=== PATIENT | male | born 1940 | race Caucasian/White ===

== ENCOUNTER 2019-04-25 11:00 | Emergency (ER) | payer OTHER | END 2019-04-25 13:40 | disposition home or self-care (01) | LOC: JER 11:00 ==

== ENCOUNTER 2019-12-18 12:31 | Inpatient (IN) | payer OTHER ==
--- NOTE | 2019-12-18 12:41 | PDOC ---
History of Present Illness - General Chief Complaint: Edema Stated Complaint: EDEMA Time Seen by Provider: 12/18/19 12:41 History Source: Patient Exam Limitations: Language Barrier (barbadian) - History of Present Illness Initial Comments: 12/18/19 12:42 79yM w PMHx HTN, CHF, BPH, venous stasis, DM, diabetic neuropathy presenting w progressive worsening SOB and BLE swelling/pain. Was discharged from [facility] 16d ago for brain bleed, has not been taking any medication. SOB relieved sitting up. Denies fever, cough, chest pain, ABD pain, nausea/vomiting , urinary/bowel mvmt changes. 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 Past History - Past Medical History Allergies/Adverse Reactions: Allergies Allergy/AdvReac Type Severity Reaction Status Date / Time No Known Allergies Allergy Verified 12/18/19 12:43 Home Medications: Ambulatory Orders Aspirin [ASA -] 81 mg PO DAILY 04/25/19 Atenolol [Tenormin -] 50 mg PO DAILY 04/25/19 Atorvastatin Ca [Lipitor] 20 mg PO HS 04/25/19 Clonidine HCl 0.1 mg PO DAILY 04/25/19 Empagliflozin [Jardiance] 10 mg PO DAILY 04/25/19 Furosemide [Lasix] 40 mg PO DAILY 04/25/19 Lisinopril [Prinivil] 20 mg PO DAILY 04/25/19 Metformin HCl [Glucophage] 500 mg PO DAILY 04/25/19 Mirabegron [Myrbetriq] 25 mg PO DAILY 04/25/19 Nifedipine ER [Procardia Xl -] 60 mg PO DAILY 04/25/19 Omeprazole Magnesium [Prilosec Otc] 20 mg PO DAILY 04/25/19 Sitagliptin Phosphate [Januvia] 100 mg PO DAILY 04/25/19 Tamsulosin HCl [Flomax] 0.4 mg PO DAILY 04/25/19 CVA: No COPD: No CHF: Yes Dementia: No Diabetes: Yes GI Disorders: No Disorders: No HTN: Yes Hypercholesterolemia: Yes Liver Disease: No Seizures: No Thyroid Disease: No - Surgical History Abdominal Surgery: No Appendectomy: No Cardiac Surgery: No Cholecystectomy: No Lung Surgery: No Neurologic Surgery: No Orthopedic Surgery: No - Psycho Social/Smoking Cessation Hx Smoking History: Never smoked Have you smoked in the past 12 months: No Hx Alcohol Use: No Drug/Substance Use Hx: No Review of Systems - Review of Systems Constitutional: No: Chills, Fever HEENTM: No: Eye Pain, Nose Pain, Nose Congestion, Throat Pain Respiratory: Yes: Shortness of Breath. No: Cough Cardiac (ROS): No: Chest Pain, Palpitations ABD/GI: No: Abdominal Distended, Constipated, Diarrhea, Nausea, Vomiting : No: Burning, Dysuria Musculoskeletal: No: Back Pain, Joint Pain Integumentary: No: Bruising, Flushing Neurological: No: Headache, Seizure Psychiatric: No: Anxiety, Depression Endocrine: No: Excessive Sweating, Intolerance to Cold, Intolerance to Heat Hematologic/Lymphatic: No: Anemia, Blood Clots *Physical Exam - Physical Exam General Appearance: Yes: Nourished, Appropriately Dressed, Mild Distress HEENT: positive: EOMI, SANDRO, Normal Voice. negative: Scleral Icterus (R), Scleral Icterus (L) Respiratory/Chest: positive: Crackles (lionel). negative: Chest Tender, Rhonchi, Stridor, Wheezing Cardiovascular: positive: Regular Rhythm, Regular Rate, S1, S2. negative: Murmur Gastrointestinal/Abdominal: positive: Normal Bowel Sounds, Soft, Distended. negative: Tender, Organomegaly Extremity: positive: Normal Capillary Refill, Other (BLE 3+ pitting edema w erythema, warmth up to knees, no open ulcers) Integumentary: positive: Normal Color Neurologic: positive: account development representative II-XII NML intact, Fully Oriented, Alert, Normal Response, Motor Strength 5/5, Responsive. negative: Sensory Deficit, Confused, Disoriented ED Treatment Course - LABORATORY CBC & Chemistry Diagram: 12/18/19 14:00 12/18/19 13:30 Medical Decision Making - Medical Decision Making 12/18/19 13:35 CXR cardiomegaly, small R pleural effusion, lionel pulmonary congestion EKG NSR, HR 90, QTc 437, TWI V6 Duplex US 2 legs Hgb 10.9 (baseline) --- 79yM w PMHx HTN, CHF, BPH, venous stasis, DM, diabetic neuropathy presenting w progressive worsening SOB and BLE swelling CHF exacerbation and cellulitis. Low concern for ACS vs PNA Given vanc, tylenol, 40 lasix, 1 inch nitro paste for repeat BP 180/100. Carr placed for accurate I/O. Placed on BiPap 14/, 40% for hypoxia. Admit tele for CHF exacerbation, cellulitis, HTN, acute respiratory failure requiring supplemental O2 Discharge - Discharge Information Problems reviewed: Yes Clinical Impression/Diagnosis: Hypertensive emergency CHF exacerbation Qualifiers: Heart failure type: unspecified Qualified Code(s): I50.9 - Heart failure, unspecified Acute respiratory failure Qualifiers: Respiratory failure complication: unspecified whether with hypoxia or hypercapnia Qualified Code(s): J96.00 - Acute respiratory failure, unspecified whether with hypoxia or hypercapnia Cellulitis Qualifiers: Site of cellulitis: extremity Site of cellulitis of extremity: lower extremity Laterality: right Qualified Code(s): L03.115 - Cellulitis of right lower limb Condition: Improved - Follow up/Referral Referrals: ON STAFF,NOT [Primary Care Provider] - - Patient Discharge Instructions - Post Discharge Activity
[2019-12-18] MEDS ORDERED: ACETAMINOPHEN 1000 MG/100 ML VIAL (NON FORMULARY) IVPB ONE (13:41)
[2019-12-18] MEDS ORDERED: VANCOMYCIN 1 GM in D5W (PRE-DOCKED) 1,000 MG/250 ML IVPB ONE (13:42)
[2019-12-18] MEDS ORDERED: FUROSEMIDE 40 MG/4 ML INJECTABLE VIAL ONE (14:10)
[2019-12-18] MEDS ORDERED: NITROGLYCERIN 2% OINTMENT - 1GM PACKET TD ONE ×2 (14:10→14:27)
[2019-12-18] MEDS ORDERED: VANCOMYCIN 1 GRAM (PRE-DOCKED) 1,000 MG/250 ML BAG IVPB ONE (14:23)
[2019-12-18] MEDS ORDERED: ACETAMINOPHEN INJECTION 100 ML IVPB ONE (14:23)
[2019-12-18] MEDS ORDERED: FUROSEMIDE 40 MG/4 ML INJECTABLE VIAL IVPUSH ONE (14:27)
--- NOTE | 2019-12-18 14:52 | PDOC ---
Documentation entered by Amanda Garica SCRIBE, acting as scribe for Diane Ulloa DO. Diane Ulloa DO: This documentation has been prepared by the Radha arredondo Nirvannie, SCRIBE, under my direction and personally reviewed by me in its entirety. I confirm that the documentation accurately reflects all work, treatment, procedures, and medical decision making performed by me. Attending Attestation - Resident Resident Name: Willie,Lake - ED Attending Attestation I have performed the following: I have examined & evaluated the patient, The case was reviewed & discussed with the resident, I agree w/resident's findings & plan, Exceptions are as noted - HPI HPI: 12/18/19 15:08 The patient is a 79 year old male, with a significant past medical history of HTN, CHF, BPH, DM, venous stasis, and diabetic neuropathy , who presents to the emergency department with progressively worsening shortness of breath (better sitting up) and bilateral lower extremity edema. As per patient, he was recently discharged from [facility] 16 days ago for an intracranial bleed and since then he has not been taking his medications. He denies any recent chest pain. He denies any recent fevers, chills, headache or dizziness. He denies any recent nausea, vomiting, diarrhea or constipation. He denies any recent dysuria, frequency, urgency or hematuria. Allergies: NKDA Primary Care Physician: Dr. Angel Duenas - Physicial Exam PE: 12/18/19 15:08 Constitutional: Awake, alert, oriented. No acute distress. Head: Normocephalic. Atraumatic Eyes: PERRL. EOMI. Conjunctivae are not pale. ENT: Mucous membranes are moist and intact. Posterior pharynx without exudates or erythema. Uvula midline. Neck: Supple. Full ROM. No lymphadenopathy. Cardiovascular: Regular rate. Regular rhythm. S1, S2 regular. Distal pulses are 2+ and symmetric. Pulmonary/Chest: +Bilateral rales. No evidence of respiratory distress. Clear to auscultation bilaterally No wheezing or rhonchi. Abdominal: Soft and non-distended. There is no tenderness. No rebound, guarding or rigidity. No organomegaly. No palpable masses. Good bowel sounds. Back: No CVA tenderness. Musculoskeletal: +Bilateral 3 + pitting edema radiating up to the knees with erythema, increased warmth, and pustules consistent with cellulitis. No cyanosis. No clubbing. Full range of motion in all extremities. No calf tenderness. Radial/pedal pulses are intact and 2+ bilaterally Skin: Skin is warm and dry. No petechiae. No purpura. Neurological: Alert and oriented to person, place, and time. Cranial nerves II -XII are grossly intact. Normal speech. Strength is grossly symmetric. No sensory deficits. Psychiatric: Good eye contact. Normal interaction, affect and behavior. - Medical Decision Making 12/18/19 14:37 79yo male with sob, LE swelling -pt with cellulitis to b/l LE with pustules -red and warm to touch -pt also with rales and tachypnea -concern for chf and le cellulitis -will send labs, ekg, cxr, vanco, cultures, bipap -pt will need admission 12/18/19 14:51 iv lasix, nitropast ordered pt placed on bipap 14/6 pt much more comfortable labs pending 12/18/19 15:21 no elevated wbc pt now resting comfortably 12/18/19 15:26 elevated bnp acute pulmonary edema pleural effusion on xray better on bipap 12/18/19 16:44 resident discussed the case with the admitting team who accepts the patient to service Heart Score/ECG Review - ECG Intrepretation Comment:: 12/18/19 14:51 sinus at 90, 1st degree av block, nl axis, q waves anteroseptally, t wave inversions lateral leads, abnl ekg
[2019-12-18 15:01] LABS: BASO % 0.5 % (0-2.0); EOS % 3.8 % (0-4.5); HEMATOCRIT 35.1 % (35.4-49); HEMOGLOBIN 10.9 GM/dL (11.7-16.9); LYMPH % 27.8 % (8-40); MCH 25.8 pg (25.7-33.7); MCHC 30.9 g/dl (32.0-35.9); MEAN CELL VOLUME 83.4 fl (80-96); MEAN PLT VOLUME 8.5 fl (7.5-11.1); MONO % 10.7 % (3.8-10.2); NEUT % 57.2 % (42.8-82.8); PLATELET COUNT 278 K/MM3 (134-434); RBC 4.21 M/mm3 (4.00-5.60); RDW 19.5 % (11.9-15.9); WHITE BLOOD COUNT 4.8 K/mm3 (4.0-10.0)
[2019-12-18 15:17] LABS: INR 1.25 (0.83-1.09); PROTHROMBIN TIME (PATIENT) 14.8 SEC (9.7-13.0)
[2019-12-18 15:20] LABS: ACTIVATED PTT 30.2 SECONDS (25.2-36.5)
[2019-12-18 15:23] LABS: ALBUMIN 3.1 g/dl (3.4-5.0); BILIRUBIN,TOTAL 0.3 mg/dL (0.2-1); BLOOD UREA NITROGEN 11.1 mg/dL (7-18); CALCIUM 8.5 mg/dL (8.5-10.1); CREATININE 0.8 mg/dL (0.55-1.3); POTASSIUM 4.1 mmol/L (3.5-5.1); TOT PROT 7.3 g/dl (6.4-8.2)
[2019-12-18] MEDS ORDERED: ASPIRIN 81 MG CHEWABLE TABLETS PO ONE (15:26)
[2019-12-18] MEDS ORDERED: ASPIRIN 325 MG ENTERIC COATED TABLET (FP) ONE (16:07)
--- NOTE | 2019-12-18 17:25 | HP ---
CHIEF COMPLAINT: Shortness of breath and leg swelling PCP: retirement DR Frank HISTORY OF PRESENT ILLNESS:The patient is a 79 year old male, with a significant past medical history of HTN, CHF, BPH, DM, venous stasis, and diabetic neuropathy , who presents to the emergency department with progressively worsening shortness of breath (better sitting up) and bilateral lower extremity edema and redness which is worsening for last few days. according to ER he was recently discharged from [facility] 16 days ago for an intracranial bleed and since then he has not been taking his medications but I spoke with the patient and the family did does not remember any visit to [facility] for any reason he just live in a intermediate. He denies any recent chest pain. He denies any recent fevers, chills, headache or dizziness. He denies any recent nausea, vomiting, diarrhea or constipation. He denies any recent dysuria, frequency, urgency or hematuria. ER course was notable for: (1) history of heart failure (2) diabetes (3) leg cellulitis Recent Travel: None PAST MEDICAL HISTORY: Hypertension, CHF, BPH, DM, venous stasis ulcers, diabetic neuropathy, coronary artery disease, BPH PAST SURGICAL HISTORY: He does not remember Social History: No alcohol drug and smoking at this time Smoking: Alcohol: Drugs: Allergies No Known Allergies Allergy (Verified 12/18/19 12:43) HOME MEDICATIONS: Home Medications Medication Instructions Recorded Atorvastatin Ca [Lipitor] 20 mg PO HS 04/25/19 Furosemide [Lasix] 40 mg PO DAILY 04/25/19 Metformin HCl [Glucophage] 500 mg PO BID 04/25/19 Omeprazole Magnesium [Prilosec Otc] 40 mg PO DAILY 04/25/19 Ammonium Lactate [Skin Treatment] 1 applic TL BID 12/18/19 Ascorbic Acid/Ascorbate Sodium 500 mg PO HS 12/18/19 [Vitamin C 500 mg Wafer] Aspirin [Aspirin EC] 81 mg PO DAILY 12/18/19 Cholecalciferol (Vitamin D3) 1,000 unit PO DAILY 12/18/19 [Vitamin D3 -] Docusate Sodium [Colace] 100 mg PO DAILY 12/18/19 Enoxaparin [Lovenox -] 40 mg SQ DAILY 12/18/19 Ferrous Sulfate [Feosol] 300 mg GT HS 12/18/19 Insulin Glargine,Hum.rec.anlog 8 units SQ HS 12/18/19 [Basaglar Kwikpen U-100] Insulin Lispro [Humalog Kwikpen 1 unit SQ AC 12/18/19 U-100] Metoprolol Tartrate 25 mg PO QID 12/18/19 Terazosin HCl [Hytrin] 1 mg PO HS 12/18/19 Physical examination Constitutional: Awake, alert, oriented. No acute distress. Head: Normocephalic. Atraumatic Eyes: PERRL. EOMI. Conjunctivae are not pale. ENT: Mucous membranes are moist and intact. Posterior pharynx without exudates or erythema. Uvula midline. Neck: Supple. Full ROM. No lymphadenopathy. Cardiovascular: Regular rate. Regular rhythm. S1, S2 regular. Distal pulses are 2+ and symmetric. Pulmonary/Chest: +Bilateral rales. No evidence of respiratory distress. Clear to auscultation bilaterally No wheezing or rhonchi. Abdominal: Soft and non-distended. There is no tenderness. No rebound, guarding or rigidity. No organomegaly. No palpable masses. Good bowel sounds. Back: No CVA tenderness. Musculoskeletal: +Bilateral 3 + pitting edema radiating up to the knees with erythema, increased warmth, and pustules consistent with cellulitis. No cyanosis. No clubbing. Full range of motion in all extremities. No calf tenderness. Radial/pedal pulses are intact and 2+ bilaterally Skin: Skin is warm and dry. No petechiae. No purpura. Neurological: Alert and oriented to person, place, and time. Cranial nerves II -XII are grossly intact. Normal speech. Strength is grossly symmetric. No sensory deficits. Psychiatric: Good eye contact. Normal interaction, affect and behavior. Vital Signs - 24 hr 12/18/19 12/18/19 12/18/19 12:35 13:25 13:40 Temperature 97.7 F Pulse Rate 84 Pulse Rate [ Apical] Respiratory 16 Rate Blood Pressure 155/90 Blood Pressure [Right Arm] O2 Sat by Pulse 92 L 91 L 95 Oximetry (%) 12/18/19 12/18/19 12/18/19 13:57 14:15 15:50 Temperature 98.2 F Pulse Rate Pulse Rate [ 32 L Apical] Respiratory Rate Blood Pressure Blood Pressure 205/122 H [Right Arm] O2 Sat by Pulse 99 Oximetry (%) 12/18/19 16:13 Temperature Pulse Rate Pulse Rate [ 88 Apical] Respiratory 22 H Rate Blood Pressure Blood Pressure 155/95 [Right Arm] O2 Sat by Pulse 100 Oximetry (%) Review of system done H EENT no dizziness GI no nausea vomiting history of BPH locomotor complaint leg swelling cardiac complain of shortness of breath negative chest pain respiratory complains of shortness of breath Neuro no history of stroke Endo history of diabetes Locomotor history of arthritis. Laboratory Results - last 24 hr 12/18/19 12/18/19 12/18/19 13:30 14:00 14:00 WBC 4.8 RBC 4.21 Hgb 10.9 L Hct 35.1 L MCV 83.4 MCH 25.8 MCHC 30.9 L RDW 19.5 H Plt Count 278 D MPV 8.5 Absolute Neuts (auto) 2.8 Neutrophils % 57.2 Lymphocytes % 27.8 Monocytes % 10.7 H Eosinophils % 3.8 Basophils % 0.5 Nucleated RBC % 0 PT with INR INR PTT (Actin FS) Sodium 143 Potassium 4.1 Chloride 108 H Carbon Dioxide 29 Anion Gap 6 L BUN 11.1 Creatinine 0.8 Est GFR (CKD-EPI)AfAm 98.47 Est GFR (CKD-EPI)NonAf 84.96 Random Glucose 178 H Lactic Acid Calcium 8.5 Total Bilirubin 0.3 AST 18 ALT 20 Alkaline Phosphatase 81 Creatine Kinase 80 Troponin I 0.07 H B-Natriuretic Peptide 1255.4 H Total Protein 7.3 Albumin 3.1 L 12/18/19 12/18/19 14:00 14:00 WBC RBC Hgb Hct MCV MCH MCHC RDW Plt Count MPV Absolute Neuts (auto) Neutrophils % Lymphocytes % Monocytes % Eosinophils % Basophils % Nucleated RBC % PT with INR 14.80 H INR 1.25 H PTT (Actin FS) 30.2 Sodium Potassium Chloride Carbon Dioxide Anion Gap BUN Creatinine Est GFR (CKD-EPI)AfAm Est GFR (CKD-EPI)NonAf Random Glucose Lactic Acid 2.1 H Calcium Total Bilirubin AST ALT Alkaline Phosphatase Creatine Kinase Troponin I B-Natriuretic Peptide Total Protein Albumin ASSESSMENT/PLAN: 79-year-old male with the acute shortness of breath and also both leg swelling and cellulitis admitted to the hospital for acute worsening of shortness of breath and CHF and cellulitis and positive troponin. Start him on bedrest with DVT prophylaxis BiPAP machine with automatic setting IV diuretic Lasix 40 mg twice a day Unasyn 1.5 g every 6 hourly for cellulitis Aspirin and metoprolol for coronary artery disease For positive troponin will do serial troponin levels. This is probably is a demand ischemia Diabetes will start him on metformin and insulin coverage Prostate enlargement will continue Ramirez and Hyperlipidemia continue atorvastatin For constipation continue docusate. Visit type - Emergency Visit Emergency Visit: Yes ED Registration Date: 12/18/19 Care time: The patient presented to the Emergency Department on the above date and was hospitalized for further evaluation of their emergent condition. - New Patient This patient is new to me today: No - Critical Care Critical Care patient: No
[2019-12-18] MEDS: metFORMIN HCL 500 MG TABLET (FP) PO SCH (18:44)
[2019-12-18] MEDS: AMPICILLIN NA/SULBACTAM NA 1.5 GM in SODIUM CHLORIDE 100 ML IVPB SCH (22:45)
[2019-12-19] MEDS: TERAZOSIN HCL 1 MG CAPSULE PO SCH ×2 (05:29→23:18)
[2019-12-19] MEDS: ATORVASTATIN CA 20 MG TABLET (FP) PO SCH ×2 (05:29→23:19)
[2019-12-19] MEDS: METOPROLOL TARTRATE 50 MG TABLET (FP) PO SCH ×3 (05:30→23:19)
[2019-12-19] MEDS: INSULIN SLIDING SCALE (NOVOLOG) 1 VIAL SQ SCH ×5 (06:11→23:19)
[2019-12-19 06:41] LABS: CALCIUM 8.6 mg/dL (8.5-10.1); CREATININE 0.8 mg/dL (0.55-1.3); POTASSIUM 3.7 mmol/L (3.5-5.1)
[2019-12-19] MEDS: AMPICILLIN NA/SULBACTAM NA 1.5 GM in SODIUM CHLORIDE 100 ML IVPB SCH ×5 (07:26→23:27)
[2019-12-19] MEDS: FUROSEMIDE 40 MG/4 ML INJECTABLE VIAL IVPUSH SCH ×2 (07:26→17:07)
[2019-12-19] MEDS ORDERED: FUROSEMIDE 40 MG/4 ML INJECTABLE VIAL ONE (07:27)
[2019-12-19] MEDS: metFORMIN HCL 500 MG TABLET (FP) PO SCH ×2 (08:00→17:06)
--- NOTE | 2019-12-19 09:21 | EKG ---
Test Reason : Blood Pressure : / mmHG Vent. Rate : 090 BPM Atrial Rate : 090 BPM P-R Int : 202 ms QRS Dur : 088 ms QT Int : 358 ms P-R-T Axes : 041 082 050 degrees QTc Int : 437 ms POOR DATA QUALITY, INTERPRETATION MAY BE ADVERSELY AFFECTED NORMAL SINUS RHYTHM ANTEROSEPTAL INFARCT , AGE UNDETERMINED T WAVE ABNORMALITY, CONSIDER INFERIOR ISCHEMIA ABNORMAL ECG WHEN COMPARED WITH ECG OF 09-OCT-2007 12:30, ANTEROSEPTAL INFARCT IS NOW PRESENT NON-SPECIFIC CHANGE IN ST SEGMENT IN LATERAL LEADS Confirmed by Stefanie Gan ([id number]) on 12/19/2019 9:21:13 AM Referred By: Confirmed By:Stefanie Gan
--- NOTE | 2019-12-19 09:24 | CON.CARD ---
Consult Consult Specialty:: CV - History of Present Illness Chief Complaint: sob History of Present Illness: 79 M here with sob. reports progressively worsening shortness of breath and orthopnea (better sitting up). also with bilateral lower extremity edema and redness provides history of recently discharge from [facility] (16 days ago) for an intracranial bleed and since then he has not been taking his medications although the admitting team d/w'd patient and the family who could not corroborate this history. [facility] resident pt chloé historian. 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 denies feeling sob prior to presentation. currently denies sob, cp, palp. leg swelling persists hosp course: BP to 200/120-->140s/90s trop 0.07-0.08 BNP 1200 PMH: HTN, CHF, BPH, DM, venous stasis, and diabetic neuropathy - Alcohol/Substance Use Hx Alcohol Use: No - Smoking History Smoking history: Never smoked Have you smoked in the past 12 months: No Home Medications - Allergies Allergies/Adverse Reactions: Allergies Allergy/AdvReac Type Severity Reaction Status Date / Time No Known Allergies Allergy Verified 12/18/19 12:43 - Home Medications Home Medications: Ambulatory Orders Atorvastatin Ca [Lipitor] 20 mg PO HS 04/25/19 Furosemide [Lasix] 40 mg PO DAILY 04/25/19 Metformin HCl [Glucophage] 500 mg PO BID 04/25/19 Omeprazole Magnesium [Prilosec Otc] 40 mg PO DAILY 04/25/19 Ammonium Lactate [Skin Treatment] 1 applic TL BID 12/18/19 Ascorbic Acid/Ascorbate Sodium [Vitamin C 500 mg Wafer] 500 mg PO HS 12/18/19 Aspirin [Aspirin EC] 81 mg PO DAILY 12/18/19 Cholecalciferol (Vitamin D3) [Vitamin D3 -] 1,000 unit PO DAILY 12/18/19 Docusate Sodium [Colace] 100 mg PO DAILY 12/18/19 Enoxaparin [Lovenox -] 40 mg SQ DAILY 12/18/19 Ferrous Sulfate [Feosol] 300 mg GT HS 12/18/19 Insulin Glargine,Hum.rec.anlog [Basaglar Kwikpen U-100] 8 units SQ HS 12/18/19 Insulin Lispro [Humalog Kwikpen U-100] 1 unit SQ AC 12/18/19 Metoprolol Tartrate 25 mg PO QID 12/18/19 Terazosin HCl [Hytrin] 1 mg PO HS 12/18/19 Family Medical History Family History: Denies (denies known CMP) Review of Systems - Review of Systems Constitutional: denies: Chills, Fever Eyes: denies: Eye Pain HENT: denies: Nasal Congestion Neck: denies: Stiffness Cardiovascular: denies: Palpitations Respiratory: denies: Orthopnea, PND Gastrointestinal: denies: Diarrhea, Rectal Bleeding Genitourinary: denies: Burning, Hematuria Musculoskeletal: denies: Muscle Pain Integumentary: denies: Rash Neurological: denies: Numbness, Seizure, Syncope Endocrine: denies: Excessive Sweating Hematology/Lymphatic: denies: Excessive Bleeding Vital Signs: Vital Signs Temperature 98.2 F 12/18/19 23:09 Pulse Rate 106 H 12/19/19 06:17 Respiratory Rate 18 12/19/19 06:17 Blood Pressure 145/96 12/19/19 06:17 O2 Sat by Pulse Oximetry (%) 97 12/19/19 06:17 Constitutional: Yes: Well Nourished, No Distress Eyes: No: Sclera Icterus HENT: No: Nasal Congestion Neck: No: Decreased ROM Respiratory: Yes: Rales (bases). No: Accessory Muscle Use, Wheezes Gastrointestinal: Yes: Normal Bowel Sounds. No: Distention, Hepatomegaly, Palpable Mass, Tenderness Cardiovascular: Yes: Regular Rate and Rhythm JVD: Yes Carotid Bruit: No PMI: Non-Displaced Heart Sounds: Yes: S1, S2. No: Gallop Murmur: No: Systolic Murmur, Diastolic Murmur Musculoskeletal: Yes: Other (No kyphosis) Extremities: No: Cool, Cyanosis Edema: Yes (trace pretib, mild eryth) Peripheral Pulses: 2+ Left Carotid, 2+ Right Carotid, 2+ Left Doralis Pedis, 2+ Right Dorsalis Pedis Integumentary: No: Jaundice Neurological: Yes: Alert. No: Seizure Psychiatric: No: Agitated - Other Data Labs, Other Data: CBC, BMP 12/18/19 14:00 12/19/19 05:48 INR, PTT INR 1.25 (0.83-1.09) H 12/18/19 14:00 Troponin, BNP 12/18/19 12/18/19 12/18/19 13:30 14:00 16:50 Troponin I 0.07 H 0.08 H B-Natriuretic Peptide 1255.4 H Troponin, BNP 12/18/19 12/18/19 12/18/19 13:30 14:00 16:50 Troponin I 0.07 H 0.08 H B-Natriuretic Peptide 1255.4 H Assessment/Plan CXR: cardiomegaly, prominent hilar markings, minimal congestive changes, R effusion. + loop recorder implant seen ECG: NSR, ? old AWMI, NSST-Ts (nonspecifically changed vs 2006) acute on chronic CHF, ? type, h/o venous ins'y: -congestion on cxr (though notably effusion is unilateral--? chronic/loculated) -BNP 1200, no priors available. CXR with fluid. ? JVD (not convincing) -cardiomegaly, no details of prior echo -check echo (not on HFrEF meds per home list) -lasix 40 po qd at home--agree with 40 IV bid for now but suspect may not need this much -bp mgmt -local mgmt of LEs per hospitalist -has loop recorder implant, ? arrhythmia history--rec obtaining supplemental info from orin or other outpt treating telescope operator to clarify HTN: -initially severely elevated, much improved this AM -cont current meds for now, observe trend DM: -per hospitalist
[2019-12-19] MEDS: DOCUSATE SODIUM 100 MG CAPSULE (FP) PO SCH (11:30)
[2019-12-19] MEDS: ENOXAPARIN NA (PORCINE) 40 MG/0.4 ML DISP.SYRIN SQ SCH (11:47)
[2019-12-19] MEDS: ASPIRIN COATED 81 MG TABLET.EC PO SCH (11:47)
[2019-12-19] MEDS: PANTOPRAZOLE 40 MG TABLET PO SCH (11:48)
[2019-12-19] MEDS: CHOLECALCIFEROL (VIT D3) 1,000 UNIT (25 MCG) TABLET PO SCH (11:48)
--- NOTE | 2019-12-19 12:54 | PN ---
Progress Note, Physician Chief Complaint: SOB resolving with BiPap and lasix. LE remain tender with edema - Current Medication List Current Medications: Active Medications Aspirin (Ecotrin -) 81 mg PO DAILY [facility] Last Admin: 12/19/19 11:47 Dose: 81 mg Atorvastatin Calcium (Lipitor -) 20 mg PO HS [facility] Last Admin: 12/19/19 05:29 Dose: Not Given Cholecalciferol (Vitamin D3 -) 1,000 unit PO DAILY [facility] Last Admin: 12/19/19 11:48 Dose: 1,000 unit Docusate Sodium (Colace -) 100 mg PO DAILY [facility] Last Admin: 12/19/19 11:30 Dose: 100 mg Enoxaparin Sodium (Lovenox -) 40 mg SQ DAILY [facility] Last Admin: 12/19/19 11:47 Dose: 40 mg Furosemide (Lasix Injection -) 40 mg IVPUSH BID@0600,1400 [facility] Last Admin: 12/19/19 07:26 Dose: 40 mg Ampicillin Sodium/Sulbactam (Sodium 1.5 gm/ Sodium Chloride) 100 mls @ 200 mls/ hr IVPB Q6H-IV [facility] Last Admin: 12/19/19 11:32 Dose: Not Given Insulin Aspart (Novolog Vial Sliding Scale -) 1 vial SQ ACHS [facility]; Protocol Last Admin: 12/19/19 11:49 Dose: 6 units Metformin HCl (Glucophage -) 500 mg PO BIDAC [facility] Last Admin: 12/19/19 08:00 Dose: 500 mg Metoprolol Tartrate (Lopressor -) 50 mg PO BID [facility] Last Admin: 12/19/19 11:47 Dose: 50 mg Pantoprazole Sodium (Protonix -) 40 mg PO DAILY [facility] Last Admin: 12/19/19 11:48 Dose: 40 mg Terazosin HCl (Hytrin -) 1 mg PO HS [facility] Last Admin: 12/19/19 05:29 Dose: Not Given - Objective Vital Signs: Vital Signs Temperature 98.2 F 12/18/19 23:09 Pulse Rate 105 H 12/19/19 11:49 Respiratory Rate 18 12/19/19 11:49 Blood Pressure 169/77 12/19/19 11:49 O2 Sat by Pulse Oximetry (%) 98 12/19/19 11:49 Constitutional: Yes: Well Nourished, No Distress, Calm Eyes: Yes: WNL, Conjunctiva Clear HENT: Yes: WNL Neck: Yes: WNL, Supple, Trachea Midline Cardiovascular: Yes: WNL, Regular Rate and Rhythm Respiratory: Yes: Diminished, On BiPap (at night), On Nasal O2 (2L), Rales ( scattered) Gastrointestinal: Yes: WNL, Normal Bowel Sounds ...Rectal Exam: Yes: Deferred Genitourinary: Yes: WNL Breast(s): Yes: WNL Musculoskeletal: Yes: WNL Extremities: Yes: Erythema Edema: Yes Edema: LLE: 2+, RLE: 2+ Integumentary: Yes: Erythema, Other (erythema to LE) Neurological: Yes: WNL, Alert, Oriented ...Motor Strength: WNL Psychiatric: Yes: WNL Labs: CBC, BMP 12/18/19 14:00 12/19/19 05:48 INR, PTT INR 1.25 (0.83-1.09) H 12/18/19 14:00 - ....Imaging Chest X-ray: Image Reviewed (Increased pulmnary markings, right pleural effusion ) Problem List - Problems (1) HTN (hypertension) Assessment/Plan: normotensive c/w hyrtin Code(s): I10 - ESSENTIAL (PRIMARY) HYPERTENSION (2) Venous stasis Code(s): I87.8 - OTHER SPECIFIED DISORDERS OF VEINS (3) Diabetic neuropathy Code(s): E11.40 - TYPE 2 DIABETES MELLITUS WITH DIABETIC NEUROPATHY, UNSP (4) Prophylactic measure Assessment/Plan: FEN Fluids: no additional IVF, on diuretics Electrolytes: replete as indicated Nutrition: diabletic diet DVT prophylaxis: lovenox, oob, ambulation Dispo: continues to require inpatient care. Full code discharge planning Code(s): Z29.9 - ENCOUNTER FOR PROPHYLACTIC MEASURES, UNSPECIFIED (5) CHF exacerbation Assessment/Plan: c/w lasix 40mg BID clinically improved daily weights TTE ordered and pending cardiology following Code(s): I50.9 - HEART FAILURE, UNSPECIFIED Qualifiers: Heart failure type: unspecified Qualified Code(s): I50.9 - Heart failure, unspecified (6) Cellulitis Assessment/Plan: cellulitis to LE unasyn started, improving Code(s): L03.90 - CELLULITIS, UNSPECIFIED Qualifiers: Site of cellulitis: extremity Site of cellulitis of extremity: lower extremity Laterality: right Qualified Code(s): L03.115 - Cellulitis of right lower limb Visit type - Emergency Visit Emergency Visit: Yes ED Registration Date: 12/18/19 Care time: The patient presented to the Emergency Department on the above date and was hospitalized for further evaluation of their emergent condition. - New Patient This patient is new to me today: Yes Date on this admission: 12/19/19 - Critical Care Critical Care patient: No - Discharge Referral Referred to [facility] Med P.C.: No
[2019-12-19] MEDS ORDERED: PT OWN MED DRAWER 7, Y5N ONE (22:25)
[2019-12-19] MEDS ORDERED: AMPICILLIN NA/SULBACTAM NA 1.5 GM VIAL ONE (22:33)
[2019-12-19] MEDS ORDERED: SODIUM CHLORIDE 100 ML IVPB ONE (22:33)
[2019-12-20] MEDS ORDERED: SODIUM CHLORIDE 100 ML IVPB ONE ×4 (06:40→23:02)
[2019-12-20] MEDS ORDERED: AMPICILLIN NA/SULBACTAM NA 1.5 GM VIAL ONE ×4 (06:40→23:02)
[2019-12-20 06:43] LABS: BASO % 0.3 % (0-2.0); EOS % 3.1 % (0-4.5); HEMATOCRIT 31.9 % (35.4-49); HEMOGLOBIN 10.1 GM/dL (11.7-16.9); LYMPH % 19.1 % (8-40); MCHC 31.8 g/dl (32.0-35.9); MEAN CELL VOLUME 81.7 fl (80-96); MEAN PLT VOLUME 8.4 fl (7.5-11.1); MONO % 9.7 % (3.8-10.2); NEUT % 67.8 % (42.8-82.8); PLATELET COUNT 273 K/MM3 (134-434); WHITE BLOOD COUNT 6.9 K/mm3 (4.0-10.0)
[2019-12-20 07:11] LABS: ALBUMIN 2.7 g/dl (3.4-5.0); BILIRUBIN,TOTAL 0.7 mg/dL (0.2-1); BLOOD UREA NITROGEN 14.7 mg/dL (7-18); CALCIUM 8.3 mg/dL (8.5-10.1); CREATININE 0.8 mg/dL (0.55-1.3); POTASSIUM 3.4 mmol/L (3.5-5.1); TOT PROT 6.5 g/dl (6.4-8.2)
[2019-12-20] MEDS: AMPICILLIN NA/SULBACTAM NA 1.5 GM in SODIUM CHLORIDE 100 ML IVPB SCH ×4 (07:17→23:45)
[2019-12-20] MEDS: FUROSEMIDE 40 MG/4 ML INJECTABLE VIAL IVPUSH SCH ×2 (07:18→15:37)
[2019-12-20] MEDS: INSULIN SLIDING SCALE (NOVOLOG) 1 VIAL SQ SCH ×4 (07:19→23:49)
--- NOTE | 2019-12-20 10:51 | ECHO ---
Name: MERLE KHAN Exam:Adult Echocardiogram Study Date: 12/20/2019 09:43 AM Age: 79 yrs Reason For Study: CHF Height: 71 in Weight: 201 lb BSA: 2.1 m2 MMode/2D Measurements & Calculations IVSd: 1.6 cm Ao root diam: 3.2 cm LVIDd: 4.0 cm LA dimension: 3.3 cm LVIDs: 2.9 cm LVPWd: 1.7 cm LVPWs: 1.9 cm EDV(Teich): 69.7 ml ESV(Teich): 32.8 ml LVOT diam: 1.8 cm TAPSE: 1.5 cm RV S Renny: 7.3 cm/sec Doppler Measurements & Calculations MV E max renny: 76.0 cm/sec Ao V2 max: 120.3 cm/sec MV A max renny: 52.3 cm/sec Ao max P.8 mmHg MV E/A: 1.5 MV dec time: 0.14 sec GRICELDA(V,D): 2.0 cm2 LV V1 max P.4 mmHg TR max renny: 215.8 cm/sec LV V1 max: 91.8 cm/sec TR max P.6 mmHg PA V2 max: 92.3 cm/sec Med Peak E' Renny: 3.6 cm/sec PA max P.4 mmHg Med E/e': 21.0 Lat Peak E' Renny: 4.3 cm/sec Lat E/e': 17.8 Procedure A complete two-dimensional transthoracic echocardiogram was performed (2D, M-mode, Doppler and color flow Doppler). Left Ventricle The left ventricle is normal in size. There is severe concentric left ventricular hypertrophy. The le ft ventricular ejection fraction is normal. Ejection Fraction = 60%. E/A reversal consistent with but no t diagnostic of poor LV compliance. The left ventricular wall motion is normal. Right Ventricle The right ventricle is normal in size and function. Atria Normal left and right atrial size and function. Mitral Valve There is mild mitral annular calcification. There is trace mitral regurgitation. Tricuspid Valve The tricuspid valve is normal in structure and function. There is mild tricuspid regurgitation. Right ventricular systolic pressure is 29 mmhg. Assuming the RA pressure is 10 mmHg. Aortic Valve There is trivial aortic valve thickening. Trace aortic regurgitation. Pulmonic Valve The pulmonic valve is normal in structure and function. Great Vessels The aortic root is normal size. Pericardium/Pleura Moderate pericardial effusion (1-2 cm). There are no echocardiographic indications of cardiac tampona de. There is no pleural effusion. Interpretation Summary There is severe concentric left ventricular hypertrophy. The left ventricular ejection fraction is normal. Ejection Fraction = 60%. There is mild mitral annular calcification. There is trace mitral regurgitation. There is mild tricuspid regurgitation. Right ventricular systolic pressure is 29 mmhg. Assuming the RA pressure is 10 mmHg There is trivial aortic valve thickening. Trace aortic regurgitation. Moderate pericardial effusion (1-2 cm) There are no echocardiographic indications of cardiac tamponade. MD Jb Mina 12/20/2019 10:51 AM
[2019-12-20] MEDS: ENOXAPARIN NA (PORCINE) 40 MG/0.4 ML DISP.SYRIN SQ SCH (11:12)
[2019-12-20] MEDS: ASPIRIN COATED 81 MG TABLET.EC PO SCH (11:13)
[2019-12-20] MEDS: METOPROLOL TARTRATE 50 MG TABLET (FP) PO SCH ×2 (11:13→23:45)
[2019-12-20] MEDS: PANTOPRAZOLE 40 MG TABLET PO SCH (11:13)
[2019-12-20] MEDS: DOCUSATE SODIUM 100 MG CAPSULE (FP) PO SCH (11:13)
[2019-12-20] MEDS: CHOLECALCIFEROL (VIT D3) 1,000 UNIT (25 MCG) TABLET PO SCH (11:13)
--- NOTE | 2019-12-20 12:11 | PN ---
Progress Note (short form) - Note Progress Note: s: dyspnea a little better, stable edema. no chest pain, palps, dizziness no cigs Current Medications Aspirin (Ecotrin -) 81 mg PO DAILY [facility] Last Admin: 12/20/19 11:13 Dose: 81 mg Atorvastatin Calcium (Lipitor -) 20 mg PO [facility] Last Admin: 12/19/19 23:19 Dose: 20 mg Cholecalciferol (Vitamin D3 -) 1,000 unit PO DAILY [facility] Last Admin: 12/20/19 11:13 Dose: 1,000 unit Docusate Sodium (Colace -) 100 mg PO DAILY [facility] Last Admin: 12/20/19 11:13 Dose: 100 mg Enoxaparin Sodium (Lovenox -) 40 mg SQ DAILY [facility] Last Admin: 12/20/19 11:12 Dose: 40 mg Furosemide (Lasix Injection -) 40 mg IVPUSH BID@0600,1400 [facility] Last Admin: 12/20/19 07:18 Dose: 40 mg Ampicillin Sodium/Sulbactam (Sodium 1.5 gm/ Sodium Chloride) 100 mls @ 200 mls/ hr IVPB Q6H-IV [facility] Last Admin: 12/20/19 08:26 Dose: 200 mls/hr Insulin Aspart (Novolog Vial Sliding Scale -) 1 vial SQ ACHS [facility]; Protocol Last Admin: 12/20/19 11:19 Dose: 4 units Metoprolol Tartrate (Lopressor -) 50 mg PO BID [facility] Last Admin: 12/20/19 11:13 Dose: 50 mg Pantoprazole Sodium (Protonix -) 40 mg PO DAILY [facility] Last Admin: 12/20/19 11:13 Dose: 40 mg Terazosin HCl (Hytrin -) 1 mg PO [facility] Last Admin: 12/19/19 23:18 Dose: 1 mg Vital Signs Period Temp Pulse Resp BP Sys/Flores Pulse Ox Last 24 Hr 98 F-99.6 F 83-122 18-23 100-135/56-82 93-96 Constitutional: Yes: Well Nourished, No Distress Eyes: No: Sclera Icterus HENT: No: Nasal Congestion Neck: No: Decreased ROM Respiratory: Yes: Rales (bases). No: Accessory Muscle Use, Wheezes Gastrointestinal: Yes: Normal Bowel Sounds. No: Distention, Hepatomegaly, Palpable Mass, Tenderness Cardiovascular: Yes: Regular Rate and Rhythm JVD: Yes Carotid Bruit: No PMI: Non-Displaced Heart Sounds: Yes: S1, S2. No: Gallop Murmur: No: Systolic Murmur, Diastolic Murmur Musculoskeletal: Yes: Other (No kyphosis) Extremities: No: Cool, Cyanosis Edema: Yes (trace pretib, mild eryth) Peripheral Pulses: 2+ Left Carotid, 2+ Right Carotid, 2+ Left Doralis Pedis, 2+ Right Dorsalis Pedis Integumentary: No: Jaundice Neurological: Yes: Alert. No: Seizure Psychiatric: No: Agitated Assessment/Plan CXR: cardiomegaly, prominent hilar markings, minimal congestive changes, R effusion. + loop recorder implant seen ECG: NSR, ? old AWMI, NSST-Ts (nonspecifically changed vs 2006) echo 12/2019 severe conc LVH, nl LV function, mild MAC, tr MR, mild TR, RVSP 29 mmHg, tr AR, mod pericardial effusion, no tamponade tele: sinus tach acute on chronic CHF, ? type, h/o venous ins'y: -congestion on cxr (though notably effusion is unilateral--? chronic/loculated) -BNP 1200, no priors available. CXR with fluid. -cardiomegaly, no details of prior echo - nl LV function on echo here -lasix 40 po qd at home - cont lasix 40 mg IV BID - Cr stable, wt down, dyspnea improving -bp mgmt -local mgmt of LEs per hospitalist -has loop recorder implant, ? 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
[2019-12-20] MEDS ORDERED: POTASSIUM CHLORIDE TABS 20 MEQ TABLET.ER (FP) PO ONE (13:54)
--- NOTE | 2019-12-20 17:07 | PN ---
Physical Exam: SUBJECTIVE: Patient seen and examined at the bedside. denies any discomfort. OBJECTIVE: The patient is a 79 year old male, with a significant past medical history of HTN, CHF, BPH, DM, venous stasis, and diabetic neuropathy , who presents to the emergency department with progressively worsening shortness of breath and bilateral lower extremity edema and redness which is worsening for last few days. Vital Signs Period Temp Pulse Resp BP Sys/Flores Pulse Ox Last 24 Hr 98 F-99.6 F 83-122 18-22 100-135/56-82 93-95 GENERAL: The patient is awake, alert, and fully oriented, in no acute distress. forgetful HEAD: Normal with no signs of trauma. EYES: PERRL, extraocular movements intact, sclera anicteric, conjunctiva clear. No ptosis. ENT: Ears normal, nares patent, oropharynx clear without exudates NECK: Trachea midline, full range of motion, supple. LUNGS: Breath sounds equal, clear to auscultation bilaterally HEART: Regular rate and rhythm ABDOMEN: Soft, nontender, nondistended, normoactive bowel sounds EXTREMITIES: 2+ lower ext edema NEUROLOGICAL: Normal speech, gait not observed. PSYCH: Normal mood, normal affect. SKIN: Warm, dry, normal turgor, no rashes or lesions noted Laboratory Results - last 24 hr 12/19/19 12/20/19 12/20/19 22:42 06:00 06:00 WBC 6.9 RBC 3.90 L Hgb 10.1 L Hct 31.9 L MCV 81.7 MCH 26.0 MCHC 31.8 L RDW 19.0 H Plt Count 273 MPV 8.4 Absolute Neuts (auto) 4.7 Neutrophils % 67.8 Lymphocytes % 19.1 D Monocytes % 9.7 Eosinophils % 3.1 Basophils % 0.3 Nucleated RBC % 0 Sodium 140 Potassium 3.4 L Chloride 103 Carbon Dioxide 31 Anion Gap 5 L BUN 14.7 Creatinine 0.8 Est GFR (CKD-EPI)AfAm 98.47 Est GFR (CKD-EPI)NonAf 84.96 POC Glucometer 176 Random Glucose 187 H Calcium 8.3 L Magnesium 2.0 Total Bilirubin 0.7 AST 16 ALT 15 Alkaline Phosphatase 70 Total Protein 6.5 Albumin 2.7 L 12/20/19 12/20/19 07:19 11:16 WBC RBC Hgb Hct MCV MCH MCHC RDW Plt Count MPV Absolute Neuts (auto) Neutrophils % Lymphocytes % Monocytes % Eosinophils % Basophils % Nucleated RBC % Sodium Potassium Chloride Carbon Dioxide Anion Gap BUN Creatinine Est GFR (CKD-EPI)AfAm Est GFR (CKD-EPI)NonAf POC Glucometer 186 235 Random Glucose Calcium Magnesium Total Bilirubin AST ALT Alkaline Phosphatase Total Protein Albumin Active Medications Generic Name Dose Route Start Last Admin Trade Name Freq PRN Reason Stop Dose Admin Aspirin 81 mg 12/19/19 10:00 12/20/19 11:13 Ecotrin - PO 81 mg DAILY [facility] Administration Atorvastatin Calcium 20 mg 12/18/19 22:00 12/19/19 23:19 Lipitor - PO 20 mg HS [facility] Administration Cholecalciferol 1,000 unit 12/19/19 10:00 12/20/19 11:13 Vitamin D3 - PO 1,000 unit DAILY [facility] Administration Docusate Sodium 100 mg 12/19/19 10:00 12/20/19 11:13 Colace - PO 100 mg DAILY [facility] Administration Enoxaparin Sodium 40 mg 12/19/19 10:00 12/20/19 11:12 Lovenox - SQ 40 mg DAILY [facility] Administration Furosemide 40 mg 12/19/19 06:00 12/20/19 15:37 Lasix Injection - IVPUSH 40 mg BID@0600,1400 [facility] Administration Ampicillin Sodium/Sulbactam 100 mls @ 200 mls/hr 12/19/19 22:30 12/20/19 15: 28 Sodium 1.5 gm/ Sodium Chloride IVPB 200 mls/hr Q6H-IV [facility] Administration Insulin Aspart 1 vial 12/18/19 22:00 12/20/19 11:19 Novolog Vial Sliding Scale - SQ 4 units ACHS [facility] Administration Protocol Metoprolol Tartrate 50 mg 12/18/19 22:00 12/20/19 11:13 Lopressor - PO 50 mg BID [facility] Administration Pantoprazole Sodium 40 mg 12/19/19 10:00 12/20/19 11:13 Protonix - PO 40 mg DAILY [facility] Administration Terazosin HCl 1 mg 12/18/19 22:00 12/19/19 23:18 Hytrin - PO 1 mg HS [facility] Administration ASSESSMENT/PLAN: Problem List - Problems (1) CHF exacerbation Assessment/Plan: c/w lasix 40mg BID clinically improved daily weights TTE ordered and pending cardiology following Code(s): I50.9 - HEART FAILURE, UNSPECIFIED Qualifiers: Heart failure type: unspecified Qualified Code(s): I50.9 - Heart failure, unspecified (2) Diabetes Assessment/Plan: bgms slightly elevated will add levemir Code(s): E11.9 - TYPE 2 DIABETES MELLITUS WITHOUT COMPLICATIONS (3) Cellulitis Assessment/Plan: on unasyn Code(s): L03.90 - CELLULITIS, UNSPECIFIED Qualifiers: Site of cellulitis: extremity Site of cellulitis of extremity: lower extremity Laterality: right Qualified Code(s): L03.115 - Cellulitis of right lower limb (4) Diabetic neuropathy Code(s): E11.40 - TYPE 2 DIABETES MELLITUS WITH DIABETIC NEUROPATHY, UNSP (5) HTN (hypertension) Assessment/Plan: controlled Code(s): I10 - ESSENTIAL (PRIMARY) HYPERTENSION (6) Venous stasis Code(s): I87.8 - OTHER SPECIFIED DISORDERS OF VEINS (7) Prophylactic measure Code(s): Z29.9 - ENCOUNTER FOR PROPHYLACTIC MEASURES, UNSPECIFIED Visit type - Emergency Visit Emergency Visit: Yes ED Registration Date: 12/18/19 Care time: The patient presented to the Emergency Department on the above date and was hospitalized for further evaluation of their emergent condition. - New Patient This patient is new to me today: Yes Date on this admission: 12/20/19 - Critical Care Critical Care patient: No - Discharge Referral Referred to [facility] Med P.C.: No
[2019-12-20] MEDS ORDERED: PT OWN MED DRAWER 7, Y5N ONE (23:02)
[2019-12-20] MEDS: ATORVASTATIN CA 20 MG TABLET (FP) PO SCH (23:45)
[2019-12-20] MEDS: TERAZOSIN HCL 1 MG CAPSULE PO SCH (23:46)
[2019-12-20] MEDS: INSULIN (LEVEMIR) 100 UNITS/ML UNITS SQ SCH (23:49)
[2019-12-21] MEDS: AMPICILLIN NA/SULBACTAM NA 1.5 GM in SODIUM CHLORIDE 100 ML IVPB SCH ×4 (04:00→21:29)
[2019-12-21] MEDS ORDERED: SODIUM CHLORIDE 100 ML IVPB ONE ×4 (05:54→20:46)
[2019-12-21] MEDS ORDERED: AMPICILLIN NA/SULBACTAM NA 1.5 GM VIAL ONE ×4 (05:54→20:46)
[2019-12-21] MEDS: FUROSEMIDE 40 MG/4 ML INJECTABLE VIAL IVPUSH SCH ×2 (06:40→13:14)
[2019-12-21] MEDS: INSULIN SLIDING SCALE (NOVOLOG) 1 VIAL SQ SCH ×4 (06:49→21:38)
[2019-12-21 08:10] LABS: BASO % 0.4 % (0-2.0); EOS % 8.3 % (0-4.5); HEMATOCRIT 33.1 % (35.4-49); HEMOGLOBIN 10.4 GM/dL (11.7-16.9); LYMPH % 32.5 % (8-40); MCH 25.8 pg (25.7-33.7); MCHC 31.6 g/dl (32.0-35.9); MEAN CELL VOLUME 81.6 fl (80-96); MEAN PLT VOLUME 8.5 fl (7.5-11.1); MONO % 11.3 % (3.8-10.2); NEUT % 47.5 % (42.8-82.8); PLATELET COUNT 304 K/MM3 (134-434); RBC 4.05 M/mm3 (4.00-5.60); RDW 19.1 % (11.9-15.9); WHITE BLOOD COUNT 4.5 K/mm3 (4.0-10.0)
[2019-12-21 08:26] LABS: BILIRUBIN,TOTAL 0.5 mg/dL (0.2-1); BLOOD UREA NITROGEN 16.7 mg/dL (7-18); CALCIUM 8.6 mg/dL (8.5-10.1); CREATININE 0.8 mg/dL (0.55-1.3); MAGNESIUM 2.1 mg/dL (1.8-2.4); POTASSIUM 3.7 mmol/L (3.5-5.1); TOT PROT 7.2 g/dl (6.4-8.2)
[2019-12-21] MEDS: ASPIRIN COATED 81 MG TABLET.EC PO SCH (09:50)
[2019-12-21] MEDS: CHOLECALCIFEROL (VIT D3) 1,000 UNIT (25 MCG) TABLET PO SCH (09:50)
[2019-12-21] MEDS: DOCUSATE SODIUM 100 MG CAPSULE (FP) PO SCH (09:50)
[2019-12-21] MEDS: ENOXAPARIN NA (PORCINE) 40 MG/0.4 ML DISP.SYRIN SQ SCH (09:50)
[2019-12-21] MEDS: METOPROLOL TARTRATE 50 MG TABLET (FP) PO SCH ×2 (09:50→21:38)
[2019-12-21] MEDS: PANTOPRAZOLE 40 MG TABLET PO SCH (09:50)
--- NOTE | 2019-12-21 12:33 | PN ---
Progress Note (short form) - Note Progress Note: s: dyspnea improving, stable edema. no chest pain, palps, dizziness Current Medications Aspirin (Ecotrin -) 81 mg PO DAILY [facility] Last Admin: 12/21/19 09:50 Dose: 81 mg Atorvastatin Calcium (Lipitor -) 20 mg PO HS [facility] Last Admin: 12/20/19 23:45 Dose: 20 mg Cholecalciferol (Vitamin D3 -) 1,000 unit PO DAILY [facility] Last Admin: 12/21/19 09:50 Dose: 1,000 unit Docusate Sodium (Colace -) 100 mg PO DAILY [facility] Last Admin: 12/21/19 09:50 Dose: 100 mg Enoxaparin Sodium (Lovenox -) 40 mg SQ DAILY [facility] Last Admin: 12/21/19 09:50 Dose: 40 mg Furosemide (Lasix Injection -) 40 mg IVPUSH BID@0600,1400 [facility] Last Admin: 12/21/19 06:40 Dose: 40 mg Ampicillin Sodium/Sulbactam (Sodium 1.5 gm/ Sodium Chloride) 100 mls @ 200 mls/ hr IVPB Q6H-IV [facility] Last Admin: 12/21/19 09:49 Dose: 200 mls/hr Insulin Aspart (Novolog Vial Sliding Scale -) 1 vial SQ [facility]; Protocol Last Admin: 12/21/19 06:49 Dose: Not Given Insulin Detemir (Levemir Vial) 5 units SQ [facility] Last Admin: 12/20/19 23:49 Dose: 5 units Metoprolol Tartrate (Lopressor -) 50 mg PO BID [facility] Last Admin: 12/21/19 09:50 Dose: 50 mg Pantoprazole Sodium (Protonix -) 40 mg PO DAILY [facility] Last Admin: 12/21/19 09:50 Dose: 40 mg Terazosin HCl (Hytrin -) 1 mg PO [facility] Last Admin: 12/20/19 23:46 Dose: 1 mg Vital Signs Period Temp Pulse Resp BP Sys/Flores Pulse Ox Last 24 Hr 98 F-98.8 F 81-98 18-22 118-156/69-79 95 Constitutional: Yes: Well Nourished, No Distress Eyes: No: Sclera Icterus HENT: No: Nasal Congestion Neck: No: Decreased ROM Respiratory: Yes: Rales (bases). No: Accessory Muscle Use, Wheezes Gastrointestinal: Yes: Normal Bowel Sounds. No: Distention, Hepatomegaly, Palpable Mass, Tenderness Cardiovascular: Yes: Regular Rate and Rhythm JVD: Yes Carotid Bruit: No PMI: Non-Displaced Heart Sounds: Yes: S1, S2. No: Gallop Murmur: No: Systolic Murmur, Diastolic Murmur Musculoskeletal: Yes: Other (No kyphosis) Extremities: No: Cool, Cyanosis Edema: Yes (trace pretib, mild eryth) Integumentary: No: Jaundice Neurological: Yes: Alert. No: Seizure Psychiatric: No: Agitated Assessment/Plan CXR: cardiomegaly, prominent hilar markings, minimal congestive changes, R effusion. + loop recorder implant seen ECG: NSR, ? old AWMI, NSST-Ts (nonspecifically changed vs 2006) echo 12/2019 severe conc LVH, nl LV function, mild MAC, tr MR, mild TR, RVSP 29 mmHg, tr AR, mod pericardial effusion, no tamponade tele: sinus tach acute on chronic diastolic CHF h/o venous ins'y: -congestion on cxr (though notably effusion is unilateral--? chronic/loculated) -BNP 1200, no priors available. CXR with fluid. -cardiomegaly, no details of prior echo - nl LV function on echo here -lasix 40 po qd at home - cont lasix 40 mg IV BID - Cr stable, dyspnea and edema improving -bp mgmt -local mgmt of LEs per hospitalist -has loop recorder implant, ? 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
--- NOTE | 2019-12-21 16:22 | CONSULT ---
- Consultation REQUESTING PROVIDER: CONSULT REQUEST: We have been asked to surgically evaluate this patient for LE cellulitis and chronic wounds PCP:Janet Norton NP HISTORY OF PRESENT ILLNESS: - History of Present Illness Initial Comments: 12/18/19 12:42 79yM w PMHx HTN, CHF, BPH, venous stasis, DM, diabetic neuropathy presenting w progressive worsening SOB and BLE swelling/pain. Was discharged from [facility] 16d ago for brain bleed s/p fall, but has not been taking any medication. SOB relieved sitting up. Denies fever, cough, chest pain, ABD pain, nausea/vomiting, urinary/bowel mvmt changes. Does not have cloth bale header Past History - Past Medical History Allergies/Adverse Reactions: Allergies Allergy/AdvReac Type Severity Reaction Status Date / Time No Known Allergies Allergy Verified 12/18/19 12:43 Home Medications: Ambulatory Orders Aspirin [ASA -] 81 mg PO DAILY 04/25/19 Atenolol [Tenormin -] 50 mg PO DAILY 04/25/19 Atorvastatin Ca [Lipitor] 20 mg PO HS 04/25/19 Clonidine HCl 0.1 mg PO DAILY 04/25/19 Empagliflozin [Jardiance] 10 mg PO DAILY 04/25/19 Furosemide [Lasix] 40 mg PO DAILY 04/25/19 Lisinopril [Prinivil] 20 mg PO DAILY 04/25/19 Metformin HCl [Glucophage] 500 mg PO DAILY 04/25/19 Mirabegron [Myrbetriq] 25 mg PO DAILY 04/25/19 Nifedipine ER [Procardia Xl -] 60 mg PO DAILY 04/25/19 Omeprazole Magnesium [Prilosec Otc] 20 mg PO DAILY 04/25/19 Sitagliptin Phosphate [Januvia] 100 mg PO DAILY 04/25/19 Tamsulosin HCl [Flomax] 0.4 mg PO DAILY 04/25/19 CVA: No COPD: No CHF: Yes Dementia: No Diabetes: Yes GI Disorders: No Disorders: No HTN: Yes Hypercholesterolemia: Yes Liver Disease: No Seizures: No Thyroid Disease: No - Surgical History Abdominal Surgery: No Appendectomy: No Cardiac Surgery: No Cholecystectomy: No Lung Surgery: No Neurologic Surgery: No Orthopedic Surgery: No - Psycho Social/Smoking Cessation Hx Smoking History: Never smoked Have you smoked in the past 12 months: No Hx Alcohol Use: No Drug/Substance Use Hx: No Review of Systems Constitutional: No: Chills, Fever HEENTM: No: Eye Pain, Nose Pain, Throat Pain Respiratory: Yes: Shortness of Breath. No: Cough Cardiac (ROS): No: Chest Pain, Palpitations ABD/GI: No: Abdominal Distended, Constipated, Diarrhea, Nausea, Vomiting : No: Burning, Dysuria Musculoskeletal: No: Back Pain, Joint Pain Integumentary: No: Bruising, Flushing Neurological: No: Headache, Seizure Psychiatric: No: Anxiety, Depression Endocrine: No: Excessive Sweating, Intolerance to Cold, Intolerance to Heat Hematologic/Lymphatic: No: Anemia, Blood Clots *Physical Exam Vital Signs Temp 98.8 F 12/21/19 10:00 Pulse 88 12/21/19 10:00 Resp 22 H 12/21/19 10:00 BP 124/70 12/21/19 10:00 Pulse Ox 95 12/21/19 09:00 Intake & Output 12/20/19 12/21/19 12/21/19 23:59 11:59 23:59 Intake Total 450 200 Output Total 400 Balance 50 200 Weight 189 lb Intake: IVPB 200 100 Oral 250 100 Output: Urine 400 Carr 400 Other: Voiding Method Urinal Urinal General Appearance: Nourished, Appropriately Dressed, HEENT: positive: Normal Voice. negative: Scleral Icterus (R), Scleral Icterus ( L) Respiratory/Chest: Unlabored resp on RA, no accessory muscle use Extremity: BLE 2+ pitting edema w erythema and tenderness, extending from mid calf to ankles with warmth up to knees, chronic skin changes seen throughout, several well healed scabs. Right LE posterior and distal 1/3 with small superficial open blister @2x1cm, clean base with no evidence of infection, collection, active d/c or tracking erythema. no other open wounds seen on b/l LE , B/L +DP and PT signal on bedside doppler. 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 -Continue antibiotics per ID/medical team -Elevate the lower extremity above the level of the heart at all times while at rest -Bilateral compression with becca wraps once cellulitis has receded (wrap from metacarpal heads to below knee) -bacitracin ointment to right calf wound- cover with clean dry dressing. -Apply Lac hydrin daily (for dry scaly skin) -reconsult vascular surgery PRN Code(s): I87.8 - OTHER SPECIFIED DISORDERS OF VEINS (2) Diabetic ulcer of lower leg Code(s): E11.622 - TYPE 2 DIABETES MELLITUS WITH OTHER SKIN ULCER; L97.909 - NON -PRS CHRONIC ULC UNSP PRT OF UNSP LOW LEG W UNSP SEVERITY
[2019-12-21] MEDS: BACITRACIN 15 GM TUBE TOPICAL OINTMENT TP SCH (18:01)
--- NOTE | 2019-12-21 18:20 | PN ---
Physical Exam: SUBJECTIVE: Patient seen and examined at the bedside. feels well and ambulating with PT. OBJECTIVE: The patient is a 79 year old male, with a significant past medical history of HTN, CHF, BPH, DM, venous stasis, and diabetic neuropathy , who presents to the emergency department with progressively worsening shortness of breath and bilateral lower extremity edema and redness which is worsening for last few days. Vital Signs Period Temp Pulse Resp BP Sys/Flores Pulse Ox Last 24 Hr 98 F-98.8 F 88-93 18-22 124-156/70-79 95 GENERAL: The patient is awake, alert, and fully oriented, in no acute distress. forgetful HEAD: Normal with no signs of trauma. EYES: PERRL, extraocular movements intact, sclera anicteric, conjunctiva clear. No ptosis. ENT: Ears normal, nares patent, oropharynx clear without exudates NECK: Trachea midline, full range of motion, supple. LUNGS: Breath sounds equal, clear to auscultation bilaterally HEART: Regular rate and rhythm ABDOMEN: Soft, nontender, nondistended, normoactive bowel sounds EXTREMITIES: 2+ lower ext edema NEUROLOGICAL: Normal speech, gait not observed. PSYCH: Normal mood, normal affect. SKIN: Warm, dry, normal turgor, no rashes or lesions noted Laboratory Results - last 24 hr 12/20/19 12/21/19 12/21/19 23:35 06:34 07:20 WBC 4.5 RBC 4.05 Hgb 10.4 L Hct 33.1 L MCV 81.6 MCH 25.8 MCHC 31.6 L RDW 19.1 H Plt Count 304 MPV 8.5 Absolute Neuts (auto) 2.2 Neutrophils % 47.5 D Lymphocytes % 32.5 D Monocytes % 11.3 H Eosinophils % 8.3 H D Basophils % 0.4 Nucleated RBC % 0 Sodium Potassium Chloride Carbon Dioxide Anion Gap BUN Creatinine Est GFR (CKD-EPI)AfAm Est GFR (CKD-EPI)NonAf POC Glucometer 185 145 Random Glucose Calcium Magnesium Total Bilirubin AST ALT Alkaline Phosphatase Total Protein Albumin 12/21/19 12/21/19 12/21/19 07:20 11:36 16:51 WBC RBC Hgb Hct MCV MCH MCHC RDW Plt Count MPV Absolute Neuts (auto) Neutrophils % Lymphocytes % Monocytes % Eosinophils % Basophils % Nucleated RBC % Sodium 141 Potassium 3.7 Chloride 104 Carbon Dioxide 29 Anion Gap 8 BUN 16.7 Creatinine 0.8 Est GFR (CKD-EPI)AfAm 98.47 Est GFR (CKD-EPI)NonAf 84.96 POC Glucometer 233 197 Random Glucose 153 H Calcium 8.6 Magnesium 2.1 Total Bilirubin 0.5 AST 18 ALT 16 Alkaline Phosphatase 72 Total Protein 7.2 Albumin 3.0 L Active Medications Generic Name Dose Route Start Last Admin Trade Name Freq PRN Reason Stop Dose Admin Aspirin 81 mg 12/19/19 10:00 12/21/19 09:50 Ecotrin - PO 81 mg DAILY ZACH Administration Atorvastatin Calcium 20 mg 12/18/19 22:00 12/20/19 23:45 Lipitor - PO 20 mg HS ZACH Administration Bacitracin 1 applic 12/21/19 16:45 12/21/19 18:01 Bacitracin - TP 1 applic DAILY [facility]ACH Administration Cholecalciferol 1,000 unit 12/19/19 10:00 12/21/19 09:50 Vitamin D3 - PO 1,000 unit DAILY [facility] Administration Docusate Sodium 100 mg 12/19/19 10:00 12/21/19 09:50 Colace - PO 100 mg DAILY [facility]ACH Administration Enoxaparin Sodium 40 mg 12/19/19 10:00 12/21/19 09:50 Lovenox - SQ 40 mg DAILY [facility]ACH Administration Furosemide 40 mg 12/19/19 06:00 12/21/19 13:14 Lasix Injection - IVPUSH 40 mg BID@0600,1400 ZACH Administration Ampicillin Sodium/Sulbactam 100 mls @ 200 mls/hr 12/19/19 22:30 12/21/19 15: 59 Sodium 1.5 gm/ Sodium Chloride IVPB 200 mls/hr Q6H-IV ZACH Administration Insulin Aspart 1 vial 12/18/19 22:00 12/21/19 18:01 Novolog Vial Sliding Scale - SQ 2 units ACHS ZACH Administration Protocol Insulin Detemir 5 units 12/20/19 22:00 12/20/19 23:49 Levemir Vial SQ 5 units HS ZACH Administration Metoprolol Tartrate 50 mg 12/18/19 22:00 12/21/19 09:50 Lopressor - PO 50 mg BID ZACH Administration Pantoprazole Sodium 40 mg 12/19/19 10:00 12/21/19 09:50 Protonix - PO 40 mg DAILY ZACH Administration Terazosin HCl 1 mg 12/18/19 22:00 12/20/19 23:46 Hytrin - PO 1 mg HS ZACH Administration ASSESSMENT/PLAN: Problem List - Problems (1) CHF exacerbation Assessment/Plan: c/w lasix 40mg BID clinically improved daily weights TTE ordered and pending cardiology following Code(s): I50.9 - HEART FAILURE, UNSPECIFIED Qualifiers: Heart failure type: unspecified Qualified Code(s): I50.9 - Heart failure, unspecified (2) Diabetes Assessment/Plan: bgms slightly elevated will add levemir Code(s): E11.9 - TYPE 2 DIABETES MELLITUS WITHOUT COMPLICATIONS (3) Cellulitis Assessment/Plan: on unasyn Code(s): L03.90 - CELLULITIS, UNSPECIFIED Qualifiers: Site of cellulitis: extremity Site of cellulitis of extremity: lower extremity Laterality: right Qualified Code(s): L03.115 - Cellulitis of right lower limb (4) Diabetic neuropathy Code(s): E11.40 - TYPE 2 DIABETES MELLITUS WITH DIABETIC NEUROPATHY, UNSP (5) HTN (hypertension) Assessment/Plan: controlled Code(s): I10 - ESSENTIAL (PRIMARY) HYPERTENSION (6) Venous stasis Assessment/Plan: seen by vascular and notes appreciated per vascular recommendations: -Elevate the lower extremity above the level of the heart at all times while at rest -Bilateral compression with becca wraps once cellulitis has receded (wrap from metacarpal heads to below knee) -bacitracin ointment to right calf wound- cover with clean dry dressing. -Apply Lac hydrin daily (for dry scaly skin) Code(s): I87.8 - OTHER SPECIFIED DISORDERS OF VEINS (7) Prophylactic measure Assessment/Plan: lovenox Code(s): Z29.9 - ENCOUNTER FOR PROPHYLACTIC MEASURES, UNSPECIFIED Visit type - Emergency Visit Emergency Visit: Yes ED Registration Date: 12/18/19 Care time: The patient presented to the Emergency Department on the above date and was hospitalized for further evaluation of their emergent condition. - New Patient This patient is new to me today: No - Critical Care Critical Care patient: No - Discharge Referral Referred to [facility] Med P.C.: No
[2019-12-21] MEDS ORDERED: PT OWN MED DRAWER 7, Y5N ONE (20:46)
[2019-12-21] MEDS: INSULIN (LEVEMIR) 100 UNITS/ML UNITS SQ SCH (21:36)
[2019-12-21] MEDS: TERAZOSIN HCL 1 MG CAPSULE PO SCH (21:36)
[2019-12-21] MEDS: ATORVASTATIN CA 20 MG TABLET (FP) PO SCH (21:38)
[2019-12-22] MEDS ORDERED: SODIUM CHLORIDE 100 ML IVPB ONE ×4 (03:38→21:41)
[2019-12-22] MEDS ORDERED: AMPICILLIN NA/SULBACTAM NA 1.5 GM VIAL ONE ×4 (03:38→21:40)
[2019-12-22] MEDS: AMPICILLIN NA/SULBACTAM NA 1.5 GM in SODIUM CHLORIDE 100 ML IVPB SCH ×4 (03:41→21:46)
[2019-12-22] MEDS: INSULIN SLIDING SCALE (NOVOLOG) 1 VIAL SQ SCH ×4 (06:35→21:47)
[2019-12-22] MEDS: FUROSEMIDE 40 MG/4 ML INJECTABLE VIAL IVPUSH SCH ×2 (06:35→14:02)
[2019-12-22 07:35] LABS: BASO % 0.3 % (0-2.0); EOS % 12.4 % (0-4.5); HEMATOCRIT 30.4 % (35.4-49); HEMOGLOBIN 9.7 GM/dL (11.7-16.9); LYMPH % 34.9 % (8-40); MCH 25.8 pg (25.7-33.7); MCHC 31.9 g/dl (32.0-35.9); MEAN CELL VOLUME 80.9 fl (80-96); MEAN PLT VOLUME 8.3 fl (7.5-11.1); MONO % 12.8 % (3.8-10.2); NEUT % 39.6 % (42.8-82.8); PLATELET COUNT 287 K/MM3 (134-434); RBC 3.76 M/mm3 (4.00-5.60); RDW 18.9 % (11.9-15.9); WHITE BLOOD COUNT 4.4 K/mm3 (4.0-10.0)
[2019-12-22 08:18] LABS: ALBUMIN 2.8 g/dl (3.4-5.0); BILIRUBIN,TOTAL 0.6 mg/dL (0.2-1); BLOOD UREA NITROGEN 15.2 mg/dL (7-18); CALCIUM 8.5 mg/dL (8.5-10.1); CREATININE 0.7 mg/dL (0.55-1.3); POTASSIUM 3.6 mmol/L (3.5-5.1); TOT PROT 6.7 g/dl (6.4-8.2)
[2019-12-22] MEDS: ENOXAPARIN NA (PORCINE) 40 MG/0.4 ML DISP.SYRIN SQ SCH (09:31)
[2019-12-22] MEDS: CHOLECALCIFEROL (VIT D3) 1,000 UNIT (25 MCG) TABLET PO SCH (09:31)
[2019-12-22] MEDS: DOCUSATE SODIUM 100 MG CAPSULE (FP) PO SCH (09:31)
[2019-12-22] MEDS: METOPROLOL TARTRATE 50 MG TABLET (FP) PO SCH ×2 (09:31→21:47)
[2019-12-22] MEDS: PANTOPRAZOLE 40 MG TABLET PO SCH (09:31)
[2019-12-22] MEDS: ASPIRIN COATED 81 MG TABLET.EC PO SCH (09:32)
[2019-12-22] MEDS: BACITRACIN 15 GM TUBE TOPICAL OINTMENT TP SCH (09:35)
--- NOTE | 2019-12-22 11:12 | PN ---
Progress Note (short form) - Note Progress Note: s: dyspnea improving, edema better. no chest pain, palps, dizziness Current Medications Generic Name Dose Route Start Last Admin Trade Name Anay PRN Reason Stop Dose Admin Aspirin 81 mg 12/19/19 10:00 12/22/19 09:32 Ecotrin - PO 81 mg DAILY ZACH Administration Atorvastatin Calcium 20 mg 12/18/19 22:00 12/21/19 21:38 Lipitor - PO 20 mg HS ZACH Administration Bacitracin 1 applic 12/21/19 16:45 12/22/19 09:35 Bacitracin - TP 1 applic DAILY ZACH Administration Cholecalciferol 1,000 unit 12/19/19 10:00 12/22/19 09:31 Vitamin D3 - PO 1,000 unit DAILY ZACH Administration Docusate Sodium 100 mg 12/19/19 10:00 12/22/19 09:31 Colace - PO 100 mg DAILY ZACH Administration Enoxaparin Sodium 40 mg 12/19/19 10:00 12/22/19 09:31 Lovenox - SQ 40 mg DAILY ZACH Administration Furosemide 40 mg 12/19/19 06:00 12/22/19 06:35 Lasix Injection - IVPUSH 40 mg BID@0600,1400 ZACH Administration Ampicillin Sodium/Sulbactam 100 mls @ 200 mls/hr 12/19/19 22:30 12/22/19 08: 02 Sodium 1.5 gm/ Sodium Chloride IVPB 200 mls/hr Q6H-IV ZACH Administration Insulin Aspart 1 vial 12/18/19 22:00 12/22/19 06:35 Novolog Vial Sliding Scale - SQ 2 units ACHS ZACH Administration Protocol Insulin Detemir 5 units 12/20/19 22:00 12/21/19 21:36 Levemir Vial SQ 5 units HS ZACH Administration Metoprolol Tartrate 50 mg 12/18/19 22:00 12/22/19 09:31 Lopressor - PO 50 mg BID ZACH Administration Pantoprazole Sodium 40 mg 12/19/19 10:00 12/22/19 09:31 Protonix - PO 40 mg DAILY ZACH Administration Terazosin HCl 1 mg 12/18/19 22:00 12/21/19 21:36 Hytrin - PO 1 mg HS ZACH Administration Vital Signs Period Temp Pulse Resp BP Sys/Flores Pulse Ox Last 24 Hr 97.3 F-99.7 F 79-120 20-22 121-135/67-88 96 Constitutional: Yes: Well Nourished, No Distress Eyes: No: Sclera Icterus HENT: No: Nasal Congestion Neck: No: Decreased ROM Respiratory: Yes: Rales (bases). No: Accessory Muscle Use, Wheezes Gastrointestinal: Yes: Normal Bowel Sounds. No: Distention, Hepatomegaly, Palpable Mass, Tenderness Cardiovascular: Yes: Regular Rate and Rhythm JVD: Yes Carotid Bruit: No PMI: Non-Displaced Heart Sounds: Yes: S1, S2. No: Gallop Murmur: No: Systolic Murmur, Diastolic Murmur Musculoskeletal: Yes: Other (No kyphosis) Extremities: No: Cool, Cyanosis Edema: Yes (trace pretib, mild eryth) Integumentary: No: Jaundice Neurological: Yes: Alert. No: Seizure Psychiatric: No: Agitated CBC, BMP 12/22/19 05:45 12/22/19 05:45 Assessment/Plan CXR: cardiomegaly, prominent hilar markings, minimal congestive changes, R effusion. + loop recorder implant seen ECG: NSR, ? old AWMI, NSST-Ts (nonspecifically changed vs 2006) echo 12/2019 severe conc LVH, nl LV function, mild MAC, tr MR, mild TR, RVSP 29 mmHg, tr AR, mod pericardial effusion, no tamponade tele: sinus, 4 beats nsvt acute on chronic diastolic CHF h/o venous ins'y: -congestion on cxr (though notably effusion is unilateral--? chronic/loculated) -BNP 1200, no priors available. CXR with fluid. -cardiomegaly, no details of prior echo - nl LV function on echo here -lasix 40 po qd at home - cont lasix 40 mg IV BID - Cr stable, dyspnea and edema improving -bp mgmt -local mgmt of LEs per hospitalist -has loop recorder implant, ? 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
--- NOTE | 2019-12-22 16:31 | PN ---
Physical Exam: SUBJECTIVE: Patient seen and examined at the bedside. in no acute distress. sitting in chair. having some hand pain from arthritis. OBJECTIVE: The patient is a 79 year old male, with a significant past medical history of HTN, CHF, BPH, DM, venous stasis, and diabetic neuropathy , who presents to the emergency department with progressively worsening shortness of breath and bilateral lower extremity edema and redness which is worsening for last few days. Vital Signs Period Temp Pulse Resp BP Sys/Flores Pulse Ox Last 24 Hr 97.3 F-99.7 F 68-120 18-22 113-135/51-88 96-97 GENERAL: The patient is awake, alert, and fully oriented, in no acute distress. forgetful HEAD: Normal with no signs of trauma. EYES: PERRL, extraocular movements intact, sclera anicteric, conjunctiva clear. No ptosis. ENT: Ears normal, nares patent, oropharynx clear without exudates NECK: Trachea midline, full range of motion, supple. LUNGS: Breath sounds equal, clear to auscultation bilaterally HEART: Regular rate and rhythm ABDOMEN: Soft, nontender, nondistended, normoactive bowel sounds EXTREMITIES: 2+ lower ext edema NEUROLOGICAL: Normal speech, gait not observed. PSYCH: Normal mood, normal affect. SKIN: Warm, dry, normal turgor, no rashes or lesions noted Laboratory Results - last 24 hr 12/21/19 12/21/19 12/22/19 16:51 21:35 05:36 WBC RBC Hgb Hct MCV MCH MCHC RDW Plt Count MPV Absolute Neuts (auto) Neutrophils % Lymphocytes % Monocytes % Eosinophils % Basophils % Nucleated RBC % Sodium Potassium Chloride Carbon Dioxide Anion Gap BUN Creatinine Est GFR (CKD-EPI)AfAm Est GFR (CKD-EPI)NonAf POC Glucometer 197 206 152 Random Glucose Calcium Magnesium Total Bilirubin AST ALT Alkaline Phosphatase Total Protein Albumin 12/22/19 12/22/19 12/22/19 05:45 05:45 11:38 WBC 4.4 RBC 3.76 L Hgb 9.7 L Hct 30.4 L MCV 80.9 MCH 25.8 MCHC 31.9 L RDW 18.9 H Plt Count 287 MPV 8.3 Absolute Neuts (auto) 1.7 Neutrophils % 39.6 L Lymphocytes % 34.9 Monocytes % 12.8 H Eosinophils % 12.4 H Basophils % 0.3 Nucleated RBC % 0 Sodium 139 Potassium 3.6 Chloride 102 Carbon Dioxide 31 Anion Gap 6 L BUN 15.2 Creatinine 0.7 Est GFR (CKD-EPI)AfAm 104.03 Est GFR (CKD-EPI)NonAf 89.76 POC Glucometer 270 Random Glucose 155 H Calcium 8.5 Magnesium 2.0 Total Bilirubin 0.6 AST 24 ALT 22 Alkaline Phosphatase 67 Total Protein 6.7 Albumin 2.8 L Active Medications Generic Name Dose Route Start Last Admin Trade Name Anupamq PRN Reason Stop Dose Admin Aspirin 81 mg 12/19/19 10:00 12/22/19 09:32 Ecotrin - PO 81 mg DAILY ZACH Administration Atorvastatin Calcium 20 mg 12/18/19 22:00 12/21/19 21:38 Lipitor - PO 20 mg HS ZACH Administration Bacitracin 1 applic 12/21/19 16:45 12/22/19 09:35 Bacitracin - TP 1 applic DAILY ZACH Administration Cholecalciferol 1,000 unit 12/19/19 10:00 12/22/19 09:31 Vitamin D3 - PO 1,000 unit DAILY ZACH Administration Docusate Sodium 100 mg 12/19/19 10:00 12/22/19 09:31 Colace - PO 100 mg DAILY ZACH Administration Enoxaparin Sodium 40 mg 12/19/19 10:00 12/22/19 09:31 Lovenox - SQ 40 mg DAILY ZACH Administration Furosemide 40 mg 12/19/19 06:00 12/22/19 14:02 Lasix Injection - IVPUSH 40 mg BID@0600,1400 ZACH Administration Ampicillin Sodium/Sulbactam 100 mls @ 200 mls/hr 12/19/19 22:30 12/22/19 14: 25 Sodium 1.5 gm/ Sodium Chloride IVPB 200 mls/hr Q6H-IV ZACH Administration Insulin Aspart 1 vial 12/18/19 22:00 12/22/19 11:40 Novolog Vial Sliding Scale - SQ 6 units ACHS ZACH Administration Protocol Insulin Detemir 5 units 12/20/19 22:00 12/21/19 21:36 Levemir Vial SQ 5 units HS ZACH Administration Metoprolol Tartrate 50 mg 12/18/19 22:00 12/22/19 09:31 Lopressor - PO 50 mg BID ZACH Administration Pantoprazole Sodium 40 mg 12/19/19 10:00 12/22/19 09:31 Protonix - PO 40 mg DAILY ZACH Administration Terazosin HCl 1 mg 12/18/19 22:00 12/21/19 21:36 Hytrin - PO 1 mg HS ZACH Administration ASSESSMENT/PLAN: Problem List - Problems (1) CHF exacerbation Assessment/Plan: c/w lasix 40mg BID clinically improved daily weights echo: severe conc LVH, nl LV function, mod pericardial effusion, no tamponade cardiology following Code(s): I50.9 - HEART FAILURE, UNSPECIFIED Qualifiers: Heart failure type: unspecified Qualified Code(s): I50.9 - Heart failure, unspecified (2) Diabetes Assessment/Plan: levemir increased Code(s): E11.9 - TYPE 2 DIABETES MELLITUS WITHOUT COMPLICATIONS (3) Cellulitis Assessment/Plan: on unasyn Code(s): L03.90 - CELLULITIS, UNSPECIFIED Qualifiers: Site of cellulitis: extremity Site of cellulitis of extremity: lower extremity Laterality: right Qualified Code(s): L03.115 - Cellulitis of right lower limb (4) Diabetic neuropathy Code(s): E11.40 - TYPE 2 DIABETES MELLITUS WITH DIABETIC NEUROPATHY, UNSP (5) HTN (hypertension) Assessment/Plan: controlled Code(s): I10 - ESSENTIAL (PRIMARY) HYPERTENSION (6) Venous stasis Assessment/Plan: seen by vascular and notes appreciated per vascular recommendations: -Elevate the lower extremity above the level of the heart at all times while at rest -Bilateral compression with becca wraps once cellulitis has receded (wrap from metacarpal heads to below knee) -bacitracin ointment to right calf wound- cover with clean dry dressing. -Apply Lac hydrin daily (for dry scaly skin) Code(s): I87.8 - OTHER SPECIFIED DISORDERS OF VEINS (7) Prophylactic measure Assessment/Plan: lovenox Code(s): Z29.9 - ENCOUNTER FOR PROPHYLACTIC MEASURES, UNSPECIFIED Visit type - Emergency Visit Emergency Visit: Yes ED Registration Date: 12/18/19 Care time: The patient presented to the Emergency Department on the above date and was hospitalized for further evaluation of their emergent condition. - New Patient This patient is new to me today: No - Critical Care Critical Care patient: No - Discharge Referral Referred to [facility] Med P.C.: No
[2019-12-22] MEDS ORDERED: PT OWN MED DRAWER 7, Y5N ONE (21:40)
[2019-12-22] MEDS: ATORVASTATIN CA 20 MG TABLET (FP) PO SCH (21:47)
[2019-12-22] MEDS: TERAZOSIN HCL 1 MG CAPSULE PO SCH (21:47)
[2019-12-22] MEDS: INSULIN (LEVEMIR) 100 UNITS/ML UNITS SQ SCH (21:47)
[2019-12-23] MEDS ORDERED: AMPICILLIN NA/SULBACTAM NA 1.5 GM VIAL ONE ×4 (03:50→21:18)
[2019-12-23] MEDS ORDERED: SODIUM CHLORIDE 100 ML IVPB ONE ×4 (03:51→21:19)
[2019-12-23] MEDS: AMPICILLIN NA/SULBACTAM NA 1.5 GM in SODIUM CHLORIDE 100 ML IVPB SCH ×4 (03:59→22:09)
[2019-12-23] MEDS: FUROSEMIDE 40 MG/4 ML INJECTABLE VIAL IVPUSH SCH ×2 (06:16→14:15)
[2019-12-23] MEDS: INSULIN SLIDING SCALE (NOVOLOG) 1 VIAL SQ SCH ×4 (06:16→22:12)
[2019-12-23] MEDS: BACITRACIN 15 GM TUBE TOPICAL OINTMENT TP SCH (09:23)
[2019-12-23] MEDS: ENOXAPARIN NA (PORCINE) 40 MG/0.4 ML DISP.SYRIN SQ SCH (09:24)
[2019-12-23] MEDS: PANTOPRAZOLE 40 MG TABLET PO SCH (09:24)
[2019-12-23] MEDS: CHOLECALCIFEROL (VIT D3) 1,000 UNIT (25 MCG) TABLET PO SCH (09:24)
[2019-12-23] MEDS: ASPIRIN COATED 81 MG TABLET.EC PO SCH (09:24)
[2019-12-23] MEDS: DOCUSATE SODIUM 100 MG CAPSULE (FP) PO SCH (09:24)
[2019-12-23] MEDS: METOPROLOL TARTRATE 50 MG TABLET (FP) PO SCH ×2 (09:24→22:10)
--- NOTE | 2019-12-23 10:37 | PN ---
Progress Note, Physician Chief Complaint: 95% RA down one pound Feels better TELE: Sinus NO CP or SOB - Current Medication List Current Medications: Active Medications Aspirin (Ecotrin -) 81 mg PO DAILY [facility] Last Admin: 12/23/19 09:24 Dose: 81 mg Atorvastatin Calcium (Lipitor -) 20 mg PO HS [facility] Last Admin: 12/22/19 21:47 Dose: 20 mg Bacitracin (Bacitracin -) 1 applic TP DAILY [facility] Last Admin: 12/23/19 09:23 Dose: 1 applic Cholecalciferol (Vitamin D3 -) 1,000 unit PO DAILY [facility] Last Admin: 12/23/19 09:24 Dose: 1,000 unit Docusate Sodium (Colace -) 100 mg PO DAILY [facility] Last Admin: 12/23/19 09:24 Dose: 100 mg Enoxaparin Sodium (Lovenox -) 40 mg SQ DAILY [facility] Last Admin: 12/23/19 09:24 Dose: 40 mg Furosemide (Lasix Injection -) 40 mg IVPUSH BID@0600,1400 [facility] Last Admin: 12/23/19 06:16 Dose: 40 mg Ampicillin Sodium/Sulbactam (Sodium 1.5 gm/ Sodium Chloride) 100 mls @ 200 mls/ hr IVPB Q6H-IV [facility] Last Admin: 12/23/19 09:24 Dose: 200 mls/hr Insulin Aspart (Novolog Vial Sliding Scale -) 1 vial SQ [facility]; Protocol Last Admin: 12/23/19 06:16 Dose: 2 units Insulin Detemir (Levemir Vial) 8 units SQ HS [facility] Last Admin: 12/22/19 21:47 Dose: 8 units Metoprolol Tartrate (Lopressor -) 50 mg PO BID [facility] Last Admin: 12/23/19 09:24 Dose: 50 mg Pantoprazole Sodium (Protonix -) 40 mg PO DAILY [facility] Last Admin: 12/23/19 09:24 Dose: 40 mg Terazosin HCl (Hytrin -) 1 mg PO HS [facility] Last Admin: 12/22/19 21:47 Dose: 1 mg - Objective Vital Signs: Vital Signs Temperature 97.8 F 12/23/19 02:00 Pulse Rate 88 12/23/19 02:00 Respiratory Rate 18 12/23/19 02:00 Blood Pressure 144/83 12/23/19 02:00 O2 Sat by Pulse Oximetry (%) 95 12/22/19 21:00 Constitutional: Yes: No Distress Cardiovascular: Yes: Regular Rate and Rhythm Respiratory: Yes: Other (rales left base) Gastrointestinal: Yes: Soft Edema: Yes Edema: RUE: 2+, LLE: 2+ Neurological: Yes: Alert, Oriented Labs: CBC, BMP 12/22/19 05:45 12/22/19 05:45 INR, PTT INR 1.25 (0.83-1.09) H 12/18/19 14:00 - ....Imaging EKG: Image Reviewed Assessment/Plan Assessment/Plan CXR: cardiomegaly, prominent hilar markings, minimal congestive changes, R effusion. + loop recorder implant seen ECG: NSR, ? old AWMI, NSST-Ts (nonspecifically changed vs 2006) echo 12/2019 severe conc LVH, nl LV function, mild MAC, tr MR, mild TR, RVSP 29 mmHg, tr AR, mod pericardial effusion, no tamponade tele: sinus, 4 beats nsvt acute on chronic diastolic CHF h/o venous ins'y: -congestion on cxr (though notably effusion is unilateral--? chronic/loculated) -BNP 1200, no priors available. CXR with fluid. -cardiomegaly, no details of prior echo - nl LV function on echo here -lasix 40 po qd at home - cont lasix 40 mg IV BID - Cr stable, dyspnea and edema improving, check lytes daily -has loop recorder implant, ? arrhythmia history--rec obtaining supplemental info from [facility] or other outpt treating movie shot camera operator to clarify pericardial effusion, moderate: - unclear chronicity, no echocardiographic or clinical signs of tamponade - monitoring on tele - repeat echo prior to discharge HTN: -initially severely elevated, now improved -cont current meds for now, observe trend DM: -per hospitalist
[2019-12-23 13:40] LABS: BASO % 0.6 % (0-2.0); EOS % 6.2 % (0-4.5); HEMATOCRIT 32.6 % (35.4-49); HEMOGLOBIN 10.1 GM/dL (11.7-16.9); LYMPH % 29.3 % (8-40); MCH 25.5 pg (25.7-33.7); MEAN PLT VOLUME 8.8 fl (7.5-11.1); MONO % 10.8 % (3.8-10.2); NEUT % 53.1 % (42.8-82.8); PLATELET COUNT 304 K/MM3 (134-434); RBC 3.98 M/mm3 (4.00-5.60); RDW 19.1 % (11.9-15.9); WHITE BLOOD COUNT 4.5 K/mm3 (4.0-10.0)
[2019-12-23 14:06] LABS: BILIRUBIN,TOTAL 0.5 mg/dL (0.2-1); BLOOD UREA NITROGEN 13.7 mg/dL (7-18); CALCIUM 8.7 mg/dL (8.5-10.1); CREATININE 0.8 mg/dL (0.55-1.3); MAGNESIUM 2.1 mg/dL (1.8-2.4); POTASSIUM 3.6 mmol/L (3.5-5.1); TOT PROT 7.4 g/dl (6.4-8.2)
--- NOTE | 2019-12-23 17:06 | PN ---
Physical Exam: SUBJECTIVE: Patient seen and examined. denies discomfort. asking for a wheelchair for home use. OBJECTIVE: The patient is a 79 year old male, with a significant past medical history of HTN, CHF, BPH, DM, venous stasis, and diabetic neuropathy , who presents to the emergency department with progressively worsening shortness of breath and bilateral lower extremity edema and redness which is worsening for last few days. Vital Signs Period Temp Pulse Resp BP Sys/Flores Pulse Ox Last 24 Hr 97.8 F-98.3 F 83-95 18-20 129-146/73-89 95-95 GENERAL: The patient is awake, alert, and fully oriented, in no acute distress. forgetful HEAD: Normal with no signs of trauma. EYES: PERRL, extraocular movements intact, sclera anicteric, conjunctiva clear. No ptosis. ENT: Ears normal, nares patent, oropharynx clear without exudates NECK: Trachea midline, full range of motion, supple. LUNGS: Breath sounds equal, clear to auscultation bilaterally HEART: Regular rate and rhythm ABDOMEN: Soft, nontender, nondistended, normoactive bowel sounds EXTREMITIES: 2+ lower ext edema NEUROLOGICAL: Normal speech, gait not observed. PSYCH: Normal mood, normal affect. SKIN: Warm, dry, normal turgor, no rashes or lesions noted Laboratory Results - last 24 hr 12/22/19 12/22/19 12/23/19 17:03 21:15 05:59 WBC RBC Hgb Hct MCV MCH MCHC RDW Plt Count MPV Absolute Neuts (auto) Neutrophils % Lymphocytes % Monocytes % Eosinophils % Basophils % Nucleated RBC % Sodium Potassium Chloride Carbon Dioxide Anion Gap BUN Creatinine Est GFR (CKD-EPI)AfAm Est GFR (CKD-EPI)NonAf POC Glucometer 266 186 151 Random Glucose Calcium Magnesium Total Bilirubin AST ALT Alkaline Phosphatase Total Protein Albumin 12/23/19 12/23/19 12/23/19 11:42 12:30 12:30 WBC 4.5 RBC 3.98 L Hgb 10.1 L Hct 32.6 L MCV 82.0 MCH 25.5 L MCHC 31.0 L RDW 19.1 H Plt Count 304 MPV 8.8 Absolute Neuts (auto) 2.4 Neutrophils % 53.1 D Lymphocytes % 29.3 Monocytes % 10.8 H Eosinophils % 6.2 H Basophils % 0.6 Nucleated RBC % 0 Sodium 138 Potassium 3.6 Chloride 101 Carbon Dioxide 32 Anion Gap 5 L BUN 13.7 Creatinine 0.8 Est GFR (CKD-EPI)AfAm 98.47 Est GFR (CKD-EPI)NonAf 84.96 POC Glucometer 221 Random Glucose 205 H Calcium 8.7 Magnesium 2.1 Total Bilirubin 0.5 AST 19 ALT 22 Alkaline Phosphatase 75 Total Protein 7.4 Albumin 3.0 L Active Medications Generic Name Dose Route Start Last Admin Trade Name Anay PRN Reason Stop Dose Admin Aspirin 81 mg 12/19/19 10:00 12/23/19 09:24 Ecotrin - PO 81 mg DAILY [facility] Administration Atorvastatin Calcium 20 mg 12/18/19 22:00 12/22/19 21:47 Lipitor - PO 20 mg HS [facility] Administration Bacitracin 1 applic 12/21/19 16:45 12/23/19 09:23 Bacitracin - TP 1 applic DAILY [facility] Administration Cholecalciferol 1,000 unit 12/19/19 10:00 12/23/19 09:24 Vitamin D3 - PO 1,000 unit DAILY [facility] Administration Docusate Sodium 100 mg 12/19/19 10:00 12/23/19 09:24 Colace - PO 100 mg DAILY [facility] Administration Enoxaparin Sodium 40 mg 12/19/19 10:00 12/23/19 09:24 Lovenox - SQ 40 mg DAILY [facility] Administration Furosemide 40 mg 12/19/19 06:00 12/23/19 14:15 Lasix Injection - IVPUSH 40 mg BID@0600,1400 [facility] Administration Ampicillin Sodium/Sulbactam 100 mls @ 200 mls/hr 12/19/19 22:30 12/23/19 14: 15 Sodium 1.5 gm/ Sodium Chloride IVPB 200 mls/hr Q6H-IV [facility] Administration Insulin Aspart 1 vial 12/18/19 22:00 12/23/19 11:52 Novolog Vial Sliding Scale - SQ 4 units ACHS [facility] Administration Protocol Insulin Detemir 8 units 12/22/19 22:00 12/22/19 21:47 Levemir Vial SQ 8 units HS [facility] Administration Metoprolol Tartrate 50 mg 12/18/19 22:00 12/23/19 09:24 Lopressor - PO 50 mg BID [facility] Administration Pantoprazole Sodium 40 mg 12/19/19 10:00 12/23/19 09:24 Protonix - PO 40 mg DAILY [facility] Administration Terazosin HCl 1 mg 12/18/19 22:00 12/22/19 21:47 Hytrin - PO 1 mg HS [facility] Administration ASSESSMENT/PLAN: Problem List - Problems (1) CHF exacerbation Assessment/Plan: c/w lasix 40mg BID clinically improved daily weights echo: severe conc LVH, nl LV function, mod pericardial effusion, no tamponade cardiology following Code(s): I50.9 - HEART FAILURE, UNSPECIFIED Qualifiers: Heart failure type: unspecified Qualified Code(s): I50.9 - Heart failure, unspecified (2) Diabetes Assessment/Plan: levemir increased Code(s): E11.9 - TYPE 2 DIABETES MELLITUS WITHOUT COMPLICATIONS (3) Cellulitis Assessment/Plan: on unasyn Code(s): L03.90 - CELLULITIS, UNSPECIFIED Qualifiers: Site of cellulitis: extremity Site of cellulitis of extremity: lower extremity Laterality: right Qualified Code(s): L03.115 - Cellulitis of right lower limb (4) Diabetic neuropathy Code(s): E11.40 - TYPE 2 DIABETES MELLITUS WITH DIABETIC NEUROPATHY, UNSP (5) HTN (hypertension) Assessment/Plan: controlled Code(s): I10 - ESSENTIAL (PRIMARY) HYPERTENSION (6) Venous stasis Assessment/Plan: seen by vascular and notes appreciated per vascular recommendations: -Elevate the lower extremity above the level of the heart at all times while at rest -Bilateral compression with becca wraps once cellulitis has receded (wrap from metacarpal heads to below knee) -bacitracin ointment to right calf wound- cover with clean dry dressing. -Apply Lac hydrin daily (for dry scaly skin) Code(s): I87.8 - OTHER SPECIFIED DISORDERS OF VEINS (7) Prophylactic measure Assessment/Plan: lovenox Code(s): Z29.9 - ENCOUNTER FOR PROPHYLACTIC MEASURES, UNSPECIFIED Visit type - Emergency Visit Emergency Visit: Yes ED Registration Date: 12/18/19 Care time: The patient presented to the Emergency Department on the above date and was hospitalized for further evaluation of their emergent condition. - New Patient This patient is new to me today: No - Critical Care Critical Care patient: No - Discharge Referral Referred to [facility] Med P.C.: No
[2019-12-23] MEDS ORDERED: PT OWN MED DRAWER 7, Y5N ONE (21:18)
[2019-12-23] MEDS ORDERED: INSULIN (NOVOLOG) ASPART 100 UNITS/ML 10ML VIAL ONE (21:22)
[2019-12-23] MEDS: INSULIN (LEVEMIR) 100 UNITS/ML UNITS SQ SCH (22:10)
[2019-12-23] MEDS: ATORVASTATIN CA 20 MG TABLET (FP) PO SCH (22:10)
[2019-12-23] MEDS: TERAZOSIN HCL 1 MG CAPSULE PO SCH (22:12)
[2019-12-24] MEDS ORDERED: AMPICILLIN NA/SULBACTAM NA 1.5 GM VIAL ONE ×4 (02:37→21:21)
[2019-12-24] MEDS ORDERED: SODIUM CHLORIDE 100 ML IVPB ONE ×4 (02:37→21:21)
[2019-12-24] MEDS: AMPICILLIN NA/SULBACTAM NA 1.5 GM in SODIUM CHLORIDE 100 ML IVPB SCH ×4 (03:39→21:41)
[2019-12-24] MEDS: INSULIN SLIDING SCALE (NOVOLOG) 1 VIAL SQ SCH ×4 (06:03→21:42)
[2019-12-24] MEDS: FUROSEMIDE 40 MG/4 ML INJECTABLE VIAL IVPUSH SCH ×2 (06:36→14:58)
--- NOTE | 2019-12-24 08:39 | PN ---
Progress Note, Physician History of Present Illness: Feels improved this AM Breathing better Some LE pain tele: ST 100s - Current Medication List Current Medications: Active Medications Aspirin (Ecotrin -) 81 mg PO DAILY [facility] Last Admin: 12/23/19 09:24 Dose: 81 mg Atorvastatin Calcium (Lipitor -) 20 mg PO HS [facility] Last Admin: 12/23/19 22:10 Dose: 20 mg Bacitracin (Bacitracin -) 1 applic TP DAILY [facility] Last Admin: 12/23/19 09:23 Dose: 1 applic Cholecalciferol (Vitamin D3 -) 1,000 unit PO DAILY [facility] Last Admin: 12/23/19 09:24 Dose: 1,000 unit Docusate Sodium (Colace -) 100 mg PO DAILY [facility] Last Admin: 12/23/19 09:24 Dose: 100 mg Enoxaparin Sodium (Lovenox -) 40 mg SQ DAILY [facility] Last Admin: 12/23/19 09:24 Dose: 40 mg Furosemide (Lasix Injection -) 40 mg IVPUSH BID@0600,1400 [facility] Last Admin: 12/24/19 06:36 Dose: 40 mg Ampicillin Sodium/Sulbactam (Sodium 1.5 gm/ Sodium Chloride) 100 mls @ 200 mls/ hr IVPB Q6H-IV [facility] Last Admin: 12/24/19 03:39 Dose: 200 mls/hr Insulin Aspart (Novolog Vial Sliding Scale -) 1 vial SQ [facility]; Protocol Last Admin: 12/24/19 06:03 Dose: Not Given Insulin Detemir (Levemir Vial) 8 units SQ [facility] Last Admin: 12/23/19 22:10 Dose: 8 units Metoprolol Tartrate (Lopressor -) 50 mg PO BID [facility] Last Admin: 12/23/19 22:10 Dose: 50 mg Pantoprazole Sodium (Protonix -) 40 mg PO DAILY [facility] Last Admin: 12/23/19 09:24 Dose: 40 mg Terazosin HCl (Hytrin -) 1 mg PO [facility] Last Admin: 12/23/19 22:12 Dose: 1 mg - Objective Vital Signs: Vital Signs Temperature 98.1 F 12/24/19 06:00 Pulse Rate 86 12/24/19 06:00 Respiratory Rate 18 12/24/19 06:00 Blood Pressure 127/66 12/24/19 06:00 O2 Sat by Pulse Oximetry (%) 98 12/23/19 21:00 Constitutional: Yes: No Distress, Calm Cardiovascular: Yes: Regular Rate and Rhythm Respiratory: Yes: CTA Bilaterally Edema: LLE: 2+, RLE: 2+ Labs: CBC, BMP 12/23/19 12:30 12/23/19 12:30 INR, PTT INR 1.25 (0.83-1.09) H 12/18/19 14:00 Assessment/Plan acute on chronic diastolic CHF h/o venous ins'y: -congestion on cxr (though notably effusion is unilateral--? chronic/loculated) -BNP 1200, no priors available. CXR with fluid. -cardiomegaly, no details of prior echo - nl LV function on echo here - cont lasix 40 mg IV BID - Cr pending today, dyspnea and edema improving pericardial effusion, moderate - unclear chronicity, no echocardiographic or clinical signs of tamponade - monitoring on tele - repeat echo prior to discharge HTN: -initially severely elevated, now improved -cont current meds for now -BP stable DM: -per hospitalist
--- NOTE | 2019-12-24 09:26 | PN ---
Physical Exam: SUBJECTIVE: Patient seen and examined at the bedside. sitting in chair, in no acute distress. tolerating home oxygen. OBJECTIVE: The patient is a 79 year old male, with a significant past medical history of hypertension, CHF, BPH, diabetes mellitus, venous stasis, and diabetic neuropathy. Patient presents to the emergency department on 12/18/2019 with progressively worsening shortness of breath and bilateral lower extremity edema and redness on lower extremity. He is admitted for acute on chronic heart failure and lower ext cellulitis. Vital Signs Period Temp Pulse Resp BP Sys/Flores Pulse Ox Last 24 Hr 97.9 F-99.3 F 74-88 18-20 113-148/66-81 98 GENERAL: The patient is awake, alert, and fully oriented, in no acute distress. forgetful HEAD: Normal with no signs of trauma. EYES: PERRL, extraocular movements intact, sclera anicteric, conjunctiva clear. No ptosis. ENT: Ears normal, nares patent, oropharynx clear without exudates NECK: Trachea midline, full range of motion, supple. LUNGS: Breath sounds equal, clear to auscultation bilaterally HEART: Regular rate and rhythm ABDOMEN: Soft, nontender, nondistended, normoactive bowel sounds EXTREMITIES: 2+ lower ext edema NEUROLOGICAL: Normal speech, gait not observed. PSYCH: Normal mood, normal affect. SKIN: Warm, dry, normal turgor, no rashes or lesions noted Laboratory Results - last 24 hr 12/23/19 12/23/19 12/23/19 11:42 12:30 12:30 WBC 4.5 RBC 3.98 L Hgb 10.1 L Hct 32.6 L MCV 82.0 MCH 25.5 L MCHC 31.0 L RDW 19.1 H Plt Count 304 MPV 8.8 Absolute Neuts (auto) 2.4 Neutrophils % 53.1 D Lymphocytes % 29.3 Monocytes % 10.8 H Eosinophils % 6.2 H Basophils % 0.6 Nucleated RBC % 0 Sodium 138 Potassium 3.6 Chloride 101 Carbon Dioxide 32 Anion Gap 5 L BUN 13.7 Creatinine 0.8 Est GFR (CKD-EPI)AfAm 98.47 Est GFR (CKD-EPI)NonAf 84.96 POC Glucometer 221 Random Glucose 205 H Calcium 8.7 Magnesium 2.1 Total Bilirubin 0.5 AST 19 ALT 22 Alkaline Phosphatase 75 Total Protein 7.4 Albumin 3.0 L 12/23/19 12/23/19 12/24/19 17:34 22:07 05:35 WBC RBC Hgb Hct MCV MCH MCHC RDW Plt Count MPV Absolute Neuts (auto) Neutrophils % Lymphocytes % Monocytes % Eosinophils % Basophils % Nucleated RBC % Sodium Potassium Chloride Carbon Dioxide Anion Gap BUN Creatinine Est GFR (CKD-EPI)AfAm Est GFR (CKD-EPI)NonAf POC Glucometer 221 270 147 Random Glucose Calcium Magnesium Total Bilirubin AST ALT Alkaline Phosphatase Total Protein Albumin Active Medications Generic Name Dose Route Start Last Admin Trade Name Freq PRN Reason Stop Dose Admin Aspirin 81 mg 12/19/19 10:00 12/23/19 09:24 Ecotrin - PO 81 mg DAILY [facility] Administration Atorvastatin Calcium 20 mg 12/18/19 22:00 12/23/19 22:10 Lipitor - PO 20 mg HS [facility] Administration Bacitracin 1 applic 12/21/19 16:45 12/23/19 09:23 Bacitracin - TP 1 applic DAILY [facility] Administration Cholecalciferol 1,000 unit 12/19/19 10:00 12/23/19 09:24 Vitamin D3 - PO 1,000 unit DAILY [facility] Administration Docusate Sodium 100 mg 12/19/19 10:00 12/23/19 09:24 Colace - PO 100 mg DAILY [facility] Administration Enoxaparin Sodium 40 mg 12/19/19 10:00 12/23/19 09:24 Lovenox - SQ 40 mg DAILY [facility] Administration Furosemide 40 mg 12/19/19 06:00 12/24/19 06:36 Lasix Injection - IVPUSH 40 mg BID@0600,1400 [facility] Administration Ampicillin Sodium/Sulbactam 100 mls @ 200 mls/hr 12/19/19 22:30 12/24/19 03: 39 Sodium 1.5 gm/ Sodium Chloride IVPB 200 mls/hr Q6H-IV [facility] Administration Insulin Aspart 1 vial 12/18/19 22:00 12/24/19 06:03 Novolog Vial Sliding Scale - SQ Not Given ACHS [facility] Protocol Insulin Detemir 8 units 12/22/19 22:00 12/23/19 22:10 Levemir Vial SQ 8 units HS [facility] Administration Metoprolol Tartrate 50 mg 12/18/19 22:00 12/23/19 22:10 Lopressor - PO 50 mg BID [facility] Administration Pantoprazole Sodium 40 mg 12/19/19 10:00 12/23/19 09:24 Protonix - PO 40 mg DAILY [facility] Administration Terazosin HCl 1 mg 12/18/19 22:00 12/23/19 22:12 Hytrin - PO 1 mg HS [facility] Administration ASSESSMENT/PLAN: Problem List - Problems (1) Pericardial effusion Assessment/Plan: 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 BNP elevated with congestion on chest xray. currently lungs are clear to auscultation bilaterally On IV lasix bid, monitor kidney function tolerating room air. pre and post prior to discharge home Code(s): I50.33 - ACUTE ON CHRONIC DIASTOLIC (CONGESTIVE) HEART FAILURE (3) CHF exacerbation Assessment/Plan: c/w lasix 40mg BID clinically improved daily weights echo: severe conc LVH, nl LV function, mod pericardial effusion, no tamponade cardiology following Code(s): I50.9 - HEART FAILURE, UNSPECIFIED Qualifiers: Heart failure type: unspecified Qualified Code(s): I50.9 - Heart failure, unspecified (4) Diabetes Assessment/Plan: levemir increased Code(s): E11.9 - TYPE 2 DIABETES MELLITUS WITHOUT COMPLICATIONS (5) Cellulitis Assessment/Plan: on unasyn Code(s): L03.90 - CELLULITIS, UNSPECIFIED Qualifiers: Site of cellulitis: extremity Site of cellulitis of extremity: lower extremity Laterality: right Qualified Code(s): L03.115 - Cellulitis of right lower limb (6) Diabetic neuropathy Code(s): E11.40 - TYPE 2 DIABETES MELLITUS WITH DIABETIC NEUROPATHY, UNSP (7) HTN (hypertension) Assessment/Plan: controlled Code(s): I10 - ESSENTIAL (PRIMARY) HYPERTENSION (8) Venous stasis Assessment/Plan: seen by vascular and notes appreciated per vascular recommendations: -Elevate the lower extremity above the level of the heart at all times while at rest -Bilateral compression with becca wraps once cellulitis has receded (wrap from metacarpal heads to below knee) -bacitracin ointment to right calf wound- cover with clean dry dressing. -Apply Lac hydrin daily (for dry scaly skin) Code(s): I87.8 - OTHER SPECIFIED DISORDERS OF VEINS (9) Prophylactic measure Assessment/Plan: lovenox Code(s): Z29.9 - ENCOUNTER FOR PROPHYLACTIC MEASURES, UNSPECIFIED Visit type - Emergency Visit Emergency Visit: Yes ED Registration Date: 12/18/19 Care time: The patient presented to the Emergency Department on the above date and was hospitalized for further evaluation of their emergent condition. - New Patient This patient is new to me today: No - Critical Care Critical Care patient: No - Discharge Referral Referred to [facility] Med P.C.: No
[2019-12-24] MEDS: DOCUSATE SODIUM 100 MG CAPSULE (FP) PO SCH (10:56)
[2019-12-24] MEDS: CHOLECALCIFEROL (VIT D3) 1,000 UNIT (25 MCG) TABLET PO SCH (10:56)
[2019-12-24] MEDS: ASPIRIN COATED 81 MG TABLET.EC PO SCH (10:56)
[2019-12-24] MEDS: METOPROLOL TARTRATE 50 MG TABLET (FP) PO SCH ×2 (10:56→21:41)
[2019-12-24] MEDS: BACITRACIN 15 GM TUBE TOPICAL OINTMENT TP SCH (10:56)
[2019-12-24] MEDS: ENOXAPARIN NA (PORCINE) 40 MG/0.4 ML DISP.SYRIN SQ SCH (10:56)
[2019-12-24] MEDS: PANTOPRAZOLE 40 MG TABLET PO SCH (10:56)
[2019-12-24] MEDS: TERAZOSIN HCL 1 MG CAPSULE PO SCH (21:41)
[2019-12-24] MEDS: ATORVASTATIN CA 20 MG TABLET (FP) PO SCH (21:41)
[2019-12-24] MEDS: INSULIN (LEVEMIR) 100 UNITS/ML UNITS SQ SCH (21:48)
[2019-12-25] MEDS ORDERED: SODIUM CHLORIDE 100 ML IVPB ONE ×3 (01:35→15:22)
[2019-12-25] MEDS ORDERED: AMPICILLIN NA/SULBACTAM NA 1.5 GM VIAL ONE ×3 (01:35→15:22)
[2019-12-25] MEDS: AMPICILLIN NA/SULBACTAM NA 1.5 GM in SODIUM CHLORIDE 100 ML IVPB SCH ×3 (03:45→15:24)
[2019-12-25] MEDS: FUROSEMIDE 40 MG/4 ML INJECTABLE VIAL IVPUSH SCH ×2 (06:30→15:24)
[2019-12-25] MEDS: INSULIN SLIDING SCALE (NOVOLOG) 1 VIAL SQ SCH ×4 (06:32→21:46)
[2019-12-25] MEDS: CHOLECALCIFEROL (VIT D3) 1,000 UNIT (25 MCG) TABLET PO SCH (09:36)
[2019-12-25] MEDS: DOCUSATE SODIUM 100 MG CAPSULE (FP) PO SCH (09:36)
[2019-12-25] MEDS: METOPROLOL TARTRATE 50 MG TABLET (FP) PO SCH ×2 (09:36→21:37)
[2019-12-25] MEDS: PANTOPRAZOLE 40 MG TABLET PO SCH (09:36)
[2019-12-25] MEDS: ASPIRIN COATED 81 MG TABLET.EC PO SCH (09:38)
[2019-12-25] MEDS: ENOXAPARIN NA (PORCINE) 40 MG/0.4 ML DISP.SYRIN SQ SCH (09:38)
[2019-12-25] MEDS: BACITRACIN 15 GM TUBE TOPICAL OINTMENT TP SCH (09:38)
--- NOTE | 2019-12-25 09:50 | PN ---
Progress Note, Physician History of Present Illness: No complaints Breathing improving slowly - Current Medication List Current Medications: Active Medications Aspirin (Ecotrin -) 81 mg PO DAILY [facility] Last Admin: 12/25/19 09:38 Dose: 81 mg Atorvastatin Calcium (Lipitor -) 20 mg PO HS [facility] Last Admin: 12/24/19 21:41 Dose: 20 mg Bacitracin (Bacitracin -) 1 applic TP DAILY [facility] Last Admin: 12/25/19 09:38 Dose: 1 applic Cholecalciferol (Vitamin D3 -) 1,000 unit PO DAILY [facility] Last Admin: 12/25/19 09:36 Dose: 1,000 unit Docusate Sodium (Colace -) 100 mg PO DAILY [facility] Last Admin: 12/25/19 09:36 Dose: 100 mg Enoxaparin Sodium (Lovenox -) 40 mg SQ DAILY [facility] Last Admin: 12/25/19 09:38 Dose: 40 mg Furosemide (Lasix Injection -) 40 mg IVPUSH BID@0600,1400 [facility] Last Admin: 12/25/19 06:30 Dose: 40 mg Ampicillin Sodium/Sulbactam (Sodium 1.5 gm/ Sodium Chloride) 100 mls @ 200 mls/ hr IVPB Q6H-IV [facility] Last Admin: 12/25/19 09:38 Dose: 200 mls/hr Insulin Aspart (Novolog Vial Sliding Scale -) 1 vial SQ [facility]; Protocol Last Admin: 12/25/19 06:32 Dose: Not Given Insulin Detemir (Levemir Vial) 10 units SQ [facility] Last Admin: 12/24/19 21:48 Dose: 10 units Metoprolol Tartrate (Lopressor -) 50 mg PO BID [facility] Last Admin: 12/25/19 09:36 Dose: 50 mg Pantoprazole Sodium (Protonix -) 40 mg PO DAILY [facility] Last Admin: 12/25/19 09:36 Dose: 40 mg Terazosin HCl (Hytrin -) 1 mg PO HS [facility] Last Admin: 12/24/19 21:41 Dose: 1 mg - Objective Vital Signs: Vital Signs Temperature 97.8 F 12/25/19 06:00 Pulse Rate 82 12/25/19 06:00 Respiratory Rate 19 12/25/19 06:00 Blood Pressure 136/80 12/25/19 06:00 O2 Sat by Pulse Oximetry (%) 97 12/24/19 21:00 Constitutional: Yes: No Distress (Sitting upright in chair) Cardiovascular: Yes: Regular Rate and Rhythm Respiratory: Yes: CTA Bilaterally Edema: Yes Edema: LLE: 2+, RLE: 2+ Labs: CBC, BMP 12/23/19 12:30 12/23/19 12:30 INR, PTT INR 1.25 (0.83-1.09) H 12/18/19 14:00 Assessment/Plan acute on chronic diastolic CHF h/o venous ins'y: -congestion on cxr (though notably effusion is unilateral--? chronic/loculated) -BNP 1200, no priors available. CXR with fluid. -cardiomegaly, no details of prior echo - nl LV function on echo here - cont lasix 40 mg IV BID - -Need daily chemisty while recieving IV lasix. pericardial effusion, moderate - unclear chronicity, no echocardiographic or clinical signs of tamponade - monitoring on tele - repeat echo prior to discharge HTN: -initially severely elevated, now improved -cont current meds for now -BP stable DM: -per hospitalist
[2019-12-25 12:05] LABS: BLOOD UREA NITROGEN 18.6 mg/dL (7-18); CALCIUM 8.9 mg/dL (8.5-10.1); CREATININE 0.9 mg/dL (0.55-1.3); POTASSIUM 3.7 mmol/L (3.5-5.1)
[2019-12-25 15:47] LABS: BASO % 0.4 % (0-2.0); EOS % 4.4 % (0-4.5); HEMATOCRIT 36.1 % (35.4-49); HEMOGLOBIN 11.2 GM/dL (11.7-16.9); MCH 25.5 pg (25.7-33.7); MEAN CELL VOLUME 82.1 fl (80-96); MEAN PLT VOLUME 8.8 fl (7.5-11.1); MONO % 10.1 % (3.8-10.2); NEUT % 53.1 % (42.8-82.8); PLATELET COUNT 334 K/MM3 (134-434); RBC 4.39 M/mm3 (4.00-5.60); RDW 18.8 % (11.9-15.9); WHITE BLOOD COUNT 4.4 K/mm3 (4.0-10.0)
[2019-12-25 15:57] LABS: ALBUMIN 3.4 g/dl (3.4-5.0); BILIRUBIN,TOTAL 0.5 mg/dL (0.2-1); CREATININE 0.9 mg/dL (0.55-1.3); MAGNESIUM 2.2 mg/dL (1.8-2.4); POTASSIUM 3.7 mmol/L (3.5-5.1); TOT PROT 8.1 g/dl (6.4-8.2)
--- NOTE | 2019-12-25 17:18 | PN ---
Physical Exam: SUBJECTIVE: Patient seen and examined at the baseline. ambulating in room, denies dyspnea or pain. OBJECTIVE: The patient is a 79 year old male, with a significant past medical history of hypertension, CHF, BPH, diabetes mellitus, venous stasis, and diabetic neuropathy. Patient presents to the emergency department on 12/18/2019 with progressively worsening shortness of breath and bilateral lower extremity edema and redness on lower extremity. He is admitted for acute on chronic heart failure and lower ext cellulitis. He also is noted to have a moderate pericardial effusion on echo 12/20/2019. Vital Signs Period Temp Pulse Resp BP Sys/Flores Pulse Ox Last 24 Hr 97.4 F-98.6 F 74-84 18-20 118-136/70-81 97-97 GENERAL: The patient is awake, alert, and fully oriented, in no acute distress. forgetful HEAD: Normal with no signs of trauma. EYES: PERRL, extraocular movements intact, sclera anicteric, conjunctiva clear. No ptosis. ENT: Ears normal, nares patent, oropharynx clear without exudates NECK: Trachea midline, full range of motion, supple. LUNGS: Breath sounds equal, clear to auscultation bilaterally HEART: Regular rate and rhythm ABDOMEN: Soft, nontender, nondistended, normoactive bowel sounds EXTREMITIES: 2+ lower ext edema, negative for dvt, small ulceration, cirular, dime sized on right anterior leg. NEUROLOGICAL: Normal speech Laboratory Results - last 24 hr 12/24/19 12/24/19 12/25/19 17:52 21:38 06:28 WBC RBC Hgb Hct MCV MCH MCHC RDW Plt Count MPV Absolute Neuts (auto) Neutrophils % Lymphocytes % Monocytes % Eosinophils % Basophils % Nucleated RBC % Sodium Potassium Chloride Carbon Dioxide Anion Gap BUN Creatinine Est GFR (CKD-EPI)AfAm Est GFR (CKD-EPI)NonAf POC Glucometer 167 181 119 Random Glucose Calcium Magnesium Total Bilirubin AST ALT Alkaline Phosphatase Total Protein Albumin 12/25/19 12/25/19 12/25/19 10:49 10:55 11:10 WBC 4.4 RBC 4.39 Hgb 11.2 L Hct 36.1 MCV 82.1 MCH 25.5 L MCHC 31.0 L RDW 18.8 H Plt Count 334 MPV 8.8 Absolute Neuts (auto) 2.4 Neutrophils % 53.1 Lymphocytes % 32.0 Monocytes % 10.1 Eosinophils % 4.4 Basophils % 0.4 Nucleated RBC % 0 Sodium 139 Potassium 3.7 Chloride 100 Carbon Dioxide 32 Anion Gap 6 L BUN 18.6 H Creatinine 0.9 Est GFR (CKD-EPI)AfAm 93.82 Est GFR (CKD-EPI)NonAf 80.95 POC Glucometer 225 Random Glucose 233 H Calcium 8.9 Magnesium Total Bilirubin AST ALT Alkaline Phosphatase Total Protein Albumin 12/25/19 11:10 WBC RBC Hgb Hct MCV MCH MCHC RDW Plt Count MPV Absolute Neuts (auto) Neutrophils % Lymphocytes % Monocytes % Eosinophils % Basophils % Nucleated RBC % Sodium 140 Potassium 3.7 Chloride 100 Carbon Dioxide 32 Anion Gap 7 L BUN 17.0 Creatinine 0.9 Est GFR (CKD-EPI)AfAm 93.82 Est GFR (CKD-EPI)NonAf 80.95 POC Glucometer Random Glucose 235 H Calcium 9.0 Magnesium 2.2 Total Bilirubin 0.5 AST 28 ALT 31 Alkaline Phosphatase 84 Total Protein 8.1 Albumin 3.4 Active Medications Generic Name Dose Route Start Last Admin Trade Name Freq PRN Reason Stop Dose Admin Amoxicillin/Clavulanate Potassium 1 tab 12/26/19 08:00 Augmentin - 500mg Tablet PO BID@0800,1730 ZACH Aspirin 81 mg 12/19/19 10:00 12/25/19 09:38 Ecotrin - PO 81 mg DAILY ZACH Administration Atorvastatin Calcium 20 mg 12/18/19 22:00 12/24/19 21:41 Lipitor - PO 20 mg HS ZACH Administration Bacitracin 1 applic 12/21/19 16:45 12/25/19 09:38 Bacitracin - TP 1 applic DAILY ZACH Administration Cholecalciferol 1,000 unit 12/19/19 10:00 12/25/19 09:36 Vitamin D3 - PO 1,000 unit DAILY ZACH Administration Docusate Sodium 100 mg 12/19/19 10:00 12/25/19 09:36 Colace - PO 100 mg DAILY ZACH Administration Enoxaparin Sodium 40 mg 12/19/19 10:00 12/25/19 09:38 Lovenox - SQ 40 mg DAILY ZACH Administration Furosemide 40 mg 12/19/19 06:00 12/25/19 15:24 Lasix Injection - IVPUSH 40 mg BID@0600,1400 ZACH Administration Insulin Aspart 1 vial 12/24/19 14:30 12/25/19 11:00 Novolog Vial Sliding Scale - SQ 6 units ACHS ZACH Administration Protocol Insulin Detemir 10 units 12/24/19 14:29 12/24/19 21:48 Levemir Vial SQ 10 units HS ZACH Administration Metoprolol Tartrate 50 mg 12/18/19 22:00 12/25/19 09:36 Lopressor - PO 50 mg BID ZACH Administration Pantoprazole Sodium 40 mg 12/19/19 10:00 12/25/19 09:36 Protonix - PO 40 mg DAILY ZACH Administration Terazosin HCl 1 mg 12/18/19 22:00 12/24/19 21:41 Hytrin - PO 1 mg HS ZACH Administration ASSESSMENT/PLAN: Problem List - Problems (1) Pericardial effusion Assessment/Plan: per project systems engineer, no clinical signs of tamponade repeat echo on Thursday Monitor on tele Code(s): I31.3 - PERICARDIAL EFFUSION (NONINFLAMMATORY) (2) Diastolic dysfunction with acute on chronic heart failure Assessment/Plan: acute on chronic diastolic CHF with history of venous insufficiency. BNP elevated with congestion on chest xray. currently lungs are clear to auscultation bilaterally On IV lasix bid, monitor kidney function, electrolytes tolerating room air. pre and post prior to discharge home Code(s): I50.33 - ACUTE ON CHRONIC DIASTOLIC (CONGESTIVE) HEART FAILURE (3) CHF exacerbation Assessment/Plan: c/w lasix IV 40mg BID clinically improved daily weights echo: severe conc LVH, nl LV function, mod pericardial effusion, no tamponade cardiology following Code(s): I50.9 - HEART FAILURE, UNSPECIFIED Qualifiers: Heart failure type: unspecified Qualified Code(s): I50.9 - Heart failure, unspecified (4) Diabetes Assessment/Plan: levemir increased Code(s): E11.9 - TYPE 2 DIABETES MELLITUS WITHOUT COMPLICATIONS (5) Cellulitis Assessment/Plan: transitioned to oral Augmentin for 5 more days. Code(s): L03.90 - CELLULITIS, UNSPECIFIED Qualifiers: Site of cellulitis: extremity Site of cellulitis of extremity: lower extremity Laterality: right Qualified Code(s): L03.115 - Cellulitis of right lower limb (6) Diabetic neuropathy Code(s): E11.40 - TYPE 2 DIABETES MELLITUS WITH DIABETIC NEUROPATHY, UNSP (7) HTN (hypertension) Assessment/Plan: controlled Code(s): I10 - ESSENTIAL (PRIMARY) HYPERTENSION (8) Venous stasis Assessment/Plan: seen by vascular and notes appreciated per vascular recommendations: -Elevate the lower extremity above the level of the heart at all times while at rest -Bilateral compression with becca wraps once cellulitis has receded (wrap from metacarpal heads to below knee) -bacitracin ointment to right calf wound- cover with clean dry dressing. -Apply Lac hydrin daily (for dry scaly skin) Code(s): I87.8 - OTHER SPECIFIED DISORDERS OF VEINS (9) Prophylactic measure Assessment/Plan: lovenox Code(s): Z29.9 - ENCOUNTER FOR PROPHYLACTIC MEASURES, UNSPECIFIED Visit type - Emergency Visit Emergency Visit: Yes ED Registration Date: 12/18/19 Care time: The patient presented to the Emergency Department on the above date and was hospitalized for further evaluation of their emergent condition. - New Patient This patient is new to me today: No - Critical Care Critical Care patient: No - Discharge Referral Referred to [facility] Med P.C.: No
[2019-12-25] MEDS ORDERED: PT OWN MED DRAWER 7, Y5N ONE (21:15)
[2019-12-25] MEDS: ATORVASTATIN CA 20 MG TABLET (FP) PO SCH (21:37)
[2019-12-25] MEDS: TERAZOSIN HCL 1 MG CAPSULE PO SCH (21:38)
[2019-12-25] MEDS: INSULIN (LEVEMIR) 100 UNITS/ML UNITS SQ SCH (21:56)
[2019-12-26] MEDS: FUROSEMIDE 40 MG/4 ML INJECTABLE VIAL IVPUSH SCH ×2 (06:36→13:58)
[2019-12-26] MEDS: INSULIN SLIDING SCALE (NOVOLOG) 1 VIAL SQ SCH ×4 (06:39→22:51)
[2019-12-26] MEDS: AMOX TR/POT CLAV 500MG/125MG TABLETS (FP) PO SCH ×2 (09:13→17:19)
[2019-12-26] MEDS: PANTOPRAZOLE 40 MG TABLET PO SCH (09:14)
[2019-12-26] MEDS: METOPROLOL TARTRATE 50 MG TABLET (FP) PO SCH ×2 (09:14→21:38)
[2019-12-26] MEDS: CHOLECALCIFEROL (VIT D3) 1,000 UNIT (25 MCG) TABLET PO SCH (09:14)
[2019-12-26] MEDS: BACITRACIN 15 GM TUBE TOPICAL OINTMENT TP SCH (09:14)
[2019-12-26] MEDS: ASPIRIN COATED 81 MG TABLET.EC PO SCH (09:14)
[2019-12-26] MEDS: ENOXAPARIN NA (PORCINE) 40 MG/0.4 ML DISP.SYRIN SQ SCH (09:14)
[2019-12-26] MEDS: DOCUSATE SODIUM 100 MG CAPSULE (FP) PO SCH (09:14)
--- NOTE | 2019-12-26 09:58 | PN ---
Progress Note, Physician - Current Medication List Current Medications: Active Medications Amoxicillin/Clavulanate Potassium (Augmentin - 500mg Tablet) 1 tab PO BID@0800, 1730 [facility] Last Admin: 12/26/19 09:13 Dose: 1 tab Aspirin (Ecotrin -) 81 mg PO DAILY [facility] Last Admin: 12/26/19 09:14 Dose: 81 mg Atorvastatin Calcium (Lipitor -) 20 mg PO [facility] Last Admin: 12/25/19 21:37 Dose: 20 mg Bacitracin (Bacitracin -) 1 applic TP DAILY [facility] Last Admin: 12/26/19 09:14 Dose: 1 applic Cholecalciferol (Vitamin D3 -) 1,000 unit PO DAILY [facility] Last Admin: 12/26/19 09:14 Dose: 1,000 unit Docusate Sodium (Colace -) 100 mg PO DAILY [facility] Last Admin: 12/26/19 09:14 Dose: 100 mg Enoxaparin Sodium (Lovenox -) 40 mg SQ DAILY [facility] Last Admin: 12/26/19 09:14 Dose: 40 mg Furosemide (Lasix Injection -) 40 mg IVPUSH BID@0600,1400 [facility] Last Admin: 12/26/19 06:36 Dose: 40 mg Insulin Aspart (Novolog Vial Sliding Scale -) 1 vial SQ [facility]; Protocol Last Admin: 12/26/19 06:39 Dose: Not Given Insulin Detemir (Levemir Vial) 10 units SQ [facility] Last Admin: 12/25/19 21:56 Dose: 10 units Metoprolol Tartrate (Lopressor -) 50 mg PO BID [facility] Last Admin: 12/26/19 09:14 Dose: 50 mg Pantoprazole Sodium (Protonix -) 40 mg PO DAILY [facility] Last Admin: 12/26/19 09:14 Dose: 40 mg Terazosin HCl (Hytrin -) 1 mg PO [facility] Last Admin: 12/25/19 21:38 Dose: 1 mg - Objective Vital Signs: Vital Signs Temperature 98 F 12/26/19 09:00 Pulse Rate 90 12/26/19 09:00 Respiratory Rate 18 12/26/19 09:00 Blood Pressure 124/80 12/26/19 09:00 O2 Sat by Pulse Oximetry (%) 98 12/25/19 20:35 Labs: CBC, BMP 12/25/19 11:10 12/25/19 11:10 INR, PTT INR 1.25 (0.83-1.09) H 12/18/19 14:00 Assessment/Plan echo 12/2019 severe conc LVH, nl LV function, mild MAC, tr MR, mild TR, RVSP 29 mmHg, tr AR, mod pericardial effusion, no tamponade acute on chronic diastolic CHF h/o venous ins'y: -congestion on cxr (though notably effusion is unilateral--? chronic/loculated) -BNP 1200, no priors available. CXR with fluid. -cardiomegaly, no details of prior echo - nl LV function on echo here - wt decreasing here: 192-->183. cont lasix 40 mg IV BID - pericardial effusion, moderate - unclear chronicity, no echocardiographic or clinical signs of tamponade - monitoring on tele - repeat echo prior to discharge HTN: -initially severely elevated, now improved -cont current meds for now -BP stable DM: -per hospitalist
--- NOTE | 2019-12-26 11:57 | ECHO ---
[place] [address] [address] Name: MERLE KHAN Exam:Adult Echocardiogram Referring Physician: JONNY DIAZ : [id number] Performed By: Mini Beard Study Date: 12/26/2019 10:45 AM Patient Status: Inpatient Reason For Study: Pericardial Effusion Height: 71 in Weight: 189 lb BSA: 2.1 m2 MMode/2D Measurements & Calculations IVSd: 1.6 cm Ao root diam: 3.4 cm LVPWs: 1.8 cm EDV(Teich): 76.5 ml LVIDd: 4.2 cm LA dimension: 4.0 cm ESV(Teich): 40.9 ml LVIDs: 3.2 cm LVPWd: 1.7 cm LVOT diam: 1.8 cm LAV (MOD-bp): 79.7 ml TAPSE: 1.5 cm Doppler Measurements & Calculations MV E max renny: 106.0 cm/sec Ao V2 max: 123.3 cm/sec LV V1 max P.2 mmHg MR max renny: 363.5 cm/sec MV A max renny: 38.3 cm/sec Ao max P.1 mmHg LV V1 max: 74.7 cm/sec MR max P.3 m mHg MV E/A: 2.8 MV dec time: 0.19 sec GRICELDA(V,D): 1.5 cm2 TR max renny: 283.4 cm/sec PA V2 max: 80.4 cm/sec Med Peak E' Renny: 4.5 cm/sec RV S Renny: 10.9 cm /sec TR max P.1 mmHg PA max P.6 mmHg Med E/e': 23.8 Lat Peak E' Renny: 7.6 cm/sec Lat E/e': 13.9 Interpretation Summary Limited study for pericardial effusion: Compare to 12/20/2019 images: Previous large effusion has mildly improved anteriorly but remains moderate-large; Other findings same as previous study. Severe LV and RV hypertophia, normal EF decreased tissue doppler e', restrictive pattern on mitral in flow: consider amyloidosis. Reading Physician: Stefanie Gan 12/26/2019 11:57 AM
[2019-12-26 15:16] LABS: BASO % 0.4 % (0-2.0); EOS % 3.5 % (0-4.5); HEMOGLOBIN 10.5 GM/dL (11.7-16.9); LYMPH % 28.4 % (8-40); MCH 25.4 pg (25.7-33.7); MCHC 30.8 g/dl (32.0-35.9); MEAN CELL VOLUME 82.2 fl (80-96); MEAN PLT VOLUME 8.1 fl (7.5-11.1); MONO % 9.3 % (3.8-10.2); NEUT % 58.4 % (42.8-82.8); PLATELET COUNT 300 K/MM3 (134-434); RBC 4.14 M/mm3 (4.00-5.60); RDW 19.1 % (11.9-15.9); WHITE BLOOD COUNT 5.4 K/mm3 (4.0-10.0)
[2019-12-26 15:45] LABS: ALBUMIN 3.2 g/dl (3.4-5.0); BILIRUBIN,TOTAL 0.4 mg/dL (0.2-1); BLOOD UREA NITROGEN 20.2 mg/dL (7-18); CALCIUM 8.9 mg/dL (8.5-10.1); CREATININE 0.9 mg/dL (0.55-1.3); MAGNESIUM 2.2 mg/dL (1.8-2.4); POTASSIUM 3.4 mmol/L (3.5-5.1); TOT PROT 7.8 g/dl (6.4-8.2)
--- NOTE | 2019-12-26 15:54 | PN ---
Progress Note (short form) - Note Progress Note: s: no chest pain, palps, dizziness. sob improving Current Medications Amoxicillin/Clavulanate Potassium (Augmentin - 500mg Tablet) 1 tab PO BID@0800, 1730 [facility] Last Admin: 12/26/19 09:13 Dose: 1 tab Aspirin (Ecotrin -) 81 mg PO DAILY [facility] Last Admin: 12/26/19 09:14 Dose: 81 mg Atorvastatin Calcium (Lipitor -) 20 mg PO HS [facility] Last Admin: 12/25/19 21:37 Dose: 20 mg Bacitracin (Bacitracin -) 1 applic TP DAILY [facility] Last Admin: 12/26/19 09:14 Dose: 1 applic Cholecalciferol (Vitamin D3 -) 1,000 unit PO DAILY [facility] Last Admin: 12/26/19 09:14 Dose: 1,000 unit Docusate Sodium (Colace -) 100 mg PO DAILY [facility] Last Admin: 12/26/19 09:14 Dose: 100 mg Enoxaparin Sodium (Lovenox -) 40 mg SQ DAILY [facility] Last Admin: 12/26/19 09:14 Dose: 40 mg Furosemide (Lasix Injection -) 40 mg IVPUSH BID@0600,1400 [facility] Last Admin: 12/26/19 13:58 Dose: 40 mg Insulin Aspart (Novolog Vial Sliding Scale -) 1 vial SQ [facility]; Protocol Last Admin: 12/26/19 12:27 Dose: 6 units Insulin Detemir (Levemir Vial) 10 units SQ [facility] Last Admin: 12/25/19 21:56 Dose: 10 units Metoprolol Tartrate (Lopressor -) 50 mg PO BID [facility] Last Admin: 12/26/19 09:14 Dose: 50 mg Pantoprazole Sodium (Protonix -) 40 mg PO DAILY [facility] Last Admin: 12/26/19 09:14 Dose: 40 mg Terazosin HCl (Hytrin -) 1 mg PO [facility] Last Admin: 12/25/19 21:38 Dose: 1 mg Vital Signs Period Temp Pulse Resp BP Sys/Flores Pulse Ox Last 24 Hr 97.6 F-98.1 F 75-90 18-20 116-143/68-80 98-98 Constitutional: Yes: No Distress (Sitting upright in chair) Cardiovascular: Yes: Regular Rate and Rhythm Respiratory: Yes: CTA Bilaterally Edema: Yes Edema: LLE: 2+, RLE: 2+ aox3 no jaundice, diaphoresis not agitated tele: sinus, ST Assessment/Plan acute on chronic diastolic CHF h/o venous ins'y: -congestion on cxr (though notably effusion is unilateral--? chronic/loculated) -BNP 1200, no priors available. CXR with fluid. -cardiomegaly, no details of prior echo - nl LV function on echo here - wt down, Cr stable - cont lasix 40 mg IV BID - daily chemistry while on IV lasix pericardial effusion, moderate - unclear chronicity, no echocardiographic or clinical signs of tamponade - monitoring on tele - repeat echo prior to discharge HTN: -initially severely elevated, now improved -cont current meds for now -BP stable DM: -per hospitalist
[2019-12-26] MEDS ORDERED: POTASSIUM CHLORIDE TABS 20 MEQ TABLET.ER (FP) PO ONE (15:59)
--- NOTE | 2019-12-26 16:00 | PN ---
Physical Exam: SUBJECTIVE: Patient seen and examined at the bedside. ambulating in room, no dyspnea. OBJECTIVE: The patient is a 79 year old male, with a significant past medical history of hypertension, CHF, BPH, diabetes mellitus, venous stasis, and diabetic neuropathy. Patient presents to the emergency department on 12/18/2019 with progressively worsening shortness of breath and bilateral lower extremity edema and redness on lower extremity. He is admitted for acute on chronic heart failure and lower ext cellulitis. He also is noted to have a moderate pericardial effusion on echo 12/20/2019. echo repeated and pending. Vital Signs Period Temp Pulse Resp BP Sys/Flores Pulse Ox Last 24 Hr 97.6 F-98.1 F 75-90 18-20 116-143/68-80 98-98 GENERAL: The patient is awake, alert, and fully oriented, in no acute distress. forgetful HEAD: Normal with no signs of trauma. EYES: PERRL, extraocular movements intact, sclera anicteric, conjunctiva clear. No ptosis. ENT: Ears normal, nares patent, oropharynx clear without exudates NECK: Trachea midline, full range of motion, supple. LUNGS: Breath sounds equal, clear to auscultation bilaterally HEART: Regular rate and rhythm ABDOMEN: Soft, nontender, nondistended, normoactive bowel sounds EXTREMITIES: 2+ lower ext edema, negative for dvt, small ulceration, cirular, dime sized on right anterior leg. NEUROLOGICAL: Normal speech Laboratory Results - last 24 hr 12/25/19 12/25/19 12/26/19 17:58 21:37 05:58 WBC RBC Hgb Hct MCV MCH MCHC RDW Plt Count MPV Absolute Neuts (auto) Neutrophils % Lymphocytes % Monocytes % Eosinophils % Basophils % Nucleated RBC % Sodium Potassium Chloride Carbon Dioxide Anion Gap BUN Creatinine Est GFR (CKD-EPI)AfAm Est GFR (CKD-EPI)NonAf POC Glucometer 196 236 148 Random Glucose Calcium Magnesium Total Bilirubin AST ALT Alkaline Phosphatase Total Protein Albumin 12/26/19 12/26/19 12/26/19 12:24 14:50 14:50 WBC 5.4 RBC 4.14 Hgb 10.5 L Hct 34.0 L MCV 82.2 MCH 25.4 L MCHC 30.8 L RDW 19.1 H Plt Count 300 MPV 8.1 Absolute Neuts (auto) 3.2 Neutrophils % 58.4 Lymphocytes % 28.4 Monocytes % 9.3 Eosinophils % 3.5 Basophils % 0.4 Nucleated RBC % 0 Sodium 140 Potassium 3.4 L Chloride 102 Carbon Dioxide 35 H Anion Gap 4 L BUN 20.2 H Creatinine 0.9 Est GFR (CKD-EPI)AfAm 93.82 Est GFR (CKD-EPI)NonAf 80.95 POC Glucometer 229 Random Glucose 249 H Calcium 8.9 Magnesium 2.2 Total Bilirubin 0.4 AST 26 ALT 27 Alkaline Phosphatase 87 Total Protein 7.8 Albumin 3.2 L Active Medications Generic Name Dose Route Start Last Admin Trade Name Freq PRN Reason Stop Dose Admin Amoxicillin/Clavulanate Potassium 1 tab 12/26/19 08:00 12/26/19 09:13 Augmentin - 500mg Tablet PO 1 tab BID@0800,1730 ZACH Administration Aspirin 81 mg 12/19/19 10:00 12/26/19 09:14 Ecotrin - PO 81 mg DAILY ZACH Administration Atorvastatin Calcium 20 mg 12/18/19 22:00 12/25/19 21:37 Lipitor - PO 20 mg HS ZACH Administration Bacitracin 1 applic 12/21/19 16:45 12/26/19 09:14 Bacitracin - TP 1 applic DAILY ZACH Administration Cholecalciferol 1,000 unit 12/19/19 10:00 12/26/19 09:14 Vitamin D3 - PO 1,000 unit DAILY ZACH Administration Docusate Sodium 100 mg 12/19/19 10:00 12/26/19 09:14 Colace - PO 100 mg DAILY ZACH Administration Enoxaparin Sodium 40 mg 12/19/19 10:00 12/26/19 09:14 Lovenox - SQ 40 mg DAILY ZACH Administration Furosemide 40 mg 12/19/19 06:00 12/26/19 13:58 Lasix Injection - IVPUSH 40 mg BID@0600,1400 ZACH Administration Insulin Aspart 1 vial 12/24/19 14:30 12/26/19 12:27 Novolog Vial Sliding Scale - SQ 6 units ACHS ZACH Administration Protocol Insulin Detemir 10 units 12/24/19 14:29 12/25/19 21:56 Levemir Vial SQ 10 units HS ZACH Administration Metoprolol Tartrate 50 mg 12/18/19 22:00 12/26/19 09:14 Lopressor - PO 50 mg BID ZACH Administration Pantoprazole Sodium 40 mg 12/19/19 10:00 12/26/19 09:14 Protonix - PO 40 mg DAILY ZACH Administration Terazosin HCl 1 mg 12/18/19 22:00 12/25/19 21:38 Hytrin - PO 1 mg HS ZACH Administration ASSESSMENT/PLAN: Problem List - Problems (1) Pericardial effusion Assessment/Plan: per health care administrator, no clinical signs of tamponade echo repeated and pending Monitor on tele Code(s): I31.3 - PERICARDIAL EFFUSION (NONINFLAMMATORY) (2) Diastolic dysfunction with acute on chronic heart failure Assessment/Plan: acute on chronic diastolic CHF with history of venous insufficiency. BNP elevated with congestion on chest xray. currently lungs are clear to auscultation bilaterally On IV lasix bid, monitor kidney function, electrolytes tolerating room air. pre and post prior to discharge home Code(s): I50.33 - ACUTE ON CHRONIC DIASTOLIC (CONGESTIVE) HEART FAILURE (3) CHF exacerbation Assessment/Plan: c/w lasix IV 40mg BID clinically improved daily weights echo: severe conc LVH, nl LV function, mod pericardial effusion, no tamponade cardiology following Code(s): I50.9 - HEART FAILURE, UNSPECIFIED Qualifiers: Heart failure type: unspecified Qualified Code(s): I50.9 - Heart failure, unspecified (4) Diabetes Assessment/Plan: levemir increased again today Code(s): E11.9 - TYPE 2 DIABETES MELLITUS WITHOUT COMPLICATIONS (5) Cellulitis Assessment/Plan: transitioned to oral Augmentin for 5 more days. Code(s): L03.90 - CELLULITIS, UNSPECIFIED Qualifiers: Site of cellulitis: extremity Site of cellulitis of extremity: lower extremity Laterality: right Qualified Code(s): L03.115 - Cellulitis of right lower limb (6) Diabetic neuropathy Code(s): E11.40 - TYPE 2 DIABETES MELLITUS WITH DIABETIC NEUROPATHY, UNSP (7) HTN (hypertension) Assessment/Plan: controlled Code(s): I10 - ESSENTIAL (PRIMARY) HYPERTENSION (8) Venous stasis Assessment/Plan: seen by vascular and notes appreciated per vascular recommendations: -Elevate the lower extremity above the level of the heart at all times while at rest -Bilateral compression with becca wraps once cellulitis has receded (wrap from metacarpal heads to below knee) -bacitracin ointment to right calf wound- cover with clean dry dressing. -Apply Lac hydrin daily (for dry scaly skin) Code(s): I87.8 - OTHER SPECIFIED DISORDERS OF VEINS (9) Prophylactic measure Assessment/Plan: lovenox Code(s): Z29.9 - ENCOUNTER FOR PROPHYLACTIC MEASURES, UNSPECIFIED Visit type - Emergency Visit Emergency Visit: Yes ED Registration Date: 12/18/19 Care time: The patient presented to the Emergency Department on the above date and was hospitalized for further evaluation of their emergent condition. - New Patient This patient is new to me today: No - Critical Care Critical Care patient: No - Discharge Referral Referred to [facility] Med P.C.: No
[2019-12-26 19:35] VITALS: BMI 25.5
[2019-12-26] MEDS ORDERED: PT OWN MED DRAWER 7, Y5N ONE (21:34)
[2019-12-26] MEDS: ATORVASTATIN CA 20 MG TABLET (FP) PO SCH (21:38)
[2019-12-26] MEDS: TERAZOSIN HCL 1 MG CAPSULE PO SCH (21:38)
[2019-12-26] MEDS: INSULIN (LEVEMIR) 100 UNITS/ML UNITS SQ SCH (22:52)
[2019-12-27] MEDS: INSULIN SLIDING SCALE (NOVOLOG) 1 VIAL SQ SCH ×4 (06:20→22:49)
[2019-12-27] MEDS: FUROSEMIDE 40 MG/4 ML INJECTABLE VIAL IVPUSH SCH ×2 (06:21→14:34)
[2019-12-27] MEDS ORDERED: POTASSIUM CHLORIDE TABS 20 MEQ TABLET.ER (FP) PO ONE (08:22)
[2019-12-27 08:39] LABS: BASO % 0.7 % (0-2.0); EOS % 5.3 % (0-4.5); HEMATOCRIT 34.8 % (35.4-49); HEMOGLOBIN 10.8 GM/dL (11.7-16.9); LYMPH % 37.6 % (8-40); MCH 25.4 pg (25.7-33.7); MEAN CELL VOLUME 81.9 fl (80-96); MEAN PLT VOLUME 8.5 fl (7.5-11.1); MONO % 10.4 % (3.8-10.2); PLATELET COUNT 297 K/MM3 (134-434); RBC 4.25 M/mm3 (4.00-5.60); RDW 18.4 % (11.9-15.9); WHITE BLOOD COUNT 4.1 K/mm3 (4.0-10.0)
[2019-12-27] MEDS: AMOX TR/POT CLAV 500MG/125MG TABLETS (FP) PO SCH ×2 (08:41→17:34)
[2019-12-27 09:10] LABS: ALBUMIN 3.3 g/dl (3.4-5.0); BILIRUBIN,TOTAL 0.5 mg/dL (0.2-1); CALCIUM 9.2 mg/dL (8.5-10.1); CREATININE 0.8 mg/dL (0.55-1.3); MAGNESIUM 2.3 mg/dL (1.8-2.4); TOT PROT 7.8 g/dl (6.4-8.2)
[2019-12-27] MEDS: METOPROLOL TARTRATE 50 MG TABLET (FP) PO SCH ×2 (09:25→22:47)
[2019-12-27] MEDS: ASPIRIN COATED 81 MG TABLET.EC PO SCH (09:26)
[2019-12-27] MEDS: CHOLECALCIFEROL (VIT D3) 1,000 UNIT (25 MCG) TABLET PO SCH (09:26)
[2019-12-27] MEDS: PANTOPRAZOLE 40 MG TABLET PO SCH (09:27)
[2019-12-27] MEDS: ENOXAPARIN NA (PORCINE) 40 MG/0.4 ML DISP.SYRIN SQ SCH (09:27)
[2019-12-27] MEDS: DOCUSATE SODIUM 100 MG CAPSULE (FP) PO SCH (09:27)
[2019-12-27] MEDS: BACITRACIN 15 GM TUBE TOPICAL OINTMENT TP SCH (09:29)
--- NOTE | 2019-12-27 12:47 | PN ---
Progress Note (short form) - Note Progress Note: s: no chest pain, palps, dizziness. sob better Current Medications Amoxicillin/Clavulanate Potassium (Augmentin - 500mg Tablet) 1 tab PO BID@0800, 1730 [facility] Stop: 12/30/19 23:59 Last Admin: 12/27/19 08:41 Dose: 1 tab Aspirin (Ecotrin -) 81 mg PO DAILY [facility] Last Admin: 12/27/19 09:26 Dose: 81 mg Atorvastatin Calcium (Lipitor -) 20 mg PO [facility] Last Admin: 12/26/19 21:38 Dose: 20 mg Bacitracin (Bacitracin -) 1 applic TP DAILY [facility] Last Admin: 12/27/19 09:29 Dose: 1 applic Cholecalciferol (Vitamin D3 -) 1,000 unit PO DAILY [facility] Last Admin: 12/27/19 09:26 Dose: 1,000 unit Docusate Sodium (Colace -) 100 mg PO DAILY [facility] Last Admin: 12/27/19 09:27 Dose: 100 mg Enoxaparin Sodium (Lovenox -) 40 mg SQ DAILY [facility] Last Admin: 12/27/19 09:27 Dose: 40 mg Furosemide (Lasix Injection -) 40 mg IVPUSH BID@0600,1400 [facility] Last Admin: 12/27/19 06:21 Dose: 40 mg Insulin Aspart (Novolog Vial Sliding Scale -) 1 vial SQ [facility]; Protocol Last Admin: 12/27/19 11:23 Dose: 6 units Insulin Detemir (Levemir Vial) 10 units SQ [facility] Last Admin: 12/26/19 22:52 Dose: 10 units Metoprolol Tartrate (Lopressor -) 50 mg PO BID [facility] Last Admin: 12/27/19 09:25 Dose: 50 mg Pantoprazole Sodium (Protonix -) 40 mg PO DAILY [facility] Last Admin: 12/27/19 09:27 Dose: 40 mg Terazosin HCl (Hytrin -) 1 mg PO [facility] Last Admin: 12/26/19 21:38 Dose: 1 mg Vital Signs Period Temp Pulse Resp BP Sys/Flores Pulse Ox Last 24 Hr 97.9 F-98.7 F 76-85 18-18 103-146/59-79 98-100 Constitutional: Yes: No Distress (Sitting upright in chair) Cardiovascular: Yes: Regular Rate and Rhythm Respiratory: Yes: CTA Bilaterally Edema: Yes Edema: LLE: 2+, RLE: 2+ aox3 no jaundice, diaphoresis not agitated tele: sinus, ST Assessment/Plan acute on chronic diastolic CHF h/o venous ins'y: -congestion on cxr (though notably effusion is unilateral--? chronic/loculated) -BNP 1200, no priors available. CXR with fluid. -cardiomegaly, no details of prior echo - nl LV function on echo here - cont lasix 40 mg IV BID - daily chemistry while on IV lasix - repeat cxr ordred - echo shows LVH/RVH and restrictive physiology - would consider outpatient workup for amyloidosis pericardial effusion, moderate - unclear chronicity, no echocardiographic or clinical signs of tamponade - monitoring on tele - repeat echo shows similar effusion, no tamponade - outpatient follow up HTN: -initially severely elevated, now improved -cont current meds for now -BP stable DM: -per hospitalist
--- NOTE | 2019-12-27 15:27 | PN ---
Physical Exam: SUBJECTIVE: Patient seen and examined at the bedside. ambulating in room, feels well and denies shortness of breath. on discharge patient will be going to [facility]. OBJECTIVE: The patient is a 79 year old male, with a significant past medical history of hypertension, CHF, BPH, diabetes mellitus, venous stasis, and diabetic neuropathy. Patient presents to the emergency department on 12/18/2019 with progressively worsening shortness of breath and bilateral lower extremity edema and redness on lower extremity. He is admitted for acute on chronic heart failure and lower ext cellulitis. He also is noted to have a moderate pericardial effusion on echo 12/20/2019. Echo repeated on 12/26/2019 echo 12/26/19: previous large effusion has mildly improved anteriorly but remains moderate-large. sever lv and rv hypertrophia, normal ef decreased tissue pattern on mitral inflow: consider amyloidosis. Vital Signs Period Temp Pulse Resp BP Sys/Flores Pulse Ox Last 24 Hr 98 F-98.7 F 76-85 18-18 103-146/59-79 98-100 GENERAL: The patient is awake, alert, and fully oriented, in no acute distress. forgetful HEAD: Normal with no signs of trauma. EYES: PERRL, extraocular movements intact, sclera anicteric, conjunctiva clear. No ptosis. ENT: Ears normal, nares patent, oropharynx clear without exudates NECK: Trachea midline, full range of motion, supple. LUNGS: Breath sounds equal, clear to auscultation bilaterally HEART: Regular rate and rhythm ABDOMEN: Soft, nontender, nondistended, normoactive bowel sounds EXTREMITIES: 2+ lower ext edema, negative for dvt, small ulceration, circular, nicel sized on right anterior leg, no drainage NEUROLOGICAL: Normal speech Laboratory Results - last 24 hr 12/26/19 12/26/19 12/26/19 14:50 17:10 22:45 WBC RBC Hgb Hct MCV MCH MCHC RDW Plt Count MPV Absolute Neuts (auto) Neutrophils % Lymphocytes % Monocytes % Eosinophils % Basophils % Nucleated RBC % Sodium 140 Potassium 3.4 L Chloride 102 Carbon Dioxide 35 H Anion Gap 4 L BUN 20.2 H Creatinine 0.9 Est GFR (CKD-EPI)AfAm 93.82 Est GFR (CKD-EPI)NonAf 80.95 POC Glucometer 182 212 Random Glucose 249 H Calcium 8.9 Magnesium 2.2 Total Bilirubin 0.4 AST 26 ALT 27 Alkaline Phosphatase 87 Total Protein 7.8 Albumin 3.2 L 12/27/19 12/27/19 12/27/19 05:53 08:00 08:00 WBC 4.1 RBC 4.25 Hgb 10.8 L Hct 34.8 L MCV 81.9 MCH 25.4 L MCHC 31.0 L RDW 18.4 H Plt Count 297 MPV 8.5 Absolute Neuts (auto) 1.9 Neutrophils % 46.0 D Lymphocytes % 37.6 D Monocytes % 10.4 H Eosinophils % 5.3 H Basophils % 0.7 Nucleated RBC % 0 Sodium 141 Potassium 4.0 Chloride 105 Carbon Dioxide 30 Anion Gap 6 L BUN 20.0 H Creatinine 0.8 Est GFR (CKD-EPI)AfAm 98.47 Est GFR (CKD-EPI)NonAf 84.96 POC Glucometer 117 Random Glucose 142 H Calcium 9.2 Magnesium 2.3 Total Bilirubin 0.5 AST 28 ALT 31 Alkaline Phosphatase 77 Total Protein 7.8 Albumin 3.3 L 12/27/19 11:19 WBC RBC Hgb Hct MCV MCH MCHC RDW Plt Count MPV Absolute Neuts (auto) Neutrophils % Lymphocytes % Monocytes % Eosinophils % Basophils % Nucleated RBC % Sodium Potassium Chloride Carbon Dioxide Anion Gap BUN Creatinine Est GFR (CKD-EPI)AfAm Est GFR (CKD-EPI)NonAf POC Glucometer 235 Random Glucose Calcium Magnesium Total Bilirubin AST ALT Alkaline Phosphatase Total Protein Albumin Active Medications Generic Name Dose Route Start Last Admin Trade Name Freq PRN Reason Stop Dose Admin Amoxicillin/Clavulanate Potassium 1 tab 12/26/19 08:00 12/27/19 08:41 Augmentin - 500mg Tablet PO 12/30/19 23:59 1 tab BID@0800,1730 ZACH Administration Aspirin 81 mg 12/19/19 10:00 12/27/19 09:26 Ecotrin - PO 81 mg DAILY ZACH Administration Atorvastatin Calcium 20 mg 12/18/19 22:00 12/26/19 21:38 Lipitor - PO 20 mg HS ZACH Administration Bacitracin 1 applic 12/21/19 16:45 12/27/19 09:29 Bacitracin - TP 1 applic DAILY ZACH Administration Cholecalciferol 1,000 unit 12/19/19 10:00 12/27/19 09:26 Vitamin D3 - PO 1,000 unit DAILY ZACH Administration Docusate Sodium 100 mg 12/19/19 10:00 12/27/19 09:27 Colace - PO 100 mg DAILY ZACH Administration Enoxaparin Sodium 40 mg 12/19/19 10:00 12/27/19 09:27 Lovenox - SQ 40 mg DAILY ZACH Administration Furosemide 40 mg 12/19/19 06:00 12/27/19 14:34 Lasix Injection - IVPUSH 40 mg BID@0600,1400 ZACH Administration Insulin Aspart 1 vial 12/24/19 14:30 12/27/19 11:23 Novolog Vial Sliding Scale - SQ 6 units ACHS ZACH Administration Protocol Insulin Detemir 10 units 12/24/19 14:29 12/26/19 22:52 Levemir Vial SQ 10 units HS ZACH Administration Metoprolol Tartrate 50 mg 12/18/19 22:00 12/27/19 09:25 Lopressor - PO 50 mg BID ZACH Administration Pantoprazole Sodium 40 mg 12/19/19 10:00 12/27/19 09:27 Protonix - PO 40 mg DAILY ZACH Administration Terazosin HCl 1 mg 12/18/19 22:00 12/26/19 21:38 Hytrin - PO 1 mg HS ZACH Administration ASSESSMENT/PLAN: Problem List - Problems (1) Pericardial effusion Assessment/Plan: echo 12/26/19: previous large effusion has mildly improved anteriorly but remains moderate-large. severe lv and rv hypertrophia, normal ef decreased tissue pattern on mitral inflow: consider amyloidosis. tolerating room air, no chest pain or shortness of breath. patient is participating with PT and can ambulate with a RW, no dyspnea post ambulation. on lasix 40mg IV bid Code(s): I31.3 - PERICARDIAL EFFUSION (NONINFLAMMATORY) (2) Diastolic dysfunction with acute on chronic heart failure Assessment/Plan: acute on chronic diastolic CHF with history of venous insufficiency. BNP elevated with congestion on chest xray. currently lungs are clear to auscultation bilaterally On IV lasix bid, monitor kidney function, electrolytes tolerating room air. Code(s): I50.33 - ACUTE ON CHRONIC DIASTOLIC (CONGESTIVE) HEART FAILURE (3) CHF exacerbation Assessment/Plan: c/w lasix IV 40mg BID clinically improved weights decreased from 91.1 kg to 83.5kg Code(s): I50.9 - HEART FAILURE, UNSPECIFIED Qualifiers: Heart failure type: unspecified Qualified Code(s): I50.9 - Heart failure, unspecified (4) Diabetes Assessment/Plan: levemir increased goal is to achieve fasting < 180 pre meal Code(s): E11.9 - TYPE 2 DIABETES MELLITUS WITHOUT COMPLICATIONS (5) Cellulitis Assessment/Plan: transitioned to oral Augmentin for 5 more days. Code(s): L03.90 - CELLULITIS, UNSPECIFIED Qualifiers: Site of cellulitis: extremity Site of cellulitis of extremity: lower extremity Laterality: right Qualified Code(s): L03.115 - Cellulitis of right lower limb (6) Diabetic neuropathy Code(s): E11.40 - TYPE 2 DIABETES MELLITUS WITH DIABETIC NEUROPATHY, UNSP (7) HTN (hypertension) Assessment/Plan: controlled Code(s): I10 - ESSENTIAL (PRIMARY) HYPERTENSION (8) Venous stasis Assessment/Plan: seen by vascular and notes appreciated per vascular recommendations: -Elevate the lower extremity above the level of the heart at all times while at rest -Bilateral compression with becca wraps once cellulitis has receded (wrap from metacarpal heads to below knee) -bacitracin ointment to right calf wound- cover with clean dry dressing. -Apply Lac hydrin daily (for dry scaly skin) Code(s): I87.8 - OTHER SPECIFIED DISORDERS OF VEINS (9) Prophylactic measure Assessment/Plan: lovenox Code(s): Z29.9 - ENCOUNTER FOR PROPHYLACTIC MEASURES, UNSPECIFIED Visit type - Emergency Visit Emergency Visit: Yes ED Registration Date: 12/18/19 Care time: The patient presented to the Emergency Department on the above date and was hospitalized for further evaluation of their emergent condition. - New Patient This patient is new to me today: No - Critical Care Critical Care patient: No - Discharge Referral Referred to [facility] Med P.C.: No
[2019-12-27] MEDS ORDERED: INSULIN (LEVEMIR) 100 UNITS/ML UNITS SQ SCH (22:00)
[2019-12-27] MEDS ORDERED: INSULIN (NOVOLOG) ASPART 100 UNITS/ML 10ML VIAL ONE (22:13)
[2019-12-27] MEDS ORDERED: PT OWN MED DRAWER 7, Y5N ONE (22:13)
[2019-12-27] MEDS: ATORVASTATIN CA 20 MG TABLET (FP) PO SCH (22:47)
[2019-12-27] MEDS: TERAZOSIN HCL 1 MG CAPSULE PO SCH (22:48)
[2019-12-28] MEDS: INSULIN SLIDING SCALE (NOVOLOG) 1 VIAL SQ SCH ×3 (07:06→16:59)
[2019-12-28] MEDS: FUROSEMIDE 40 MG/4 ML INJECTABLE VIAL IVPUSH SCH (07:06)
[2019-12-28] MEDS ORDERED: PT OWN MED DRAWER 7, Y5N ONE (09:16)
[2019-12-28 09:24] LABS: BASO % 0.7 % (0-2.0); HEMATOCRIT 32.6 % (35.4-49); HEMOGLOBIN 10.3 GM/dL (11.7-16.9); LYMPH % 38.7 % (8-40); MCH 25.7 pg (25.7-33.7); MCHC 31.4 g/dl (32.0-35.9); MEAN CELL VOLUME 81.7 fl (80-96); MEAN PLT VOLUME 8.4 fl (7.5-11.1); MONO % 9.8 % (3.8-10.2); NEUT % 46.8 % (42.8-82.8); PLATELET COUNT 269 K/MM3 (134-434); RDW 18.6 % (11.9-15.9); WHITE BLOOD COUNT 3.2 K/mm3 (4.0-10.0)
[2019-12-28] MEDS: BACITRACIN 15 GM TUBE TOPICAL OINTMENT TP SCH (09:31)
[2019-12-28] MEDS: AMOX TR/POT CLAV 500MG/125MG TABLETS (FP) PO SCH ×2 (09:31→17:09)
[2019-12-28] MEDS: DOCUSATE SODIUM 100 MG CAPSULE (FP) PO SCH (09:31)
[2019-12-28] MEDS: ASPIRIN COATED 81 MG TABLET.EC PO SCH (09:31)
[2019-12-28] MEDS: CHOLECALCIFEROL (VIT D3) 1,000 UNIT (25 MCG) TABLET PO SCH (09:32)
[2019-12-28] MEDS: PANTOPRAZOLE 40 MG TABLET PO SCH (09:32)
[2019-12-28] MEDS: ENOXAPARIN NA (PORCINE) 40 MG/0.4 ML DISP.SYRIN SQ SCH (09:32)
[2019-12-28] MEDS: METOPROLOL TARTRATE 50 MG TABLET (FP) PO SCH (09:32)
[2019-12-28 10:06] LABS: ALBUMIN 3.1 g/dl (3.4-5.0); BILIRUBIN,TOTAL 0.5 mg/dL (0.2-1); CALCIUM 8.8 mg/dL (8.5-10.1); CREATININE 0.8 mg/dL (0.55-1.3); MAGNESIUM 2.1 mg/dL (1.8-2.4); POTASSIUM 3.9 mmol/L (3.5-5.1); TOT PROT 7.5 g/dl (6.4-8.2)
--- NOTE | 2019-12-28 10:39 | PN ---
Progress Note (short form) - Note Progress Note: s: no chest pain, palps, dizziness, dyspnea Current Medications Amoxicillin/Clavulanate Potassium (Augmentin - 500mg Tablet) 1 tab PO BID@0800, 1730 COUNTS INCLUDE 234 BEDS AT THE [facility] Stop: 12/30/19 23:59 Last Admin: 12/28/19 09:31 Dose: 1 tab Aspirin (Ecotrin -) 81 mg PO DAILY COUNTS INCLUDE 234 BEDS AT THE [facility] Last Admin: 12/28/19 09:31 Dose: 81 mg Atorvastatin Calcium (Lipitor -) 20 mg PO [facility] Last Admin: 12/27/19 22:47 Dose: 20 mg Bacitracin (Bacitracin -) 1 applic TP DAILY COUNTS INCLUDE 234 BEDS AT THE [facility] Last Admin: 12/28/19 09:31 Dose: 1 applic Cholecalciferol (Vitamin D3 -) 1,000 unit PO DAILY COUNTS INCLUDE 234 BEDS AT THE [facility] Last Admin: 12/28/19 09:32 Dose: 1,000 unit Docusate Sodium (Colace -) 100 mg PO DAILY COUNTS INCLUDE 234 BEDS AT THE [facility] Last Admin: 12/28/19 09:31 Dose: 100 mg Enoxaparin Sodium (Lovenox -) 40 mg SQ DAILY COUNTS INCLUDE 234 BEDS AT THE [facility] Last Admin: 12/28/19 09:32 Dose: 40 mg Furosemide (Lasix Injection -) 40 mg IVPUSH BID@0600,1400 COUNTS INCLUDE 234 BEDS AT THE [facility] Last Admin: 12/28/19 07:06 Dose: 40 mg Insulin Aspart (Novolog Vial Sliding Scale -) 1 vial SQ [facility]; Protocol Last Admin: 12/28/19 07:06 Dose: Not Given Insulin Detemir (Levemir Vial) 12 units SQ [facility] Last Admin: 12/27/19 22:48 Dose: 12 units Metoprolol Tartrate (Lopressor -) 50 mg PO BID COUNTS INCLUDE 234 BEDS AT THE [facility] Last Admin: 12/28/19 09:32 Dose: 50 mg Pantoprazole Sodium (Protonix -) 40 mg PO DAILY COUNTS INCLUDE 234 BEDS AT THE [facility] Last Admin: 12/28/19 09:32 Dose: 40 mg Terazosin HCl (Hytrin -) 1 mg PO [facility] Last Admin: 12/27/19 22:48 Dose: 1 mg Vital Signs Period Temp Pulse Resp BP Sys/Flores Pulse Ox Last 24 Hr 97.8 F-98.7 F 83-90 18-20 111-138/70-85 95 Constitutional: Yes: No Distress (Sitting upright in chair) Cardiovascular: Yes: Regular Rate and Rhythm Respiratory: Yes: CTA Bilaterally Edema: Yes Edema: LLE: 2+, RLE: 2+ aox3 no jaundice, diaphoresis not agitated tele: sinus, ST Assessment/Plan acute on chronic diastolic CHF h/o venous ins'y: -congestion on cxr (though notably effusion is unilateral--? chronic/loculated) -BNP 1200, no priors available. CXR with fluid. -cardiomegaly, no details of prior echo - nl LV function on echo here - CXR improving - change lasix to PO - echo shows LVH/RVH and restrictive physiology - would consider outpatient workup for amyloidosis pericardial effusion, moderate - unclear chronicity, no echocardiographic or clinical signs of tamponade - monitoring on tele - repeat echo shows similar effusion, no tamponade - outpatient follow up HTN: -initially severely elevated, now improved -cont current meds for now -BP stable DM: -per hospitalist
--- NOTE | 2019-12-28 14:17 | DS ---
Physical Exam: SUBJECTIVE: Patient seen and examined at the bedside. He agrees to go back to [facility] but eventually wants to go home. He denies any chest pain or shortness of breath. OBJECTIVE: The patient is a 79 year old male, with a significant past medical history of hypertension, CHF, BPH, diabetes mellitus, venous stasis, and diabetic neuropathy. Patient presents to the emergency department on 12/18/2019 with progressively worsening shortness of breath and bilateral lower extremity edema and redness on lower extremity. He is admitted for acute on chronic heart failure and lower ext cellulitis. He also is noted to have a moderate pericardial effusion on echo 12/20/2019. Echo repeated on 12/26/2019. echo 12/26/19: previous large effusion has mildly improved anteriorly but remains moderate-large. sever lv and rv hypertrophia, normal ef decreased tissue pattern on mitral inflow: consider amyloidosis. SEE problem list below. Vital Signs Period Temp Pulse Resp BP Sys/Flores Pulse Ox Last 24 Hr 97.8 F-98.7 F 84-90 18-20 124-138/70-85 95 PHYSICAL EXAM GENERAL: The patient is awake, alert, and fully oriented, in no acute distress. forgetful HEAD: Normal with no signs of trauma. EYES: PERRL, extraocular movements intact, sclera anicteric, conjunctiva clear. No ptosis. ENT: Ears normal, nares patent, oropharynx clear without exudates NECK: Trachea midline, full range of motion, supple. LUNGS: Breath sounds equal, clear to auscultation bilaterally HEART: Regular rate and rhythm ABDOMEN: Soft, nontender, nondistended, normoactive bowel sounds EXTREMITIES: 2+ lower ext edema, negative for dvt, small ulceration, circular, nicel sized on right anterior leg, no drainage NEUROLOGICAL: Normal speech LABS Laboratory Results - last 24 hr 12/27/19 12/27/19 12/28/19 17:32 21:55 07:05 WBC RBC Hgb Hct MCV MCH MCHC RDW Plt Count MPV Absolute Neuts (auto) Neutrophils % Lymphocytes % Monocytes % Eosinophils % Basophils % Nucleated RBC % Sodium Potassium Chloride Carbon Dioxide Anion Gap BUN Creatinine Est GFR (CKD-EPI)AfAm Est GFR (CKD-EPI)NonAf POC Glucometer 194 195 134 Random Glucose Calcium Magnesium Total Bilirubin AST ALT Alkaline Phosphatase Total Protein Albumin 12/28/19 12/28/19 12/28/19 09:03 09:03 11:35 WBC 3.2 L RBC 4.00 Hgb 10.3 L Hct 32.6 L MCV 81.7 MCH 25.7 MCHC 31.4 L RDW 18.6 H Plt Count 269 MPV 8.4 Absolute Neuts (auto) 1.5 Neutrophils % 46.8 Lymphocytes % 38.7 Monocytes % 9.8 Eosinophils % 4.0 Basophils % 0.7 Nucleated RBC % 0 Sodium 139 Potassium 3.9 Chloride 102 Carbon Dioxide 33 H Anion Gap 4 L BUN 19.0 H Creatinine 0.8 Est GFR (CKD-EPI)AfAm 98.47 Est GFR (CKD-EPI)NonAf 84.96 POC Glucometer 242 Random Glucose 271 H Calcium 8.8 Magnesium 2.1 Total Bilirubin 0.5 AST 30 ALT 30 Alkaline Phosphatase 76 Total Protein 7.5 Albumin 3.1 L HOSPITAL COURSE: Date of Admission:12/18/19 Date of Discharge: 12/28/19 Minutes to complete discharge: 45 Discharge Summary Problems reviewed: Yes Reason For Visit: ACUTE ON CHRONIC CONGESTIVE HEART FAILURE, CELLULI Current Active Problems Acute respiratory failure (Acute) CHF exacerbation (Acute) Cellulitis (Acute) Diabetes (Acute) Diabetic neuropathy (Acute) Diastolic dysfunction with acute on chronic heart failure (Acute) HTN (hypertension) (Acute) Hypertensive emergency (Acute) Pericardial effusion (Acute) Prophylactic measure (Acute) Venous stasis (Acute) Venous stasis (Acute) Condition: Improved - Instructions Diet, Activity, Other Instructions: Follow up with Dr Tomlinson [facility]. Wound care to lower extremities: per vascular recommendations: -Elevate the lower extremity above the level of the heart at all times while at rest -Bilateral compression with becca wraps once cellulitis has receded (wrap from metacarpal heads to below knee) -bacitracin ointment to right calf wound- cover with clean dry dressing. -Apply Lac hydrin daily (for dry scaly skin) once infection has subsided (once antibiotics are complete on December 30). Please continue all the medications as outlined in your discharge instructions. Follow ups: Please follow up with Dr. Lambert (pelt salter) within 1 week after discharge for post hospital follow up. It is important that you see her as you may need adjustment of your home medications. IMPORTANT You have lower ext redness/infection. We have treated you with Augmentin TWICE per day and this is to continue until December 30 2019. Take at 8am and 8pm. Continue taking the Lasix 40mg TWICE per day and have your blood work checked THREE times per week to check your potassium and magnesium levels and that your kidney function remains stable. Metoprolol 50mg TWICE per day at 8am and 8pm for blood pressure control. Thank you for allowing us to care for you Cassidy Zafar Villar NP [facility] [phone] Referrals: Laura Lambert MD [Staff Physician] - 1 Week ON STAFF,NOT [Primary Care Provider] - Disposition: CUSTODIAL FACILITY - Home Medications Comprehensive Discharge Medication List: Ambulatory Orders Atorvastatin Ca [Lipitor] 20 mg PO HS 04/25/19 Metformin HCl [Glucophage] 500 mg PO BID 04/25/19 Omeprazole Magnesium [Prilosec Otc] 40 mg PO DAILY 04/25/19 Ascorbic Acid/Ascorbate Sodium [Vitamin C 500 mg Wafer] 500 mg PO HS 12/18/19 Aspirin [Aspirin EC] 81 mg PO DAILY 12/18/19 Cholecalciferol (Vitamin D3) [Vitamin D3 -] 1,000 unit PO DAILY 12/18/19 Docusate Sodium [Colace] 100 mg PO DAILY 12/18/19 Enoxaparin [Lovenox -] 40 mg SQ DAILY 12/18/19 Ferrous Sulfate [Feosol] 300 mg GT HS 12/18/19 Insulin Glargine,Hum.rec.anlog [Basaglar Kwikpen U-100] 8 units SQ HS 12/18/19 Insulin Lispro [Humalog Kwikpen U-100] 1 unit SQ AC 12/18/19 Metoprolol Tartrate 25 mg PO QID 12/18/19 Terazosin HCl [Hytrin -] 1 mg PO HS 12/18/19 Amox-Tr/K Cl [Augmentin 500-125mg Tablet -] 1 tab PO BID@0800,1730 #0 tablet 11/04 Bacitracin - [Bacitracin Topical Ointment -] 1 applic TP DAILY #0 tube 12/28/19 Enoxaparin [Lovenox -] 40 mg SQ DAILY disp.syrin 12/28/19 Furosemide [Lasix -] 40 mg PO DAILY #0 tablet 12/28/19 Insulin Sliding Scale [Novolog Vial Sliding Scale -] 1 vial SQ ACHS units 12/28 Problem List - Problems (1) Pericardial effusion Assessment/Plan: echo 12/26/19: previous large effusion has mildly improved anteriorly but remains moderate-large. severe lv and rv hypertrophia, normal ef decreased tissue pattern on mitral inflow: consider amyloidosis. tolerating room air, no chest pain or shortness of breath. patient is participating with PT and can ambulate with a RW, no dyspnea post ambulation. on lasix 40mg IV bid to be converted to Lasix 40mg PO BID. per cardiology, further workup can be done as an outpatient. Code(s): I31.3 - PERICARDIAL EFFUSION (NONINFLAMMATORY) (2) Diastolic dysfunction with acute on chronic heart failure Assessment/Plan: acute on chronic diastolic CHF with history of venous insufficiency. BNP elevated with congestion on chest xray. currently lungs are clear to auscultation bilaterally On lasix bid Code(s): I50.33 - ACUTE ON CHRONIC DIASTOLIC (CONGESTIVE) HEART FAILURE (3) CHF exacerbation Assessment/Plan: clinically improved weights decreased from 91.1 kg to 83.5kg Code(s): I50.9 - HEART FAILURE, UNSPECIFIED Qualifiers: Heart failure type: unspecified Qualified Code(s): I50.9 - Heart failure, unspecified (4) Diabetes Assessment/Plan: on insulin goal is to achieve fasting < 180 pre meal Code(s): E11.9 - TYPE 2 DIABETES MELLITUS WITHOUT COMPLICATIONS (5) Cellulitis Assessment/Plan: transitioned to oral Augmentin for 5 more days. Code(s): L03.90 - CELLULITIS, UNSPECIFIED Qualifiers: Site of cellulitis: extremity Site of cellulitis of extremity: lower extremity Laterality: right Qualified Code(s): L03.115 - Cellulitis of right lower limb (6) Diabetic neuropathy Code(s): E11.40 - TYPE 2 DIABETES MELLITUS WITH DIABETIC NEUROPATHY, UNSP (7) HTN (hypertension) Assessment/Plan: controlled Code(s): I10 - ESSENTIAL (PRIMARY) HYPERTENSION (8) Venous stasis Assessment/Plan: seen by vascular and notes appreciated per vascular recommendations: -Elevate the lower extremity above the level of the heart at all times while at rest -Bilateral compression with becca wraps once cellulitis has receded (wrap from metacarpal heads to below knee) -bacitracin ointment to right calf wound- cover with clean dry dressing. -Apply Lac hydrin daily (for dry scaly skin) Code(s): I87.8 - OTHER SPECIFIED DISORDERS OF VEINS (9) Prophylactic measure Assessment/Plan: discharge to [facility] for rehab today Code(s): Z29.9 - ENCOUNTER FOR PROPHYLACTIC MEASURES, UNSPECIFIED This patient is new to me today: No Emergency Visit: Yes ED Registration Date: 12/18/19 Care time: The patient presented to the Emergency Department on the above date and was hospitalized for further evaluation of their emergent condition. Critical Care patient: No - Discharge Referral Referred to [facility] Med P.C.: No
[2019-12-28] MEDS ORDERED: FUROSEMIDE 40 MG TABLET (FP) PO SCH (15:30)
[2019-12-28 15:45] VITALS: BP 104/64; PULSE 71; TEMP 98.4
[2019-12-29] MEDS ORDERED: FUROSEMIDE 40 MG TABLET (FP) PO SCH (10:00)
== END 2019-12-28 18:25 | DRG 602 ==
LOC: JER 12:31 → JERBED 13:40 → J4W 12-19 18:02
PROVIDERS: ADMIT Internal Medicine; ATTEND Nurse Practitioner Family
DX: L03.115 Cellulitis of right lower limb (principal); E11.622 Type 2 diabetes mellitus with other skin ulcer; E11.40 Type 2 diabetes mellitus with diabetic neuropathy, unspecified; I50.33 Acute on chronic diastolic (congestive) heart failure; J96.00 Acute respiratory failure, unspecified whether with hypoxia or hypercapnia; J81.0 Acute pulmonary edema; I24.8 Other forms of acute ischemic heart disease; J90 Pleural effusion, not elsewhere classified; L97.909 Non-pressure chronic ulcer of unspecified part of unspecified lower leg with unspecified severity; L03.116 Cellulitis of left lower limb; I87.8 Other specified disorders of veins; Z29.9 Encounter for prophylactic measures, unspecified
CPT/HCPCS: 36415; 71045-TC-FY; 80048; 80053; 82550; 82962; 83605; 83735; 83880; 84484; 85025; 85610; 85730; 87040; 93005; 93010; 93306-TC; 93970-TC; 94660; 97116-GP; 97161-GP; 99285-25; J0131

== ENCOUNTER 2020-05-07 13:20 | Inpatient (IN) | payer OTHER ==
--- NOTE | 2020-05-07 14:11 | PDOC ---
History of Present Illness - General Chief Complaint: Wound Stated Complaint: LT LEG INJ Time Seen by Provider: 05/07/20 13:33 History Source: Patient Exam Limitations: No Limitations - History of Present Illness Initial Comments: 05/07/20 15:32 80 yo M with a hx of HTN, CHF, GERD, DM with insulin and metformin, and chronic leg swelling presents to the emergency department with left leg wound. Per the patient, he sustained the wound 5 days ago. Per the daughter, the patient was having his leg compression stockings replaced and, per the daughter, the stockings were ripped off, causing a tearing process on the left anterior reyez. The patient denies taking antibiotics since the event. Denies the following: fevers, chills, SOB, chest pain, nausea, vomiting, abdominal pain, and dysuria/urinary retention. Denies fall and head trauma. 05/07/20 15:42 Past History - Medical History Allergies/Adverse Reactions: Allergies Allergy/AdvReac Type Severity Reaction Status Date / Time No Known Allergies Allergy Verified 12/18/19 12:43 Home Medications: Ambulatory Orders Atorvastatin Ca [Lipitor] 20 mg PO HS 04/25/19 Omeprazole Magnesium [Prilosec Otc] 40 mg PO DAILY 04/25/19 Terazosin HCl [Hytrin -] 1 mg PO HS 12/18/19 Furosemide [Lasix] 40 mg PO DAILY 05/07/20 Metoprolol Tartrate 25 mg PO BID 05/07/20 Insulin Glargine,Hum.rec.anlog [Lantus Solostar] 8 unit SQ DAILY 05/08/20 Insulin Lispro [Humalog Kwikpen U-100] 1 unit SQ DAILY 05/08/20 Metformin HCl [Glucophage] 500 mg PO BID 05/08/20 Amox-Tr/K Cl [Augmentin 500-125mg Tablet -] 1 tab PO BID@0800,1730 #8 tablet 05/13/20 Aspirin [ASA -] 81 mg PO DAILY #30 tab.chew 05/13/20 Bacitracin - [Bacitracin Topical Ointment -] 1 applic TP DAILY #1 applic 05/13/20 Anemia: Yes (iron deficiency, ascorbic acid deficiency, hypmagnesemia, vit D deficienty.) Cardiac Disorders: Yes (PVD,) CVA: No COPD: No CHF: Yes Dementia: No Diabetes: Yes (neuropathy) GI Disorders: No Disorders: Yes (BPH) HTN: Yes Hypercholesterolemia: Yes Liver Disease: No Psychiatric Problems: Yes (major depressive disorder) Seizures: No Thyroid Disease: No - Surgical History Abdominal Surgery: No Appendectomy: No Cardiac Surgery: No Cholecystectomy: No Lung Surgery: No Neurologic Surgery: No Orthopedic Surgery: No - Immunization History Immunization Up to Date: Yes - Psycho-Social/Smoking History Smoking History: Never smoked Have you smoked in the past 12 months: No Information on smoking cessation initiated: No - Substance Abuse Hx (Audit-C & DAST Scrn) How often the patient has a drink containing alcohol: Never Score: In Men: 4 or > Positive; In Women: 3 or > Positive: 0 Screen Result (Pos requires Nsg. Audit-10AR): Negative In the last yr the pt used illegal drug/Rx for NonMed reason: No Score: Yes response is considered Positive: 0 Screen Result (Positive result requires Nsg. DAST-10): Negative Review of Systems - Review of Systems Able to Perform ROS?: Yes Is the patient limited Indian proficient: No Constitutional: No: Chills, Diaphoresis, Fever, Weakness HEENTM: No: Eye Pain, Ear Pain, Nose Pain, Throat Pain Respiratory: No: Cough, Shortness of Breath Cardiac (ROS): Yes: Edema (le). No: Chest Pain, Lightheadedness ABD/GI: No: Constipated, Diarrhea, Nausea, Rectal Bleeding, Vomiting, Tarry Stools : No: Dysuria, Hematuria Musculoskeletal: No: Back Pain, Joint Pain, Neck Pain Integumentary: No: Rash Neurological: No: Headache Endocrine: No: Unexplained Weight Loss Hematologic/Lymphatic: No: Anemia *Physical Exam - Vital Signs Last Vital Signs Temp Pulse Resp BP Pulse Ox 98.3 F 84 20 141/89 96 05/07/20 13:43 05/07/20 13:43 05/07/20 13:43 05/07/20 13:43 05/07/20 13:43 - Physical Exam General Appearance: Yes: Nourished, Appropriately Dressed. No: Apparent Distress, Intoxicated HEENT: positive: EOMI, SANDRO, Normal Voice, Symmetrical, Pharynx Normal, Hearing Grossly Normal. negative: Pale Conjunctivae, Scleral Icterus (R), Scleral Icterus (L), Muffled/Hoarse voice, Pharyngeal Erythema, Tonsillar Exudate, Tonsillar Erythema, Nasal Congestion, Rhinorrhea, Sinus Tenderness, Excessive drooling Neck: positive: Trachea midline, Supple. negative: Tender, Lymphadenopathy (R), Lymphadenopathy (L), Tender lateral, Tender midline Respiratory/Chest: positive: Lungs Clear, Normal Breath Sounds. negative: Chest Tender, Respiratory Distress, Accessory Muscle Use Cardiovascular: positive: Regular Rhythm, Regular Rate, S1, S2. negative: Syst olic Murmur Gastrointestinal/Abdominal: positive: Normal Bowel Sounds, Flat, Soft. negative: Tender, Distended, Guarding, Rebound Lymphatic: negative: Adenopathy Musculoskeletal: positive: Normal Inspection. negative: CVA Tenderness, Vertebral Tenderness Extremity: positive: Normal Capillary Refill, Other (intact dorsalis pedis and posterior tibalis pulses). negative: Normal Inspection (2+ pitting edema bilaterally with erythema noted to the LLE at mid anterior tib/fib with wounds consistent with tearing) Integumentary: positive: Normal Color, Dry, Warm Neurologic: positive: Alert, Normal Mood/Affect ED Treatment Course - LABORATORY CBC & Chemistry Diagram: 05/12/20 05:35 05/10/20 05:35 Medical Decision Making - Medical Decision Making 80 yo M with a hx of HTN, CHF, GERD, DM with insulin and metformin, and chronic leg swelling presents to the emergency department with left leg wound. Per the patient, he sustained the wound 5 days ago. initial vitals; Initial Vital Signs Temp Pulse Resp BP Pulse Ox 98.3 F 84 20 141/89 96 05/07/20 13:43 05/07/20 13:43 05/07/20 13:43 05/07/20 13:43 05/07/20 13:43 Work up: patient presents to the emergency department with left leg swelling and pain. ddx: cellulitis vs abscess vs DVT based on clinical exam findings and history, likely the patient is having cellulitis as no discrete fluctuate can be palpated. will order a duplex US of the leg to rule out DVT. Laboratory Tests 05/07/20 05/07/20 05/07/20 15:25 15:25 15:25 WBC 4.4 RBC 4.35 Hgb 12.4 Hct 39.1 D MCV 89.9 MCH 28.6 D MCHC 31.8 L RDW 16.4 H Plt Count 133 L D MPV 8.9 Absolute Neuts (auto) 2.4 Neutrophils % 54.3 Lymphocytes % 32.7 Monocytes % 9.5 Eosinophils % 3.2 Basophils % 0.3 Nucleated RBC % 0 ESR 17 PT with INR 14.30 H INR 1.21 H Sodium 141 Potassium 4.1 Chloride 106 Carbon Dioxide 27 Anion Gap 7 L BUN 15.2 Creatinine 0.8 Est GFR (CKD-EPI)AfAm 97.78 Est GFR (CKD-EPI)NonAf 84.37 Random Glucose 167 H Lactic Acid Calcium 8.5 Total Bilirubin 0.8 AST 43 H ALT 57 Alkaline Phosphatase 93 Creatine Kinase 95 Troponin I 0.07 H C-Reactive Protein < 0.3 B-Natriuretic Peptide 1084.2 H Total Protein 7.4 Albumin 3.8 05/07/20 15:25 WBC RBC Hgb Hct MCV MCH MCHC RDW Plt Count MPV Absolute Neuts (auto) Neutrophils % Lymphocytes % Monocytes % Eosinophils % Basophils % Nucleated RBC % ESR PT with INR INR Sodium Potassium Chloride Carbon Dioxide Anion Gap BUN Creatinine Est GFR (CKD-EPI)AfAm Est GFR (CKD-EPI)NonAf Random Glucose Lactic Acid 1.6 Calcium Total Bilirubin AST ALT Alkaline Phosphatase Creatine Kinase Troponin I C-Reactive Protein B-Natriuretic Peptide Total Protein Albumin lactic acid within normal limits no dvt found on examination unlikely to be compartment syndrome given the patient does not have active pain at rest and with ROM. troponin slightly elevated with BNP elevated. CXR shows mild congestion The patient is a diabetic with a wound that is not healing with surrounding cellulitis. Likely the patient will need vanco/zosyn antibiotics for broad s pectrum coverage to include pseudomonas. The patient EKG: shows NSR with arrythmia with 1st degree av block without ST elevations or depressions. Qtc is 464 ms. Patient to be admitted for IV antibiotics for cellulitis in a non healing wound with demand ischemia noted on labs. Discharge - Discharge Information Problems reviewed: Yes Clinical Impression/Diagnosis: Cellulitis Qualifiers: Site of cellulitis: extremity Site of cellulitis of extremity: lower extremity Laterality: left Qualified Code(s): L03.116 - Cellulitis of left lower limb Disposition: VNS/HOME HEALTH CARE - Follow up/Referral - Patient Discharge Instructions - Post Discharge Activity
[2020-05-07] MEDS ORDERED: PIPERACILLIN/TAZOB 3.375 GM 3.375 GM in DEXTROSE 5%-WATER - 50 ML IVPB ONE (15:03)
[2020-05-07] MEDS ORDERED: VANCOMYCIN 1,000 MG in DEXTROSE 5%-WATER - 250 ML IVPB ONE (15:03)
[2020-05-07] MEDS ORDERED: VANCOMYCIN 1 GRAM (PRE-DOCKED) 1,000 MG/250 ML BAG IVPB ONE (15:27)
[2020-05-07] MEDS ORDERED: PIPERACILLIN/TAZOB 3.375 GM 3.375 GM/50 ML BAG IVPB ONE (15:28)
--- NOTE | 2020-05-07 15:30 | EKG ---
Test Reason : Blood Pressure : / mmHG Vent. Rate : 081 BPM Atrial Rate : 081 BPM P-R Int : 240 ms QRS Dur : 092 ms QT Int : 400 ms P-R-T Axes : 063 044 132 degrees QTc Int : 464 ms SINUS RHYTHM WITH SINUS ARRHYTHMIA WITH 1ST DEGREE A-V BLOCK SEPTAL INFARCT (CITED ON OR BEFORE 18-DEC-2019) Nonspecific T changes ABNORMAL ECG WHEN COMPARED WITH ECG OF 18-DEC-2019 12:47, CT INTERVAL HAS INCREASED Confirmed by Stefanie Gan ([id number]) on 05/07/2020 3:30:22 PM Referred By: Confirmed By:Stefanie Gan
[2020-05-07 15:36] LABS: BASO % 0.3 % (0-2.0); EOS % 3.2 % (0-4.5); HEMATOCRIT 39.1 % (35.4-49); HEMOGLOBIN 12.4 GM/dL (11.7-16.9); LYMPH % 32.7 % (8-40); MCH 28.6 pg (25.7-33.7); MCHC 31.8 g/dl (32.0-35.9); MEAN CELL VOLUME 89.9 fl (80-96); MEAN PLT VOLUME 8.9 fl (7.5-11.1); MONO % 9.5 % (3.8-10.2); NEUT % 54.3 % (42.8-82.8); PLATELET COUNT 133 K/MM3 (134-434); RBC 4.35 M/mm3 (4.00-5.60); RDW 16.4 % (11.9-15.9); WHITE BLOOD COUNT 4.4 K/mm3 (4.0-10.0)
[2020-05-07 15:44] LABS: INR 1.21 (0.83-1.09); PROTHROMBIN TIME (PATIENT) 14.3 SEC (9.7-13.0)
--- NOTE | 2020-05-07 15:52 | PDOC ---
Documentation entered by Amanda Garcia SCRIBE, acting as scribe for Janet Cordero MD. Jaent Cordero MD: This documentation has been prepared by the Radha arredondo Nirvannie, SCRIBE, under my direction and personally reviewed by me in its entirety. I confirm that the documentation accurately reflects all work, treatment, procedures, and medical decision making performed by me. Attending Attestation - Resident Resident Name: Conrado Womack - ED Attending Attestation I have performed the following: I have examined & evaluated the patient, The case was reviewed & discussed with the resident, I agree w/resident's findings & plan, Exceptions are as noted - HPI HPI: 05/07/20 14:44 The patient is a 79 year old male, with a significant past medical history of HTN (not on ASA), CHF, BPH, IDDM, venous stasis, and diabetic neuropathy who presents to the ED with several days of a progressively worsening left lower extremity wound. As per patient, his wound began 10 days ago but, his daughter via telephone notes it initially onset 5 days ago after wearing compression stockings. Patient and daughter describe the wound as erythematous and edematous. - Physicial Exam PE: GENERAL: Awake, alert, and fully oriented, in no acute distress HEAD: No signs of trauma EYES: PERRLA, EOMI, sclera anicteric, conjunctiva clear ENT: Auricles normal inspection, hearing grossly normal, nares patent, oropharynx clear without exudates. Moist mucosa NECK: Normal ROM, supple, no lymphadenopathy, JVD, or masses LUNGS: Breath sounds equal, clear to auscultation bilaterally. No wheezes, and no crackles HEART: Regular rate and rhythm, normal S1 and S2, no murmurs, rubs or gallops ABDOMEN: Soft, nontender, normoactive bowel sounds. No guarding, no rebound. No masses EXTREMITIES: Normal range of motion, 3+ pitting edema to BLE, with erythema to the LLE. +Multiple wounds to the L reyez, partially healed (dry, no drainage). +Erythema to the lower 1/3 of the L lower leg, +warmth. No clubbing or cyanosis. NEUROLOGICAL: Cranial nerves II through XII grossly intact. Normal speech. Motor and sensation intact SKIN: Warm, dry, normal turgor, no rashes or lesions noted. - Medical Decision Making Pt with cellulitis to the L lower leg. Will treat with abx, admit based on the location and size of the cellulitis, as well as his comorbidities. Discharge - Discharge Information Problems reviewed: Yes Clinical Impression/Diagnosis: Cellulitis Qualifiers: Site of cellulitis: extremity Site of cellulitis of extremity: lower extremity Laterality: left Qualified Code(s): L03.116 - Cellulitis of left lower limb - Follow up/Referral - Patient Discharge Instructions - Post Discharge Activity
[2020-05-07 15:56] LABS: ALBUMIN 3.8 g/dl (3.4-5.0); ALK PHOS 93 U/L (45-117); ANION GAP 7 MMOL/L (8-16); BILIRUBIN,TOTAL 0.8 mg/dL (0.2-1); BLOOD UREA NITROGEN 15.2 mg/dL (7-18); CALCIUM 8.5 mg/dL (8.5-10.1); CHLORIDE 106 mmol/L (98-107); CO2 27 mmol/L (21-32); CREATININE 0.8 mg/dL (0.55-1.3); GLUCOSE,RANDOM 167 mg/dL (74-106); N-TERMINAL BNP 1084.2 pg/ml (5-450); POTASSIUM 4.1 mmol/L (3.5-5.1); SGOT/AST 43 U/L (15-37); SGPT/ALT 57 U/L (13-61); SODIUM 141 mmol/L (136-145); TOT PROT 7.4 g/dl (6.4-8.2)
[2020-05-07 16:16] LABS: ERYTHROCYTE SEDIMENTATION RATE 17 mm/hr (0-20)
--- NOTE | 2020-05-07 17:19 | HP ---
CHIEF COMPLAINT: PCP: Dr Duenas HISTORY OF PRESENT ILLNESS: 80 year old predominantly Maltese speaking, with known history of HTN, CHF, BPH, IDDM complicated by diabetic neuropathy, venous insufficiency who presents to the ED with left lower extremity wounds associated with pain and redness. Apparently per daughter, about 5 days ago patient's compression stocking were being pulled away when some of the skin tore. Recent Travel: none PAST MEDICAL HISTORY: as above PAST SURGICAL HISTORY: as above Social History: Smoking: denies Alcohol: denies Drugs: denies Allergies No Known Allergies Allergy (Verified 12/18/19 12:43) HOME MEDICATIONS: Home Medications Medication Instructions Recorded Atorvastatin Ca [Lipitor] 20 mg PO HS 04/25/19 Metformin HCl [Glucophage] 500 mg PO BID 04/25/19 Omeprazole Magnesium [Prilosec Otc] 40 mg PO DAILY 04/25/19 Ascorbic Acid/Ascorbate Sodium 500 mg PO HS 12/18/19 [Vitamin C 500 mg Wafer] Aspirin [Aspirin EC] 81 mg PO DAILY 12/18/19 Cholecalciferol (Vitamin D3) 1,000 unit PO DAILY 12/18/19 [Vitamin D3 -] Docusate Sodium [Colace] 100 mg PO DAILY 12/18/19 Enoxaparin [Lovenox -] 40 mg SQ DAILY 12/18/19 Ferrous Sulfate [Feosol] 300 mg GT HS 12/18/19 Insulin Glargine,Hum.rec.anlog 8 units SQ HS 12/18/19 [Basaglar Kwikpen U-100] Insulin Lispro [Humalog Kwikpen 1 unit SQ AC 12/18/19 U-100] Terazosin HCl [Hytrin -] 1 mg PO HS 12/18/19 Amox-Tr/K Cl [Augmentin 500-125mg 1 tab PO BID@0800,1730 #0 tablet 12/28/19 Tablet -] Bacitracin - [Bacitracin Topical 1 applic TP DAILY #0 tube 12/28/19 Ointment -] Enoxaparin [Lovenox -] 40 mg SQ DAILY disp.syrin 12/28/19 Furosemide [Lasix] 40 mg PO BID 30 Days #60 tablet 12/28/19 Insulin Sliding Scale [Novolog 1 vial SQ ACHS units 12/28/19 Vial Sliding Scale -] Metoprolol Tartrate 50 mg PO BID #90 tablet 12/28/19 REVIEW OF SYSTEMS CONSTITUTIONAL: Absent: fever, chills, diaphoresis, generalized weakness, malaise, loss of appetite, weight change HEENT: Absent: rhinorrhea, nasal congestion, throat pain, throat swelling, difficulty swallowing, mouth swelling, ear pain, eye pain, visual changes CARDIOVASCULAR: Absent: chest pain, syncope, palpitations, irregular heart rate, lightheadedness, peripheral edema RESPIRATORY: Absent: cough, shortness of breath, dyspnea with exertion, orthopnea, wheezing, stridor, hemoptysis GASTROINTESTINAL: Absent: abdominal pain, abdominal distension, nausea, vomiting, diarrhea, constipation, melena, hematochezia GENITOURINARY: Absent: dysuria, frequency, urgency, hesitancy, hematuria, flank pain, genital pain MUSCULOSKELETAL: Absent: myalgia, arthralgia, joint swelling, back pain, neck pain SKIN: Absent: rash, itching, pallor HEMATOLOGIC/IMMUNOLOGIC: Absent: easy bleeding, easy bruising, lymphadenopathy, frequent infections ENDOCRINE: Absent: unexplained weight gain, unexplained weight loss Neuro: Absent: headache, focal weakness or paresthesias, dizziness, unsteady gait, seizure, mental status changes, bladder or bowel incontinence PSYCHIATRIC: Absent: anxiety, depression, suicidal or homicidal ideation, hallucinations. PHYSICAL EXAMINATION Vital Signs - 24 hr 05/07/20 13:43 Temperature 98.3 F Pulse Rate 84 Respiratory 20 Rate Blood Pressure 141/89 O2 Sat by Pulse 96 Oximetry (%) GENERAL: Awake, alert, and fully oriented, in no acute distress. HEAD: Normal with no signs of trauma. EYES: Pupils equal, round and reactive to light, extraocular movements intact, sclera anicteric, conjunctiva clear. No lid lag. EARS, NOSE, THROAT: oropharynx clear without exudates. Moist mucous membranes. NECK: Normal range of motion, supple without lymphadenopathy, JVD, or masses. LUNGS: Breath sounds equal, clear to auscultation bilaterally. No wheezes, and no crackles. No accessory muscle use. HEART: Regular rate and rhythm, normal S1 and S2 without murmur, rub or gallop. ABDOMEN: Soft, nontender, not distended, normoactive bowel sounds, no guarding, no rebound, no masses. No hepatomegaly or splenomegaly. MUSCULOSKELETAL: Normal range of motion at all joints. No bony deformities or tenderness. No CVA tenderness. UPPER EXTREMITIES: 2+ pulses, warm, well-perfused. No cyanosis. No clubbing. No peripheral edema. LOWER EXTREMITIES: 2+ pulses, warm, well-perfused. No calf tenderness. Trace Lower extremity edema bilaterally. NEUROLOGICAL: Cranial nerves II-XII intact. Normal speech. Normal gait. PSYCHIATRIC: Cooperative. Good eye contact. Appropriate mood and affect. SKIN: There is increased erythema and tenderness of the left leg. There are two superficial wounds at the LLE. Warmth is increased on the LLE at the distal 2/3 of the LLE when compared to the RLE. Laboratory Results - last 24 hr 05/07/20 05/07/20 05/07/20 15:25 15:25 15:25 WBC 4.4 RBC 4.35 Hgb 12.4 Hct 39.1 D MCV 89.9 MCH 28.6 D MCHC 31.8 L RDW 16.4 H Plt Count 133 L D MPV 8.9 Absolute Neuts (auto) 2.4 Neutrophils % 54.3 Lymphocytes % 32.7 Monocytes % 9.5 Eosinophils % 3.2 Basophils % 0.3 Nucleated RBC % 0 ESR 17 PT with INR 14.30 H INR 1.21 H Sodium 141 Potassium 4.1 Chloride 106 Carbon Dioxide 27 Anion Gap 7 L BUN 15.2 Creatinine 0.8 Est GFR (CKD-EPI)AfAm 97.78 Est GFR (CKD-EPI)NonAf 84.37 Random Glucose 167 H Lactic Acid Calcium 8.5 Total Bilirubin 0.8 AST 43 H ALT 57 Alkaline Phosphatase 93 Creatine Kinase 95 Troponin I 0.07 H C-Reactive Protein < 0.3 B-Natriuretic Peptide 1084.2 H Total Protein 7.4 Albumin 3.8 05/07/20 15:25 WBC RBC Hgb Hct MCV MCH MCHC RDW Plt Count MPV Absolute Neuts (auto) Neutrophils % Lymphocytes % Monocytes % Eosinophils % Basophils % Nucleated RBC % ESR PT with INR INR Sodium Potassium Chloride Carbon Dioxide Anion Gap BUN Creatinine Est GFR (CKD-EPI)AfAm Est GFR (CKD-EPI)NonAf Random Glucose Lactic Acid 1.6 Calcium Total Bilirubin AST ALT Alkaline Phosphatase Creatine Kinase Troponin I C-Reactive Protein B-Natriuretic Peptide Total Protein Albumin ASSESSMENT/PLAN: 1. Cellulitis of the LLE - empiric antibiotics with Vanc and zosyn (ED) - empiric unasyn starting tonight - blood cultures - Dr Infante (ID) consulted for antibiotic recommendations - US of the LLE 2. SSI, accuchecks for DM 2 3. troponin elevation - serial troponins - has multiple risk factors - start aspirin - cont atorvastatin (home med) - check lipid profile 4. DM2 - SSI, accuchecks - Lantus 5 units SQ Qhs (lowered dose for now; reassess in am) 5. DVT prophylaxis - heparin SQ Visit type - Emergency Visit Emergency Visit: Yes ED Registration Date: 05/07/20 Care time: The patient presented to the Emergency Department on the above date and was hospitalized for further evaluation of their emergent condition. - New Patient This patient is new to me today: Yes Date on this admission: 05/22/20 - Critical Care Critical Care patient: No
[2020-05-07] MEDS ORDERED: ATORVASTATIN CA 20 MG TABLET (FP) PO ONE (17:43)
[2020-05-07] MEDS ORDERED: ATORVASTATIN CA 20 MG TABLET (FP) ONE (17:58)
[2020-05-07 18:45] VITALS: BMI 25.2
[2020-05-07] MEDS ORDERED: AMPICILLIN NA/SULBACTAM NA 1.5 GM VIAL ONE (20:39)
[2020-05-07] MEDS ORDERED: SODIUM CHLORIDE 100 ML IVPB ONE (20:40)
[2020-05-07] MEDS ORDERED: HALOPERIDOL LACTATE 5 MG/ML IM ONE (20:50)
[2020-05-07] MEDS ORDERED: PT OWN MED DRAWER 7, Y5N ONE (21:14)
[2020-05-07] MEDS: HEPARIN NA (PORCINE) 5,000 UNITS/ML 1ML VIAL SQ SCH (21:27)
[2020-05-07] MEDS: INSULIN SLIDING SCALE (NOVOLOG) 1 VIAL SQ SCH (21:28)
[2020-05-07] MEDS: INSULIN (LEVEMIR) 100 UNITS/ML UNITS SQ SCH (21:28)
[2020-05-07] MEDS: AMPICILLIN NA/SULBACTAM NA 1.5 GM in SODIUM CHLORIDE 100 ML IVPB SCH (21:29)
[2020-05-07] MEDS: METOPROLOL TARTRATE 25 MG TABLET (FP) PO SCH (21:29)
[2020-05-07] MEDS ORDERED: TERAZOSIN HCL 1 MG CAPSULE PO SCH (22:00)
[2020-05-07] MEDS ORDERED: MELATONIN 5 MG TABLETS PO ONE (23:23)
[2020-05-08] MEDS ORDERED: AMPICILLIN NA/SULBACTAM NA 1.5 GM VIAL ONE ×3 (02:16→14:35)
[2020-05-08] MEDS ORDERED: SODIUM CHLORIDE 100 ML IVPB ONE ×3 (02:17→14:35)
[2020-05-08] MEDS: AMPICILLIN NA/SULBACTAM NA 1.5 GM in SODIUM CHLORIDE 100 ML IVPB SCH ×2 (02:34→09:45)
[2020-05-08] MEDS: INSULIN SLIDING SCALE (NOVOLOG) 1 VIAL SQ SCH ×3 (06:14→17:08)
[2020-05-08] MEDS: HEPARIN NA (PORCINE) 5,000 UNITS/ML 1ML VIAL SQ SCH ×2 (09:44→21:04)
[2020-05-08] MEDS: ASPIRIN 81 MG CHEWABLE TABLETS PO SCH (09:45)
[2020-05-08] MEDS: METOPROLOL TARTRATE 25 MG TABLET (FP) PO SCH ×2 (09:45→21:03)
[2020-05-08] MEDS ORDERED: PANTOPRAZOLE 40 MG TABLET PO SCH (10:00)
--- NOTE | 2020-05-08 11:38 | EKG ---
Test Reason : Blood Pressure : / mmHG Vent. Rate : 094 BPM Atrial Rate : 094 BPM P-R Int : 218 ms QRS Dur : 100 ms QT Int : 370 ms P-R-T Axes : 071 026 153 degrees QTc Int : 462 ms SINUS RHYTHM WITH 1ST DEGREE A-V BLOCK LOW VOLTAGE QRS T WAVE ABNORMALITY, CONSIDER LATERAL ISCHEMIA PROLONGED QT ABNORMAL ECG WHEN COMPARED WITH ECG OF 07-MAY-2020 13:41, CRITERIA FOR SEPTAL INFARCT ARE NO LONGER PRESENT Confirmed by MD Charles, Norman ([id number]) on 05/08/2020 11:38:06 AM Referred By: Felix DURHAM Confirmed By:Norman Soto MD
--- NOTE | 2020-05-08 14:46 | CON.ID ---
Consult Consult Specialty:: infectious diseases Referred by:: Reason for Consultation:: left leg cellulitis - History of Present Illness Chief Complaint: left leg injury and celulitis History of Present Illness: patient is confused,awake and alert ,history obtained from the charts 80 year old predominantly Slovenian speaking, with known history of HTN, CHF, BPH, IDDM complicated by diabetic neuropathy, venous insufficiency who presents to the ED with left lower extremity wounds associated with pain and redness. Appare ntly per daughter, about 5 days ago patient's compression stocking were being pulled away when some of the skin tore. patient currently confused calm - History Source History Provided By: Medical Record Limitations to Obtaining History: Clinical Condition - Alcohol/Substance Use Hx Alcohol Use: No - Smoking History Smoking history: Never smoked Have you smoked in the past 12 months: No Home Medications - Allergies Allergies/Adverse Reactions: Allergies Allergy/AdvReac Type Severity Reaction Status Date / Time No Known Allergies Allergy Verified 12/18/19 12:43 - Home Medications Home Medications: Ambulatory Orders Atorvastatin Ca [Lipitor] 20 mg PO HS 04/25/19 Omeprazole Magnesium [Prilosec Otc] 40 mg PO DAILY 04/25/19 Ferrous Sulfate [Feosol] 325 mg GT HS 12/18/19 Insulin Glargine,Hum.rec.anlog [Basaglar Kwikpen U-100] 8 units SQ HS 12/18/19 Insulin Lispro [Humalog Kwikpen U-100] 1 unit SQ AC 12/18/19 Terazosin HCl [Hytrin -] 1 mg PO HS 12/18/19 Furosemide [Lasix] 40 mg PO DAILY 05/07/20 Insulin Sliding Scale [Novolog Vial Sliding Scale -] 1 vial SQ ACHS PRN 05/07/20 Metoprolol Tartrate 25 mg PO BID 05/07/20 Review of Systems Unable to obtain ROS, reason: unable to obtain Physical Exam Vital Signs: Vital Signs Temperature 98.3 F 05/08/20 10:00 Pulse Rate 97 H 05/08/20 10:00 Respiratory Rate 18 05/08/20 10:00 Blood Pressure 123/73 05/08/20 10:00 O2 Sat by Pulse Oximetry (%) 92 L 05/08/20 09:00 Constitutional: Yes: Well Nourished, Calm, Other (confused) HENT: Yes: Atraumatic Cardiovascular: Yes: Regular Rate and Rhythm Respiratory: Yes: Regular, CTA Bilaterally Gastrointestinal: Yes: Normal Bowel Sounds, Soft Musculoskeletal: Yes: WNL Extremities: Yes: Erythema (of the left ext), Other Wound/Incision: Yes: Dressing Dry and Intact Neurological: Yes: Alert, Confusion Psychiatric: Yes: Alert, Other Labs: CBC, BMP 05/07/20 15:25 05/07/20 15:25 Imaging - Results Chest X-ray: Report Reviewed, Image Reviewed Assessment/Plan this patient with multiple medical issues coming to the hospital with skin teat and cellulitis of the left leg has confusion we do not know the base line i am going to continue unasyn on the patient also await for his cx reports we should also get urine cx on him wound care rest as per the team also imaging of his head consider
--- NOTE | 2020-05-08 16:27 | PN ---
Physical Exam: SUBJECTIVE: Patient seen and examined. He has no complaints today. OBJECTIVE: Vital Signs Period Temp Pulse Resp BP Sys/Flores Pulse Ox Last 24 Hr 97.5 F-98.3 F 84-109 18-20 118-186/68-114 92-100 GENERAL: The patient is awake, alert, and fully oriented, in no acute distress. HEAD: Normal with no signs of trauma. EYES: PERRL, extraocular movements intact, conjunctiva clear. ENT: Ears normal, nares patent, moist mucous membranes. NECK: Trachea midline. LUNGS: Clear to auscultation bilaterally. HEART: Regular rate and rhythm, no murmur. ABDOMEN: Soft, nontender, nondistended, normoactive bowel sounds. EXTREMITIES: Warm, well-perfused, LLE erythema and warm to touch, 2 areas of skin opening with no drainage. NEUROLOGICAL: Cranial nerves II through XII grossly intact. Normal speech. PSYCH: Normal mood, normal affect. SKIN: Warm, dry, normal turgor. Laboratory Results - last 24 hr 05/07/20 05/08/20 05/08/20 21:22 05:27 05:35 POC Glucometer 190 161 Troponin I 0.25 H Triglycerides 58 Cholesterol 85 Total LDL Cholesterol 40 HDL Cholesterol 38 L 05/08/20 11:47 POC Glucometer 193 Troponin I Triglycerides Cholesterol Total LDL Cholesterol HDL Cholesterol Active Medications Generic Name Dose Route Start Last Admin Trade Name Anupamq PRN Reason Stop Dose Admin Aspirin 81 mg 05/08/20 10:00 05/08/20 09:45 Asa - PO 81 mg DAILY ZACH Administration Heparin Sodium (Porcine) 5,000 unit 05/07/20 22:00 05/08/20 09:44 Heparin - SQ 5,000 unit BID ZACH Administration Ampicillin Sodium/Sulbactam 100 mls @ 200 mls/hr 05/08/20 18:00 Sodium 3 gm/ Sodium Chloride IVPB Q8H-IV ZACH Insulin Aspart 1 vial 05/07/20 22:00 05/08/20 11:47 Novolog Vial Sliding Scale - SQ 2 units ACHS ZACH Administration Protocol Insulin Detemir 5 units 05/07/20 22:00 05/07/20 21:28 Levemir Vial SQ 5 units HS ZACH Administration Metoprolol Tartrate 25 mg 05/07/20 22:00 05/08/20 09:45 Lopressor - PO 25 mg BID ZACH Administration Pantoprazole Sodium 40 mg 05/08/20 10:00 05/08/20 09:45 Protonix - PO 40 mg DAILY ZACH Administration Terazosin HCl 1 mg 05/07/20 22:00 05/07/20 21:50 Hytrin - PO 1 mg HS ZACH Administration ASSESSMENT/PLAN: Pt is an 80y/o male with DM2 and HTN who presents with LLE cellulitis. #Cellulitis of the LLE - unasyn day 2 - blood cultures - Dr Infante (ID) consulted for antibiotic recommendations #DM2 - SSI - BGMs - levemir 5U #tropinemia, likely 2/2 demand with hypertension - serial troponins to plateau - serial EKG shows no significant changes - start aspirin - cont atorvastatin (home med) #HTN - metoprolol BID - lasix 40mg FEN PO fluids monitor labs sodium/diabetic diet DVT Ppx heparin BID dispo tele FULL CODE Visit type - Emergency Visit Emergency Visit: Yes ED Registration Date: 05/07/20 Care time: The patient presented to the Emergency Department on the above date and was hospitalized for further evaluation of their emergent condition. - New Patient This patient is new to me today: Yes Date on this admission: 05/08/20 - Critical Care Critical Care patient: No ATTENDING PHYSICIAN STATEMENT I saw and evaluated the patient. I reviewed the resident's note and discussed the case with the resident. I agree with the resident's findings and plan as documented. SUBJECTIVE: OBJECTIVE: ASSESSMENT AND PLAN:
[2020-05-08] MEDS ORDERED: INSULIN (NOVOLOG) ASPART 100 UNITS/ML 10ML VIAL ONE (17:00)
[2020-05-08] MEDS: AMPICILLIN NA/SULBACTAM NA 3 GM in SODIUM CHLORIDE 100 ML IVPB SCH (17:44)
--- NOTE | 2020-05-08 18:33 | PN ---
Teaching Attending Note Name of Resident: Heather Barber ATTENDING PHYSICIAN STATEMENT I saw and evaluated the patient. I reviewed the resident's note and discussed the case with the resident. I agree with the resident's findings and plan as documented. SUBJECTIVE: pain in LLE. no fever or chills .No events over night . deneis SOB or CP . OBJECTIVE: NAD awake, alert, R lower facial droop. Lungs : crackles at the bases Abd: soft, NT, Nd, nl BS Ext : LLE with erythema up to just below the knee. 2 areas of skin breakdown , with dry serosanguinous secretionsn and dry scab. size ranges form 1-2.5 cm . tenderness to palpation on legs . Neuro : R lower facial droop. tongue at mid line , EOMI. nl facial sensation . strength 5/5 shoulder flexion , biceps /triceps b.l. 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 muscle atrophy on both hands . R hip flexion 4/5 , L hip flexion 5/5 , not cooperative with distal strength exam. ASSESSMENT AND PLAN: 80 y/o man with h//o HTN, CHF, BPH, IDDM, diabetic neuropathy, venous insufficiency, and CVA who presented with LLE redness and was diagnosed with cellulitis 1- LLE cellulitis: NO DVT on US. cont unasyn . follow blood cx 2- Elevated trop : trended down. EKG with no cahnges compared to previous [facility] ap[facility] ( 2 EKGs this admissionand one in April were reviewed ) cont Asa, statin and BB . meds to be confirmed 3- h/o stroke: conmfrimed withhis daughter that he hada stroke and R lower facail droop is not new. has trouble following instructionand some R sided weakness cont asa , statin 4- h/o DM : cont levemir and SSI and dc HS coverage of SSI 5- H/o CHF: cont lasix 6- DVT PX : heparin sq hloc
[2020-05-08] MEDS: ATORVASTATIN CA 20 MG TABLET (FP) PO SCH (21:03)
[2020-05-08] MEDS: TERAZOSIN HCL 1 MG CAPSULE PO SCH (21:06)
[2020-05-08] MEDS ORDERED: PT OWN MED DRAWER 7, Y5N ONE (21:06)
[2020-05-08] MEDS: INSULIN (LEVEMIR) 100 UNITS/ML UNITS SQ SCH (21:08)
[2020-05-09] MEDS ORDERED: PT OWN MED DRAWER 7, Y5N ONE ×5 (00:43→20:58)
[2020-05-09] MEDS: AMPICILLIN NA/SULBACTAM NA 3 GM in SODIUM CHLORIDE 100 ML IVPB SCH ×3 (02:00→17:52)
[2020-05-09] MEDS: HEPARIN NA (PORCINE) 5,000 UNITS/ML 1ML VIAL SQ SCH ×3 (06:10→21:10)
[2020-05-09] MEDS: INSULIN SLIDING SCALE (NOVOLOG) 1 VIAL SQ SCH ×3 (06:19→17:52)
[2020-05-09 07:22] LABS: BASO % 0.4 % (0-2.0); EOS % 3.9 % (0-4.5); HEMATOCRIT 35.6 % (35.4-49); HEMOGLOBIN 11.6 GM/dL (11.7-16.9); LYMPH % 29.3 % (8-40); MCH 29.4 pg (25.7-33.7); MCHC 32.5 g/dl (32.0-35.9); MEAN CELL VOLUME 90.3 fl (80-96); MEAN PLT VOLUME 9.5 fl (7.5-11.1); MONO % 11.7 % (3.8-10.2); NEUT % 54.7 % (42.8-82.8); PLATELET COUNT 121 K/MM3 (134-434); RBC 3.94 M/mm3 (4.00-5.60); RDW 16.4 % (11.9-15.9); WHITE BLOOD COUNT 3.8 K/mm3 (4.0-10.0)
[2020-05-09 08:21] LABS: BLOOD UREA NITROGEN 13.9 mg/dL (7-18); CALCIUM 8.5 mg/dL (8.5-10.1); CREATININE 0.8 mg/dL (0.55-1.3); POTASSIUM 3.4 mmol/L (3.5-5.1)
[2020-05-09] MEDS: ASPIRIN 81 MG CHEWABLE TABLETS PO SCH (09:37)
[2020-05-09] MEDS: FUROSEMIDE 40 MG TABLET (FP) PO SCH (09:38)
[2020-05-09] MEDS: PANTOPRAZOLE 40 MG TABLET PO SCH (09:38)
[2020-05-09] MEDS: METOPROLOL TARTRATE 25 MG TABLET (FP) PO SCH ×2 (09:38→21:09)
[2020-05-09] MEDS ORDERED: OMEPRAZOLE MAGNESIUM 40 MG PO SCH (10:00)
--- NOTE | 2020-05-09 12:07 | PN ---
Progress Note, Physician History of Present Illness: patient looking much better more awake and alert dressing removed wound looked at c/o of pain in the rt leg - Current Medication List Current Medications: Active Medications Aspirin (Asa -) 81 mg PO DAILY [facility] Last Admin: 05/09/20 09:37 Dose: 81 mg Documented by: Atorvastatin Calcium (Lipitor -) 20 mg PO [facility] Last Admin: 05/08/20 21:03 Dose: 20 mg Documented by: Furosemide (Lasix -) 40 mg PO DAILY [facility] Last Admin: 05/09/20 09:38 Dose: 40 mg Documented by: Heparin Sodium (Porcine) (Heparin -) 5,000 unit SQ TID [facility] Last Admin: 05/09/20 06:10 Dose: 5,000 unit Documented by: Ampicillin Sodium/Sulbactam (Sodium 3 gm/ Sodium Chloride) 100 mls @ 200 mls/hr IVPB Q8H-IV [facility] Last Admin: 05/09/20 09:38 Dose: 200 mls/hr Documented by: Insulin Aspart (Novolog Vial Sliding Scale -) 1 vial SQ TIDAC [facility]; Protocol Last Admin: 05/09/20 11:18 Dose: 4 units Documented by: Insulin Detemir (Levemir Vial) 5 units SQ [facility] Last Admin: 05/08/20 21:08 Dose: 5 units Documented by: Metoprolol Tartrate (Lopressor -) 25 mg PO BID [facility] Last Admin: 05/09/20 09:38 Dose: 25 mg Documented by: Pantoprazole Sodium (Protonix -) 40 mg PO DAILY [facility] Last Admin: 05/09/20 09:38 Dose: 40 mg Documented by: Terazosin HCl (Hytrin -) 1 mg PO [facility] Last Admin: 05/08/20 21:06 Dose: 1 mg Documented by: - Objective Vital Signs: Vital Signs Temperature 98.3 F 05/09/20 09:00 Pulse Rate 93 H 05/09/20 09:00 Respiratory Rate 20 05/09/20 09:00 Blood Pressure 108/74 05/09/20 09:00 O2 Sat by Pulse Oximetry (%) 91 L 05/08/20 21:00 Constitutional: Yes: Calm, Mild Distress Cardiovascular: Yes: S1, S2 Respiratory: Yes: Regular, CTA Bilaterally Gastrointestinal: Yes: Normal Bowel Sounds, Soft Musculoskeletal: Yes: WNL Extremities: Yes: Erythema (of the left and wounds present), Other Neurological: Yes: Alert, Oriented Psychiatric: Yes: Alert, Oriented Labs: CBC, BMP 05/09/20 06:25 05/09/20 06:25 INR, PTT INR 1.21 (0.83-1.09) H 05/07/20 15:25 Assessment/Plan this patient with multiple medical issues coming to the hospital with skin teat and cellulitis of the left leg has confusion we do not know the base line i am going to continue unasyn on the patient also await for his cx reports we should also get urine cx on him wound care rest as per the team also imaging of his head consider
[2020-05-09] MEDS ORDERED: POTASSIUM CHLORIDE TABS 20 MEQ TABLET.ER (FP) PO ONE (14:00)
[2020-05-09 16:28] LABS: EPI CELLS 23 /uL (0-25.1); HYALINE CASTS 12 /uL (0-3.1); URINE APPEARANCE CLEAR; URINE BACTERIA 140 /uL (0-1359); URINE BILIRUBIN NEGATIVE (NEGATIVE); URINE COLOR YELLOW; URINE GLUCOSE (UA) NEGATIVE (NEGATIVE); URINE KETONE NEGATIVE (NEGATIVE); URINE LEUK ESTERASE NEGATIVE (NEGATIVE); URINE NITRITE NEGATIVE (NEGATIVE); URINE PROTEIN NEGATIVE (NEGATIVE); URINE RBC 5 /uL (0-23.9); URINE UROBILINOGEN 0.2 mg/dL (0.2-1.0); URINE WBC 3 /uL (0-25.8)
--- NOTE | 2020-05-09 17:45 | PN ---
Physical Exam: SUBJECTIVE: Patient seen and examined. He reports improved pain. OBJECTIVE: Vital Signs Period Temp Pulse Resp BP Sys/Flores Pulse Ox Last 24 Hr 97.4 F-98.3 F 82-107 16-22 108-152/74-102 91-96 GENERAL: The patient is awake, alert, and fully oriented, in no acute distress. HEAD: Normal with no signs of trauma. EYES: PERRL, extraocular movements intact, conjunctiva clear. ENT: Ears normal, nares patent, moist mucous membranes. NECK: Trachea midline. LUNGS: Clear to auscultation bilaterally. HEART: Regular rate and rhythm, no murmur. ABDOMEN: Soft, nontender, nondistended, normoactive bowel sounds. EXTREMITIES: Warm, well-perfused, LLE erythema and warm to touch, 2 areas of skin opening on reyez, minimal drainage, not purulent NEUROLOGICAL: Cranial nerves II through XII grossly intact. Normal speech. PSYCH: Normal mood, normal affect. SKIN: Warm, dry, normal turgor. Laboratory Results - last 24 hr 05/07/20 05/08/20 05/08/20 17:43 14:45 21:10 WBC RBC Hgb Hct MCV MCH MCHC RDW Plt Count MPV Absolute Neuts (auto) Neutrophils % Lymphocytes % Monocytes % Eosinophils % Basophils % Nucleated RBC % Sodium Potassium Chloride Carbon Dioxide Anion Gap BUN Creatinine Est GFR (CKD-EPI)AfAm Est GFR (CKD-EPI)NonAf POC Glucometer 214 Random Glucose Calcium Troponin I 0.18 H Urine Color Urine Appearance Urine pH Ur Specific [place] Urine Protein Urine Glucose (UA) Urine Ketones Urine Blood Urine Nitrite Urine Bilirubin Urine Urobilinogen Ur Leukocyte Esterase Urine WBC (Auto) Urine RBC (Auto) Urine Casts (Auto) U Epithel Cells (Auto) Urine Bacteria (Auto) COVID-19 ([place]) Not detected 05/09/20 05/09/20 05/09/20 01:45 06:14 06:25 WBC 3.8 L RBC 3.94 L Hgb 11.6 L Hct 35.6 MCV 90.3 MCH 29.4 MCHC 32.5 RDW 16.4 H Plt Count 121 L MPV 9.5 Absolute Neuts (auto) 2.1 Neutrophils % 54.7 Lymphocytes % 29.3 Monocytes % 11.7 H Eosinophils % 3.9 Basophils % 0.4 Nucleated RBC % 0 Sodium Potassium Chloride Carbon Dioxide Anion Gap BUN Creatinine Est GFR (CKD-EPI)AfAm Est GFR (CKD-EPI)NonAf POC Glucometer 181 Random Glucose Calcium Troponin I 0.19 H Urine Color Urine Appearance Urine pH Ur Specific [place] Urine Protein Urine Glucose (UA) Urine Ketones Urine Blood Urine Nitrite Urine Bilirubin Urine Urobilinogen Ur Leukocyte Esterase Urine WBC (Auto) Urine RBC (Auto) Urine Casts (Auto) U Epithel Cells (Auto) Urine Bacteria (Auto) COVID-19 ([place]) 05/09/20 05/09/20 05/09/20 06:25 11:17 13:00 WBC RBC Hgb Hct MCV MCH MCHC RDW Plt Count MPV Absolute Neuts (auto) Neutrophils % Lymphocytes % Monocytes % Eosinophils % Basophils % Nucleated RBC % Sodium 141 Potassium 3.4 L Chloride 107 Carbon Dioxide 28 Anion Gap 6 L BUN 13.9 Creatinine 0.8 Est GFR (CKD-EPI)AfAm 97.78 Est GFR (CKD-EPI)NonAf 84.37 POC Glucometer 208 Random Glucose 176 H Calcium 8.5 Troponin I 0.15 H Urine Color Yellow Urine Appearance Clear Urine pH 5.0 Ur Specific [place] 1.011 Urine Protein Negative Urine Glucose (UA) Negative Urine Ketones Negative Urine Blood Trace Urine Nitrite Negative Urine Bilirubin Negative Urine Urobilinogen 0.2 Ur Leukocyte Esterase Negative Urine WBC (Auto) 3 Urine RBC (Auto) 5 Urine Casts (Auto) 12 U Epithel Cells (Auto) 23 Urine Bacteria (Auto) 140 COVID-19 ([place]) Active Medications Generic Name Dose Route Start Last Admin Trade Name Freq PRN Reason Stop Dose Admin Aspirin 81 mg 05/08/20 10:00 05/09/20 09:37 Asa - PO 81 mg DAILY ZACH Administration Atorvastatin Calcium 20 mg 05/08/20 22:00 05/08/20 21:03 Lipitor - PO 20 mg HS ZACH Administration Furosemide 40 mg 05/09/20 10:00 05/09/20 09:38 Lasix - PO 40 mg DAILY ZACH Administration Heparin Sodium (Porcine) 5,000 unit 05/08/20 22:00 05/09/20 15:02 Heparin - SQ 5,000 unit TID ZACH Administration Ampicillin Sodium/Sulbactam 100 mls @ 200 mls/hr 05/08/20 18:00 05/09/20 09:38 Sodium 3 gm/ Sodium Chloride IVPB 200 mls/hr Q8H-IV ZACH Administration Insulin Aspart 1 vial 05/09/20 07:00 05/09/20 11:18 Novolog Vial Sliding Scale - SQ 4 units TIDAC ZACH Administration Protocol Insulin Detemir 5 units 05/07/20 22:00 05/08/20 21:08 Levemir Vial SQ 5 units HS ZACH Administration Metoprolol Tartrate 25 mg 05/08/20 22:00 05/09/20 09:38 Lopressor - PO 25 mg BID ZACH Administration Pantoprazole Sodium 40 mg 05/09/20 10:00 05/09/20 09:38 Protonix - PO 40 mg DAILY ZACH Administration Terazosin HCl 1 mg 05/08/20 22:00 05/08/20 21:06 Hytrin - PO 1 mg HS ZACH Administration ASSESSMENT/PLAN: Pt is an 80y/o male with DM2 and HTN who presents with LLE cellulitis. #Cellulitis of the LLE - unasyn day 3 - blood cultures- prelim negative - Dr Infante (ID) consulted for antibiotic recommendations - xeroform dressing with daily changes #DM2 - SSI - BGMs - levemir 5U #tropinemia, likely 2/2 demand with hypertension - troponins peaked - serial EKG shows no significant changes - start aspirin - cont atorvastatin (home med) #HTN - metoprolol BID - lasix 40mg FEN PO fluids monitor labs sodium/diabetic diet DVT Ppx heparin TID dispo tele FULL CODE Visit type - Emergency Visit Emergency Visit: Yes ED Registration Date: 05/07/20 Care time: The patient presented to the Emergency Department on the above date and was hospitalized for further evaluation of their emergent condition. - New Patient This patient is new to me today: No - Critical Care Critical Care patient: No ATTENDING PHYSICIAN STATEMENT I saw and evaluated the patient. I reviewed the resident's note and discussed the case with the resident. I agree with the resident's findings and plan as documented. SUBJECTIVE: OBJECTIVE: ASSESSMENT AND PLAN:
--- NOTE | 2020-05-09 19:20 | PN ---
Teaching Attending Note Name of Resident: Heather Barber ATTENDING PHYSICIAN STATEMENT I saw and evaluated the patient. I reviewed the resident's note and discussed the case with the resident. I agree with the resident's findings and plan as documented. SUBJECTIVE: pain in L leg . No events over night OBJECTIVE: NAD awake, alert, R lower facial droop. Lungs : fine crackles at bases , imprpoved formyesterday Abd: soft, NT, Nd, nl BS Ext : LLE with improved erythema up to just below the knee. 2 areas of skin breakdown , with dry serosanguinous secretionsn and dry scab. not changed form yesterday ASSESSMENT AND PLAN: 80 y/o man with h//o HTN, CHF, BPH, IDDM, diabetic neuropathy, venous insufficiency, and CVA who presented with LLE redness and was diagnosed with cellulitis 1- LLE cellulitis: . cont unasyn . follow blood cx 2- Elevated trop : trended down. cont Asa, statin and BB . 3- h/o stroke: cont asa, statin 4- h/o DM: cont levemir and SSI and dc HS coverage of SSI 5- H/o CHF: cont lasix 6- DVT PX : heparin sq UA with no pyuria. no need fr Urine cx HLOC
[2020-05-09] MEDS: TERAZOSIN HCL 1 MG CAPSULE PO SCH (21:09)
[2020-05-09] MEDS: ATORVASTATIN CA 20 MG TABLET (FP) PO SCH (21:10)
[2020-05-09] MEDS: INSULIN (LEVEMIR) 100 UNITS/ML UNITS SQ SCH (21:43)
[2020-05-10] MEDS ORDERED: PT OWN MED DRAWER 7, Y5N ONE ×4 (00:58→21:42)
[2020-05-10] MEDS: AMPICILLIN NA/SULBACTAM NA 3 GM in SODIUM CHLORIDE 100 ML IVPB SCH ×3 (01:00→17:38)
[2020-05-10] MEDS: HEPARIN NA (PORCINE) 5,000 UNITS/ML 1ML VIAL SQ SCH ×3 (05:55→21:32)
[2020-05-10] MEDS: INSULIN SLIDING SCALE (NOVOLOG) 1 VIAL SQ SCH ×3 (06:00→17:36)
[2020-05-10 06:53] LABS: BLOOD UREA NITROGEN 11.9 mg/dL (7-18); CALCIUM 8.7 mg/dL (8.5-10.1); CREATININE 0.7 mg/dL (0.55-1.3); POTASSIUM 3.6 mmol/L (3.5-5.1)
[2020-05-10 06:55] LABS: BASO % 0.2 % (0-2.0); EOS % 3.5 % (0-4.5); HEMATOCRIT 37.6 % (35.4-49); HEMOGLOBIN 12.2 GM/dL (11.7-16.9); LYMPH % 29.7 % (8-40); MCHC 32.4 g/dl (32.0-35.9); MEAN CELL VOLUME 89.5 fl (80-96); MEAN PLT VOLUME 9.5 fl (7.5-11.1); MONO % 9.6 % (3.8-10.2); PLATELET COUNT 129 K/MM3 (134-434); RDW 16.2 % (11.9-15.9)
[2020-05-10] MEDS: PANTOPRAZOLE 40 MG TABLET PO SCH (09:30)
[2020-05-10] MEDS: METOPROLOL TARTRATE 25 MG TABLET (FP) PO SCH ×2 (09:30→21:33)
[2020-05-10] MEDS: FUROSEMIDE 40 MG TABLET (FP) PO SCH (09:30)
[2020-05-10] MEDS: ASPIRIN 81 MG CHEWABLE TABLETS PO SCH (09:30)
--- NOTE | 2020-05-10 15:20 | PN ---
Physical Exam: SUBJECTIVE: Patient seen and examined. He reports pain is improved and is now 3/10. He also has some pain in right LE. He denies shortness of breath, chest pain, nausea, vomiting, or diarrhea. OBJECTIVE: Vital Signs Period Temp Pulse Resp BP Sys/Flores Pulse Ox Last 24 Hr 97.5 F-98.2 F 82-99 18-20 128-155/83-88 94-99 GENERAL: The patient is awake, alert, and fully oriented, in no acute distress. Sitting in chair. HEAD: Normal with no signs of trauma. EYES: PERRL, extraocular movements intact, conjunctiva clear. ENT: Ears normal, nares patent, moist mucous membranes. NECK: Trachea midline. LUNGS: Clear to auscultation bilaterally. HEART: Regular rate and rhythm, no murmur. ABDOMEN: Soft, nontender, nondistended, normoactive bowel sounds. EXTREMITIES: Warm, well-perfused, LLE decreased erythema and not warm to touch, 2 areas of skin opening on reyez, minimal drainage, not purulent. RLE red, dusky, chronic changes, but warm extremity and not tender to touch. NEUROLOGICAL: Cranial nerves II through XII grossly intact. Normal speech. PSYCH: Normal mood, normal affect. SKIN: Warm, dry, normal turgor. Laboratory Results - last 24 hr 05/09/20 05/09/20 05/09/20 13:00 17:50 21:07 WBC RBC Hgb Hct MCV MCH MCHC RDW Plt Count MPV Absolute Neuts (auto) Neutrophils % Lymphocytes % Monocytes % Eosinophils % Basophils % Nucleated RBC % Sodium Potassium Chloride Carbon Dioxide Anion Gap BUN Creatinine Est GFR (CKD-EPI)AfAm Est GFR (CKD-EPI)NonAf POC Glucometer 185 179 Random Glucose Calcium Urine Color Yellow Urine Appearance Clear Urine pH 5.0 Ur Specific [place] 1.011 Urine Protein Negative Urine Glucose (UA) Negative Urine Ketones Negative Urine Blood Trace Urine Nitrite Negative Urine Bilirubin Negative Urine Urobilinogen 0.2 Ur Leukocyte Esterase Negative Urine WBC (Auto) 3 Urine RBC (Auto) 5 Urine Casts (Auto) 12 U Epithel Cells (Auto) 23 Urine Bacteria (Auto) 140 05/10/20 05/10/20 05/10/20 05:35 05:35 05:58 WBC 5.0 RBC 4.20 Hgb 12.2 Hct 37.6 MCV 89.5 MCH 29.0 MCHC 32.4 RDW 16.2 H Plt Count 129 L MPV 9.5 Absolute Neuts (auto) 2.9 Neutrophils % 57.0 Lymphocytes % 29.7 Monocytes % 9.6 Eosinophils % 3.5 Basophils % 0.2 Nucleated RBC % 0 Sodium 141 Potassium 3.6 Chloride 106 Carbon Dioxide 28 Anion Gap 7 L BUN 11.9 Creatinine 0.7 Est GFR (CKD-EPI)AfAm 103.30 Est GFR (CKD-EPI)NonAf 89.13 POC Glucometer 176 Random Glucose 183 H Calcium 8.7 Urine Color Urine Appearance Urine pH Ur Specific [place] Urine Protein Urine Glucose (UA) Urine Ketones Urine Blood Urine Nitrite Urine Bilirubin Urine Urobilinogen Ur Leukocyte Esterase Urine WBC (Auto) Urine RBC (Auto) Urine Casts (Auto) U Epithel Cells (Auto) Urine Bacteria (Auto) 05/10/20 11:13 WBC RBC Hgb Hct MCV MCH MCHC RDW Plt Count MPV Absolute Neuts (auto) Neutrophils % Lymphocytes % Monocytes % Eosinophils % Basophils % Nucleated RBC % Sodium Potassium Chloride Carbon Dioxide Anion Gap BUN Creatinine Est GFR (CKD-EPI)AfAm Est GFR (CKD-EPI)NonAf POC Glucometer 213 Random Glucose Calcium Urine Color Urine Appearance Urine pH Ur Specific [place] Urine Protein Urine Glucose (UA) Urine Ketones Urine Blood Urine Nitrite Urine Bilirubin Urine Urobilinogen Ur Leukocyte Esterase Urine WBC (Auto) Urine RBC (Auto) Urine Casts (Auto) U Epithel Cells (Auto) Urine Bacteria (Auto) Active Medications Generic Name Dose Route Start Last Admin Trade Name Freq PRN Reason Stop Dose Admin Aspirin 81 mg 05/08/20 10:00 05/10/20 09:30 Asa - PO 81 mg DAILY ZACH Administration Atorvastatin Calcium 20 mg 05/08/20 22:00 05/09/20 21:10 Lipitor - PO 20 mg HS ZACH Administration Furosemide 40 mg 05/09/20 10:00 05/10/20 09:30 Lasix - PO 40 mg DAILY ZACH Administration Heparin Sodium (Porcine) 5,000 unit 05/08/20 22:00 05/10/20 14:32 Heparin - SQ 5,000 unit TID ZACH Administration Ampicillin Sodium/Sulbactam 100 mls @ 200 mls/hr 05/08/20 18:00 05/10/20 09:30 Sodium 3 gm/ Sodium Chloride IVPB 200 mls/hr Q8H-IV ZACH Administration Insulin Aspart 1 vial 05/09/20 07:00 05/10/20 11:32 Novolog Vial Sliding Scale - SQ 4 units TIDAC ZACH Administration Protocol Insulin Detemir 5 units 05/07/20 22:00 05/09/20 21:43 Levemir Vial SQ 5 units HS ZACH Administration Metoprolol Tartrate 25 mg 05/08/20 22:00 05/10/20 09:30 Lopressor - PO 25 mg BID ZACH Administration Pantoprazole Sodium 40 mg 05/09/20 10:00 05/10/20 09:30 Protonix - PO 40 mg DAILY ZACH Administration Terazosin HCl 1 mg 05/08/20 22:00 05/09/20 21:09 Hytrin - PO 1 mg HS ZACH Administration ASSESSMENT/PLAN: Pt is an 80y/o male with DM2 and HTN who presents with LLE cellulitis. #Cellulitis of the LLE - Unasyn day 4 - blood cultures- prelim negative - ID following - Versatel dressing with daily changes #IDDM2 - currently controlled with SSI and levemir - SSI - BGMs - levemir 5U #mild thrombocytopenia - Plt ~130 during this admission, in normal range in December at last admission - possibly from bacterial cellulitis - currently no signs of bleeding - continue to monitor #tropinemia, likely 2/2 demand with hypertension - troponins peaked - serial EKG shows no significant changes - start aspirin - cont atorvastatin (home med) #HTN - metoprolol BID - lasix 40mg FEN PO fluids monitor labs sodium/diabetic diet DVT Ppx heparin TID dispo tele FULL CODE Visit type - Emergency Visit Emergency Visit: Yes ED Registration Date: 05/07/20 Care time: The patient presented to the Emergency Department on the above date and was hospitalized for further evaluation of their emergent condition. - New Patient This patient is new to me today: No - Critical Care Critical Care patient: No ATTENDING PHYSICIAN STATEMENT I saw and evaluated the patient. I reviewed the resident's note and discussed the case with the resident. I agree with the resident's findings and plan as documented. SUBJECTIVE: OBJECTIVE: ASSESSMENT AND PLAN:
--- NOTE | 2020-05-10 17:49 | PN ---
Teaching Attending Note Name of Resident: Heather Barber ATTENDING PHYSICIAN STATEMENT I saw and evaluated the patient. I reviewed the resident's note and discussed the case with the resident. I agree with the resident's findings and plan as documented. SUBJECTIVE: seen at around 11 am No fever or chills. No GALAN , no pain. No SOB OBJECTIVE: NAD awake, alert, R lower facial droop. Ext : LLE with hyperpigmentation instead of erythema. still edematous especially ankle . 2 areas of skin breakdown ,moist surface , no discharge ASSESSMENT AND PLAN: 80 y/o man with h//o HTN, CHF, BPH, IDDM, diabetic neuropathy, venous insufficiency, and CVA who presented with LLE redness and was diagnosed with cellulitis 1- LLE cellulitis: Improved. cont unasyn. blodo cx neg x 72 hours 2- Elevated trop: trended down. cont Asa, statin and BB . 3- h/o stroke: cont asa, statin 4- h/o DM: cont levemir and SSI and dc HS coverage of SSI 5- H/o CHF: cont lasix 6- DVT PX: heparin sq HLOC
[2020-05-10] MEDS: INSULIN (LEVEMIR) 100 UNITS/ML UNITS SQ SCH (21:33)
[2020-05-10] MEDS: TERAZOSIN HCL 1 MG CAPSULE PO SCH (21:33)
[2020-05-10] MEDS: ATORVASTATIN CA 20 MG TABLET (FP) PO SCH (21:33)
[2020-05-11] MEDS ORDERED: PT OWN MED DRAWER 7, Y5N ONE ×3 (01:20→17:29)
[2020-05-11] MEDS: AMPICILLIN NA/SULBACTAM NA 3 GM in SODIUM CHLORIDE 100 ML IVPB SCH ×3 (01:43→17:24)
[2020-05-11] MEDS: INSULIN SLIDING SCALE (NOVOLOG) 1 VIAL SQ SCH ×3 (06:08→17:23)
[2020-05-11] MEDS: HEPARIN NA (PORCINE) 5,000 UNITS/ML 1ML VIAL SQ SCH ×3 (06:08→21:19)
[2020-05-11 07:06] LABS: BASO % 0.3 % (0-2.0); EOS % 4.5 % (0-4.5); HEMATOCRIT 35.8 % (35.4-49); HEMOGLOBIN 11.5 GM/dL (11.7-16.9); MCH 28.7 pg (25.7-33.7); MCHC 32.1 g/dl (32.0-35.9); MEAN CELL VOLUME 89.5 fl (80-96); MEAN PLT VOLUME 9.4 fl (7.5-11.1); MONO % 12.7 % (3.8-10.2); NEUT % 51.5 % (42.8-82.8); PLATELET COUNT 135 K/MM3 (134-434); RBC 4.01 M/mm3 (4.00-5.60)
[2020-05-11] MEDS: METOPROLOL TARTRATE 25 MG TABLET (FP) PO SCH ×2 (10:00→21:20)
[2020-05-11] MEDS: PANTOPRAZOLE 40 MG TABLET PO SCH (10:00)
[2020-05-11] MEDS: FUROSEMIDE 40 MG TABLET (FP) PO SCH (10:00)
[2020-05-11] MEDS: ASPIRIN 81 MG CHEWABLE TABLETS PO SCH (10:01)
--- NOTE | 2020-05-11 13:21 | PN ---
Progress Note, Physician History of Present Illness: stable no new issues - Current Medication List Current Medications: Active Medications Aspirin (Asa -) 81 mg PO DAILY COUNTS INCLUDE 234 BEDS AT THE [facility] Last Admin: 05/11/20 10:01 Dose: 81 mg Documented by: Atorvastatin Calcium (Lipitor -) 20 mg PO [facility] Last Admin: 05/10/20 21:33 Dose: 20 mg Documented by: Furosemide (Lasix -) 40 mg PO DAILY COUNTS INCLUDE 234 BEDS AT THE [facility] Last Admin: 05/11/20 10:00 Dose: 40 mg Documented by: Heparin Sodium (Porcine) (Heparin -) 5,000 unit SQ TID COUNTS INCLUDE 234 BEDS AT THE [facility] Last Admin: 05/11/20 06:08 Dose: 5,000 unit Documented by: Ampicillin Sodium/Sulbactam (Sodium 3 gm/ Sodium Chloride) 100 mls @ 200 mls/hr IVPB Q8H-IV COUNTS INCLUDE 234 BEDS AT THE [facility] Last Admin: 05/11/20 10:01 Dose: 200 mls/hr Documented by: Insulin Aspart (Novolog Vial Sliding Scale -) 1 vial SQ TIDAC COUNTS INCLUDE 234 BEDS AT THE [facility]; Protocol Last Admin: 05/11/20 12:11 Dose: 2 units Documented by: Insulin Detemir (Levemir Vial) 5 units SQ [facility] Last Admin: 05/10/20 21:33 Dose: 5 units Documented by: Metoprolol Tartrate (Lopressor -) 25 mg PO BID COUNTS INCLUDE 234 BEDS AT THE [facility] Last Admin: 05/11/20 10:00 Dose: 25 mg Documented by: Pantoprazole Sodium (Protonix -) 40 mg PO DAILY COUNTS INCLUDE 234 BEDS AT [facility] Last Admin: 05/11/20 10:00 Dose: 40 mg Documented by: Terazosin HCl (Hytrin -) 1 mg PO [facility] Last Admin: 05/10/20 21:33 Dose: 1 mg Documented by: - Objective Vital Signs: Vital Signs Temperature 98.2 F 05/11/20 09:00 Pulse Rate 92 H 05/11/20 09:00 Respiratory Rate 20 05/11/20 09:00 Blood Pressure 132/74 05/11/20 09:00 O2 Sat by Pulse Oximetry (%) 99 05/11/20 09:00 Constitutional: Yes: No Distress, Calm Cardiovascular: Yes: Regular Rate and Rhythm Respiratory: Yes: Regular, CTA Bilaterally Gastrointestinal: Yes: Normal Bowel Sounds, Soft Musculoskeletal: Yes: WNL Extremities: Yes: Other Integumentary: Yes: Erythema Wound/Incision: Yes: Dressing Dry and Intact Neurological: Yes: Alert, Oriented Labs: CBC, BMP 05/11/20 06:02 05/10/20 05:35 INR, PTT INR 1.21 (0.83-1.09) H 05/07/20 15:25 Assessment/Plan Pt is an 80y/o male with DM2 and HTN who presents with LLE cellulitis. cellulitis of lle dm htn fall plan continue abx wound care
--- NOTE | 2020-05-11 16:35 | PN ---
Teaching Attending Note Name of Resident: Heather Barber ATTENDING PHYSICIAN STATEMENT I saw and evaluated the patient. I reviewed the resident's note and discussed the case with the resident. I agree with the resident's findings and plan as documented. SUBJECTIVE: Patient has no complaints. OBJECTIVE: Vital Signs Period Temp Pulse Resp BP Sys/Flores Pulse Ox Last 24 Hr 97.9 F-98.3 F 65-109 20-20 132-158/74-107 99-99 HEART: S1S2, RRR LUNGS: Clear ABDOMEN: Soft, non-tender, non-distended, normal BS EXTREMITIES: Chronic changes with erythema LLE>RLE Laboratory Results - last 24 hr 05/10/20 05/10/20 05/11/20 17:01 20:48 05:23 WBC RBC Hgb Hct MCV MCH MCHC RDW Plt Count MPV Absolute Neuts (auto) Neutrophils % Lymphocytes % Monocytes % Eosinophils % Basophils % Nucleated RBC % POC Glucometer 154 184 175 05/11/20 05/11/20 06:02 11:46 WBC 4.0 RBC 4.01 Hgb 11.5 L Hct 35.8 MCV 89.5 MCH 28.7 MCHC 32.1 RDW 16.0 H Plt Count 135 MPV 9.4 Absolute Neuts (auto) 2.1 Neutrophils % 51.5 Lymphocytes % 31.0 Monocytes % 12.7 H Eosinophils % 4.5 Basophils % 0.3 Nucleated RBC % 0 POC Glucometer 169 Current Medications Generic Name Dose Route Start Last Admin Trade Name Freq PRN Reason Stop Dose Admin Aspirin 81 mg 05/08/20 10:05/11/20 10:01 Asa - PO 81 mg DAILY [facility]ACH Administration Atorvastatin Calcium 20 mg 05/08/20 22:00 05/10/20 21:33 Lipitor - PO 20 mg HS ZACH Administration Furosemide 40 mg 05/09/20 10:00 05/11/20 10:00 Lasix - PO 40 mg DAILY [facility] Administration Heparin Sodium (Porcine) 5,000 unit 05/08/20 22:00 05/11/20 14:34 Heparin - SQ 5,000 unit TID [facility]ACH Administration Ampicillin Sodium/Sulbactam 100 mls @ 200 mls/hr 05/08/20 18:00 05/11/20 10:01 Sodium 3 gm/ Sodium Chloride IVPB 200 mls/hr Q8H-IV [facility] Administration Insulin Aspart 1 vial 05/09/20 07:00 05/11/20 12:11 Novolog Vial Sliding Scale - SQ 2 units TIDAC [facility] Administration Protocol Insulin Detemir 5 units 05/07/20 22:00 05/10/20 21:33 Levemir Vial SQ 5 units HS [facility] Administration Metoprolol Tartrate 25 mg 05/08/20 22:00 05/11/20 10:00 Lopressor - PO 25 mg BID [facility]ACH Administration Pantoprazole Sodium 40 mg 05/09/20 10:00 05/11/20 10:00 Protonix - PO 40 mg DAILY [facility] Administration Terazosin HCl 1 mg 05/08/20 22:00 05/10/20 21:33 Hytrin - PO 1 mg HS ZACH Administration ASSESSMENT AND PLAN: This is an 80 year old man with a history of HTN, chronic diastolic heart failure, type 2 DM, diabetic peripheral neuropathy, chronic venous insufficiency, CVA, BPH who presented to the ED with left leg redness. 1. Chronic venous stasis of both legs with LLE cellulitis - Continue Unasyn (day 5) - Continue wound care 2. Probable demand ischemia - Continue aspirin, Lopressor, Lipitor 3. Thrombocytopenia, mild - Improved
--- NOTE | 2020-05-11 17:19 | PN ---
Physical Exam: SUBJECTIVE: Patient seen and examined. He denies any pain in his leg today. He denies chest pain, abdominal pain, nausea, vomiting, and diarrhea. OBJECTIVE: Vital Signs Period Temp Pulse Resp BP Sys/Flores Pulse Ox Last 24 Hr 98 F-98.3 F 65-109 20-20 132-158/74-107 99-99 GENERAL: The patient is awake, alert, and fully oriented, in no acute distress. Sitting in chair. HEAD: Normal with no signs of trauma. EYES: PERRL, extraocular movements intact, conjunctiva clear. ENT: Ears normal, nares patent, moist mucous membranes. NECK: Trachea midline. LUNGS: Clear to auscultation bilaterally. HEART: Regular rate and rhythm, no murmur. ABDOMEN: Soft, nontender, nondistended, normoactive bowel sounds. EXTREMITIES: Warm, well-perfused, LLE significantly decreased erythema and not warm to touch, 2 areas of skin opening on reyez, minimal drainage, not purulent. RLE red, dusky, chronic changes, but warm extremity and not tender to touch. NEUROLOGICAL: Cranial nerves II through XII grossly intact. Normal speech. PSYCH: Normal mood, normal affect. SKIN: Warm, dry, normal turgor. Laboratory Results - last 24 hr 05/10/20 05/11/20 05/11/20 20:48 05:23 06:02 WBC 4.0 RBC 4.01 Hgb 11.5 L Hct 35.8 MCV 89.5 MCH 28.7 MCHC 32.1 RDW 16.0 H Plt Count 135 MPV 9.4 Absolute Neuts (auto) 2.1 Neutrophils % 51.5 Lymphocytes % 31.0 Monocytes % 12.7 H Eosinophils % 4.5 Basophils % 0.3 Nucleated RBC % 0 POC Glucometer 184 175 05/11/20 05/11/20 11:46 17:04 WBC RBC Hgb Hct MCV MCH MCHC RDW Plt Count MPV Absolute Neuts (auto) Neutrophils % Lymphocytes % Monocytes % Eosinophils % Basophils % Nucleated RBC % POC Glucometer 169 168 Active Medications Generic Name Dose Route Start Last Admin Trade Name Freq PRN Reason Stop Dose Admin Aspirin 81 mg 05/08/20 10:00 05/11/20 10:01 Asa - PO 81 mg DAILY [facility] Administration Atorvastatin Calcium 20 mg 05/08/20 22:00 05/10/20 21:33 Lipitor - PO 20 mg HS [facility]ACH Administration Furosemide 40 mg 05/09/20 10:00 05/11/20 10:00 Lasix - PO 40 mg DAILY [facility] Administration Heparin Sodium (Porcine) 5,000 unit 05/08/20 22:00 05/11/20 14:34 Heparin - SQ 5,000 unit TID [facility] Administration Ampicillin Sodium/Sulbactam 100 mls @ 200 mls/hr 05/08/20 18:00 05/11/20 10:01 Sodium 3 gm/ Sodium Chloride IVPB 200 mls/hr Q8H-IV [facility] Administration Insulin Aspart 1 vial 05/09/20 07:00 05/11/20 12:11 Novolog Vial Sliding Scale - SQ 2 units TIDAC [facility] Administration Protocol Insulin Detemir 5 units 05/07/20 22:00 05/10/20 21:33 Levemir Vial SQ 5 units HS [facility] Administration Metoprolol Tartrate 25 mg 05/08/20 22:00 05/11/20 10:00 Lopressor - PO 25 mg BID ZACH Administration Pantoprazole Sodium 40 mg 05/09/20 10:00 05/11/20 10:00 Protonix - PO 40 mg DAILY [facility] Administration Terazosin HCl 1 mg 05/08/20 22:00 05/10/20 21:33 Hytrin - PO 1 mg HS ZACH Administration ASSESSMENT/PLAN: Pt is an 80y/o male with DM2 and HTN who presents with LLE cellulitis. #Cellulitis of the LLE - Unasyn day 5 - blood cultures- prelim negative - ID following - Versatel dressing with daily changes - consider PO abx tomorrow #IDDM2 - currently controlled with SSI and levemir - SSI - BGMs - levemir 5U #mild thrombocytopenia - Plt ~130 during this admission, in normal range in December at last admission - possibly from bacterial cellulitis - currently no signs of bleeding - continue to monitor #tropinemia, likely 2/2 demand with hypertension - troponins peaked - serial EKG shows no significant changes - start aspirin - cont atorvastatin (home med) #HTN - metoprolol BID - lasix 40mg FEN PO fluids monitor labs sodium/diabetic diet DVT Ppx heparin TID dispo med/surg FULL CODE Visit type - Emergency Visit Emergency Visit: Yes ED Registration Date: 05/07/20 Care time: The patient presented to the Emergency Department on the above date and was hospitalized for further evaluation of their emergent condition. - New Patient This patient is new to me today: No - Critical Care Critical Care patient: No ATTENDING PHYSICIAN STATEMENT I saw and evaluated the patient. I reviewed the resident's note and discussed the case with the resident. I agree with the resident's findings and plan as documented. SUBJECTIVE: OBJECTIVE: ASSESSMENT AND PLAN:
[2020-05-11] MEDS: TERAZOSIN HCL 1 MG CAPSULE PO SCH (21:20)
[2020-05-11] MEDS: INSULIN (LEVEMIR) 100 UNITS/ML UNITS SQ SCH (21:20)
[2020-05-11] MEDS: ATORVASTATIN CA 20 MG TABLET (FP) PO SCH (21:20)
[2020-05-12] MEDS ORDERED: PT OWN MED DRAWER 7, Y5N ONE ×2 (03:34→20:46)
[2020-05-12] MEDS: AMPICILLIN NA/SULBACTAM NA 3 GM in SODIUM CHLORIDE 100 ML IVPB SCH ×3 (03:44→18:10)
[2020-05-12] MEDS: HEPARIN NA (PORCINE) 5,000 UNITS/ML 1ML VIAL SQ SCH ×3 (05:56→21:16)
[2020-05-12] MEDS: INSULIN SLIDING SCALE (NOVOLOG) 1 VIAL SQ SCH ×3 (06:07→16:42)
[2020-05-12 08:41] LABS: BASO % 0.4 % (0-2.0); EOS % 4.4 % (0-4.5); HEMATOCRIT 38.4 % (35.4-49); HEMOGLOBIN 12.6 GM/dL (11.7-16.9); MCH 29.7 pg (25.7-33.7); MCHC 32.9 g/dl (32.0-35.9); MEAN CELL VOLUME 90.3 fl (80-96); MEAN PLT VOLUME 9.9 fl (7.5-11.1); MONO % 11.4 % (3.8-10.2); NEUT % 50.8 % (42.8-82.8); PLATELET COUNT 158 K/MM3 (134-434); RBC 4.25 M/mm3 (4.00-5.60)
[2020-05-12] MEDS: METOPROLOL TARTRATE 25 MG TABLET (FP) PO SCH ×2 (09:17→21:18)
[2020-05-12] MEDS: ASPIRIN 81 MG CHEWABLE TABLETS PO SCH (09:17)
[2020-05-12] MEDS: FUROSEMIDE 40 MG TABLET (FP) PO SCH (09:17)
[2020-05-12] MEDS: PANTOPRAZOLE 40 MG TABLET PO SCH (09:17)
--- NOTE | 2020-05-12 11:48 | PN ---
Progress Note, Physician History of Present Illness: stable leg looks good wound healing well - Current Medication List Current Medications: Active Medications Aspirin (Asa -) 81 mg PO DAILY [facility] Last Admin: 05/12/20 09:17 Dose: 81 mg Documented by: Atorvastatin Calcium (Lipitor -) 20 mg PO [facility] Last Admin: 05/11/20 21:20 Dose: 20 mg Documented by: Furosemide (Lasix -) 40 mg PO DAILY [facility] Last Admin: 05/12/20 09:17 Dose: 40 mg Documented by: Heparin Sodium (Porcine) (Heparin -) 5,000 unit SQ TID [facility] Last Admin: 05/12/20 05:56 Dose: Not Given Documented by: Ampicillin Sodium/Sulbactam (Sodium 3 gm/ Sodium Chloride) 100 mls @ 200 mls/hr IVPB Q8H-IV [facility] Last Admin: 05/12/20 09:17 Dose: 200 mls/hr Documented by: Insulin Aspart (Novolog Vial Sliding Scale -) 1 vial SQ TIDAC [facility]; Protocol Last Admin: 05/12/20 11:46 Dose: 4 units Documented by: Insulin Detemir (Levemir Vial) 5 units SQ [facility] Last Admin: 05/11/20 21:20 Dose: 5 units Documented by: Metoprolol Tartrate (Lopressor -) 25 mg PO BID [facility] Last Admin: 05/12/20 09:17 Dose: 25 mg Documented by: Pantoprazole Sodium (Protonix -) 40 mg PO DAILY [facility] Last Admin: 05/12/20 09:17 Dose: 40 mg Documented by: Terazosin HCl (Hytrin -) 1 mg PO [facility] Last Admin: 05/11/20 21:20 Dose: 1 mg Documented by: - Objective Vital Signs: Vital Signs Temperature 97.3 F L 05/12/20 09:00 Pulse Rate 84 05/12/20 09:00 Respiratory Rate 18 05/12/20 09:00 Blood Pressure 142/80 05/12/20 09:00 O2 Sat by Pulse Oximetry (%) 98 05/12/20 08:07 Constitutional: Yes: No Distress, Calm Cardiovascular: Yes: S1, S2 Respiratory: Yes: Regular, CTA Bilaterally Musculoskeletal: Yes: WNL Extremities: Yes: Erythema, Other Neurological: Yes: Alert, Oriented Psychiatric: Yes: Alert, Oriented Labs: CBC, BMP 05/12/20 05:35 05/10/20 05:35 INR, PTT INR 1.21 (0.83-1.09) H 05/07/20 15:25 Assessment/Plan Pt is an 80y/o male with DM2 and HTN who presents with LLE cellulitis. cellulitis of lle dm htn fall plan continue abx wound care can change to oral augmentin for 5 more daus rest as per the team
--- NOTE | 2020-05-12 14:36 | PN ---
<Brandon Hector - Last Filed: 05/12/20 15:20> Physical Exam: SUBJECTIVE: Patient seen and examined at bedside. Sitting in chair. No complaints. OBJECTIVE: Vital Signs Period Temp Pulse Resp BP Sys/Flores Pulse Ox Last 24 Hr 97.3 F-98.1 F 80-86 18-20 142-154/80-95 98-99 GENERAL: NAD HEAD: Normal with no signs of trauma. LUNGS: CTAB HEART: RRR ABDOMEN: Soft, nontender, nondistended EXTREMITIES: 1 + edema b/l. Stasis dermatitis. Open superficial wound dorsum left reyez, clean nonoozing no odor. Less warm to touch. Erythema residing PSYCH: Normal mood, normal affect. Laboratory Results - last 24 hr 05/11/20 05/11/20 05/12/20 17:04 21:17 05:23 WBC RBC Hgb Hct MCV MCH MCHC RDW Plt Count MPV Absolute Neuts (auto) Neutrophils % Lymphocytes % Monocytes % Eosinophils % Basophils % Nucleated RBC % POC Glucometer 168 237 157 05/12/20 05/12/20 05:35 11:28 WBC 4.0 RBC 4.25 Hgb 12.6 Hct 38.4 MCV 90.3 MCH 29.7 MCHC 32.9 RDW 16.0 H Plt Count 158 MPV 9.9 Absolute Neuts (auto) 2.0 Neutrophils % 50.8 Lymphocytes % 33.0 Monocytes % 11.4 H Eosinophils % 4.4 Basophils % 0.4 Nucleated RBC % 0 POC Glucometer 213 Active Medications Generic Name Dose Route Start Last Admin Trade Name Freq PRN Reason Stop Dose Admin Aspirin 81 mg 05/08/20 10:00 05/12/20 09:17 Asa - PO 81 mg DAILY [facility] Administration Atorvastatin Calcium 20 mg 05/08/20 22:00 05/11/20 21:20 Lipitor - PO 20 mg HS [facility] Administration Furosemide 40 mg 05/09/20 10:00 05/12/20 09:17 Lasix - PO 40 mg DAILY [facility] Administration Heparin Sodium (Porcine) 5,000 unit 05/08/20 22:00 05/12/20 14:08 Heparin - SQ Not Given TID ZACH Ampicillin Sodium/Sulbactam 100 mls @ 200 mls/hr 05/08/20 18:00 05/12/20 09:17 Sodium 3 gm/ Sodium Chloride IVPB 200 mls/hr Q8H-IV [facility] Administration Insulin Aspart 1 vial 05/09/20 07:00 05/12/20 11:46 Novolog Vial Sliding Scale - SQ 4 units TIDAC [facility] Administration Protocol Insulin Detemir 5 units 05/07/20 22:00 05/11/20 21:20 Levemir Vial SQ 5 units HS [facility]ACH Administration Metoprolol Tartrate 25 mg 05/08/20 22:00 05/12/20 09:17 Lopressor - PO 25 mg BID ZACH Administration Pantoprazole Sodium 40 mg 05/09/20 10:00 05/12/20 09:17 Protonix - PO 40 mg DAILY [facility] Administration Terazosin HCl 1 mg 05/08/20 22:00 05/11/20 21:20 Hytrin - PO 1 mg HS ZACH Administration ASSESSMENT/PLAN: Pt is an 80y/o male with DM2 and HTN who presents with LLE cellulitis. #Cellulitis of the LLE - Unasyn day 5. PER ID, can switch to PO Augmentin 500 BID for 5 more days. Pt requires PT, will keep on Unasyn and switch tomorrow. - blood cultures- prelim negative - ID following - Versatel dressing with daily changes - Can switch to PO ABx. #IDDM2 - currently controlled with SSI and levemir - SSI - BGMs - levemir 5U #tropinemia, likely 2/2 demand with hypertension - troponins peaked - serial EKG shows no significant changes - start aspirin - cont atorvastatin (home med) #HTN - metoprolol BID - lasix 40mg FEN PO fluids monitor labs sodium/diabetic diet DVT Ppx heparin TID dispo Probable DC tomorrow pending Physical Therapy. FULL CODE Visit type - Emergency Visit Emergency Visit: Yes ED Registration Date: 05/07/20 Care time: The patient presented to the Emergency Department on the above date and was hospitalized for further evaluation of their emergent condition. - New Patient This patient is new to me today: No - Critical Care Critical Care patient: No - Discharge Referral Referred to [facility] No ATTENDING PHYSICIAN STATEMENT I saw and evaluated the patient. I reviewed the resident's note and discussed the case with the resident. I agree with the resident's findings and plan as documented. SUBJECTIVE: OBJECTIVE: ASSESSMENT AND PLAN: <Efrain Aceves - Last Filed: 05/12/20 18:12> Physical Exam: SUBJECTIVE: Patient seen and examined OBJECTIVE: Vital Signs Period Temp Pulse Resp BP Sys/Flores Pulse Ox Last 24 Hr 97.3 F-98.1 F 77-86 18-20 105-154/59-95 98-99 GENERAL: The patient is awake, alert, and fully oriented, in no acute distress. HEAD: Normal with no signs of trauma. EYES: PERRL, extraocular movements intact, sclera anicteric, conjunctiva clear. No ptosis. ENT: Ears normal, nares patent, oropharynx clear without exudates, moist mucous membranes. NECK: Trachea midline, full range of motion, supple. LUNGS: Breath sounds equal, clear to auscultation bilaterally, no wheezes, no crackles, no accessory muscle use. HEART: Regular rate and rhythm, S1, S2 without murmur, rub or gallop. ABDOMEN: Soft, nontender, nondistended, normoactive bowel sounds, no guarding, no rebound, no hepatosplenomegaly, no masses. EXTREMITIES: 2+ pulses, warm, well-perfused, no edema. NEUROLOGICAL: Cranial nerves II through XII grossly intact. Normal speech, gait not observed. PSYCH: Normal mood, normal affect. SKIN: Warm, dry, normal turgor, no rashes or lesions noted Laboratory Results - last 24 hr 05/11/20 05/12/20 05/12/20 21:17 05:23 05:35 WBC 4.0 RBC 4.25 Hgb 12.6 Hct 38.4 MCV 90.3 MCH 29.7 MCHC 32.9 RDW 16.0 H Plt Count 158 MPV 9.9 Absolute Neuts (auto) 2.0 Neutrophils % 50.8 Lymphocytes % 33.0 Monocytes % 11.4 H Eosinophils % 4.4 Basophils % 0.4 Nucleated RBC % 0 POC Glucometer 237 157 05/12/20 05/12/20 11:28 16:22 WBC RBC Hgb Hct MCV MCH MCHC RDW Plt Count MPV Absolute Neuts (auto) Neutrophils % Lymphocytes % Monocytes % Eosinophils % Basophils % Nucleated RBC % POC Glucometer 213 171 Active Medications Generic Name Dose Route Start Last Admin Trade Name Freq PRN Reason Stop Dose Admin Amoxicillin/Clavulanate Potassium 1 tab 05/12/20 22:00 Augmentin - 500mg Tablet PO BID@0800,1730 [facility] Aspirin 81 mg 05/08/20 10:00 05/12/20 09:17 Asa - PO 81 mg DAILY [facility] Administration Atorvastatin Calcium 20 mg 05/08/20 22:00 05/11/20 21:20 Lipitor - PO 20 mg HS [facility] Administration Furosemide 40 mg 05/09/20 10:00 05/12/20 09:17 Lasix - PO 40 mg DAILY [facility] Administration Heparin Sodium (Porcine) 5,000 unit 05/08/20 22:00 05/12/20 14:08 Heparin - SQ Not Given TID [facility] Insulin Aspart 1 vial 05/09/20 07:00 05/12/20 16:42 Novolog Vial Sliding Scale - SQ 2 units TIDAC [facility] Administration Protocol Insulin Detemir 5 units 05/07/20 22:00 05/11/20 21:20 Levemir Vial SQ 5 units HS [facility] Administration Metoprolol Tartrate 25 mg 05/08/20 22:00 05/12/20 09:17 Lopressor - PO 25 mg BID [facility] Administration Pantoprazole Sodium 40 mg 05/09/20 10:00 05/12/20 09:17 Protonix - PO 40 mg DAILY [facility] Administration Terazosin HCl 1 mg 05/08/20 22:00 05/11/20 21:20 Hytrin - PO 1 mg HS [facility] Administration ASSESSMENT/PLAN: ATTENDING PHYSICIAN STATEMENT I saw and evaluated the patient. I reviewed the resident's note and discussed the case with the resident. I agree with the resident's findings and plan as documented. Attending attestation: Patient seen and examined at bedside during my rounds. He endorses feeling well. He wants to go home. The patient remains on Unasyn for cellulitis of the left lower extremity. On exam he is alert and awake. He has a regular rate and rhythm on cardiac exam. Lungs are clear to auscultation bilaterally. Abdomen is soft nontender nondistended. On exam of the bilateral lower extremities he h as 1+ pitting edema of the bilateral lower extremities. There is evidence of stasis dermatitis. The left lower extremity reyez has a 2 cm x 2 cm area of where it seems like a blister has popped. It does not look infected. There is no purulent drainage. The area is clean. Patient will need to follow-up with wound care. Continue Unasyn while he is inpatient. He can be discharged on Augmentin for 5 more days after being evaluated by physical therapy. Continue daily dressing changes. Continue sliding scale insulin and long-acting Levemir. Rest as per resident note above.
[2020-05-12] MEDS: AMOX TR/POT CLAV 500MG/125MG TABLETS (FP) PO SCH (21:16)
[2020-05-12] MEDS: TERAZOSIN HCL 1 MG CAPSULE PO SCH (21:17)
[2020-05-12] MEDS: INSULIN (LEVEMIR) 100 UNITS/ML UNITS SQ SCH (21:17)
[2020-05-12] MEDS: ATORVASTATIN CA 20 MG TABLET (FP) PO SCH (21:18)
[2020-05-13] MEDS: HEPARIN NA (PORCINE) 5,000 UNITS/ML 1ML VIAL SQ SCH ×2 (06:42→14:28)
[2020-05-13] MEDS: INSULIN SLIDING SCALE (NOVOLOG) 1 VIAL SQ SCH ×2 (06:42→11:38)
[2020-05-13] MEDS: AMOX TR/POT CLAV 500MG/125MG TABLETS (FP) PO SCH (08:05)
[2020-05-13] MEDS: ASPIRIN 81 MG CHEWABLE TABLETS PO SCH (09:00)
[2020-05-13] MEDS: FUROSEMIDE 40 MG TABLET (FP) PO SCH (09:00)
[2020-05-13] MEDS: METOPROLOL TARTRATE 25 MG TABLET (FP) PO SCH (09:00)
[2020-05-13] MEDS: PANTOPRAZOLE 40 MG TABLET PO SCH (09:00)
[2020-05-13 11:35] VITALS: TEMP 97.7
--- NOTE | 2020-05-13 13:14 | DS ---
Physical Exam: SUBJECTIVE: Patient seen and examined at bedside. Sitting in chair. No acute events overnight. OBJECTIVE: Vital Signs Period Temp Pulse Resp BP Sys/Flores Pulse Ox Last 24 Hr 97.7 F-98.4 F 77-91 18-20 105-160/59-96 98-99 PHYSICAL EXAM GENERAL: No acute distress HEAD: Normal with no signs of trauma. LUNGS: CTAB HEART: RRR ABDOMEN: Soft, nontender, nondistended EXTREMITIES: 1 + edema b/l. Stasis dermatitis. Open superficial wound dorsum left reyez, clean nonoozing no odor. Erythema residing. Versatel dressing on wound. PSYCH: Normal mood, normal affect.noted. LABS Laboratory Results - last 24 hr 05/12/20 05/12/20 05/13/20 16:22 20:17 05:49 POC Glucometer 171 207 152 05/13/20 11:24 POC Glucometer 187 HOSPITAL COURSE: Date of Admission:05/07/20 Patient is an 80 year old M with a known history of HTN, CHF, BPH, and IDDM complicated by diabetic neuropathy and venous insufficiency who presented to [facility] with a left lower extremity wound associated with pain and redness. Patient was treated empirically with Vanc and zosyn (ED). ID was consulted and patient was switched to Unasyn. Blood cultures were negative. Venous duplex LLE was negative for DVT. Patient developed a tropenemia likely 2/2 demand ischemia. Versatel was applied to lower extremity wound. Patient was ultimately discharged on 5 days of Augmentin. Date of Discharge: 05/13/20 Minutes to complete discharge: 35 <Brandon Hector - Last Filed: 05/13/20 14:54> Physical Exam: SUBJECTIVE: Patient seen and examined OBJECTIVE: PHYSICAL EXAM GENERAL: The patient is awake, alert, and fully oriented, in no acute distress. HEAD: Normal with no signs of trauma. EYES: PERRL, extraocular movements intact, sclera anicteric, conjunctiva clear. ENT: Ears normal, nares patent, oropharynx clear without exudates, moist mucous membranes. NECK: Trachea midline, full range of motion, supple. LUNGS: Breath sounds equal, clear to auscultation bilaterally, no wheezes, no crackles, no accessory muscle use. HEART: Regular rate and rhythm, S1, S2 without murmur, rub or gallop. ABDOMEN: Soft, nontender, nondistended, normoactive bowel sounds, no guarding, no rebound, no hepatosplenomegaly, no masses. EXTREMITIES: 2+ pulses, warm, well-perfused, no edema. NEUROLOGICAL: Cranial nerves II through XII grossly intact. Normal speech, gait not observed. PSYCH: Normal mood, normal affect. SKIN: Warm, dry, normal turgor, no rashes or lesions noted. LABS HOSPITAL COURSE: Date of Admission:05/07/20 Date of Discharge: 05/14/20 <Efrain Aceves - Last Filed: 05/14/20 15:22> Discharge Summary Problems reviewed: Yes Current Active Problems Cellulitis (Acute) - Home Medications Comprehensive Discharge Medication List: Ambulatory Orders Atorvastatin Ca [Lipitor] 20 mg PO HS 04/25/19 Omeprazole Magnesium [Prilosec Otc] 40 mg PO DAILY 04/25/19 Terazosin HCl [Hytrin -] 1 mg PO HS 12/18/19 Furosemide [Lasix] 40 mg PO DAILY 05/07/20 Metoprolol Tartrate 25 mg PO BID 05/07/20 Insulin Glargine,Hum.rec.anlog [Lantus Solostar] 8 unit SQ DAILY 05/08/20 Insulin Lispro [Humalog Kwikpen U-100] 1 unit SQ DAILY 05/08/20 Metformin HCl [Glucophage] 500 mg PO BID 05/08/20 Amox-Tr/K Cl [Augmentin 500-125mg Tablet -] 1 tab PO BID@0800,1730 #8 tablet 05/13/20 Aspirin [ASA -] 81 mg PO DAILY #30 tab.chew 05/13/20 Bacitracin - [Bacitracin Topical Ointment -] 1 applic TP DAILY #1 applic 05/13/20 <Brandon Hector - Last Filed: 05/13/20 14:54> - Home Medications Comprehensive Discharge Medication List: Ambulatory Orders Atorvastatin Ca [Lipitor] 20 mg PO HS 04/25/19 Omeprazole Magnesium [Prilosec Otc] 40 mg PO DAILY 04/25/19 Terazosin HCl [Hytrin -] 1 mg PO HS 12/18/19 Furosemide [Lasix] 40 mg PO DAILY 05/07/20 Metoprolol Tartrate 25 mg PO BID 05/07/20 Insulin Glargine,Hum.rec.anlog [Lantus Solostar] 8 unit SQ DAILY 05/08/20 Insulin Lispro [Humalog Kwikpen U-100] 1 unit SQ DAILY 05/08/20 Metformin HCl [Glucophage] 500 mg PO BID 05/08/20 Amox-Tr/K Cl [Augmentin 500-125mg Tablet -] 1 tab PO BID@0800,1730 #8 tablet 05/13/20 Aspirin [ASA -] 81 mg PO DAILY #30 tab.chew 05/13/20 Bacitracin - [Bacitracin Topical Ointment -] 1 applic TP DAILY #1 applic 05/13/20 <Efrain Aceves - Last Filed: 05/14/20 15:22> Reason For Visit: CELLULITIS Condition: Improved - Instructions Diet, Activity, Other Instructions: You presented to the hospital due to a skin infection of your leg, You were treated with I.V antibiotics. You will be discharged home with oral antibiotics You were also found to have some damage to your heart likely as a result of your body's stress to the skin infection. Please follow up with your Ballroom Dance Instructor, Dr Lambert in 1 week. Please take the following medication TWICE per day: Augmentin 500 mg. Your next dose is scheduled for tonight. After tonight (05/13), please take for another 4 days. Please apply Bacitracin ointment to the wound daily. Do not use this ointment more than 7 days in a row. A prescription has been sent to your pharmacy-[facility]. Please apply Versatel dressing to the wound on your right lower leg. This dressing may be left in place for up to 3 days. You have been provided with this. Please follow up with Dr Tomlinson, Wound Care physician in 1 week for this wound. A referral has been provided for you. Please return to the emergency department immediately if you begin to experience fever, chills, shortness of breath, nausea/vomiting, chest pain, or any other abnormalities. Referrals: Jeff Srivastava MD [Staff Physician] - 1 Week Laura Lambert MD [Staff Physician] - 1 Week Marlon Tomlinson DO [Staff Physician] - 1 Week Disposition: VNS/HOME HEALTH CARE This patient is new to me today: No Emergency Visit: Yes ED Registration Date: 05/07/20 Care time: The patient presented to the Emergency Department on the above date and was hospitalized for further evaluation of their emergent condition. Critical Care patient: No - Discharge Referral Referred to [facility] Cuco Zendejas: No <TawnyBrandon - Last Filed: 05/13/20 14:54> ATTENDING PHYSICIAN STATEMENT I saw and evaluated the patient. I reviewed the resident's note and discussed the case with the resident. I agree with the resident's findings and plan as documented. SUBJECTIVE: OBJECTIVE: ASSESSMENT AND PLAN: <Brandon Hector - Last Filed: 05/13/20 14:54> ATTENDING PHYSICIAN STATEMENT I saw and evaluated the patient. I reviewed the resident's note and discussed the case with the resident. I agree with the resident's findings and plan as documented. Attending attestation: Patient seen and examined at bedside during my rounds on the day of his discharge. I have discussed the plan with the patient using a launching pad mechanic but the patient did not seem to understand the instructions which is likely due to his mild dementia. His daughter was called and instructions given to her. The patient will be on Augmentin as an outpatient to complete his course of antibiotics. His pharmacy is closed and will not open till tomorrow and he needs a dose of Augmentin for tonight so he was given 1 tablet by the hospital to take before bedtime. The patient was instructed to follow-up with wound care/vascular surgery at the wound care center at [facility]. On exam he is alert and awake. There is right-sided facial droopiness which is chronic from a prior stroke. He has a regular rate and rhythm on cardiac exam. Lungs are clear to auscultation bilaterally. Abdomen is soft nontender nondistended. Bilateral lower extremities have some edema with evidence of stasis dermatitis. Left lower extremity reyez has looks like a popped blister and there is clean granulation tissue underneath. No foul smell or purulent drainage. Versatile dressing has been placed with a gauze on top. He was also given 1 additional piece of versatile dressing which can be used up to 7 days. Hospital course and discharge summary as per the resident's note. I have spent 35 minutes in the management of this discharge. <Efrain Aceves - Last Filed: 05/14/20 15:22>
--- NOTE | 2020-05-13 13:55 | PN ---
Progress Note, Physician - Current Medication List Current Medications: Active Medications Amoxicillin/Clavulanate Potassium (Augmentin - 500mg Tablet) 1 tab PO BID@0800,1730 [facility] Last Admin: 05/13/20 08:05 Dose: 1 tab Documented by: Aspirin (Asa -) 81 mg PO DAILY [facility] Last Admin: 05/13/20 09:00 Dose: 81 mg Documented by: Atorvastatin Calcium (Lipitor -) 20 mg PO [facility] Last Admin: 05/12/20 21:18 Dose: 20 mg Documented by: Furosemide (Lasix -) 40 mg PO DAILY [facility] Last Admin: 05/13/20 09:00 Dose: 40 mg Documented by: Heparin Sodium (Porcine) (Heparin -) 5,000 unit SQ TID [facility] Last Admin: 05/13/20 06:42 Dose: 5,000 unit Documented by: Insulin Aspart (Novolog Vial Sliding Scale -) 1 vial SQ TIDAC [facility]; Protocol Last Admin: 05/13/20 11:38 Dose: 2 units Documented by: Insulin Detemir (Levemir Vial) 5 units SQ [facility] Last Admin: 05/12/20 21:17 Dose: 5 units Documented by: Metoprolol Tartrate (Lopressor -) 25 mg PO BID [facility] Last Admin: 05/13/20 09:00 Dose: 25 mg Documented by: Pantoprazole Sodium (Protonix -) 40 mg PO DAILY [facility] Last Admin: 05/13/20 09:00 Dose: 40 mg Documented by: Terazosin HCl (Hytrin -) 1 mg PO [facility] Last Admin: 05/12/20 21:17 Dose: 1 mg Documented by: - Objective Vital Signs: Vital Signs Temperature 97.7 F 05/13/20 10:00 Pulse Rate 83 05/13/20 10:00 Respiratory Rate 18 05/13/20 10:00 Blood Pressure 130/80 05/13/20 10:00 O2 Sat by Pulse Oximetry (%) 99 05/13/20 08:19 Labs: CBC, BMP 05/12/20 05:35 05/10/20 05:35 INR, PTT INR 1.21 (0.83-1.09) H 05/07/20 15:25
[2020-05-13 14:29] VITALS: BP 148/74; PULSE 89
== END 2020-05-13 15:30 | disposition home health service (06) | DRG 300 ==
LOC: JER 13:20 → JERBED 16:50 → J4W 18:26
PROVIDERS: ADMIT Internal Medicine; ATTEND Internal Medicine
DX: I87.2 Venous insufficiency (chronic) (peripheral) (principal); L03.116 Cellulitis of left lower limb; I24.8 Other forms of acute ischemic heart disease; G81.91 Hemiplegia, unspecified affecting right dominant side; L97.929 Non-pressure chronic ulcer of unspecified part of left lower leg with unspecified severity; I10 Essential (primary) hypertension; I50.9 Heart failure, unspecified; K21.9 Gastro-esophageal reflux disease without esophagitis; E11.40 Type 2 diabetes mellitus with diabetic neuropathy, unspecified; N40.0 Benign prostatic hyperplasia without lower urinary tract symptoms; D69.6 Thrombocytopenia, unspecified
CPT/HCPCS: 36415; 71045-TC-FY; 80048; 80053; 80061; 81003; 82550; 82962; 83605; 83721; 83880; 84484; 85025; 85610; 85651; 86140; 87040; 93005; 93010; 93971-TC; 97161-GP; 99285-25; J1644; U0003

== ENCOUNTER 2020-08-24 22:37 | Inpatient (IN) | payer OTHER ==
--- OUTSIDE RECORDS SUMMARY | 2020-08-24 22:52 | XMS ---
:1940 Author Organization [facility] Care Team Providers Name Role Phone Dino Barnes MD Unavailable Unavailable Atif, Jeff Unavailable Atif, Jeff Unavailable Atif, Jeff Unavailable Atif, Jeff Unavailable Atif, Jeff Unavailable Efraín Reich Unavailable Unavailable MD James Unavailable Unavailable MD Gary Unavailable Unavailable SHAGGY Hua Unavailable Unavailable Re-disclosure Warning The records that you are about to access may contain information from federally- assisted alcohol or drug abuse programs. If such information is present, then the following federally mandated warning applies: This information has been disclosed to you from records protected by federal confidentiality rules (42 CFR part 2). The federal rules prohibit you from making any further disclosure of this information unless further disclosure is expressly permitted by the written consent of the person to whom it pertains or as otherwise permitted by 42 CFR part 2. A general authorization for the release of medical or other information is NOT sufficient for this purpose. The Federal rules restrict any use of the information to criminally investigate or prosecute any alcohol or drug abuse patient.The records that you are about to access may contain highly sensitive health information, the redisclosure of which is protected by Article 27-F of the [facility] Public Health law. If you continue you may haveaccess to information: Regarding HIV / AIDS; Provided by facilities licensed or operated by the [facility] Office of Mental Health; or Provided by the [facility] Office for People With Developmental Disabilities. If such information is present, then the following [facility] mandated warning applies: This information has been disclosed to you from confidential records which are protected by state law. State law prohibits you from making any further disclosure of this information without the specific written consent of the person to whom it pertains, or as otherwise permitted by law. Any unauthorized further disclosure in violation of state law may result in a fine or senior living sentence or both. A general authorization for the release of medical or other information is NOT sufficient authorization for further disclosure. Allergies and Adverse Reactions Type Description Substance Reaction Status Data Source(s ) Drug allergy No Known Allergies No Known Allergies UNKNOWN [facility] Encounters Encounter Providers Location Date Indications Data Source(s ) Attender: Jeff 06/08/2020 [facility] ( [facility] 12:00:00 AM EDT Medical, ) Office Attender: Jeff Srivastava 06/08/2020 12:00:00 AM E DT [facility] ([facility], ) Office Attender: Jeff Srivastava 06/08/2020 12:00:00 AM E DT [facility] ([facility], ) Office Attender: Jeff Srivastava 06/08/2020 12:00:00 AM E DT [facility] ([facility], ) Office Inpatient Attender: Gisella Ramirez 09/21/2019 01:39:00 PM U TI [place] MDAttender: Amanda Vega EST - 09/26/2019 Hospital MDAttender: Magali 04:40:00 PM EST ChenAdmitter: Amanda Vega MDConsultant: Dino Barnes MD UTI Patient discharged. Outpatient Attender: Efraín Reich 5T-POD CL 08/18/2019 04:57:18 PM [facility] Hospital Admission cancelled. Disregard status an d admitted date. Outpatient Attender: Efraín Reich 5T-POD CL 07/14/2019 06:12:19 PM [facility] EDT - 07/15/2019 Hospital 11:59:00 PM EDT Patient discharged. Functional Status Medications Medication Brand Start Product Dose Route Administrative Pharmacy St atus Indications Reaction Description Data Name Date Form Instructions Instructions Source(s) Terazosin 1 TERAZO 06/08/ CAPSULE 30 complet TER AZOSIN [facility] (St MG Oral SIN:31 2019 ed [facility] Capsule 3215 12:00: Medical, TERAZOSIN:3 00 AM PC) 00266 EDT 3 ML LANTUS 06/08/ SOLUTION 30 complet LANTUS ME DGEN (St Insulin SOLOST 2019 ed SOLOSTAR PEN [facility] [place] 12:00: Medical, 100 UNT/ML PEN:84 00 AM PC) Pen 7232 EDT Injector [Lantus] LANTUS SOLOSTAR PEN:134008 atorvastati LIPITO 06/08/ TABLET 30 complet LIPI TOR [facility] (St n 10 MG R:6173 2019 ed [facility] Oral Tablet 14 12:00: Medica l, [Lipitor] 00 AM PC) LIPITOR:617 EDT 314 3 ML HUMALO 06/08/ SOLUTION 1 complet HUMALOG M EDGEN (St Insulin G 2019 ed KWIKPEN [facility] Lispro 100 KWIKPE 12:00: Medic al, UNT/ML Pen N:1652 00 AM PC) Injector 640 EDT [Humalog] HUMALOG KWIKPEN:165 2640 Furosemide FUROSE 06/08/ TABLET 30 complet FUROS EMIDE [facility] (St 40 MG Oral MIDE:3 2019 ed [facility] Tablet 13655 12:00: Medical, FUROSEMIDE: 00 AM PC) 497348 EDT ferrous FERROU 06/08/ TABLET 30 complet FERROUS [facility] (St sulfate 325 S 2019 ed SULFATE [facility] MG Oral SULFAT 12:00: Medical, Tablet E:3103 00 AM PC) FERROUS 25 EDT SULFATE:310 325 Cholecalcif VITAMI 06/08/ CAPSULE 30 complet VIT NATH D3 [facility] (St prince 5000 N 2019 ed [facility] UNT Oral D3:240 12:00: Medical , Capsule 029 00 AM PC) VITAMIN EDT D3:625402 Metformin METFOR 06/08/ TABLET 30 complet METFOR MIN [facility] (St hydrochlori MIN:86 2019 ed [facility] de 500 MG 1007 12:00: Medical, Oral Tablet 00 AM PC) METFORMIN:8 EDT 51156 Lisinopril LISINO 06/08/ TABLET 30 complet LISIN OPRIL [facility] (St 5 MG Oral PRIL:3 2019 ed [facility] Tablet 33485 12:00: Medical, LISINOPRIL: 00 AM PC) 291036 EDT Brimonidine COMBIG 06/08/ SOLUTION 1 complet CO MBIGAN [facility] (St tartrate 2 AN:861 2019 ed [facility] MG/ML / 637 12:00: Medical, Timolol 5 00 AM PC) MG/ML EDT Ophthalmic Solution [Combigan] COMBIGAN:86 1637 Neomycin 40 NEOMYC 06/08/ SOLUTION 30 complet NE OMYCIN [facility] (St MG/ML / IN 2019 ed SULFATE-POLY [facility] Polymyxin B SULFAT 12:00: MYXIN B M dilciaical, 552250 E-POLY 00 AM SULFATE PC) UNT/ML MYXIN EDT Irrigation B Solution SULFAT NEOMYCIN E:3141 SULFATE-EMIR 24 YMYXIN B SULFATE:314 124 Aspirin 81 ASPIRI 06/08/ DELAYED 30 complet ASPI RIN [facility] (St MG Delayed N:3084 2019 RELEASE ed [facility] Release 16 12:00: TABLET Medical, Oral Tablet 00 AM PC) ASPIRIN:308 EDT 416 Metoprolol METOPR 06/08/ TABLET 30 complet METOP ROLOL [facility] (St Tartrate 25 OLOL 2019 ed TARTRATE [facility] MG Oral TARTRA 12:00: Medical, Tablet TE:866 00 AM PC) METOPROLOL 924 EDT TARTRATE:86 6924 Ascorbic VITAMI 06/08/ TABLET 30 complet VITAMIN C [facility] (St Acid 500 MG N 2019 ed [facility] Oral Tablet C:2824 12:00: Medi maninder, VITAMIN 02 00 AM PC) C:045064 EDT Docusate Docusa 09/26/ LIQUID 100 ENTERA complet [facility] Sodium 10 te 2019 mg L ed [place] MG/ML Oral Sodium 08:28: Hospi estrada Suspension 00 AM EST ammonium ammoni 05/20/ LOTION 1 TOPICA complet [place] lactate 120 um 2019 {favio} L ed Health MG/ML lactat 12:19: System Topical e 12% 19 PM Lotion topica EDT ammonium l lactate 12% lotion topical lotion For external use only. NITROFURANTOIN, Nitrofurantoin CAPSULE 50 mg ORAL completed [facility] MACROCRYSTALS 50 Macrocrystals [place] MG Oral Capsule Hosp ital Nitrofurantoin Macrocrystals Insurance Providers Payer name Policy type / Policy ID Covered Covered republican's Policy Plan Coverage type republican ID relationship to Bhatt Information bhatt MEDICAID [id number] SP [id number] MEDICARE [id number] SP [id number] 3 73 MEDICAID OF NEW [id number] 130E [place] [id number] PART B 73 [place] MED[place] [id number] SP [id number] MEDICAID [id number] PT [id number] MEDICARE [id number] PT [id number] 3 73 SELF PAY PT INSURANCE MEDICAID HMO [id number] PT [id number] E Medicare Part B Medicare [id number] 1 [id number] Outpatient A Medicaid Medicaid [id number] Medicaid Medicaid [id number] Application Pending Medicare Part A Medicare [id number] 1 [id number] A MEDICAID [id number] SP [id number] M [id number] 01 [id number] A Medicaid of [facility] Individual 0 Self 0 [place] Policy Medicare Part A Individual 0 Self 0 of [facility] Medicaid of [facility] Individual 0 Self 0 [place] Policy Medicare Part A Individual 0 Self 0 of [place] Policy Medicare-Blue [id number] S [id number] Cross/Blue A Shield Medicaid [id number] Regular Clinic Visit Medicare United [id number] S [id number] Government A Services Medicaid E Medicaid [id number] 1 [phone] Problems, Conditions, and Diagnoses Code Display Name Description Problem Type Effective Data Dates Source(s) J90 Pleural effusion, PLEURAL EFFUSION, Problem 06/08/2020 [facility] ([address] not elsewhere NOT ELSEWHERE 12:00:00 AM [facility] classified CLASSIFIED EDT Medical, ) I50.32 Chronic diastolic CHRONIC DIASTOLIC Problem 06/08/2020 [facility] (St (congestive) heart (CONGESTIVE) HEART 12:00:00 AM [facility] failure FAILURE EDT Medical, ) I50.30 Unspecified UNSPECIFIED Problem 06/08/2020 [facility] (St diastolic DIASTOLIC 12:00:00 AM [facility] (congestive) heart (CONGESTIVE) HEART EDT Medical, PC) failure FAILURE I10 Essential (primary) ESSENTIAL (PRIMARY) Problem 020 [facility] (St hypertension HYPERTENSION 12:00:00 AM [facility], ) E11.9 Type 2 diabetes TYPE 2 DIABETES Problem 06/08/2020 MEDG EN (St mellitus without MELLITUS WITHOUT 12:00:00 AM J [facility] complications COMPLICATIONS EDT Medical, PC) E10.8 Type 1 diabetes TYPE 1 DIABETES Problem 06/08/2020 MED[facility] EN (St mellitus with MELLITUS WITH 12:00:00 AM [facility] unspecified UNSPECIFIED EDT Medical, ) complications COMPLICATIONS 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 Diagnosis 09/21/2019 [place] ins (current) drug 05:11:00 PM Hospital therapy EST Z79.84 long-term (current) Z79.84 Diagnosis 09/21/2019 [place] use of oral 05:11:00 PM Hospital hypoglycemic drugs EST I87.2 Venous I87.2 Diagnosis 09/21/2019 [place] insufficiency 05:11:00 PM Hospital (chronic) EST (peripheral) E78.5 Hyperlipidemia, E78.5 Diagnosis 09/21/2019 [place] ins unspecified 05:11:00 PM Hospital EST 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:11:00 PM Hospital (ESBL) resistance EST N39.0 Urinary tract N39.0 Diagnosis 09/21/2019 [place] infection, site not 05:11:00 PM Hosp ital specified EST I69.351 Hemiplegia and 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 [place] 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:11:00 PM 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 I63.9 Cerebral I63.9 Diagnosis 09/21/2019 [place] infarction, 05:11:00 PM Hospital unspecified EST I26.99 Other pulmonary I26.99 Diagnosis 09/21/2019 [place] ins embolism without 05:11:00 PM Hospita l acute cor pulmonale EST I82.4Z2 Acute embolism and I82.4Z2 Diagnosis 09/21/2019 [place] thrombosis of 05:11:00 PM Hospital unspecified deep EST veins of left distal lower extremity I87.2 Venous Venous stasis Diagnosis 07/15/2019 [facility] insufficiency dermatitis of left 10:35:00 AM Ve rnon (chronic) lower extremity [facility] (peripheral) 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, 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:35:00 AM [place] 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[facility] polyneuropathy B35.3 Tinea pedis Tinea pedis Diagnosis 07/15/2019 [facility] 10:35:00 AM [facility] L60.3 Nail dystrophy Dystrophic nail Diagnosis 07/15/2019 [facility] 10:35:00 AM [facility] L84 Corns and Callus of foot [facility] Surgeries/Procedures Procedure Description Date Indications Data Source(s) Documentation of current 06/08/2020 [facility] ([facility] (procedure) 12:00:00 AM [facility], ) EDT Documentation of current 06/08/2020 [facility] ([facility] medications (procedure) 12:00:00 AM [facility] ) EDT Documentation of current 06/08/2020 [facility] ([facility] medications (procedure) 12:00:00 AM [facility], ) EDT Documentation of current 06/08/2020 [facility] ([facility] medications (procedure) 12:00:00 AM [facility] ) EDT Documentation of current 06/08/2020 [facility] ([facility] medications (procedure) 12:00:00 AM [facility], ) EDT Documentation of current 06/08/2020 [facility] ([facility] medications (procedure) 12:00:00 AM [facility] ) EDT Documentation of current 06/08/2020 [facility] ([facility] medications (procedure) 12:00:00 AM [facility], ) EDT Documentation of current 06/08/2020 [facility] ([facility] medications (procedure) 12:00:00 AM [facility] ) EDT Documentation of current 06/08/2020 [facility] ([facility] medications (procedure) 12:00:00 AM [facility] ) EDT Documentation of current 06/08/2020 [facility] ([facility] medications (procedure) 12:00:00 AM [facility] ) EDT Insertion of inferior vena 09/23/2019 [place] caval filter (procedure) 12:00:00 AM Hos pital EST Computed tomography of head 09/22/2019 [place] without contrast 12:00:00 AM Hospital EST Electrocardiographic procedure 09/22/2019 [place] (procedure) 12:00:00 AM Hospital EST Swallow/Oralfunct Conslt 09/21/2019 [facility] [place] 12:00:00 AM Hospital EST Computed tomography 09/21/[address] [place] angiography of thorax 12:00:00 AM Hospit al (procedure) EST Incentive spirometry 09/21/2019 [place] (regime/therapy) 12:00:00 AM Hospital EST Physical therapy procedure 09/21/2019 [place] (regime/therapy) 12:00:00 AM Hospital EST Plain chest X-ray (procedure) 09/21/2019 [place] 12:00:00 AM Hospital EST Electrocardiographic procedure 09/21/2019 [place] (procedure) 12:00:00 AM Hospital EST Results ID Date Data Source [id number] 05/07/2020 05:43:00 PM EDT [facility] Name Value Range Interpretation Description Data Sup porting Code Source(s) Document(s ) SARS [facility] CORONAVIRUS 2 RNA This lab was ordered by [facility] and reported by [facility]. ID Date Data Source [id number] 09/26/2019 05:03:[address] [facility] Name Value Range Interpretation Description Data Sup porting Code Source(s) Document(s ) Nitrite NEGATIVE [facility] [Presence] Hospital in Urine by Test strip ID Date Data Source [id number] 09/26/2019 03:36:[address] 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 Name Value Range Interpretation Description Data Sup porting Code Source(s) Document(s ) Calcium 7.7 mg/dL [place] [Mass/volume Hospital ] in Serum or Plasma ID Date Data Source [id number] 09/24/2019 07:02:[address] [facility] Name Value Range Interpretation Code Description Data Laurie rce(s) Supporting Document(s ) Urea 16.7 [place] nitrogen/Cre Hospital atinine [Mass Ratio] in Serum or Plasma ID Date Data Source [id number] 09/24/2019 07:02:[address] [facility] Name Value Range Interpretation Description Data Sup porting Code Source(s) Document(s ) Creatinine 0.6 mg/dL [facility] [Mass/volume] Hospital in Serum or Plasma ID Date Data Source [id number] 09/24/2019 07:02:[address] [facility] Name Value Range Interpretation Description Data Sup porting Code Source(s) Document(s ) Urea 10 mg/dL [facility] nitrogen Hospital [Mass/volume ] in Serum or Plasma ID Date Data Source [id number] 09/24/2019 07:02:[address] [facility] Name Value Range Interpretation Code Description Data Laurie rce(s) Supporting Document(s ) Anion gap in 9 [facility] Serum or [facility] Plasma ID Date Data Source [id number] 09/24/2019 07:02:[address] [facility] Name Value Range Interpretation Description Data Sup porting Code Source(s) Document(s ) Carbon 28 mmol/L [place] dioxide, Hospital total [Moles/volu me] in Serum or Plasma ID Date Data Source [id number] 09/24/2019 07:02:00 AM [facility] Name Value Range Interpretation Description Data Sup porting Code Source(s) Document(s ) Chloride 107 [place] [Moles/volum mmol/L Hospital e] in Serum or Plasma ID Date Data Source [id number] 09/24/2019 07:02:00 AM [facility] Name Value Range Interpretation Description Data Sup porting Code Source(s) Document(s ) Potassium 4.0 [place] [Moles/volume mmol/L Hospital ] in Serum or Plasma ID Date Data Source [id number] 09/24/2019 07:02:[address] [facility] Name Value Range Interpretation Description Data Sup porting Code Source(s) Document(s ) Sodium 140 mmol/L [facility] [Moles/volu Hospital me] in Serum or Plasma ID Date Data Source [id number] 09/24/2019 07:02:00 AM [facility] Value Range Interpretation Description Data Sup porting Code Source(s) Document(s ) Glucose 135 mg/dL [place] [Mass/volume Hospital ] in Serum or Plasma ID Date Data Source [id number] 09/24/2019 07:02:00 AM [facility] Value Range Interpretation Description Data Sup porting Code Source(s) Document(s ) Platelet mean 10.6 fL [facility] volume Hospital [Entitic volume] in Blood by Automated count ID Date Data Source [id number] 09/24/2019 07:02:00 AM [facility] Value Range Interpretation Description Data Sup porting Code Source(s) Document(s ) Platelets 268 [place] [#/volume] in 10*3/uL Hospital Blood by Automated count ID Date Data Source [id number] 09/24/2019 07:02:00 AM [facility] Value Range Interpretation Description Data Sup porting Code Source(s) Document(s ) Erythrocyte 17.5 % [facility] distribution Hospital width [Ratio] by Automated count ID Date Data Source [id number] 09/24/2019 07:02:00 AM [facility] Value Range Interpretation Description Data Sup porting Code Source(s) Document(s ) Erythrocyte mean 29.8 [facility] corpuscular g/dL Hospital hemoglobin concentration [Mass/volume] by Automated count ID Date Data Source [id number] 09/24/2019 07:02:00 AM [facility] Value Range Interpretation Description Data Sup porting Code Source(s) Document(s ) Erythrocyte 25.4 pg [facility] mean Hospital corpuscular hemoglobin [Entitic mass] by Automated count ID Date Data Source [id number] 09/24/2019 07:02:00 AM [facility] Hospital Name Value Range Interpretation Description Data Sup porting Code Source(s) Document(s ) Erythrocyte 85.1 fL [facility] mean Hospital corpuscular volume [Entitic volume] by Automated count ID Date Data Source [id number] 09/24/2019 07:02:[address] [facility] Name Value Range Interpretation Description Data Sup porting Code Source(s) Document(s ) Hematocrit 27.5 % [facility] [Volume Hospital Fraction] of Blood by Automated count ID Date Data Source [id number] 09/24/2019 07:02:00 AM [facility] Value Range Interpretation Description Data Sup porting Code Source(s) Document(s ) Hemoglobin 8.2 g/dL [facility] [Mass/volume] Hospital in Blood ID Date Data Source [id number] 09/24/2019 07:02:00 AM [facility] Value Range Interpretation Description Data Sup porting Code Source(s) Document(s ) Erythrocytes 3.23 [facility] [#/volume] in 10*6/uL Hospital Blood by Automated count ID Date Data Source [id number] 09/24/2019 07:02:00 AM [facility] Value Range Interpretation Description Data Sup porting Code Source(s) Document(s ) Leukocytes 4.9 [facility] [#/volume] in 10*3/uL Hospital Blood by Automated count ID Date Data Source [id number] 09/22/2019 08:46:[address] [facility] Name Value Range Interpretation Description Data Sup porting Code Source(s) Document(s ) Magnesium 2.0 mg/dL [place] [Mass/volume] Hospital in Serum or Plasma ID Date Data Source [id number] 09/22/2019 08:46:[address] [facility] UNITS ARE IN ml/min/1.73m2.IF PATIENT IS -GUAMANIAN, MULTIPLY REPORTED RESULT BY 1.21. Name Value Range Interpretation Description Data Sup porting Code Source(s) Document(s ) Glomerular > 60 [facility] filtration mL/min Hospital rate/1.73 sq M.predicted [Volume Rate/Area] in Serum or Plasma by Creatinine-bas ed formula (MDRD) ID Date Data Source [id number] 09/22/2019 08:46:[address] [facility] Name Value Range Interpretation Code Description Data Supporting Source(s) Document(s ) NUCLEATED RBCS 0.0 % [facility] (AUTO Hospital DIFF%)DIS ID Date Data Source [id number] 09/22/2019 08:46:00 AM [facility] Value Range Interpretation Description Data Sup porting Code Source(s) Document(s ) Differential AUTOMATED [facility] cell count [facility] method - Blood ID Date Data Source [id number] 09/22/2019 08:46:[address] [facility] Name Value Range Interpretation Description Data Sup porting Code Source(s) Document(s ) Immature 0.03 [facility] granulocytes 10*3/uL Hospital [#/volume] in Blood by Automated count ID Date Data Source [id number] 09/22/2019 08:46:[address] [facility] Name Value Range Interpretation Description Data Sup porting Code Source(s) Document(s ) Basophils 0.02 [place] [#/volume] in 10*3/uL Hospital Blood by Automated count ID Date Data Source [id number] 09/22/2019 08:46:[address] [facility] Name Value Range Interpretation Description Data Sup porting Code Source(s) Document(s ) Eosinophils 0.18 [place] [#/volume] in 10*3/uL Hospital Blood by Automated count ID Date Data Source [id number] 09/22/2019 08:46:00 AM EST [facility] Name Value Range Interpretation Description Data Sup porting Code Source(s) Document(s ) Monocytes 0.58 [place] [#/volume] in 10*3/uL Hospital Blood by Automated count ID Date Data Source [id number] 09/22/2019 08:46:[address] [facility] Value Range Interpretation Description Data Sup porting Code Source(s) Document(s ) Lymphocytes 1.15 [place] [#/volume] in 10*3/uL Hospital Blood by Automated count ID Date Data Source [id number] 09/22/2019 08:46:[address] [facility] Value Range Interpretation Description Data Sup porting Code Source(s) Document(s ) Neutrophils 3.73 [place] [#/volume] in 10*3/uL [facility] Blood by Automated count ID Date Data Source [id number] 09/22/2019 08:46:00 AM [facility] Value Range Interpretation Description Data Sup porting Code Source(s) Document(s ) Nucleated 0.0 % [facility] erythrocytes/10 Hospital 0 leukocytes [Ratio] in Blood by Automated count ID Date Data Source [id number] 09/22/2019 08:46:00 AM [facility] Value Range Interpretation Description Data Sup porting Code Source(s) Document(s ) Immature 0.5 % [facility] granulocytes/10 Hospital 0 leukocytes in Blood by Automated count ID Date Data Source [id number] 09/22/2019 08:46:00 AM [facility] Value Range Interpretation Description Data Sup porting Code Source(s) Document(s ) Basophils/100 0.4 % [facility] leukocytes in Hospital Blood by Automated count ID Date Data Source [id number] 09/22/2019 08:46:[address] [facility] Name Value Range Interpretation Description Data Sup porting Code Source(s) Document(s ) Eosinophils/100 3.2 % [facility] leukocytes in Hospital Blood by Automated count ID Date Data Source [id number] 09/22/2019 08:46:[address] [facility] Name Value Range Interpretation Description Data Sup porting Code Source(s) Document(s ) Monocytes/100 10.2 % [facility] leukocytes in Hospital Blood by Automated count ID Date Data Source [id number] 09/22/2019 08:46:[address] [facility] Name Value Range Interpretation Description Data Sup porting Code Source(s) Document(s ) Lymphocytes/10 20.2 % [facility] 0 leukocytes Hospital in Blood by Automated count ID Date Data Source [id number] 09/22/2019 08:46:[address] [facility] Name Value Range Interpretation Description Data Sup porting Code Source(s) Document(s ) Neutrophils/10 65.5 % [facility] 0 leukocytes Hospital in Blood by Automated count ID Date Data Source [id number] 09/21/2019 06:14:00 PM [facility] Value Range Interpretation Description Data Sup porting Code Source(s) Document(s ) Lactate 1.4 [facility] [Moles/volum mmol/L Hospital e] in Serum or Plasma ID Date Data Source [id number] 09/21/2019 06:14:[address] [facility] A VALUE LESS THAN 500 NG/ML FEU IN PATIE NTS UNDER AGE 50, WHEN COMBINED WITH A CLINICAL ASSESSMENT OF LOW PRETEST PROBA BILITY, HAS BEEN SHOWN TO HAVE A HIGH NEGATIVE PREDICTIVE VALUE FOR DVT OR PE. USING AGE-ADJUSTED THRESHOLDS (AGE X 10) IN PATIENTS OLDER THAN 50 YEARS IS RECOMMEN DED FOR DETERMINING WHETHER IMAGING IS WARRANTED.D-DIMER IS NOT A SPECIFIC KIRAN ER FOR DVT OR PE AND CAN BE ELEVATED IN THE ELDERLY WELL IN THE FOLLOWING COND ITIONS: , CANCER, INFECTION, DIC, TRAUMA AND INFLAMMATION. Name Value Range Interpretation Description Data Sup porting Code Source(s) Document(s ) Fibrin 32123 [facility] D-dimer FEU ng/mL Hospital [Mass/volume ] in Platelet poor plasma ID Date Data Source [id number] 09/21/2019 04:31:[address] [facility] Name Value Range Interpretation Description Data Sup porting Code Source(s) Document(s ) Bacteria ESCHERICHIA [facility] identified in [facility] (ES[facility]) [place] Urine by Hospital Culture ID Date Data Source [id number] 09/21/2019 04:31:[address] [facility] Name Value Range Interpretation Description Data Sup porting Code Source(s) Document(s ) Leukocyte PRESENT [facility] clumps Hospital [#/area] in Urine sediment by Microscopy high power field ID Date Data Source [id number] 09/21/2019 04:31:[address] [facility] Name Value Range Interpretation Description Data Sup porting Code Source(s) Document(s ) Epithelial OCCASIONAL [facility] cells.[facility] s [#/area] in Urine sediment by Microscopy high power field ID Date Data Source [id number] 09/21/2019 04:31:[address] [facility] Name Value Range Interpretation Description Data Sup porting Code Source(s) Document(s ) Bacteria 2+ [facility] [#/area] in Hospital Urine sediment by Microscopy high power field ID Date Data Source [id number] 09/21/2019 04:31:[address] [facility] Name Value Range Interpretation Description Data Sup porting Code Source(s) Document(s ) Erythrocytes 10-20 [facility] [#/area] in /[HPF] Hospital Urine sediment by Microscopy high power field ID Date Data Source [id number] 09/21/2019 04:31:00 PM EST [facility] Name Value Range Interpretation Description Data Sup porting Code Source(s) Document(s ) Leukocytes >100 [facility] [#/area] in /[HPF] Hospital Urine sediment by Microscopy high power field ID Date Data Source [id number] 09/21/2019 04:31:00 PM EST [facility] Name Value Range Interpretation Code Description Data Supporting Source(s) Document(s ) Leukocyte 3+ [facility] esterase Hospital [Presence] in Urine by Test strip ID Date Data Source [id number] 09/21/2019 04:31:[address] [facility] Name Value Range Interpretation Description Data Sup porting Code Source(s) Document(s ) URINE NEGATIVE [facility] NITRITES Hospital ID Date Data Source [id number] 09/21/2019 04:31:00 PM EST [facility] Name Value Range Interpretation Description Data Sup porting Code Source(s) Document(s ) Erythrocytes 1+ [facility] [#/volume] in Hospital Urine by Test strip ID Date Data Source [id number] 09/21/2019 04:31:[address] [facility] Name Value Range Interpretation Code Description Data Laurie rce(s) Supporting Document(s ) Bilirubin. NEGATIVE [facility] total Hospital [Presence] in Urine by Test strip ID Date Data Source [id number] 09/21/2019 04:31:00 PM EST [facility] Name Value Range Interpretation Description Data Sup porting Code Source(s) Document(s ) Urobilinogen 1.0 [facility] [Units/volume] mg/dL Hospital in Urine by Test strip ID Date Data Source [id number] 09/21/2019 04:31:00 PM EST [facility] Name Value Range Interpretation Description Data Sup porting Code Source(s) Document(s ) Ketones NEGATIVE [facility] [Mass/volume Hospital ] in Urine by Test strip ID Date Data Source [id number] 09/21/2019 04:31:00 PM EST [facility] Name Value Range Interpretation Code Description Data Laurie rce(s) Supporting Document(s ) Glucose TRACE [facility] [Mass/volume Hospital ] in Urine by Test strip ID Date Data Source [id number] 09/21/2019 04:31:00 PM EST [facility] Name Value Range Interpretation Code Description Data Laurie rce(s) Supporting Document(s ) Protein 2+ [facility] [Presence] Hospital in Urine by Test strip ID Date Data Source [id number] 09/21/2019 04:31:00 PM EST [facility] Name Value Range Interpretation Code Description Data Laurie rce(s) Supporting Document(s ) pH of Urine 8.0 [facility] by Test Hospital strip ID Date Data Source [id number] 09/21/2019 04:31:00 PM EST [facility] Name Value Range Interpretation Code Description Data Supporting Source(s) Document(s ) Specific 1.016 [facility] gravity of Hospital Urine by Test strip ID Date Data Source [id number] 09/21/2019 04:31:00 PM EST [facility] Name Value Range Interpretation Description Data Sup porting Code Source(s) Document(s ) Clarity in Urine CLOUDY [facility] by Refractometry Hospital automated ID Date Data Source [id number] 09/21/2019 04:31:00 PM EST [facility] Name Value Range Interpretation Code Description Data Laurie rce(s) Supporting Document(s ) Color of YELLOW [facility] Urine Hospital ID Date Data Source [id number] 09/21/2019 03:40:00 PM EST [facility] Name Value Range Interpretation Code Description Data Supporting Source(s) Document(s ) METHEMOGLOBIN 0.6 % [facility] ID Date Data Source [id number] 09/21/2019 03:40:00 PM EST [facility] Name Value Range Interpretation Description Data Sup porting Code Source(s) Document(s ) CARBOXYHEMOGLOBIN 0.6 % [facility] ID Date Data Source [id number] 09/21/2019 03:40:00 PM EST [facility] Name Value Range Interpretation Code Description Data Laurie rce(s) Supporting Document(s ) ABG TEMP 98.6 [facility] ID Date Data Source [id number] 09/21/2019 03:40:[address] [facility] Value Range Interpretation Code Description Data Laurie rce(s) Supporting Document(s ) FIO2 21 % [facility] ID Date Data Source [id number] 09/21/2019 03:40:00 PM [facility] Value Range Interpretation Code Description Data Laurie rce(s) Supporting Document(s ) ABG BE 3.0 mmol/L [facility] ID Date Data Source [id number] 09/21/2019 03:40:00 PM EST [facility] Name Value Range Interpretation Code Description Data Laurie rce(s) Supporting Document(s ) ABG O2SAT 92 % [facility] ID Date Data Source [id number] 09/21/2019 03:40:00 PM [facility] Value Range Interpretation Code Description Data Laurie rce(s) Supporting Document(s ) ABG HCO3 27 mmol/L [facility] ID Date Data Source [id number] 09/21/2019 03:40:00 PM EST [facility] Name Value Range Interpretation Code Description Data Laurie rce(s) Supporting Document(s ) ABG PO2 68 mm[Hg] [facility] ID Date Data Source [id number] 09/21/2019 03:40:00 PM EST [facility] Name Value Range Interpretation Code Description Data Laurie rce(s) Supporting Document(s ) ABG PCO2 38 mm[Hg] [facility] ID Date Data Source [id number] 09/21/2019 03:40:[address] [facility] Value Range Interpretation Code Description Data Laurie rce(s) Supporting Document(s ) ABG PH 7.47 [facility] ID Date Data Source [id number] 09/21/2019 03:40:[address] [facility] Value Range Interpretation Code Description Data Laurie rce(s) Supporting Document(s ) ABG MODE Room Air [facility] ID Date Data Source [id number] 09/21/2019 03:40:[address] [facility] Value Range Interpretation Code Description Data Supporting Source(s) Document(s ) ABG SITE Right [facility] ID Date Data Source [id number] 09/21/2019 03:40:[address] [facility] Value Range Interpretation Code Description Data Supporting Source(s) Document(s ) ABG SOURCE ARTERIAL [facility] ID Date Data Source [id number] 09/21/2019 03:40:[address] [facility] Value Range Interpretation Code Description Data Laurie rce(s) Supporting Document(s ) MU TEST POSITIVE [facility] ID Date Data Source [id number] 09/21/2019 02:50:00 PM EST [facility] Name Value Range Interpretation Description Data Sup porting Code Source(s) Document(s ) Bacteria No growth [facility] identified in [facility] Blood by Culture ID Date Data Source [id number] 09/21/2019 02:50:[address] [facility] Name Value Range Interpretation Description Data Sup porting Code Source(s) Document(s ) Thyrotropin 2.145 [facility] [Units/volume] u[IU]/mL Hospital in Serum or Plasma by Detection limit <= 0.005 mIU/L ID Date Data Source [id number] 09/21/2019 02:50:[address] [facility] LOW MALE AND AVERAGE FEMALE CORONARY HEA RT DISEASE RISK. Name Value Range Interpretation Description Data Sup porting Code Source(s) Document(s ) Cholesterol 3.0 [facility] .total/Chol {ratio} Hospital esterol in HDL [Mass Ratio] in Serum or Plasma ID Date Data Source [id number] 09/21/2019 02:50:[address] [facility] Name Value Range Interpretation Description Data Sup porting Code Source(s) Document(s ) Cholesterol in 18 mg/dL [facility] VLDL Hospital [Mass/volume] in Serum or Plasma by calculation ID Date Data Source [id number] 09/21/2019 02:50:[address] [facility] Name Value Range Interpretation Description Data Sup porting Code Source(s) Document(s ) Cholesterol in 47 mg/dL [facility] LDL Hospital [Mass/volume] in Serum or Plasma by Direct assay ID Date Data Source [id number] 09/21/2019 02:50:[address] [facility] Name Value Range Interpretation Description Data Sup porting Code Source(s) Document(s ) Cholesterol in 26 mg/dL [facility] HDL Hospital [Mass/volume] in Serum or Plasma ID Date Data Source [id number] 09/21/2019 02:50:[address] [facility] Name Value Range Interpretation Description Data Sup porting Code Source(s) Document(s ) Triglyceride 91 mg/dL [facility] [Mass/volume] in Hospital Serum or Plasma ID Date Data Source [id number] 09/21/2019 02:50:[address] [facility] Name Value Range Interpretation Description Data Sup porting Code Source(s) Document(s ) Cholesterol 79 mg/dL [facility] [Mass/volume] Hospital in Serum or Plasma ID Date Data Source [id number] 09/21/2019 02:50:[address] [facility] ADA RECOMMENDATIONS: NON-DIABETES: 4.0-6.0% CONTROLLED DIABETES: 6.0-8.0% UNCONTROLLED DIABETE S: UP TO 20%RECOMMENDED ADA RESULT FOR THERAPY: HEMOGLOBIN A1C RESULT LESS ELIZA N 7%.NOTE: METHOD CHANGE EFFECTIVE 06/15/15. Name Value Range Interpretation Description Data Sup porting Code Source(s) Document(s ) Hemoglobin 7.5 % [facility] A1c/Hemoglobin. Hospital total in Blood ID Date Data Source [id number] 09/21/2019 02:50:[address] [facility] TEST PERFORMED BY [employer] UL[employer] SENSITIVE [facility] CHEMILUMINESCENCE METHOD. Name Value Range Interpretation Description Data Sup porting Code Source(s) Document(s ) Troponin 0.14 [facility] I.cardiac ng/mL Hospital [Mass/volume ] in Serum or Plasma ID Date Data Source [id number] 09/21/2019 02:50:[address] [facility] Name Value Range Interpretation Description Data Sup porting Code Source(s) Document(s ) Procalcitonin 0.4 [facility] [Mass/volume] in ng/mL Hospital Serum or Plasma ID Date Data Source [id number] 09/21/2019 02:50:[address] [facility] Name Value Range Interpretation Description Data Sup porting Code Source(s) Document(s ) Aspartate 23 U/L [facility] aminotransferase [place] [Enzymatic Hospital activity/volume] in Serum or Plasma ID Date Data Source [id number] 09/21/2019 02:50:[address] [facility] Name Value Range Interpretation Description Data Sup porting Code Source(s) Document(s ) Alanine 20 U/L [facility] aminotransferase [place] [Enzymatic Hospital activity/volume] in Serum or Plasma ID Date Data Source [id number] 09/21/2019 02:50:00 PM [facility] Name Value Range Interpretation Description Data Sup porting Code Source(s) Document(s ) Alkaline 81 U/L [facility] phosphatase Hospital [Enzymatic activity/volume ] in Serum or Plasma ID Date Data Source [id number] 09/21/2019 02:50:[address] [facility] Name Value Range Interpretation Description Data Sup porting Code Source(s) Document(s ) Bilirubin.t 0.3 mg/dL [facility] [Mass/volum e] in Serum or Plasma ID Date Data Source [id number] 09/21/2019 02:50:[address] [facility] Name Value Range Interpretation Code Description Data Laurie rce(s) Supporting Document(s ) Albumin/Glob 1.3 [facility] ulin [Mass Hospital Ratio] in Serum or Plasma ID Date Data Source [id number] 09/21/2019 02:50:[address] [facility] Name Value Range Interpretation Description Data Sup porting Code Source(s) Document(s ) Albumin 3.3 g/dL [facility] [Mass/volume Hospital ] in Serum or Plasma ID Date Data Source [id number] 09/21/2019 02:50:[address] [facility] Name Value Range Interpretation Description Data Sup porting Code Source(s) Document(s ) Protein 5.9 g/dL [facility] [Mass/volume Hospital ] in Serum or Plasma ID Date Data Source [id number] 09/21/2019 02:50:[address] [facility] THERAPEUTIC RANGES:UNFRACTIONATED HEPARI N THERAPY: 60-90 SECONDSARGATROBAN THERAPY: 49-99 SECONDS Name Value Range Interpretation Description Data Sup porting Code Source(s) Document(s ) aPTT in 29.0 s [facility] Platelet poor [facility] plasma by Coagulation assay ID Date Data Source [id number] 09/21/2019 02:50:[address] [facility] THERAPEUTIC RANGE FOR STANDARD ORALANTIC OAGULANT THERAPY: 2.0-3.0THERAPEUTIC RANGE FOR HIGH DOSE ORALANTICOAGULANT THERAPY (MECHANICAL HEARTVALVE REPLACEMENT): 2.5-3.5 Name Value Range Interpretation Description Data Sup porting Code Source(s) Document(s ) INR in Platelet 1.1 [facility] poor plasma by Hospital Coagulation assay ID Date Data Source [id number] 09/21/2019 02:50:[address] [facility] Name Value Range Interpretation Description Data Sup porting Code Source(s) Document(s ) PT panel - 12.5 s [facility] Platelet poor [facility] plasma by Coagulation assay ID Date Data Source [id number] 09/21/2019 02:40:[address] [facility] Name Value Range Interpretation Description Data Sup porting Code Source(s) Document(s ) Natriuretic 149.8 [facility] peptide B pg/mL Hospital [Mass/volume] in Serum or Plasma ID Date Data Source [id number] 09/10/2019 05:17:00 AM EDT [facility] Name Value Range Interpretation Description Data Sup porting Code Source(s) Document(s ) Phosphate 2.7 mg/dL [facility] [Mass/volume] Hospital in Serum or Plasma ID Date Data Source [id number] 09/10/2019 05:17:00 AM EDT [facility] Name Value Range Interpretation Description Data Sup porting Code Source(s) Document(s ) Lactate 228 U/L [facility] [Enzymatic activity/volume] in Serum or Plasma Procedure Social History Code Duration Value Status Description Data Source(s ) Smoking 06/08/2020 No alcohol No completed No alcohol No drugs ME DGEN ([facility] 12:00:00 AM EDT drugs no no smoking [facility]) smoking Smoking 06/08/2020 Unknown if ever completed Unknown if ever MEDG EN ([facility] 12:00:00 AM EDT smoked smoked [facility]) Smoking 09/22/2019 Never smoked completed Never smoked [facility] 05:[facility]:00 AM EST tobacco tobacco (finding) Ho spital (finding) Vital Signs ID Date Data Source UNK Name Value Range Interpretation Code Description Data Source(s) Heart rate 71 /min 71 /min MEDGEN ([facility]) Inhaled oxygen 100 % 100 % MED[facility] ([facility]) Body mass index 28.6 kg/m2 28.6 kg/m2 MEDGEN (S t (BMI) [Ratio] [facility]) Diastolic blood 80 mm[Hg] 80 mm[Hg] MEDGEN (S t pressure [facility]) Systolic blood 159 mm[Hg] 159 mm[Hg] [facility] ([facility] Body weight 205 lb 205 lb MEDGEN ([facility]) Body height 71 in 71 in [facility] ([facility]) Diastolic blood 63 mm[Hg] 63 mm[Hg] [facility] Systolic blood 105 mm[Hg] 105 mm[Hg] [facility] Respiratory rate 20 /min 20 /min [facility] Heart rate 92 /min 92 /min [facility] Body temperature 36.25[address] [facility] Body temperature 98.0 [degF] 98.0 [degF] [facility] Body mass index 25.0 kg/m2 25.0 kg/m2 [facility] (BMI) [Ratio] Hospital Body weight 180.38 180.38 [lb_av] [facility] [lb_av] Hospital Patient Treatment Plan of Care Planned Activity Planned Date Details Description Data Source (s) ammonium lactate 120 05/20/2019 12:19:19 [facility] MG/ML Topical Lotion EDT System
[2020-08-24 22:58] VITALS: BMI 25.0
--- NOTE | 2020-08-24 23:11 | PDOC ---
Attending Attestation - Resident Resident Name: Willian Lizarraga - ED Attending Attestation I have performed the following: I have examined & evaluated the patient, The case was reviewed & discussed with the resident, I agree w/resident's findings & plan - HPI HPI: 08/24/20 23:34 80 yo M with a hx of HTN, CHF, GERD, DM with insulin and metformin, and chronic leg swelling presents to the emergency department with - Physicial Exam PE: 08/24/20 23:34 Agree with resident exam 08/25/20 02:40 Pt has bilateral skin changes of the lower legs due to edematous legs. Pitting edema of the legs up to the thighs. pt has no abdominal pain on exam no rebound no guarding - Medical Decision Making 08/24/20 23:34 Pt will have all labs and CT abd/pelvis 08/25/20 00:10 Pt will have bilateral sonos of his lower extremities; he has swollen legs feet to thighs. 08/25/20 02:10 Patient Name: MERLE KHAN THIS IS A PRELIMINARY REPORT DATE OF SERVICE: 2020-08-25 00:50:54 IMAGES: 38 EXAM: DUPLEX VASCULAR US-2 LEGS HISTORY: 80-year-old male assessed for a deep vein thrombus COMPARISON: None. FINDINGS: Left and right common femoral vein and proximal greater saphenous vein profunda femoral vein and femoral vein and popliteal vein posterior tibial vein have normal compressibility, color flow and normal spectral Doppler waveforms. IMPRESSION: No evidence of a left or right lower extremity deep pain thrombus 08/25/20 02:38 Pt will be admitted to telemetry Discharge - Discharge Information Problems reviewed: Yes Clinical Impression/Diagnosis: CHF exacerbation Condition: Stable - Follow up/Referral - Patient Discharge Instructions - Post Discharge Activity
--- NOTE | 2020-08-25 00:09 | PDOC ---
History of Present Illness - General Chief Complaint: Pain, Acute Stated Complaint: ABDOMINAL PAIN/DIZZINESS Time Seen by Provider: 08/24/20 23:02 - History of Present Illness Initial Comments: 08/24/20 23:53 HPI: 80 y/o M with hx of HTN, CHF, BPH, IDDM c/b peripheral neuropathy and venous insufficiency, CVA BIBEMS from home with generalized feeling of being unwell. Patient isnt able to provide much info but repeats he feels unwell and has abd/foot pain without additional details. Collateral provided by family over phone. 3hrs prior to arrival, patient was found watching TV on the cough and was complaining of LH and appeared to have increased WOB. He was coughing clear sputum. He also complained of abd pain and per family hasnt had a BM in 2-3days, which is abnormal for him. No emesis reported. PMHx: as noted above ROS: as noted SHx: Denies tobacco use; no alcohol use; no rec drugs Allergies: NKDA ROS: GENERAL/CONSTITUTIONAL: No fever or chills. No weakness. HEAD, EYES, EARS, NOSE AND THROAT: No change in vision. No ear pain or discharge. No sore throat. CARDIOVASCULAR: No chest pain or shortness of breath RESPIRATORY: No cough, wheezing, or hemoptysis. GASTROINTESTINAL: No nausea, vomiting, diarrhea or constipation. GENITOURINARY: No dysuria, frequency, or change in urination. MUSCULOSKELETAL: +foot pain SKIN: No rash NEUROLOGIC: No headache, vertigo, loss of consciousness, or change in strength/sensation. ENDOCRINE: No increased thirst. No abnormal weight change HEMATOLOGIC/LYMPHATIC: No anemia, easy bleeding, or history of blood clots. ALLERGIC/IMMUNOLOGIC: No hives or skin allergy. PE: GENERAL: Awake, alert, and fully oriented, no acute distress HEAD: No signs of trauma, normocephalic, atraumatic EYES: EOMI, sclera anicteric, conjunctiva clear ENT: Auricles normal inspection, hearing grossly normal, nares patent, oropharynx clear without exudates. Moist mucosa NECK: Normal ROM, no lymphadenopathy LUNGS: No increased work of breathing, symmetrical chest rise, bibasilar rales HEART: Regular rate, regular rhythm, normal S1 and S2, no murmur, peripheral pulses 2+ and equal bilaterally. 2+ BL LE pitting edema ABDOMEN: Soft, nondistended, BL lower abd ttp. No guarding, no rebound. No masses. No CVAT MUSCULOSKELETAL: FROM NEUROLOGICAL: Cranial nerves II through XII grossly intact. Normal speech, stable gait, no focal sensorimotor deficits SKIN: Warm, Dry, normal turgor, no rashes or lesions noted Past History - Medical History Allergies/Adverse Reactions: Allergies Allergy/AdvReac Type Severity Reaction Status Date / Time No Known Allergies Allergy Verified 08/24/20 22:58 Home Medications: Ambulatory Orders Atorvastatin Ca [Lipitor] 20 mg PO HS 04/25/19 Omeprazole Magnesium [Prilosec Otc] 40 mg PO DAILY 04/25/19 Terazosin HCl [Hytrin -] 1 mg PO HS 12/18/19 Furosemide [Lasix] 40 mg PO DAILY 05/07/20 Metoprolol Tartrate 25 mg PO BID 05/07/20 Insulin Glargine,Hum.rec.anlog [Lantus Solostar] 8 unit SQ DAILY 05/08/20 Insulin Lispro [Humalog Kwikpen U-100] 1 unit SQ DAILY 05/08/20 Metformin HCl [Glucophage] 500 mg PO BID 05/08/20 Amox-Tr/K Cl [Augmentin 500-125mg Tablet -] 1 tab PO BID@0800,1730 #8 tablet 05/13/20 Aspirin [ASA -] 81 mg PO DAILY #30 tab.chew 05/13/20 Bacitracin - [Bacitracin Topical Ointment -] 1 applic TP DAILY #1 applic 05/13/20 Anemia: Yes (iron deficiency, ascorbic acid deficiency, hypmagnesemia, vit D deficienty.) Cardiac Disorders: Yes (PVD,) CVA: Yes (right sided weakness) COPD: No CHF: Yes Dementia: No Diabetes: Yes (neuropathy) GI Disorders: No Disorders: Yes (BPH) HTN: Yes Hypercholesterolemia: Yes Liver Disease: No Psychiatric Problems: Yes (major depressive disorder) Seizures: No Thyroid Disease: No Other medical history: ambulates with assistance only - Surgical History Abdominal Surgery: No Appendectomy: No Cardiac Surgery: No Cholecystectomy: No Lung Surgery: No Neurologic Surgery: No Orthopedic Surgery: No - Immunization History Immunization Up to Date: Yes - Psycho-Social/Smoking History Smoking History: Never smoked Have you smoked in the past 12 months: No *Physical Exam - Vital Signs Last Vital Signs Temp Pulse Resp BP Pulse Ox 98.8 F 71 18 147/85 98 08/24/20 22:56 08/24/20 22:56 08/24/20 22:56 08/24/20 22:56 08/24/20 22:56 ED Treatment Course - LABORATORY CBC & Chemistry Diagram: 08/24/20 23:48 08/24/20 23:48 - RADIOLOGY Radiology Studies Ordered: Category Date Time Status ABDOMEN & PELVIS CT WITH CONTR [CT] Stat CT Scan 08/24/20 23:22 Ordered CXRPORT [CHEST X-RAY PORTABLE*] [RAD] Stat Radiology 08/24/20 23:17 Ordered Medical Decision Making - Medical Decision Making 08/25/20 00:15 80 y/o M with hx of HTN, CHF, BPH, IDDM c/b peripheral neuropathy and venous insufficiency, CVA BIBEMS from home with generalized feeling of being unwell. Per family also reporting abd pain, constipation, and increased WOB with clear sputum. VSS, AF. PE with BL lower abd ttp. 2+ BL LE pitting edema bibasilar rales. DDx includes chf, dvt, sbo, acs -cbc, cmp, coags, mg, phos, lipase, card prof, ekg, cxr, bnp -ct abd/pel -tylenol 08/25/20 01:32 eleavted bnp and trop however comparable to previous levels ekg unchanged from previous cxr with blunted left costovertebral angle and increased vascular markings 08/25/20 02:[address]; explained risks and benefits and patient still refusing will admit for chf exac Discharge - Discharge Information Problems reviewed: Yes Clinical Impression/Diagnosis: CHF exacerbation Condition: Stable - Admission Yes - Follow up/Referral - Patient Discharge Instructions - Post Discharge Activity
[2020-08-25 00:20] LABS: RDW 15.3 % (11.9-15.9)
[2020-08-25] MEDS ORDERED: ACETAMINOPHEN 500 MG TABLET (FP) PO ONE (00:30)
[2020-08-25 00:32] LABS: INR 1.04 (0.83-1.09); PROTHROMBIN TIME (PATIENT) 12.3 SEC (9.7-13.0)
[2020-08-25 00:33] LABS: BASO % 0.3 % (0-2.0); EOS % 1.7 % (0-4.5); HEMATOCRIT 37.4 % (35.4-49); HEMOGLOBIN 12.6 GM/dL (11.7-16.9); LYMPH % 15.4 % (8-40); MCHC 33.6 g/dl (32.0-35.9); MEAN CELL VOLUME 92.2 fl (80-96); MEAN PLT VOLUME 9.3 fl (7.5-11.1); MONO % 4.7 % (3.8-10.2); NEUT % 77.9 % (42.8-82.8); PLATELET COUNT 151 K/MM3 (134-434); RBC 4.05 M/mm3 (4.00-5.60); WHITE BLOOD COUNT 5.4 K/mm3 (4.0-10.0)
[2020-08-25 00:35] LABS: ACTIVATED PTT 25.5 SECONDS (25.2-36.5)
[2020-08-25 00:43] LABS: ALBUMIN 3.5 g/dl (3.4-5.0); BILIRUBIN,TOTAL 0.4 mg/dL (0.2-1); MAGNESIUM 2.3 mg/dL (1.8-2.4); N-TERMINAL BNP 1339.7 pg/ml (5-450); PHOSPHOROUS 3.2 mg/dL (2.5-4.9); POTASSIUM 4.9 mmol/L (3.5-5.1); TOT PROT 6.9 g/dl (6.4-8.2)
[2020-08-25] MEDS ORDERED: ACETAMINOPHEN 325 MG TABLET (FP) ONE (00:57)
[2020-08-25 02:02] LABS: URINE APPEARANCE CLEAR; URINE BILIRUBIN NEGATIVE (NEGATIVE); URINE COLOR YELLOW; URINE GLUCOSE (UA) NEGATIVE (NEGATIVE); URINE KETONE NEGATIVE (NEGATIVE); URINE LEUK ESTERASE NEGATIVE (NEGATIVE); URINE NITRITE NEGATIVE (NEGATIVE); URINE PROTEIN TRACE (NEGATIVE); URINE UROBILINOGEN 0.2 mg/dL (0.2-1.0)
[2020-08-25] MEDS ORDERED: FUROSEMIDE 40 MG/4 ML INJECTABLE VIAL IVPUSH ONE (03:13)
--- NOTE | 2020-08-25 03:14 | PN ---
Teaching Attending Note Name of Resident: Manuelito Bang ATTENDING PHYSICIAN STATEMENT I saw and evaluated the patient. I reviewed the resident's note and discussed the case with the resident. I agree with the resident's findings and plan as documented. SUBJECTIVE: Patient is an 80 year old man with a PMH of HTN, HFpEF, BPH, Insulin-treated DM, Peripheral neuropathy, Venous insufficiency and CVA brought by EMS to the ER with complaints of generalized feeling of being unwell. Patient isn't able to provide details but repeats he feels unwell and has abdomen/foot pain without additional details. Collateral provided by family over phone about 3 hours prior to arrival, patient was found watching TV on the couch and was complaining of l ightheadedness and appeared to have SOB. He was coughing with clear sputum. He also complained of abdominal pain and per family has not had a bowel movement in 2-3 days, which is abnormal for him. Patient denies chest pain, headache, palpitations, fever, chills, nausea, vomiting, diarrhea, dysuria, frequency, urgency, melena, hematochezia or hematuria. Denies alcohol, tobacco or illicit drug use. No sick contacts or recent travels. Family history is unremarkable. OBJECTIVE: Alert Vital Signs Period Temp Pulse Resp BP Sys/Flores Pulse Ox Last 24 Hr 98.8 F 71 18 147/85 98 HEENT: No Jaundice, eye redness or discharge, PERRLA, EOMI. Normocephalic, atraumatic. External ears are normal and hearing is grossly intact. No nasal discharge. Neck: Supple, nontender. No palpable adenopathy or thyromegaly. No JVD Chest: Good effort. Clear to auscultation and percussion. Heart: Regular. No S3, rub or murmur Abdomen: Not distended, soft, nontender and no HSM. No rebound or guarding. Normal bowel sounds. Ext: Peripheral pulses intact. Leg edema. Skin: Warm and dry. No petechiae, rash or ecchymosis. Neuro: Alert. Oriented x3. CN 2-12 grossly intact. Sensation grossly intact in all four extremities and DTR are symmetric. Psych: Appropriate mood and affect. Good insight. Home Medications Medication Instructions Recorded Atorvastatin Ca [Lipitor] 20 mg PO HS 04/25/19 Omeprazole Magnesium [Prilosec Otc] 40 mg PO DAILY 04/25/19 Terazosin HCl [Hytrin -] 1 mg PO HS 12/18/19 Furosemide [Lasix] 40 mg PO DAILY 05/07/20 Metoprolol Tartrate 25 mg PO BID 05/07/20 Insulin Glargine,Hum.rec.anlog 8 unit SQ DAILY 05/08/20 [Lantus Solostar] Insulin Lispro [Humalog Kwikpen 1 unit SQ DAILY 05/08/20 U-100] Metformin HCl [Glucophage] 500 mg PO BID 05/08/20 Amox-Tr/K Cl [Augmentin 500-125mg 1 tab PO BID@0800,1730 #8 tablet 05/13/20 Tablet -] Aspirin [ASA -] 81 mg PO DAILY #30 tab.chew 05/13/20 Bacitracin - [Bacitracin Topical 1 applic TP DAILY #1 applic 05/13/20 Ointment -] Abnormal Lab Results 08/24/20 23:48 Anion Gap 3 L BUN 25.0 H Random Glucose 170 H Troponin I 0.12 H B-Natriuretic Peptide 1339.7 H Current Medications Generic Name Dose Route Start Last Admin Trade Name Freq PRN Reason Stop Dose Admin Polyethylene Glycol 17 gm 08/25/20 10:00 Miralax (For Daily Use) - PO DAILY ZACH ASSESSMENT AND PLAN: 1. CHF exacerbation - No obvious precipitating factor. CXR shows cardiomegaly with increased interstitial markings and blunted left costophrenic angle. ECHO from 12/20/2019 showed LVEF of 60%. Patient refused a CT scan of abdomen/pelvis to evaluate abdominal pain. Will try to convince him to get a sonogram of the abdomen since he does not want a CT scan. Vascular study of legs didnot show any DVT. ER staff prescribed Tylenol and IV Lasix for the patient. EKG shows NSR at 78/minute and QTc 465 with T wave inversion in inferolateral leads. Not significantly changed compared to prior EKG. Initial troponin is 0.12 - may signal demand ischemia, but will rule out ACS. Will admit to telemetry, trend troponin, repeat EKG, treat with IV Lasix, get ECHO, restrict dietary salt intake, monitor renal function, monitor and replete electrolytes, get daily weight and consult Cardiology. Treat with Miralax 17 gm po bid. Will continue comprehensive care for all of patients comorbid conditions. 2. DM For now, we will hold the home diabetes drugs and implement sliding scale insulin regimen. Provide comprehensive diabetes care with patient teaching and counseling about the importance of adherence to prescribed diabetes regimen, euglycemia, eye care and foot care. 3. Hypertension Will restart suitable outpatient antihypertensive drugs when clinically appropriate. Subsequently, will revise regimen to ensure [id number] excellent BP control. Patient counseled on the injurious effects of uncontrolled hypertension. Nonpharmacologic measures to control hypertension like weight loss, salt restriction and exercise stressed. Importance of adherence to treatment regimen and attainment of normotension emphasized. 4. DVT prophylaxis - Lovenox 40 mg SQ q 24 hours. 5. Advance directives - Full code
[2020-08-25] MEDS ORDERED: FUROSEMIDE 40 MG/4 ML INJECTABLE VIAL ONE (03:34)
--- OUTSIDE RECORDS SUMMARY | 2020-08-25 04:18 | XMS ---
:1940 Author Organization [facility] Care Team Providers Name Role Phone Dino [...] is protected by Article 27-F of the [facility] Public Health law. If you continue you may haveaccess to information: Regarding HIV / AIDS; Provided by facilities licensed or operated by the [facility] Office of Mental Health; or Provided by the [facility] Office for People With Developmental Disabilities. If such information is present, then the following [facility] mandated warning applies: This information has [...] law may result in a fine or alf sentence or both. A general authorization for the release of medical or other information is NOT sufficient authorization for further disclosure. Allergies and Adverse Reactions Type Description Substance Reaction Status Data Source(s ) Drug allergy No Known Allergies No Known Allergies UNKNOWN [facility] Encounters Encounter Providers Location Date Indications Data Source(s ) Attender: Jeff 06/08/2020 [facility] ( [facility] 12:00:00 AM EDT Medical, ) Office Attender: Jeff Srivastava 06/08/2020 12:00:00 AM E DT [facility] ([facility], ) Office Attender: Jeff Srivastava 06/08/2020 12:00:00 AM E DT [facility] ([facility], ) Office Attender: Jeff Srivastava 06/08/2020 12:00:00 AM E DT [facility] ([facility], ) Office Inpatient Attender: Gisella Ramirez 09/21/2019 01:39:00 PM U TI [place] MDAttender: Amanda Vega EST - 09/26/2019 Hospital MDAttender: Magali 04:40:00 PM EST ChenAdmitter: Amanda Vega MDConsultant: Dino Barnes MD UTI Patient discharged. Outpatient Attender: Efraín Reich 5T-POD CL 08/18/2019 04:57:18 PM [facility] Hospital Admission cancelled. Disregard status an d admitted date. Outpatient Attender: Efraín Reich 5T-POD CL 07/14/2019 06:12:19 PM [facility] EDT - 07/15/2019 Hospital 11:59:00 PM EDT Patient discharged. Functional Status Medications Medication Brand Start Product Dose Route Administrative Pharmacy St atus Indications Reaction Description Data Name Date Form Instructions Instructions Source(s) Terazosin 1 TERAZO 06/08/ CAPSULE [address] AZOSIN [facility] (St MG Oral SIN:31 2019 ed [facility] Capsule 3215 12:00: Medical, TERAZOSIN:3 00 AM PC) 46833 EDT 3 ML LANTUS 06/08/ SOLUTION 30 complet LANTUS ME DGEN (St Insulin SOLOST 2019 ed SOLOSTAR PEN [facility] [place] 12:00: Medical, 100 UNT/ML PEN:84 00 AM PC) Pen 7232 EDT Injector [Lantus] LANTUS SOLOSTAR PEN:104863 atorvastati LIPITO 06/08/ TABLET 30 complet LIPI [...] MG Oral MIDE:3 2019 ed [facility] Tablet 92640 12:00: Medical, FUROSEMIDE: 00 AM PC) 027156 EDT ferrous FERROU 06/08/ TABLET 30 complet FERROUS MED[facility] (St sulfate 325 S 2019 ed SULFATE [facility] MG Oral SULFAT 12:00: Medical, Tablet E:3103 00 AM PC) FERROUS 25 EDT SULFATE:310 325 Cholecalcif VITAMI 06/08/ CAPSULE 30 complet VIT NATH D3 MED[facility] (St prince 5000 N 2019 ed [facility] UNT Oral D3:240 12:00: Medical , Capsule 029 00 AM PC) VITAMIN EDT D3:450677 Metformin METFOR 06/08/ TABLET 30 complet METFOR MIN [facility] (St hydrochlori MIN:86 2019 ed [facility] de 500 MG 1007 12:00: Medical, Oral Tablet 00 AM PC) METFORMIN:8 EDT 15805 Lisinopril LISINO 06/08/ TABLET 30 complet LISIN OPRIL [facility] (St 5 MG Oral PRIL:3 2019 ed [facility] Tablet 93150 12:00: Medical, LISINOPRIL: 00 AM PC) 170960 EDT Brimonidine COMBIG 06/08/ SOLUTION 1 complet CO MBIGAN [facility] (St tartrate 2 AN:861 2019 ed [facility] MG/ML / 637 12:00: Medical, Timolol 5 00 AM PC) MG/ML EDT Ophthalmic Solution [Combigan] COMBIGAN:86 1637 Neomycin 40 NEOMYC 06/08/ SOLUTION 30 complet NE OMYCIN [facility] (St MG/ML / IN 2019 ed SULFATE-POLY [facility] Polymyxin B SULFAT 12:00: MYXIN B M dilciaical, 276868 E-POLY 00 AM SULFATE PC) UNT/ML MYXIN [...] Medi maninder, VITAMIN 02 00 AM PC) C:636759 EDT Docusate Docusa 09/26/ LIQUID 100 ENTERA complet [facility] Sodium 10 te 2019 mg L ed [place] MG/ML Oral Sodium 08:28: Hospi estrada Suspension 00 AM EST ammonium ammoni 05/20/ LOTION 1 TOPICA complet [facility] lactate 120 um 2019 {favio} L ed Health MG/ML lactat 12:19: System Topical e 12% 19 PM Lotion topica EDT ammonium l lactate 12% lotion topical lotion For external use only. NITROFURANTOIN, Nitrofurantoin CAPSULE 50 mg ORAL completed [facility] MACROCRYSTALS 50 Macrocrystals [place] MG Oral Capsule Hosp ital Nitrofurantoin Macrocrystals Insurance Providers Payer name Policy type / Policy ID Covered Covered republican's Policy Plan Coverage type republican ID relationship to Bhatt Information bhatt MEDICAID [id number] SP [id number] MEDICARE [id number] SP [id number] 3 73 MEDICAID OF NEW [id number] 1 [id number] [place] [id number] PART B 73 [place] MEDICA[place] [id number] SP [id number] MEDICAID [id number] PT [id number] MEDICARE [id number] PT [id number] 3 73 SELF PAY PT INSURANCE MEDICAID HMO [id number] PT [id number] E Medicare Part B Medicare [id number] 1 [id number] Outpatient A Medicaid Medicaid [id number] Medicaid Medicaid [id number] Application Pending Medicare Part A Medicare [id number] 1 [id number] MEDICAID [id number] SP [id number] 01 [id number] M [id number] 01 [id number] Medicaid of [facility] Individual 0 Self 0 [place] Policy Medicare Part A Individual 0 Self 0 of [place] Medicaid of [facility] Individual 0 Self 0 [place] Policy Medicare Part A Individual 0 Self 0 of [place] Policy Medicare-Blue [id number] S [id number] Cross/Blue A Shield Medicaid [id number] S [id number] Regular Clinic Visit Medicare United [id number] S [id number] Government A Services Medicaid E Medicaid [id number] [...] 020 MEDGEN (St hypertension HYPERTENSION 12:00:00 AM [facility], ) E11.9 Type 2 diabetes TYPE 2 DIABETES Problem 06/08/2020 MEDG EN (St mellitus without MELLITUS WITHOUT 12:00:00 AM [facility] complications COMPLICATIONS EDT Medical, PC) E10.8 Type 1 diabetes TYPE 1 DIABETES Problem 06/08/2020 MEDG EN (St mellitus with MELLITUS WITH 12:00:00 AM [facility] unspecified UNSPECIFIED EDT Medical, ) complications COMPLICATIONS Z79.899 Other usp Z79.899 Diagnosis 09/21/2019 [place] [facility] (current) drug 05:11:00 PM Hospital therapy EST Z79.84 skilled nursing (current) Z79.84 Diagnosis 09/21/2019 [place] use of oral 05:11:00 PM Hospital hypoglycemic drugs EST I87.2 Venous I87.2 Diagnosis 09/21/2019 [place] insufficiency 05:11:00 PM Hospital (chronic) EST (peripheral) E78.5 Hyperlipidemia, E78.5 Diagnosis 09/21/2019 [place] [facility] unspecified 05:11:00 PM Hospital EST 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/21/2019 [place] infarction, 05:11:00 PM Hospital unspecified EST I26.99 Other pulmonary I26.99 Diagnosis 09/21/2019 [place] [facility] embolism without 05:11:00 PM Hospita l acute cor pulmonale EST I82.4Z2 Acute embolism and I82.4Z2 Diagnosis 09/21/2019 [place] thrombosis of 05:11:00 PM Hospital unspecified deep EST veins of left distal lower extremity I87.2 Venous Venous stasis Diagnosis 07/15/2019 [facility] insufficiency dermatitis of left 10:35:00 AM Ve rnon (chronic) lower extremity [facility] (peripheral) 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, 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:00 AM [place] diabetic [facility] polyneuropathy B35.3 Tinea pedis Tinea pedis Diagnosis 07/15/2019 [facility] 10:35:00 AM [facility] L60.3 Nail dystrophy Dystrophic nail Diagnosis 07/15/2019 [facility] 10:35:00 AM [facility] L84 Corns and Callus of foot [facility] Surgeries/Procedures Procedure Description Date Indications Data Source(s) Documentation of current 06/08/2020 [facility] ([facility] (procedure) 12:00:00 AM [facility], ) EDT Documentation of current 06/08/2020 [facility] ([facility] medications (procedure) 12:00:00 AM [facility] ) EDT Documentation of current 06/08/2020 [facility] ([facility] (procedure) 12:00:00 AM [facility], ) EDT Documentation of current 06/08/2020 [facility] ([facility] (procedure) 12:00:00 AM [facility] ) EDT Documentation of current 06/08/2020 [facility] ([facility] (procedure) 12:00:00 AM [facility], ) EDT Documentation of current 06/08/2020 [facility] ([facility] (procedure) 12:00:00 AM [facility] ) EDT Documentation of current 06/08/2020 [facility] ([facility] (procedure) 12:00:00 AM [facility], ) EDT Documentation of current 06/08/2020 [facility] ([facility] (procedure) 12:00:00 AM [facility] ) EDT Documentation of current 06/08/2020 [facility] ([facility] (procedure) 12:00:00 AM [facility] ) EDT Documentation of current 06/08/2020 [facility] ([facility] medications (procedure) 12:00:00 AM [facility] ) EDT Insertion of inferior vena 09/23/2019 [place] caval filter (procedure) 12:00:00 AM Hos pital EST Computed tomography of head 09/22/2019 [place] without contrast 12:00:00 AM Hospital EST Electrocardiographic procedure 09/22/2019 [place] (procedure) 12:00:00 AM Hospital EST Swallow/Oralfunct Conslt 09/21/2019 [facility] [place] 12:00:00 AM Hospital EST Computed tomography 09/21/[address] [place] angiography of thorax 12:00:00 AM Hospit al (procedure) EST Incentive spirometry 09/21/2019 [place] (regime/therapy) 12:00:00 AM Hospital EST Physical therapy procedure 09/21/2019 [place] (regime/therapy) 12:00:00 AM Hospital EST Plain chest X-ray (procedure) 09/21/2019 [place] 12:00:00 AM Hospital EST Electrocardiographic procedure 09/21/2019 [place] (procedure) 12:00:00 AM Hospital EST Results ID Date Data Source [id number] 05/07/2020 05:43:00 PM EDT [facility] Name Value Range Interpretation Description Data Sup porting Code Source(s) Document(s ) SARS [facility] CORONAVIRUS 2 RNA This lab was ordered by [facility] and reported by [facility]. ID Date Data Source [id number] 09/26/2019 05:03:[address] [facility] Name Value Range Interpretation Description Data Sup porting Code Source(s) Document(s ) Nitrite NEGATIVE [place] [Presence] [facility] in Urine by Test strip ID Date Data Source [id number] 09/26/2019 03:36:[address] [facility] Housemaid:JOHNATHAN BAIG Name Value Range Interpretation Description Data Sup porting Code Source(s) Document(s ) Glucose 207 mg/dL [place] [Mass/volume] Hospital in Capillary blood by Glucometer ID Date Data Source [id number] 09/24/2019 07:02:[address] [facility] Name Value Range Interpretation Description Data Sup porting Code Source(s) Document(s ) Calcium 7.7 mg/dL [place] [Mass/volume Hospital ] in Serum or Plasma ID Date Data Source [id number] 09/24/2019 07:02:[address] [facility] Name Value Range Interpretation Code Description Data Laurie rce(s) Supporting Document(s ) Urea 16.7 [place] nitrogen/Cre Hospital atinine [Mass Ratio] in Serum or Plasma ID Date Data Source [id number] 09/24/2019 07:02:[address] [facility] Name Value Range Interpretation Description Data Sup porting Code Source(s) Document(s ) Creatinine 0.6 mg/dL [place] [Mass/volume] Hospital in Serum or Plasma ID Date Data Source [id number] 09/24/2019 07:02:[address] [facility] Name Value Range Interpretation Description Data Sup porting Code Source(s) Document(s ) Urea 10 mg/dL [place] nitrogen Hospital [Mass/volume ] in Serum or Plasma ID Date Data Source [id number] 09/24/2019 07:02:[address] [facility] Name Value Range Interpretation Code Description Data Laurie rce(s) Supporting Document(s ) Anion gap in 9 [place] Serum or [facility] Plasma ID Date Data Source [id number] 09/24/2019 07:02:[address] [facility] Name Value Range Interpretation Description Data Sup porting Code Source(s) Document(s ) Carbon 28 mmol/L [place] dioxide, Hospital total [Moles/volu me] in Serum or Plasma ID Date Data Source [id number] 09/24/2019 07:02:00 AM [facility] Name Value Range Interpretation Description Data Sup porting Code Source(s) Document(s ) Chloride 107 [place] [Moles/volum mmol/L Hospital e] in Serum or Plasma ID Date Data Source [id number] 09/24/2019 07:02:00 AM [facility] Name Value Range Interpretation Description Data Sup porting Code Source(s) Document(s ) Potassium 4.0 [place] [Moles/volume mmol/L Hospital ] in Serum or Plasma ID Date Data Source [id number] 09/24/2019 07:02:[address] [facility] Name Value Range Interpretation Description Data Sup porting Code Source(s) Document(s ) Sodium 140 mmol/L [place] [Moles/volu Hospital me] in Serum or Plasma ID Date Data Source [id number] 09/24/2019 07:02:00 AM [facility] Value Range Interpretation Description Data Sup porting Code Source(s) Document(s ) Glucose 135 mg/dL [place] [Mass/volume Hospital ] in Serum or Plasma ID Date Data Source [id number] 09/24/2019 07:02:00 AM [facility] Value Range Interpretation Description Data Sup porting Code Source(s) Document(s ) Platelet mean 10.6 fL [place] volume Hospital [Entitic volume] in Blood by Automated count ID Date Data Source [id number] 09/24/2019 07:02:00 AM [facility] Value Range Interpretation Description Data Sup porting Code Source(s) Document(s ) Platelets 268 [place] [#/volume] in 10*3/uL Hospital Blood by Automated count ID Date Data Source [id number] 09/24/2019 07:02:00 AM [facility] Value Range Interpretation Description Data Sup porting Code Source(s) Document(s ) Erythrocyte 17.5 % [place] distribution Hospital width [Ratio] by Automated count ID Date Data Source [id number] 09/24/2019 07:02:00 AM [facility] Value Range Interpretation Description Data Sup porting Code Source(s) Document(s ) Erythrocyte mean 29.8 [place] corpuscular g/dL Hospital hemoglobin concentration [Mass/volume] by Automated count ID Date Data Source [id number] 09/24/2019 07:02:00 AM [facility] Value Range Interpretation Description Data Sup porting Code Source(s) Document(s ) Erythrocyte 25.4 pg [place] mean Hospital corpuscular hemoglobin [Entitic mass] by Automated count ID Date Data Source [id number] 09/24/2019 07:02:00 AM [facility] Name Value Range Interpretation Description Data Sup porting Code Source(s) Document(s ) Erythrocyte 85.1 fL [place] mean Hospital corpuscular volume [Entitic volume] by Automated count ID Date Data Source [id number] 09/24/2019 07:02:[address] [facility] Name Value Range Interpretation Description Data Sup porting Code Source(s) Document(s ) Hematocrit 27.5 % [place] [Volume Hospital Fraction] of Blood by Automated count ID Date Data Source [id number] 09/24/2019 07:02:00 AM [facility] Value Range Interpretation Description Data Sup porting Code Source(s) Document(s ) Hemoglobin 8.2 g/dL [place] [Mass/volume] Hospital in Blood ID Date Data Source [id number] 09/24/2019 07:02:00 AM [facility] Value Range Interpretation Description Data Sup porting Code Source(s) Document(s ) Erythrocytes 3.23 [place] [#/volume] in 10*6/uL Hospital Blood by Automated count ID Date Data Source [id number] 09/24/2019 07:02:00 AM [facility] Value Range Interpretation Description Data Sup porting Code Source(s) Document(s ) Leukocytes 4.9 [place] [#/volume] in 10*3/uL Hospital Blood by Automated count ID Date Data Source [id number] 09/22/2019 08:46:[address] [facility] Name Value Range Interpretation Description Data Sup porting Code Source(s) Document(s ) Magnesium 2.0 mg/dL [place] [Mass/volume] Hospital in Serum or Plasma ID Date Data Source [id number] 09/22/2019 08:46:[address] [facility] UNITS ARE IN ml/min/1.73m2.IF PATIENT IS -CHINESE, MULTIPLY REPORTED RESULT BY 1.21. Name Value Range Interpretation Description Data Sup porting Code Source(s) Document(s ) Glomerular > 60 [place] filtration mL/min Hospital rate/1.73 sq M.predicted [Volume Rate/Area] in Serum or Plasma by Creatinine-bas ed formula (MDRD) ID Date Data Source [id number] 09/22/2019 08:46:[address] [facility] Name Value Range Interpretation Code Description Data Supporting Source(s) Document(s ) NUCLEATED RBCS 0.0 % [place] (AUTO Hospital DIFF%)DIS ID Date Data Source [id number] 09/22/2019 08:46:00 AM [facility] Value Range Interpretation Description Data Sup porting Code Source(s) Document(s ) Differential AUTOMATED [place] cell count [facility] method - Blood ID Date Data Source [id number] 09/22/2019 08:46:[address] [facility] Name Value Range Interpretation Description Data Sup porting Code Source(s) Document(s ) Immature 0.03 [place] granulocytes 10*3/uL Hospital [#/volume] in Blood by Automated count ID Date Data Source [id number] 09/22/2019 08:46:[address] [facility] Name Value Range Interpretation Description Data Sup porting Code Source(s) Document(s ) Basophils 0.02 [place] [#/volume] in 10*3/uL Hospital Blood by Automated count ID Date Data Source [id number] 09/22/2019 08:46:[address] [facility] Name Value Range Interpretation Description Data Sup porting Code Source(s) Document(s ) Eosinophils 0.18 [place] [#/volume] in 10*3/uL Hospital Blood by Automated count ID Date Data Source [id number] 09/22/2019 08:46:00 AM EST [facility] Name Value Range Interpretation Description Data Sup porting Code Source(s) Document(s ) Monocytes 0.58 [place] [#/volume] in 10*3/uL Hospital Blood by Automated count ID Date Data Source [id number] 09/22/2019 08:46:00 AM EST [facility] Value Range Interpretation Description Data Sup porting Code Source(s) Document(s ) Lymphocytes 1.15 [place] [#/volume] in 10*3/uL Hospital Blood by Automated count ID Date Data Source [id number] 09/22/2019 08:46:00 AM EST [facility] Value Range Interpretation Description Data Sup porting Code Source(s) Document(s ) Neutrophils 3.73 [place] [#/volume] in 10*3/uL [facility] Blood by Automated count ID Date Data Source [id number] 09/22/2019 08:46:00 AM [facility] Value Range Interpretation Description Data Sup porting Code Source(s) Document(s ) Nucleated 0.0 % [place] erythrocytes/10 Hospital 0 leukocytes [Ratio] in Blood by Automated count ID Date Data Source [id number] 09/22/2019 08:46:00 AM [facility] Value Range Interpretation Description Data Sup porting Code Source(s) Document(s ) Immature 0.5 % [place] granulocytes/10 Hospital 0 leukocytes in Blood by Automated count ID Date Data Source [id number] 09/22/2019 08:46:00 AM [facility] Value Range Interpretation Description Data Sup porting Code Source(s) Document(s ) Basophils/100 0.4 % [place] leukocytes in Hospital Blood by Automated count ID Date Data Source [id number] 09/22/2019 08:46:[address] [facility] Name Value Range Interpretation Description Data Sup porting Code Source(s) Document(s ) Eosinophils/100 3.2 % [place] leukocytes in Hospital Blood by Automated count ID Date Data Source [id number] 09/22/2019 08:46:[address] [facility] Name Value Range Interpretation Description Data Sup porting Code Source(s) Document(s ) Monocytes/100 10.2 % [place] leukocytes in Hospital Blood by Automated count ID Date Data Source [id number] 09/22/2019 08:46:[address] [facility] Name Value Range Interpretation Description Data Sup porting Code Source(s) Document(s ) Lymphocytes/10 20.2 % [place] 0 leukocytes Hospital in Blood by Automated count ID Date Data Source [id number] 09/22/2019 08:46:[address] [facility] Name Value Range Interpretation Description Data Sup porting Code Source(s) Document(s ) Neutrophils/10 65.5 % [place] 0 leukocytes Hospital in Blood by Automated count ID Date Data Source [id number] 09/21/2019 06:14:00 PM [facility] Value Range Interpretation Description Data Sup porting Code Source(s) Document(s ) Lactate 1.4 [place] [Moles/volum mmol/L Hospital e] in Serum or Plasma ID Date Data Source [id number] 09/21/2019 06:14:[address] [facility] A VALUE LESS THAN 500 NG/ML FEU [...] Sup porting Code Source(s) Document(s ) Fibrin 58750 [place] D-dimer FEU ng/mL Hospital [Mass/volume ] in Platelet poor plasma ID Date Data Source [id number] 09/21/2019 04:31:[address] [facility] Name Value Range Interpretation Description Data Sup porting Code Source(s) Document(s ) Bacteria ESCHERICHIA [facility] identified in [facility] ([facility]) [place] Urine by Hospital Culture ID Date Data Source [id number] 09/21/2019 04:31:[address] [facility] Name Value Range Interpretation Description Data Sup porting Code Source(s) Document(s ) Leukocyte PRESENT [place] clumps Hospital [#/area] in Urine sediment by Microscopy high power field ID Date Data Source [id number] 09/21/2019 04:31:[address] [facility] Name Value Range Interpretation Description Data Sup porting Code Source(s) Document(s ) Epithelial OCCASIONAL [place] cells.[facility] s [#/area] in Urine sediment by Microscopy high power field ID Date Data Source [id number] 09/21/2019 04:31:[address] [facility] Name Value Range Interpretation Description Data Sup porting Code Source(s) Document(s ) Bacteria 2+ [place] [#/area] in Hospital Urine sediment by Microscopy high power field ID Date Data Source [id number] 09/21/2019 04:31:[address] [facility] Name Value Range Interpretation Description Data Sup porting Code Source(s) Document(s ) Erythrocytes 10-20 [place] [#/area] in /[HPF] Hospital Urine sediment by Microscopy high power field ID Date Data Source [id number] 09/21/2019 04:31:00 PM EST [facility] [facility] Name Value Range Interpretation Description Data Sup porting Code Source(s) Document(s ) Leukocytes >100 [place] [#/area] in /[HPF] Hospital Urine sediment by Microscopy high power field ID Date Data Source [id number] 09/21/2019 04:31:00 PM EST [facility] Name Value Range Interpretation Code Description Data Supporting Source(s) Document(s ) Leukocyte 3+ [place] esterase Hospital [Presence] in Urine by Test strip ID Date Data Source [id number] 09/21/2019 04:31:[address] [facility] Name Value Range Interpretation Description Data Sup porting Code Source(s) Document(s ) URINE NEGATIVE [place] NITRITES Hospital ID Date Data Source [id number] 09/21/2019 04:31:00 PM EST [facility] Name Value Range Interpretation Description Data Sup porting Code Source(s) Document(s ) Erythrocytes 1+ [place] [#/volume] in Hospital Urine by Test strip ID Date Data Source [id number] 09/21/2019 04:31:[address] [facility] Name Value Range Interpretation Code Description Data Laurie rce(s) Supporting Document(s ) Bilirubin. NEGATIVE [place] total Hospital [Presence] in Urine by Test strip ID Date Data Source [id number] 09/21/2019 04:31:00 PM EST [facility] Name Value Range Interpretation Description Data Sup porting Code Source(s) Document(s ) Urobilinogen 1.0 [place] [Units/volume] mg/dL Hospital in Urine by Test strip ID Date Data Source [id number] 09/21/2019 04:31:00 PM EST [facility] Name Value Range Interpretation Description Data Sup porting Code Source(s) Document(s ) Ketones NEGATIVE [place] [Mass/volume Hospital ] in Urine by Test strip ID Date Data Source [id number] 09/21/2019 04:31:00 PM EST [place] [facility] Name Value Range Interpretation Code Description Data Laurie rce(s) Supporting Document(s ) Glucose TRACE [place] [Mass/volume Hospital ] in Urine by Test strip ID Date Data Source [id number] 09/21/2019 04:31:00 PM EST [place] [facility] Name Value Range Interpretation Code Description Data Laurie rce(s) Supporting Document(s ) Protein 2+ [place] [Presence] Hospital in Urine by Test strip ID Date Data Source [id number] 09/21/2019 04:31:00 PM EST [facility] Name Value Range Interpretation Code Description Data Laurie rce(s) Supporting Document(s ) pH of Urine 8.0 [place] by Test Hospital strip ID Date Data Source [id number] 09/21/2019 04:31:00 PM EST [facility] Name Value Range Interpretation Code Description Data Supporting Source(s) Document(s ) Specific 1.016 [place] gravity of Hospital Urine by Test strip ID Date Data Source [id number] 09/21/2019 04:31:00 PM EST [place] [facility] Name Value Range Interpretation Description Data Sup porting Code Source(s) Document(s ) Clarity in Urine CLOUDY [place] by Refractometry Hospital automated ID Date Data Source [id number] 09/21/2019 04:31:00 PM EST [place] [facility] Name Value Range Interpretation Code Description Data Laurie rce(s) Supporting Document(s ) Color of YELLOW [place] Urine Hospital ID Date Data Source [id number] 09/21/2019 03:40:00 PM EST [place] [facility] Name Value Range Interpretation Code Description Data Supporting Source(s) Document(s ) METHEMOGLOBIN 0.6 % [facility] ID Date Data Source [id number] 09/21/2019 03:40:00 PM EST [facility] Name Value Range Interpretation Description Data Sup porting Code Source(s) Document(s ) CARBOXYHEMOGLOBIN 0.6 % [facility] ID Date Data Source [id number] 09/21/2019 03:40:00 PM EST [facility] Name Value Range Interpretation Code Description Data Laurie rce(s) Supporting Document(s ) ABG TEMP 98.6 [facility] ID Date Data Source [id number] 09/21/2019 03:40:00 PM EST [facility] Value Range Interpretation Code Description Data Laurie rce(s) Supporting Document(s ) FIO2 21 % [facility] ID Date Data Source [id number] 09/21/2019 03:40:00 PM [facility] Value Range Interpretation Code Description Data Laurie rce(s) Supporting Document(s ) ABG BE 3.0 mmol/L [facility] ID Date Data Source [id number] 09/21/2019 03:40:00 PM EST [facility] Name Value Range Interpretation Code Description Data Laurie rce(s) Supporting Document(s ) ABG O2SAT 92 % [facility] ID Date Data Source [id number] 09/21/2019 03:40:00 PM [facility] Value Range Interpretation Code Description Data Laurie rce(s) Supporting Document(s ) ABG HCO3 27 mmol/L [facility] ID Date Data Source [id number] 09/21/2019 03:40:00 PM EST [place] [facility] Name Value Range Interpretation Code Description Data Laurie rce(s) Supporting Document(s ) ABG PO2 68 mm[Hg] [facility] ID Date Data Source [id number] 09/21/2019 03:40:00 PM EST [facility] Name Value Range Interpretation Code Description Data Laurie rce(s) Supporting Document(s ) ABG PCO2 38 mm[Hg] [facility] ID Date Data Source [id number] 09/21/2019 03:40:00 PM EST [facility] Value Range Interpretation Code Description Data Laurie rce(s) Supporting Document(s ) ABG PH 7.47 [facility] ID Date Data Source [id number] 09/21/2019 03:40:00 PM EST [facility] Value Range Interpretation Code Description Data Laurie rce(s) Supporting Document(s ) ABG MODE Room Air [facility] ID Date Data Source [id number] 09/21/2019 03:40:00 PM EST [facility] Value Range Interpretation Code Description Data Supporting Source(s) Document(s ) ABG SITE Right [facility] ID Date Data Source [id number] 09/21/2019 03:40:00 PM EST [facility] Value Range Interpretation Code Description Data Supporting Source(s) Document(s ) ABG SOURCE ARTERIAL [facility] ID Date Data Source [id number] 09/21/2019 03:40:00 PM EST [facility] Value Range Interpretation Code Description Data Laurie rce(s) Supporting Document(s ) MU TEST POSITIVE [facility] ID Date Data Source [id number] 09/21/2019 02:50:00 PM EST [facility] Name Value Range Interpretation Description Data Sup porting Code Source(s) Document(s ) Bacteria No growth [place] identified in [facility] Blood by Culture ID Date Data Source [id number] 09/21/2019 02:50:[address] [facility] Name Value Range Interpretation Description Data Sup porting Code Source(s) Document(s ) Thyrotropin 2.145 [place] [Units/volume] u[IU]/mL Hospital in Serum or Plasma by Detection limit <= 0.005 mIU/L ID Date Data Source [id number] 09/21/2019 02:50:[address] [facility] LOW MALE AND AVERAGE FEMALE CORONARY HEA RT DISEASE RISK. Name Value Range Interpretation Description Data Sup porting Code Source(s) Document(s ) Cholesterol 3.0 [place] .total/Chol {ratio} Hospital esterol in HDL [Mass Ratio] in Serum or Plasma ID Date Data Source [id number] 09/21/2019 02:50:[address] [facility] Name Value Range Interpretation Description Data Sup porting Code Source(s) Document(s ) Cholesterol in 18 mg/dL [place] VLDL Hospital [Mass/volume] in Serum or Plasma by calculation ID Date Data Source [id number] 09/21/2019 02:50:[address] [facility] Name Value Range Interpretation Description Data Sup porting Code Source(s) Document(s ) Cholesterol in 47 mg/dL [place] LDL Hospital [Mass/volume] in Serum or Plasma by Direct assay ID Date Data Source [id number] 09/21/2019 02:50:[address] [facility] Name Value Range Interpretation Description Data Sup porting Code Source(s) Document(s ) Cholesterol in 26 mg/dL [place] HDL Hospital [Mass/volume] in Serum or Plasma ID Date Data Source [id number] 09/21/2019 02:50:[address] [facility] Name Value Range Interpretation Description Data Sup porting Code Source(s) Document(s ) Triglyceride 91 mg/dL [place] [Mass/volume] in Hospital Serum or Plasma ID Date Data Source [id number] 09/21/2019 02:50:[address] [facility] Name Value Range Interpretation Description Data Sup porting Code Source(s) Document(s ) Cholesterol 79 mg/dL [place] [Mass/volume] Hospital in Serum or Plasma ID Date Data Source [id number] 09/21/2019 02:50:[address] [facility] ADA RECOMMENDATIONS: NON-DIABETES: 4.0-6.0% CONTROLLED DIABETES: 6.0-8.0% UNCONTROLLED DIABETE S: UP TO 20%RECOMMENDED ADA RESULT FOR THERAPY: HEMOGLOBIN A1C RESULT LESS ELIZA N 7%.NOTE: METHOD CHANGE EFFECTIVE 06/15/15. Name Value Range Interpretation Description Data Sup porting Code Source(s) Document(s ) Hemoglobin 7.5 % [place] A1c/Hemoglobin. Hospital total in Blood ID Date Data Source [id number] 09/21/2019 02:50:[address] [facility] TEST PERFORMED BY [facility] [facility]ENS[facility] CHEMILUMINESCENCE METHOD. Name Value Range Interpretation Description Data Sup porting Code Source(s) Document(s ) Troponin 0.14 [place] I.cardiac ng/mL Hospital [Mass/volume ] in Serum or Plasma ID Date Data Source [id number] 09/21/2019 02:50:[address] [facility] Name Value Range Interpretation Description Data Sup porting Code Source(s) Document(s ) Procalcitonin 0.4 [place] [Mass/volume] in ng/mL Hospital Serum or Plasma ID Date Data Source [id number] 09/21/2019 02:50:[address] [facility] Name Value Range Interpretation Description Data Sup porting Code Source(s) Document(s ) Aspartate 23 U/L [place] aminotransferase [place] [Enzymatic Hospital activity/volume] in Serum or Plasma ID Date Data Source [id number] 09/21/2019 02:50:[address] [facility] Name Value Range Interpretation Description Data Sup porting Code Source(s) Document(s ) Alanine 20 U/L [place] aminotransferase [place] [Enzymatic Hospital activity/volume] in Serum or Plasma ID Date Data Source [id number] 09/21/2019 02:50:00 PM [facility] Name Value Range Interpretation Description Data Sup porting Code Source(s) Document(s ) Alkaline 81 U/L [place] phosphatase Hospital [Enzymatic activity/volume ] in Serum or Plasma ID Date Data Source [id number] 09/21/2019 02:50:[address] [facility] Name Value Range Interpretation Description Data Sup porting Code Source(s) Document(s ) Bilirubin.t 0.3 mg/dL [facility] [Mass/volum e] in Serum or Plasma ID Date Data Source [id number] 09/21/2019 02:50:[address] [facility] Name Value Range Interpretation Code Description Data Laurie rce(s) Supporting Document(s ) Albumin/Glob 1.3 [place] ulin [Mass Hospital Ratio] in Serum or Plasma ID Date Data Source [id number] 09/21/2019 02:50:[address] [facility] Name Value Range Interpretation Description Data Sup porting Code Source(s) Document(s ) Albumin 3.3 g/dL [place] [Mass/volume Hospital ] in Serum or Plasma ID Date Data Source [id number] 09/21/2019 02:50:[address] [facility] Name Value Range Interpretation Description Data Sup porting Code Source(s) Document(s ) Protein 5.9 g/dL [place] [Mass/volume Hospital ] in Serum or Plasma ID Date Data Source [id number] 09/21/2019 02:50:[address] [facility] THERAPEUTIC RANGES:UNFRACTIONATED HEPARI N THERAPY: 60-90 SECONDSARGATROBAN THERAPY: 49-99 SECONDS Name Value Range Interpretation Description Data Sup porting Code Source(s) Document(s ) aPTT in 29.0 s [place] Platelet poor [facility] plasma by Coagulation assay ID Date Data Source [id number] 09/21/2019 02:50:[address] [facility] THERAPEUTIC RANGE FOR STANDARD ORALANTIC OAGULANT THERAPY: 2.0-3.0THERAPEUTIC RANGE FOR HIGH DOSE ORALANTICOAGULANT THERAPY (MECHANICAL HEARTVALVE REPLACEMENT): 2.5-3.5 Name Value Range Interpretation Description Data Sup porting Code Source(s) Document(s ) INR in Platelet 1.1 [place] poor plasma by Hospital Coagulation assay ID Date Data Source [id number] 09/21/2019 02:50:[address] [facility] Name Value Range Interpretation Description Data Sup porting Code Source(s) Document(s ) PT panel - 12.5 s [place] Platelet poor [facility] plasma by Coagulation assay ID Date Data Source [id number] 09/21/2019 02:40:[address] [facility] Name Value Range Interpretation Description Data Sup porting Code Source(s) Document(s ) Natriuretic 149.8 [place] peptide B pg/mL Hospital [Mass/volume] in Serum or Plasma ID Date Data Source [id number] 09/10/2019 05:17:00 AM EDT [facility] Name Value Range Interpretation Description Data Sup porting Code Source(s) Document(s ) Phosphate 2.7 mg/dL [place] [Mass/volume] Hospital in Serum or Plasma ID Date Data Source [id number] 09/10/2019 05:17:00 AM EDT [facility] Name Value Range Interpretation Description Data Sup porting Code Source(s) Document(s ) Lactate 228 U/L [facility] [Enzymatic activity/volume] in Serum or Plasma Procedure Social History Code Duration Value Status Description Data Source(s ) Smoking 06/08/2020 No alcohol No completed No alcohol No drugs ME DGEN ([facility] 12:00:00 AM EDT drugs no no smoking [facility]) smoking Smoking 06/08/2020 Unknown if ever completed Unknown if ever MEDG EN ([facility] 12:00:00 AM EDT smoked smoked [facility]) Smoking 09/22/2019 Never smoked completed Never smoked [facility] 05:00:00 AM EST tobacco tobacco (finding) Ho spital (finding) Vital Signs ID Date Data Source UNK Name Value Range Interpretation Code Description Data Source(s) Heart rate 71 /min 71 /min MEDGEN ([facility]) Inhaled oxygen 100 % 100 % MEDGEN ([facility]) Body mass index 28.6 kg/m2 28.6 kg/m2 MEDGEN (S t (BMI) [Ratio] [facility]) Diastolic blood 80 mm[Hg] 80 mm[Hg] MEDGEN (S t pressure [facility]) Systolic blood 159 mm[Hg] 159 mm[Hg] MEDGEN ([facility]) Body weight 205 lb 205 lb MEDGEN ([facility]) Body height 71 in 71 in [facility] ([facility]) Diastolic blood 63 mm[Hg] 63 mm[Hg] [facility] Systolic blood 105 mm[Hg] 105 mm[Hg] [facility] pressure [facility] Respiratory rate 20 /min 20 /min [facility] Heart rate 92 /min 92 /min [facility] Body temperature 36.18277 36.31904 [facility] Body temperature 98.0 [degF] 98.0 [degF] [facility] Body mass index 25.0 kg/m2 25.0 kg/m2 [facility] (BMI) [Ratio] Hospital Body weight 180.38 180.38 [lb_av] [place] [facility] [lb_av] [facility] Patient Treatment Plan of Care Planned Activity Planned Date Details Description Data Source (s) ammonium lactate 120 05/20/2019 12:19:19 [facility] MG/ML Topical Lotion EDT System
--- NOTE | 2020-08-25 06:22 | HP ---
CHIEF COMPLAINT: General Unwellness PCP: HISTORY OF PRESENT ILLNESS: 80 yo M w/ PMHx of HTN, HFpEF, BPH, Insulin-treated DM, Peripheral neuropathy, Venous insufficiency and CVA (~08/2019) BIBEMS w/ complaints of generalized feeling of being unwell. Ptn was unable to fully cooperate with the interview due to mental status however states that he feels unwell and has generalized pain. Additional history provided by ED via family over phone about 3 hours prior to arrival, patient was found watching TV on the couch and was complaining of lightheadedness and appeared to have SOB. He was coughing with clear sputum. He also complained of abdominal pain and per family has not had a bowel movement in 2-3 days, which is abnormal for him. ROS for ptn not obtainable due to inability to participate in exam. ER course was notable for: (1) NSR at 78/minute and QTc 465 with T wave inversion in inferolateral leads (2) Trops (0.12) (3) CXR: Cardiomegaly with increased interstitial markings and blunted left costophrenic angle, cardiac device in place Recent Travel: PAST MEDICAL HISTORY: As above PAST SURGICAL HISTORY: As above Social History: Smoking: Unknown Alcohol: Unknown Drugs: Unknown Allergies No Known Allergies Allergy (Verified 08/24/20 22:58) HOME MEDICATIONS: Home Medications Medication Instructions Recorded Atorvastatin Ca [Lipitor] 20 mg PO HS 04/25/19 Omeprazole Magnesium [Prilosec Otc] 40 mg PO DAILY 04/25/19 Terazosin HCl [Hytrin -] 1 mg PO HS 12/18/19 Furosemide [Lasix] 40 mg PO DAILY 05/07/20 Metoprolol Tartrate 25 mg PO BID 05/07/20 Insulin Glargine,Hum.rec.anlog 8 unit SQ DAILY 05/08/20 [Lantus Solostar] Insulin Lispro [Humalog Kwikpen 1 unit SQ DAILY 05/08/20 U-100] Metformin HCl [Glucophage] 500 mg PO BID 05/08/20 Amox-Tr/K Cl [Augmentin 500-125mg 1 tab PO BID@0800,1730 #8 tablet 05/13/20 Tablet -] Aspirin [ASA -] 81 mg PO DAILY #30 tab.chew 05/13/20 Bacitracin - [Bacitracin Topical 1 applic TP DAILY #1 applic 06/28/20 Ointment -] REVIEW OF SYSTEMS ROS Unable to be obtained 2/2 mental status and ability to participate in interview PHYSICAL EXAMINATION Vital Signs - 24 hr 08/24/20 08/25/20 08/25/20 22:56 05:25 06:08 Temperature 98.8 F Pulse Rate 71 Pulse Rate [ 68 Left Radial] Respiratory 18 18 Rate Blood Pressure 147/85 Blood Pressure 141/82 [Left Arm] O2 Sat by Pulse 98 100 98 Oximetry (%) GENERAL: Awake, alert, in no acute distress. HEAD: Normal with no signs of trauma. EYES: Pupils equal, round and reactive to light, conjunctiva clear. No lid lag. EARS, NOSE, THROAT: Ears normal, nares patent, oropharynx clear without exudates. Moist mucous membranes. NECK: Normal range of motion, supple without lymphadenopathy, JVD, or masses. LUNGS: Breath sounds equal, clear to auscultation bilaterally. No wheezes, and no crackles. No accessory muscle use. HEART: Regular rate and rhythm, normal S1 and S2 without murmur, rub or gallop. ABDOMEN: Soft, nontender, not distended, normoactive bowel sounds MUSCULOSKELETAL: Normal range of motion at all joints. No bony deformities or tenderness. No CVA tenderness. UPPER EXTREMITIES: 2+ pulses, warm, well-perfused. No cyanosis. No clubbing. No peripheral edema. LOWER EXTREMITIES: 2+ pulses, warm, well-perfused. No calf tenderness. 1+ pitting edema b/l NEUROLOGICAL: Normal speech. Normal gait. PSYCHIATRIC: Cooperative as capable. Good eye contact. Appropriate mood and af fect. SKIN: Warm, dry, no rashes or lesions noted, normal capillary refill. Laboratory Results - last 24 hr 08/24/20 08/24/20 08/24/20 23:48 23:48 23:48 WBC 5.4 RBC 4.05 Hgb 12.6 Hct 37.4 MCV 92.2 MCH 31.0 MCHC 33.6 RDW 15.3 Plt Count 151 MPV 9.3 Absolute Neuts (auto) 4.2 Neutrophils % 77.9 D Lymphocytes % 15.4 D Monocytes % 4.7 Eosinophils % 1.7 Basophils % 0.3 Nucleated RBC % 0 PT with INR 12.30 INR 1.04 PTT (Actin FS) 25.5 Sodium 142 Potassium 4.9 Chloride 107 Carbon Dioxide 32 Anion Gap 3 L BUN 25.0 H Creatinine 1.0 Est GFR (CKD-EPI)AfAm 82.02 Est GFR (CKD-EPI)NonAf 70.77 Random Glucose 170 H Lactic Acid Calcium 9.0 Phosphorus 3.2 Magnesium 2.3 Total Bilirubin 0.4 AST 32 ALT 53 Alkaline Phosphatase 85 Creatine Kinase 95 Troponin I 0.12 H B-Natriuretic Peptide 1339.7 H Total Protein 6.9 Albumin 3.5 Lipase 236 Urine Color Urine Appearance Urine pH Ur Specific [place] Urine Protein Urine Glucose (UA) Urine Ketones Urine Blood Urine Nitrite Urine Bilirubin Urine Urobilinogen Ur Leukocyte Esterase 08/24/20 08/25/20 23:55 01:30 WBC RBC Hgb Hct MCV MCH MCHC RDW Plt Count MPV Absolute Neuts (auto) Neutrophils % Lymphocytes % Monocytes % Eosinophils % Basophils % Nucleated RBC % PT with INR INR PTT (Actin FS) Sodium Potassium Chloride Carbon Dioxide Anion Gap BUN Creatinine Est GFR (CKD-EPI)AfAm Est GFR (CKD-EPI)NonAf Random Glucose Lactic Acid 1.7 Calcium Phosphorus Magnesium Total Bilirubin AST ALT Alkaline Phosphatase Creatine Kinase Troponin I B-Natriuretic Peptide Total Protein Albumin Lipase Urine Color Yellow Urine Appearance Clear Urine pH 7.0 D Ur Specific [place] 1.018 Urine Protein Trace Urine Glucose (UA) Negative Urine Ketones Negative Urine Blood Negative Urine Nitrite Negative Urine Bilirubin Negative Urine Urobilinogen 0.2 Ur Leukocyte Esterase Negative ASSESSMENT/PLAN: 80 yo M w/ PMHx of HTN, HFpEF, BPH, Insulin-treated DM, Peripheral neuropathy, Venous insufficiency and CVA (~08/2019) BIBEMS w/ complaints of generalized feeling of being unwell. Ptn was unable to fully cooperate with the interview due to mental status however states that he feels unwell and has generalized pain including mild chest pain. Additional history provided by ED via family over phone about 3 hours prior to arrival, patient was found watching TV on the couch and was complaining of lightheadedness and appeared to have SOB. He was coughing with clear sputum. He also complained of abdominal pain and per family has not had a bowel movement in 2-3 days CHF EXACERBATION -No known precipitating factor -CXR: Cardiomegaly with increased interstitial markings and blunted left costophrenic angle,, cardiac device in place -ECHO (12/20/2019): LVEF of 60% -LE Duplex: No evidence of DVT -CT scan refused, Abdominal Sonogram ordered TROPONEMIA LIKELY 2/2 DEMAND ISCHEMIA r/o ACS -Troponins 0.12, will trend to follow decrease -Likely 2/2 CHF exacerbation -Admit to tele DIABETES MELLITUS -ACHS -ISS HYPERTENSION -BP Elevated at ~140 systolic -Reconcile home meds -c/w Lasix 40mg IV daily VENOUS INSUFFICIENCY -1+ pitting edema b/l LE -c/w Lasix 40mg IV PPx: -DVT: Heparin FEN: -No standing fluids, avoid overload -CMP -Diabetic/Salt restricted diet DISPO: -Continue to monitor on telemetry floors Family Medical History Family History: As Documented Visit type - Medication Review Med list reviewed for High Risk Meds patients 65 and older: Yes - Emergency Visit Emergency Visit: Yes ED Registration Date: 08/25/20 Care time: The patient presented to the Emergency Department on the above date and was hospitalized for further evaluation of their emergent condition. - New Patient This patient is new to me today: Yes Date on this admission: 08/26/20 - Critical Care Critical Care patient: No ATTENDING PHYSICIAN STATEMENT I saw and evaluated the patient. I reviewed the resident's note and discussed the case with the resident. I agree with the resident's findings and plan as documented. SUBJECTIVE: OBJECTIVE: ASSESSMENT AND PLAN:
[2020-08-25] MEDS: INSULIN SLIDING SCALE (NOVOLOG) 1 VIAL SQ SCH ×4 (08:12→22:13)
[2020-08-25] MEDS ORDERED: ENOXAPARIN NA (PORCINE) 40 MG/0.4 ML DISP.SYRIN SQ ONE (09:39)
[2020-08-25] MEDS ORDERED: ASPIRIN 81 MG CHEWABLE TABLETS ONE (09:39)
[2020-08-25] MEDS ORDERED: METOPROLOL TARTRATE 25 MG TABLET (FP) ONE (09:39)
[2020-08-25] MEDS ORDERED: INSULIN (LEVEMIR) 100 UNITS/ML UNITS SQ ONE (09:43)
[2020-08-25] MEDS: ENOXAPARIN NA (PORCINE) 40 MG/0.4 ML DISP.SYRIN SQ SCH (09:49)
[2020-08-25] MEDS: INSULIN (LEVEMIR) 100 UNITS/ML UNITS SQ SCH (09:49)
[2020-08-25] MEDS: METOPROLOL TARTRATE 50 MG TABLET (FP) PO SCH ×2 (09:49→21:57)
[2020-08-25] MEDS: ASPIRIN 81 MG CHEWABLE TABLETS PO SCH (09:49)
[2020-08-25] MEDS ORDERED: POLYETHYLENE GLYCOL 3350 119 GM BTL PO SCH (10:00)
[2020-08-25 10:11] LABS: BASO % 0.5 % (0-2.0); EOS % 1.2 % (0-4.5); HEMATOCRIT 37.8 % (35.4-49); HEMOGLOBIN 12.5 GM/dL (11.7-16.9); LYMPH % 23.2 % (8-40); MCH 30.1 pg (25.7-33.7); MCHC 33.1 g/dl (32.0-35.9); MEAN CELL VOLUME 90.9 fl (80-96); MEAN PLT VOLUME 8.8 fl (7.5-11.1); MONO % 7.6 % (3.8-10.2); NEUT % 67.5 % (42.8-82.8); PLATELET COUNT 161 K/MM3 (134-434); RBC 4.16 M/mm3 (4.00-5.60); RDW 15.4 % (11.9-15.9); WHITE BLOOD COUNT 5.3 K/mm3 (4.0-10.0)
[2020-08-25 10:49] LABS: ALBUMIN 3.3 g/dl (3.4-5.0); BILIRUBIN,TOTAL 0.5 mg/dL (0.2-1); BLOOD UREA NITROGEN 22.5 mg/dL (7-18); CREATININE 0.9 mg/dL (0.55-1.3); MAGNESIUM 2.2 mg/dL (1.8-2.4); PHOSPHOROUS 3.2 mg/dL (2.5-4.9); POTASSIUM 3.9 mmol/L (3.5-5.1); TOT PROT 6.9 g/dl (6.4-8.2)
[2020-08-25] MEDS: POLYETHYLENE GLYCOL 3350 119 GM BTL PO SCH ×2 (11:05→22:01)
--- NOTE | 2020-08-25 13:18 | PN ---
Progress Note (short form) - Note Progress Note: cc: "feeling unwell" HPI: 80M HTN, HFpEF, BPH, DM, CVA p/w feeling unwell. 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 Prior to admission he was on the couch watching TV and complained of lightheadedness, dyspnea, was coughing with clear sputum production. Also had abd pain, has not had BM in 2-3 days. Currently he denies chest pain, palps, dizziness, dyspnea. says he feels ok. Received IV lasix in the ER. Sees me for cardio, recently [place] cardiac [place] and [place] [facility] [place]. PMH: HTN, CHF, BPH, DM, venous stasis, and diabetic neuropathy - Alcohol/Substance Use Hx Alcohol Use: No - Smoking History Smoking history: Never smoked Have you smoked in the past 12 months: No Home Medications Medication Instructions Recorded Atorvastatin Ca [Lipitor] 20 mg PO HS 04/25/19 Omeprazole Magnesium [Prilosec Otc] 40 mg PO DAILY 04/25/19 Terazosin HCl [Hytrin -] 1 mg PO HS 12/18/19 Furosemide [Lasix] 40 mg PO DAILY 05/07/20 Metoprolol Tartrate 25 mg PO BID 05/07/20 Insulin Glargine,Hum.rec.anlog 8 unit SQ DAILY 05/08/20 [Lantus Solostar] Insulin Lispro [Humalog Kwikpen 1 unit SQ DAILY 05/08/20 U-100] Metformin HCl [Glucophage] 500 mg PO BID 05/08/20 Aspirin [ASA -] 81 mg PO DAILY #30 tab.chew 05/13/20 Brimonidine Tartrate/Timolol 10 ml OP TID 08/25/20 [Combigan Eye Drops] Allergies Allergy/AdvReac Type Severity Reaction Status Date / Time No Known Allergies Allergy Verified 08/24/20 22:58 Family Medical History Family History: Denies (denies known CMP) Review of Systems - Review of Systems Constitutional: denies: Chills, Fever Eyes: denies: Eye Pain HENT: denies: Nasal Congestion Neck: denies: Stiffness Cardiovascular: denies: Palpitations Respiratory: denies: Orthopnea, PND Gastrointestinal: denies: Diarrhea, Rectal Bleeding Genitourinary: denies: Burning, Hematuria Musculoskeletal: denies: Muscle Pain Integumentary: denies: Rash Neurological: denies: Numbness, Seizure, Syncope Endocrine: denies: Excessive Sweating Hematology/Lymphatic: denies: Excessive Bleeding Vital Signs Period Temp Pulse Resp BP Sys/Flores Pulse Ox Last 24 Hr 98.0 F-98.8 F 68-83 15-20 140-147/82-85 98-100 Constitutional: Yes: Well Nourished, No Distress Eyes: No: Sclera Icterus HENT: No: Nasal Congestion Neck: No: Decreased ROM Respiratory: Yes: Rales (bases). No: Accessory Muscle Use, Wheezes Gastrointestinal: Yes: Normal Bowel Sounds. No: Distention, Hepatomegaly, Palpable Mass, Tenderness Cardiovascular: Yes: Regular Rate and Rhythm JVD: Yes Carotid Bruit: No PMI: Non-Displaced Heart Sounds: Yes: S1, S2. No: Gallop Murmur: No: Systolic Murmur, Diastolic Murmur Musculoskeletal: Yes: Other (No kyphosis) Extremities: No: Cool, Cyanosis Edema: Yes (trace pretib, mild eryth) Peripheral Pulses: 2+ Left Carotid, 2+ Right Carotid, 2+ Left Doralis Pedis, 2+ Right Dorsalis Pedis Integumentary: No: Jaundice Neurological: Yes: Alert. No: Seizure Psychiatric: No: Agitated Laboratory Last Values WBC 5.3 K/mm3 (4.0-10.0) 08/25/20 09:53 RBC 4.16 M/mm3 (4.00-5.60) 08/25/20 09:53 Hgb 12.5 GM/dL (11.7-16.9) 08/25/20 09:53 Hct 37.8 % (35.4-49) 08/25/20 09:53 MCV 90.9 fl (80-96) 08/25/20 09:53 MCH 30.1 pg (25.7-33.7) 08/25/20 09:53 MCHC 33.1 g/dl (32.0-35.9) 08/25/20 09:53 RDW 15.4 % (11.9-15.9) 08/25/20 09:53 Plt Count 161 K/MM3 (134-434) 08/25/20 09:53 MPV 8.8 fl (7.5-11.1) 08/25/20 09:53 Absolute Neuts (auto) 3.6 K/mm3 (1.5-8.0) 08/25/20 09:53 Neutrophils % 67.5 % (42.8-82.8) 08/25/20 09:53 Lymphocytes % 23.2 % (8-40) D 08/25/20 09:53 Monocytes % 7.6 % (3.8-10.2) 08/25/20 09:53 Eosinophils % 1.2 % (0-4.5) 08/25/20 09:53 Basophils % 0.5 % (0-2.0) 08/25/20 09:53 Nucleated RBC % 0 % (0-0) 08/25/20 09:53 PT with INR 12.30 SEC (9.7-13.0) 08/24/20 23:48 INR 1.04 (0.83-1.09) 08/24/20 23:48 PTT (Actin FS) 25.5 SECONDS (25.2-36.5) 08/24/20 23:48 Sodium 142 mmol/L (136-145) 08/25/20 09:53 Potassium 3.9 mmol/L (3.5-5.1) 08/25/20 09:53 Chloride 105 mmol/L (98-107) 08/25/20 09:53 Carbon Dioxide 31 mmol/L (21-32) 08/25/20 09:53 Anion Gap 6 MMOL/L (8-16) L 08/25/20 09:53 BUN 22.5 mg/dL (7-18) H 08/25/20 09:53 Creatinine 0.9 mg/dL (0.55-1.3) 08/25/20 09:53 Est GFR (CKD-EPI)AfAm 93.16 08/25/20 09:53 Est GFR (CKD-EPI)NonAf 80.38 08/25/20 09:53 POC Glucometer 204 UNITS (80-120) 08/25/20 11:30 Random Glucose 194 mg/dL (74-106) H 08/25/20 09:53 Hemoglobin A1c % 8.1 % (4.2-6.3) H 08/25/20 09:53 Lactic Acid 1.7 mmol/L (0.4-2.0) 08/24/20 23:55 Calcium 9.0 mg/dL (8.5-10.1) 08/25/20 09:53 Phosphorus 3.2 mg/dL (2.5-4.9) 08/25/20 09:53 Magnesium 2.2 mg/dL (1.8-2.4) 08/25/20 09:53 Total Bilirubin 0.5 mg/dL (0.2-1) 08/25/20 09:53 AST 28 U/L (15-37) 08/25/20 09:53 ALT 50 U/L (13-61) 08/25/20 09:53 Alkaline Phosphatase 79 U/L (45-117) 08/25/20 09:53 Creatine Kinase 95 U/L (26-308) 08/24/20 23:48 Troponin I 0.20 ng/ml (0.00-0.05) H 08/25/20 12:07 B-Natriuretic Peptide 1339.7 pg/ml (5-450) H 08/24/20 23:48 Total Protein 6.9 g/dl (6.4-8.2) 08/25/20 09:53 Albumin 3.3 g/dl (3.4-5.0) L 08/25/20 09:53 Lipase 236 U/L (73-393) 08/24/20 23:48 Urine Color Yellow 08/25/20 01:30 Urine Appearance Clear 08/25/20 01:30 Urine pH 7.0 (5.0-8.0) D 08/25/20 01:30 Ur Specific [place] 1.018 (1.010-1.035) 08/25/20 01:30 Urine Protein Trace (NEGATIVE) 08/25/20 01:30 Urine Glucose (UA) Negative (NEGATIVE) 08/25/20 01:30 Urine Ketones Negative (NEGATIVE) 08/25/20 01:30 Urine Blood Negative (NEGATIVE) 08/25/20 01:30 Urine Nitrite Negative (NEGATIVE) 08/25/20 01:30 Urine Bilirubin Negative (NEGATIVE) 08/25/20 01:30 Urine Urobilinogen 0.2 mg/dL (0.2-1.0) 10/10/20 01:30 Ur Leukocyte Esterase Negative (NEGATIVE) 08/25/20 01:30 echo 12/20/2019 severe conc LVH, nl LV funciton, mild MAC, tr MR, mild TR, RVSP 29 mmHg, tr AR, mod pericardial effusion repeat echo 12/26/2019 large effusion mildly improved anteriorly, remains mod to large. severe LV/RVH, nl EF, restrictive pattern on mitral inflow consider amyloidosis.eg Echo 06/2020 severe conc LVH, restrictive filling 1. There is severe concentric left ventricular hypertrophy. 2. Restrictive LV filling pattern. 3. Normal right ventricular cavity size and systolic function. 4. The global wall thickness of the right ventricle is moderately enlarged. 5. Left atrium is moderately dilated by volume. 6. The right atrium is mildly dilated. 7. Trace amount of aortic regurgitation. 8. Mild mitral regurgitation is present. 9. Mild tricuspid regurgitation present. Assessment/Plan CXR: +congestive changes, + loop recorder implant seen ECG: NSR, ? old AWMI, NSST-Ts stable compared to prior 80M HTN, HFpEF, BPH, DM, CVA p/w feeling unwell. acute on chronic diastolic HF - congestion on CXR, BNP elevated however similar to prior - symptoms improved with IV lasix, appears euvolemic now - resume PO lasix - had outpatient workup for amyloidosis planned - patient refused testing elevated trop - indeterminate range, flat trend - likely demand in setting of CHF exacerbation - EKG similar to prior, no ischemic changes, unlikely ACS abd pain - refused CT abdomen - workup per primary CVA - has loop monitor in place, outpatient monitoring HTN: -on metoprolol, lasix, stable DM: -per hospitalist pericardial effusion - stable, monitoring as outpatient HLD - cont statin
--- NOTE | 2020-08-25 13:18 | EKG ---
Test Reason : Blood Pressure : / mmHG Vent. Rate : 078 BPM Atrial Rate : 078 BPM P-R Int : 200 ms QRS Dur : 092 ms QT Int : 408 ms P-R-T Axes : 050 059 185 degrees QTc Int : 465 ms NORMAL SINUS RHYTHM ANTERIOR INFARCT , AGE UNDETERMINED T WAVE ABNORMALITY, CONSIDER INFEROLATERAL ISCHEMIA ABNORMAL ECG WHEN COMPARED WITH ECG OF 08-MAY-2020 10:24, NO SIGNIFICANT CHANGE WAS FOUND Confirmed by Laura Lambert ([id number]) on 08/25/2020 1:17:54 PM Referred By: Confirmed By:Laura Lambert
--- NOTE | 2020-08-25 13:18 | EKG ---
Test Reason : Blood Pressure : / mmHG Vent. Rate : 081 BPM Atrial Rate : 081 BPM P-R Int : 186 ms QRS Dur : 098 ms QT Int : 406 ms P-R-T Axes : 040 091 -01 degrees QTc Int : 471 ms SINUS RHYTHM WITH PREMATURE ATRIAL COMPLEXES RIGHTWARD AXIS T WAVE ABNORMALITY, CONSIDER INFEROLATERAL ISCHEMIA PROLONGED QT ABNORMAL ECG WHEN COMPARED WITH ECG OF 25-AUG-2020 00:17, PREMATURE ATRIAL COMPLEXES ARE NOW PRESENT Confirmed by Laura Lambert ([id number]) on 08/25/2020 1:18:07 PM Referred By: Confirmed By:Laura Lambert
[2020-08-25] MEDS ORDERED: LISINOPRIL 5 MG TABLET ONE (14:29)
[2020-08-25] MEDS: LISINOPRIL 10 MG TABLET PO SCH (14:37)
--- NOTE | 2020-08-25 16:39 | PN ---
Progress Note (short form) - Note Progress Note: S: Patient was slightly confused, however was pleasant, awake, and verbally appropriate. Patient is a poor historian and spoke to family regarding events around admission. Patient was lightheaded and dizzy upon initial presentation per family which is why they brought him into the hospital. Usually he is aware of his surroundings and may be slightly more oriented, however noted to have waxing and waning mentation around acute hospitalizations/events. Otherwise patient denies any complaints or symptoms at this time. Vital Signs Temperature 98.0 F 08/25/20 11:49 Pulse Rate 72 08/25/20 15:59 Respiratory Rate 17 08/25/20 15:59 Blood Pressure 130/79 08/25/20 15:59 O2 Sat by Pulse Oximetry (%) 98 08/25/20 15:59 PE: Gen: NAD, awake, alert, oriented about x2, however will reorient with minimal assistance HEENT: NC/AT, EOMI, MEGAN, MMM Neck: No JVD appreciated on exam LUNG: CTA without any wheezes or rales CARD: RRR no murmurs ABD: Soft, NT/ND, no hepatojugular reflux, on guarding EXT: no edema, strong pulses CBC, BMP 08/25/20 09:53 08/25/20 09:53 Hepatic Panel Total Bilirubin 0.5 mg/dL (0.2-1) 08/25/20 09:53 AST 28 U/L (15-37) 08/25/20 09:53 ALT 50 U/L (13-61) 08/25/20 09:53 Alkaline Phosphatase 79 U/L (45-117) 08/25/20 09:53 Albumin 3.3 g/dl (3.4-5.0) L 08/25/20 09:53 Active Medications Aspirin (Asa -) 81 mg PO DAILY [facility] Last Admin: 08/25/20 09:49 Dose: 81 mg Documented by: Atorvastatin Calcium (Lipitor -) 20 mg PO HS [facility] Enoxaparin Sodium (Lovenox -) 40 mg SQ DAILY [facility] Last Admin: 08/25/20 09:49 Dose: 40 mg Documented by: Furosemide (Lasix -) 40 mg PO DAILY [facility] Insulin Aspart (Novolog Vial Sliding Scale -) 1 vial SQ [facility]; Protocol Last Admin: 08/25/20 11:32 Dose: 4 unit Documented by: Insulin Detemir (Levemir Vial) 8 units SQ DAILY [facility] Last Admin: 08/25/20 09:49 Dose: 8 unit Documented by: Lisinopril (Prinivil) 10 mg PO DAILY [facility] Last Admin: 08/25/20 14:37 Dose: 10 mg Documented by: Metoprolol Tartrate (Lopressor -) 25 mg PO BID [facility] Last Admin: 08/25/20 09:49 Dose: 25 mg Documented by: Polyethylene Glycol (Miralax (For Daily Use) -) 17 gm PO BID [facility] Last Admin: 08/25/20 11:05 Dose: 17 gm Documented by: Terazosin HCl (Hytrin -) 1 mg PO [facility] Assessment and Plan: Acute on chronic diastolic heart failure Troponinemia likely demand History of cryoptogenic CVA Hyperglycemia History of HTN History of DM History of Pericardial Effusion --Patient received IV lasix and appears euvolemic with volume status --Discussed with cardiology and can transition to PO Lasix tomorrow per his home dose --Prior outpatient workup for suspicion of amyloid cardiomyopath begun, however patient refused further testing --Elevated troponin likely demand ischemia; will follow AM troponin --Will need to follow loop monitor in outpatien setting --Continue Lopressor and Lisinopril home doses --ASA 81 qdaily --Continue home medications --Pericardial effusion stable --Hyperglycemia noted; medications reconciled and can continue home dose levemir --BGM and ISS coverage during short stay Discussed with patient's family via telephone about how pt will likely be discharged tomorrow if continued upward trend. They are okay with this and will monitor his mental and volume status Rell Eldridge DO - IM
[2020-08-25] MEDS ORDERED: PT OWN MED DRAWER 7, Y5N ONE (20:49)
[2020-08-25] MEDS ORDERED: ATORVASTATIN CA 20 MG TABLET (FP) PO SCH (22:00)
[2020-08-25] MEDS ORDERED: TERAZOSIN HCL 1 MG CAPSULE PO SCH (22:00)
[2020-08-26] MEDS: INSULIN SLIDING SCALE (NOVOLOG) 1 VIAL SQ SCH ×2 (06:34→12:05)
[2020-08-26 07:22] LABS: BLOOD UREA NITROGEN 25.4 mg/dL (7-18); CALCIUM 8.8 mg/dL (8.5-10.1); POTASSIUM 3.8 mmol/L (3.5-5.1)
[2020-08-26] MEDS: LISINOPRIL 10 MG TABLET PO SCH (09:44)
[2020-08-26] MEDS: ASPIRIN 81 MG CHEWABLE TABLETS PO SCH (09:44)
[2020-08-26] MEDS: INSULIN (LEVEMIR) 100 UNITS/ML UNITS SQ SCH (09:44)
[2020-08-26] MEDS: ENOXAPARIN NA (PORCINE) 40 MG/0.4 ML DISP.SYRIN SQ SCH (09:44)
[2020-08-26] MEDS: METOPROLOL TARTRATE 50 MG TABLET (FP) PO SCH (09:44)
[2020-08-26] MEDS: POLYETHYLENE GLYCOL 3350 119 GM BTL PO SCH (09:45)
[2020-08-26] MEDS ORDERED: FUROSEMIDE 40 MG TABLET (FP) PO SCH (10:00)
[2020-08-26] MEDS ORDERED: FUROSEMIDE 40 MG/4 ML INJECTABLE VIAL IVPUSH SCH (10:00)
--- NOTE | 2020-08-26 12:26 | PN ---
Progress Note (short form) - Note Progress Note: cc: "feeling unwell" s: feels better, wants to go home. no chest pain, palps, dizziness, dyspnea Current Medications Generic Name Dose Route Start Last Admin Trade Name Anay PRN Reason Stop Dose Admin Aspirin 81 mg 08/25/20 10:00 08/26/20 09:44 Asa - PO 81 mg DAILY [facility] Administration Atorvastatin Calcium 20 mg 08/25/20 22:00 08/25/20 21:58 Lipitor - PO 20 mg HS [facility] Administration Enoxaparin Sodium 40 mg 08/25/20 10:00 08/26/20 09:44 Lovenox - SQ 40 mg DAILY [facility] Administration Furosemide 40 mg 08/26/20 10:00 08/26/20 09:44 Lasix - PO 40 mg DAILY [facility] Administration Influenza Virus Vaccine 60 mcg 08/26/20 10:00 Flulaval Quad [id number] Syr IM 08/26/20 10:01 .ONCE ONE Insulin Aspart 1 vial 08/25/20 07:00 08/26/20 12:05 Novolog Vial Sliding Scale - SQ 2 unit ACHS [facility] Administration Protocol Insulin Detemir 8 units 08/25/20 10:00 08/26/20 09:44 Levemir Vial SQ 8 unit DAILY [facility] Administration Lisinopril 10 mg 08/25/20 13:45 08/26/20 09:44 Prinivil PO 10 mg DAILY [facility] Administration Metoprolol Tartrate 25 mg 08/25/20 10:00 08/26/20 09:44 Lopressor - PO 25 mg BID [facility] Administration Polyethylene Glycol 17 gm 08/25/20 10:00 08/26/20 09:45 Miralax (For Daily Use) - PO Not Given BID [facility] Terazosin HCl 1 mg 08/25/20 22:00 08/25/20 21:54 Hytrin - PO 1 mg HS [facility] Administration Vital Signs Period Temp Pulse Resp BP Sys/Flores Pulse Ox Last 24 Hr 98.0 F-98.2 F 72-92 17-20 111-147/76-89 96-98 Constitutional: Yes: Well Nourished, No Distress Eyes: No: Sclera Icterus HENT: No: Nasal Congestion Neck: No: Decreased ROM Respiratory: Yes: no No: Accessory Muscle Use, Wheezes Gastrointestinal: Yes: Normal Bowel Sounds. No: Distention, Hepatomegaly, Palpable Mass, Tenderness Cardiovascular: Yes: Regular Rate and Rhythm JVD: Yes Carotid Bruit: No PMI: Non-Displaced Heart Sounds: Yes: S1, S2. No: Gallop Murmur: No: Systolic Murmur, Diastolic Murmur Musculoskeletal: Yes: Other (No kyphosis) Extremities: No: Cool, Cyanosis Edema: no Peripheral Pulses: 2+ Left Carotid, 2+ Right Carotid, 2+ Left Doralis Pedis, 2+ Right Dorsalis Pedis Integumentary: No: Jaundice Neurological: Yes: Alert. No: Seizure Psychiatric: No: Agitated Laboratory Last Values WBC 5.3 K/mm3 (4.0-10.0) 08/25/20 09:53 RBC 4.16 M/mm3 (4.00-5.60) 08/25/20 09:53 Hgb 12.5 GM/dL (11.7-16.9) 08/25/20 09:53 Hct 37.8 % (35.4-49) 08/25/20 09:53 MCV 90.9 fl (80-96) 08/25/20 09:53 MCH 30.1 pg (25.7-33.7) 08/25/20 09:53 MCHC 33.1 g/dl (32.0-35.9) 08/25/20 09:53 RDW 15.4 % (11.9-15.9) 08/25/20 09:53 Plt Count 161 K/MM3 (134-434) 08/25/20 09:53 MPV 8.8 fl (7.5-11.1) 08/25/20 09:53 Absolute Neuts (auto) 3.6 K/mm3 (1.5-8.0) 08/25/20 09:53 Neutrophils % 67.5 % (42.8-82.8) 08/25/20 09:53 Lymphocytes % 23.2 % (8-40) D 08/25/20 09:53 Monocytes % 7.6 % (3.8-10.2) 08/25/20 09:53 Eosinophils % 1.2 % (0-4.5) 08/25/20 09:53 Basophils % 0.5 % (0-2.0) 08/25/20 09:53 Nucleated RBC % 0 % (0-0) 08/25/20 09:53 PT with INR 12.30 SEC (9.7-13.0) 08/24/20 23:48 INR 1.04 (0.83-1.09) 08/24/20 23:48 PTT (Actin FS) 25.5 SECONDS (25.2-36.5) 08/24/20 23:48 Sodium 142 mmol/L (136-145) 08/26/20 06:35 Potassium 3.8 mmol/L (3.5-5.1) 08/26/20 06:35 Chloride 106 mmol/L (98-107) 08/26/20 06:35 Carbon Dioxide 30 mmol/L (21-32) 08/26/20 06:35 Anion Gap 5 MMOL/L (8-16) L 08/26/20 06:35 BUN 25.4 mg/dL (7-18) H 08/26/20 06:35 Creatinine 1.0 mg/dL (0.55-1.3) 08/26/20 06:35 Est GFR (CKD-EPI)AfAm 82.02 08/26/20 06:35 Est GFR (CKD-EPI)NonAf 70.77 08/26/20 06:35 POC Glucometer 193 UNITS (80-120) 08/26/20 12:04 Random Glucose 134 mg/dL (74-106) H 08/26/20 06:35 Hemoglobin A1c % 8.1 % (4.2-6.3) H 08/25/20 09:53 Lactic Acid 1.7 mmol/L (0.4-2.0) 08/24/20 23:55 Calcium 8.8 mg/dL (8.5-10.1) 08/26/20 06:35 Phosphorus 3.2 mg/dL (2.5-4.9) 08/25/20 09:53 Magnesium 2.2 mg/dL (1.8-2.4) 08/25/20 09:53 Total Bilirubin 0.5 mg/dL (0.2-1) 08/25/20 09:53 AST 28 U/L (15-37) 08/25/20 09:53 ALT 50 U/L (13-61) 08/25/20 09:53 Alkaline Phosphatase 79 U/L (45-117) 08/25/20 09:53 Creatine Kinase 95 U/L (26-308) 08/24/20 23:48 Troponin I 0.20 ng/ml (0.00-0.05) H 08/26/20 06:35 B-Natriuretic Peptide 1339.7 pg/ml (5-450) H 08/24/20 23:48 Total Protein 6.9 g/dl (6.4-8.2) 08/25/20 09:53 Albumin 3.3 g/dl (3.4-5.0) L 08/25/20 09:53 Lipase 236 U/L (73-393) 08/24/20 23:48 Urine Color Yellow 08/25/20 01:30 Urine Appearance Clear 08/25/20 01:30 Urine pH 7.0 (5.0-8.0) D 08/25/20 01:30 Ur Specific [place] 1.018 (1.010-1.035) 08/25/20 01:30 Urine Protein Trace (NEGATIVE) 08/25/20 01:30 Urine Glucose (UA) Negative (NEGATIVE) 08/25/20 01:30 Urine Ketones Negative (NEGATIVE) 08/25/20 01:30 Urine Blood Negative (NEGATIVE) 08/25/20 01:30 Urine Nitrite Negative (NEGATIVE) 08/25/20 01:30 Urine Bilirubin Negative (NEGATIVE) 08/25/20 01:30 Urine Urobilinogen 0.2 mg/dL (0.2-1.0) 08/25/20 01:30 Ur Leukocyte Esterase Negative (NEGATIVE) 08/25/20 01:30 echo 12/20/2019 severe conc LVH, nl LV funciton, mild MAC, tr MR, mild TR, RVSP 29 mmHg, tr AR, mod pericardial effusion repeat echo 12/26/2019 large effusion mildly improved anteriorly, remains mod to large. severe LV/RVH, nl EF, restrictive pattern on mitral inflow consider amyloidosis.eg Echo 06/2020 severe conc LVH, restrictive filling 1. There is severe concentric left ventricular hypertrophy. 2. Restrictive LV filling pattern. 3. Normal right ventricular cavity size and systolic function. 4. The global wall thickness of the right ventricle is moderately enlarged. 5. Left atrium is moderately dilated by volume. 6. The right atrium is mildly dilated. 7. Trace amount of aortic regurgitation. 8. Mild mitral regurgitation is present. 9. Mild tricuspid regurgitation present. Assessment/Plan CXR: +congestive changes, + loop recorder implant seen ECG: NSR, ? old AWMI, NSST-Ts stable compared to prior tele: sinus 80M HTN, HFpEF, BPH, DM, CVA p/w feeling unwell. acute on chronic diastolic HF - congestion on CXR, BNP elevated however similar to prior - symptoms improved with IV lasix, appears euvolemic now - cont PO lasix - had outpatient workup for amyloidosis planned - patient refused testing elevated trop - indeterminate range, flat trend - likely demand in setting of CHF exacerbation - EKG similar to prior, no ischemic changes, unlikely ACS abd pain - refused CT abdomen - workup per primary CVA - has loop monitor in place, outpatient monitoring HTN: -on metoprolol, lasix, stable DM: -per hospitalist pericardial effusion - stable, monitoring as outpatient HLD - cont statin
--- NOTE | 2020-08-26 15:01 | DS ---
Physical Exam: SUBJECTIVE: Feels better today. No complaints. Used RN for translation and answered any questions. Patient wishes to go home and is amenable for home physical therapy. OBJECTIVE: Vital Signs Period Temp Pulse Resp BP Sys/Flores Pulse Ox Last 24 Hr 98.0 F-98.2 F 72-92 17-20 111-147/76-89 96-98 PHYSICAL EXAM Gen: NAD, awake, alert, oriented about x2, however will reorient with minimal assistance HEENT: NC/AT, EOMI, MEGAN, MMM Neck: No JVD appreciated on exam LUNG: CTA without any wheezes or rales CARD: RRR no murmurs ABD: Soft, NT/ND, no hepatojugular reflux, on guarding EXT: no edema, strong pulses LABS Laboratory Results - last 24 hr 08/25/20 08/25/20 08/25/20 05:30 17:35 22:08 Sodium Potassium Chloride Carbon Dioxide Anion Gap BUN Creatinine Est GFR (CKD-EPI)AfAm Est GFR (CKD-EPI)NonAf POC Glucometer 149 174 Random Glucose Calcium Troponin I COVID-19 ([place]) Not detected 08/26/20 08/26/20 08/26/20 06:18 06:35 12:04 Sodium 142 Potassium 3.8 Chloride 106 Carbon Dioxide 30 Anion Gap 5 L BUN 25.4 H Creatinine 1.0 Est GFR (CKD-EPI)AfAm 82.02 Est GFR (CKD-EPI)NonAf 70.77 POC Glucometer 123 193 Random Glucose 134 H Calcium 8.8 Troponin I 0.20 H COVID-19 ([place]) HOSPITAL COURSE: Date of Admission:08/25/20 Date of Discharge: 08/26/20 Pt admitted on 08/25/20 due to some alteration in mentation and congestive failure signs. Patient admitted to telemetry and diuresed with Lasix 40mg IVP. His mentation improved to baseline without overt intervention and remained stable throughout. Patient was transitioned to oral diuretics and returned to this normal home medications. Patient is in stable condition, in euvolemic state, and eager to go home. Discussed the course with his family members and answered any questions. Patient will have home services including physical therapy. Minutes to complete discharge: 33 Discharge Summary Problems reviewed: Yes Reason For Visit: ACUTE ON CHRONIC CONGESTIVE HEART FAILURE Current Active Problems CHF exacerbation (Acute) Condition: Stable - Instructions Diet, Activity, Other Instructions: You were seen here because you were weak and slightly altered. You were given some lasix to get build up water out of your system and you are better now. We also found that you have a cyst in your kidney and will need to follow-up with Kelly Duenas about this. You will have a visiting nurse to come see how you are doing when you are home. MEDICATIONS: Please continue your home medications like you have been prior to this hospitalization FOLLOW-UP: Please follow-up with Dr. Duenas and Dr. Lambert within 1-2 weeks. Referrals: Laura Lambert MD [Staff Physician] - Angel Duenas MD [Non Staff, Medical] - Disposition: VNS/HOME HEALTH CARE - Home Medications Comprehensive Discharge Medication List: Ambulatory Orders Atorvastatin Ca [Lipitor] 20 mg PO HS 04/25/19 Omeprazole Magnesium [Prilosec Otc] 40 mg PO DAILY 04/25/19 Terazosin HCl [Hytrin -] 1 mg PO HS 12/18/19 Furosemide [Lasix] 40 mg PO DAILY 05/07/20 Metoprolol Tartrate 25 mg PO BID 05/07/20 Insulin Glargine,Hum.rec.anlog [Lantus Solostar] 8 unit SQ DAILY 05/08/20 Insulin Lispro [Humalog Kwikpen U-100] 1 unit SQ DAILY 05/08/20 Metformin HCl [Glucophage] 500 mg PO BID 05/08/20 Aspirin [ASA -] 81 mg PO DAILY #30 tab.chew 05/13/20 Brimonidine Tartrate/Timolol [Combigan 0.2%-0.5% Eye Drops] 10 ml OP TID 08/25/20 Lisinopril [Prinivil] 10 mg PO DAILY 08/25/20 This patient is new to me today: Yes Date on this admission: 08/25/20 Emergency Visit: Yes ED Registration Date: 08/25/20 Care time: The patient presented to the Emergency Department on the above date and was hospitalized for further evaluation of their emergent condition. Critical Care patient: No - Discharge Referral Referred to [facility] Med P.C.: No
[2020-08-26 15:07] VITALS: BP 110/70; PULSE 79; TEMP 97.8
[2020-08-26] MEDS ORDERED: FLU VACCINE (FLULAVAL) PF 60 MCG/0.5 ML SYRINGE 2020-2021 IM ONE (16:00)
== END 2020-08-26 16:34 | disposition home health service (06) | DRG 292 ==
LOC: JER 22:37 → JERBED 08-25 02:43 → J4W 08-25 16:16
PROVIDERS: ADMIT Internal Medicine; ATTEND Internal Medicine
DX: I11.0 Hypertensive heart disease with heart failure (principal); I24.8 Other forms of acute ischemic heart disease; I31.3 Pericardial effusion (noninflammatory); I50.33 Acute on chronic diastolic (congestive) heart failure; E11.42 Type 2 diabetes mellitus with diabetic polyneuropathy; N40.0 Benign prostatic hyperplasia without lower urinary tract symptoms; Z86.73 Personal history of transient ischemic attack (TIA), and cerebral infarction without residual deficits; Z79.4 Long term (current) use of insulin; F32.9 Major depressive disorder, single episode, unspecified; K21.9 Gastro-esophageal reflux disease without esophagitis; I87.2 Venous insufficiency (chronic) (peripheral); E11.65 Type 2 diabetes mellitus with hyperglycemia
CPT/HCPCS: 36415; 71045-TC-FY; 76700-TC; 80048; 80053; 81003; 82550; 82962; 83036; 83605; 83690; 83735; 83880; 84100; 84484; 85025; 85610; 85730; 93005; 93010; 93970-TC; 99285-25; C9803; U0003

== ENCOUNTER 2020-12-04 12:24 | Inpatient (IN) | payer OTHER ==
[2020-12-04] MEDS ORDERED: SODIUM CHLORIDE 1,000 ML IV SCH (13:30)
[2020-12-04] MEDS ORDERED: MECLIZINE HCL 25 MG TABLET (FP) PO ONE (13:32)
[2020-12-04] MEDS ORDERED: METOCLOPRAMIDE HCL INJECTION 10 MG/2 ML VIAL IVPUSH ONE (13:32)
[2020-12-04 13:39] VITALS: BMI 28.8
[2020-12-04] MEDS ORDERED: MECLIZINE HCL 25 MG TABLET (FP) ONE (13:48)
[2020-12-04] MEDS ORDERED: METOCLOPRAMIDE HCL INJECTION 10 MG/2 ML VIAL ONE (13:48)
[2020-12-04 13:55] LABS: BASO % 0.5 % (0-2.0); EOS % 2.5 % (0-4.5); HEMATOCRIT 37.7 % (35.4-49); HEMOGLOBIN 12.5 GM/dL (11.7-16.9); LYMPH % 23.4 % (8-40); MCH 31.4 pg (25.7-33.7); MCHC 33.2 g/dl (32.0-35.9); MEAN CELL VOLUME 94.6 fl (80-96); MEAN PLT VOLUME 8.8 fl (7.5-11.1); MONO % 7.9 % (3.8-10.2); NEUT % 65.7 % (42.8-82.8); PLATELET COUNT 191 K/MM3 (134-434); RBC 3.98 M/mm3 (4.00-5.60); RDW 15.7 % (11.9-15.9)
[2020-12-04 14:05] LABS: INR 1.22 (0.83-1.09); PROTHROMBIN TIME (PATIENT) 14.7 SEC (9.7-13.0)
[2020-12-04 14:07] LABS: ACTIVATED PTT 29.4 SECONDS (25.2-36.5)
[2020-12-04 14:24] LABS: POTASSIUM 3.9 mmol/L (3.5-5.1)
[2020-12-04 14:27] LABS: CALCIUM 8.9 mg/dL (8.5-10.1)
[2020-12-04 14:28] LABS: ALBUMIN 3.7 g/dl (3.4-5.0); BLOOD UREA NITROGEN 15.1 mg/dL (7-18); MAGNESIUM 2.1 mg/dL (1.8-2.4)
[2020-12-04 14:31] LABS: CREATININE 0.9 mg/dL (0.55-1.3)
[2020-12-04 14:32] LABS: BILIRUBIN,TOTAL 0.8 mg/dL (0.2-1); TOT PROT 7.2 g/dl (6.4-8.2)
[2020-12-04 14:33] LABS: N-TERMINAL BNP 1921.3 pg/ml (5-450)
[2020-12-04] MEDS ORDERED: ASPIRIN 81 MG CHEWABLE TABLETS PO ONE (15:00)
[2020-12-04] MEDS ORDERED: ASPIRIN 81 MG CHEWABLE TABLETS ONE (15:06)
[2020-12-04 16:00] LABS: URINE APPEARANCE CLEAR; URINE BILIRUBIN NEGATIVE (NEGATIVE); URINE COLOR YELLOW; URINE GLUCOSE (UA) NEGATIVE (NEGATIVE); URINE KETONE NEGATIVE (NEGATIVE); URINE LEUK ESTERASE NEGATIVE (NEGATIVE); URINE NITRITE NEGATIVE (NEGATIVE); URINE PROTEIN NEGATIVE (NEGATIVE)
[2020-12-04] MEDS ORDERED: ATORVASTATIN CA 20 MG TABLET (FP) PO ONE (16:53)
[2020-12-04] MEDS: INSULIN SLIDING SCALE (NOVOLOG) 1 VIAL SQ SCH ×2 (17:55→23:59)
[2020-12-04] MEDS ORDERED: ATORVASTATIN CA 20 MG TABLET (FP) ONE (17:59)
[2020-12-04] MEDS ORDERED: ATORVASTATIN CA 40 MG TABLET (FP) ONE (22:42)
[2020-12-04] MEDS ORDERED: HEPARIN NA (PORCINE) 5,000 UNITS/ML 1ML VIAL ONE (22:42)
[2020-12-04] MEDS: HEPARIN NA (PORCINE) 5,000 UNITS/ML 1ML VIAL SQ SCH (23:00)
[2020-12-04] MEDS: ATORVASTATIN CA 40 MG TABLET (FP) PO SCH (23:00)
[2020-12-05] MEDS: HEPARIN NA (PORCINE) 5,000 UNITS/ML 1ML VIAL SQ SCH ×3 (06:04→22:38)
[2020-12-05] MEDS: INSULIN SLIDING SCALE (NOVOLOG) 1 VIAL SQ SCH ×4 (06:04→22:38)
[2020-12-05 07:49] LABS: POTASSIUM 3.5 mmol/L (3.5-5.1)
[2020-12-05 07:59] LABS: ALBUMIN 3.5 g/dl (3.4-5.0); CALCIUM 9.1 mg/dL (8.5-10.1)
[2020-12-05 08:00] LABS: BILIRUBIN,TOTAL 1.1 mg/dL (0.2-1); TOT PROT 6.9 g/dl (6.4-8.2)
[2020-12-05 08:02] LABS: CREATININE 0.7 mg/dL (0.55-1.3); PHOSPHOROUS 3.3 mg/dL (2.5-4.9)
[2020-12-05] MEDS: PANTOPRAZOLE 40 MG TABLET PO SCH (09:13)
[2020-12-05] MEDS: ASPIRIN 81 MG CHEWABLE TABLETS PO SCH (09:14)
[2020-12-05] MEDS: BACITRACIN 15 GM TUBE TOPICAL OINTMENT TP SCH ×2 (14:03→22:38)
[2020-12-05] MEDS ORDERED: ATORVASTATIN CA 20 MG TABLET (FP) PO SCH (22:00)
[2020-12-05] MEDS ORDERED: METOPROLOL TARTRATE 5 MG/5 ML VIAL IVPUSH ONE (22:23)
[2020-12-05] MEDS: MELATONIN 1 MG TABLET PO SCH (22:38)
[2020-12-05] MEDS: ATORVASTATIN CA 40 MG TABLET (FP) PO SCH (22:38)
[2020-12-06] MEDS: HEPARIN NA (PORCINE) 5,000 UNITS/ML 1ML VIAL SQ SCH ×3 (06:14→21:45)
[2020-12-06] MEDS: INSULIN SLIDING SCALE (NOVOLOG) 1 VIAL SQ SCH ×4 (06:15→21:45)
[2020-12-06 08:23] LABS: POTASSIUM 3.6 mmol/L (3.5-5.1)
[2020-12-06 08:27] LABS: BASO % 0.3 % (0-2.0); EOS % 1.4 % (0-4.5); HEMATOCRIT 39.1 % (35.4-49); HEMOGLOBIN 12.9 GM/dL (11.7-16.9); MEAN CELL VOLUME 93.9 fl (80-96); MEAN PLT VOLUME 9.6 fl (7.5-11.1); MONO % 9.8 % (3.8-10.2); NEUT % 60.5 % (42.8-82.8); PLATELET COUNT 198 K/MM3 (134-434); RBC 4.16 M/mm3 (4.00-5.60); RDW 15.3 % (11.9-15.9); WHITE BLOOD COUNT 5.2 K/mm3 (4.0-10.0)
[2020-12-06 08:29] LABS: CALCIUM 8.9 mg/dL (8.5-10.1)
[2020-12-06 08:30] LABS: ALBUMIN 3.3 g/dl (3.4-5.0); BLOOD UREA NITROGEN 12.3 mg/dL (7-18); MAGNESIUM 2.1 mg/dL (1.8-2.4)
[2020-12-06 08:33] LABS: BILIRUBIN,TOTAL 1.4 mg/dL (0.2-1); CREATININE 0.7 mg/dL (0.55-1.3); TOT PROT 6.9 g/dl (6.4-8.2)
[2020-12-06] MEDS: BACITRACIN 15 GM TUBE TOPICAL OINTMENT TP SCH ×2 (09:59→22:45)
[2020-12-06] MEDS: ASPIRIN 81 MG CHEWABLE TABLETS PO SCH (09:59)
[2020-12-06] MEDS: FUROSEMIDE 40 MG TABLET (FP) PO SCH (09:59)
[2020-12-06] MEDS: PANTOPRAZOLE 40 MG TABLET PO SCH (09:59)
[2020-12-06] MEDS ORDERED: LORazepam 2 MG/ML SDV VIAL IVPUSH ONE (16:40)
[2020-12-06] MEDS: ATORVASTATIN CA 40 MG TABLET (FP) PO SCH (21:46)
[2020-12-06] MEDS: METOPROLOL TARTRATE 50 MG TABLET (FP) PO SCH (21:46)
[2020-12-06] MEDS: MELATONIN 1 MG TABLET PO SCH (21:46)
[2020-12-07] MEDS: HEPARIN NA (PORCINE) 5,000 UNITS/ML 1ML VIAL SQ SCH (06:41)
[2020-12-07] MEDS: INSULIN SLIDING SCALE (NOVOLOG) 1 VIAL SQ SCH ×3 (06:41→16:52)
[2020-12-07 07:51] LABS: BASO % 0.3 % (0-2.0); EOS % 1.4 % (0-4.5); HEMATOCRIT 38.7 % (35.4-49); HEMOGLOBIN 12.7 GM/dL (11.7-16.9); MCH 31.1 pg (25.7-33.7); MCHC 32.9 g/dl (32.0-35.9); MEAN CELL VOLUME 94.7 fl (80-96); MEAN PLT VOLUME 9.7 fl (7.5-11.1); MONO % 10.6 % (3.8-10.2); NEUT % 68.7 % (42.8-82.8); PLATELET COUNT 182 K/MM3 (134-434); RBC 4.09 M/mm3 (4.00-5.60); RDW 15.3 % (11.9-15.9); WHITE BLOOD COUNT 5.8 K/mm3 (4.0-10.0)
[2020-12-07 08:04] LABS: POTASSIUM 3.7 mmol/L (3.5-5.1)
[2020-12-07 08:14] LABS: CALCIUM 8.6 mg/dL (8.5-10.1)
[2020-12-07 08:15] LABS: ALBUMIN 3.2 g/dl (3.4-5.0); BLOOD UREA NITROGEN 16.2 mg/dL (7-18)
[2020-12-07 08:18] LABS: CREATININE 0.9 mg/dL (0.55-1.3)
[2020-12-07 08:19] LABS: BILIRUBIN,TOTAL 1.1 mg/dL (0.2-1); TOT PROT 6.6 g/dl (6.4-8.2)
[2020-12-07] MEDS: PANTOPRAZOLE 40 MG TABLET PO SCH (09:18)
[2020-12-07] MEDS: FUROSEMIDE 40 MG TABLET (FP) PO SCH (09:18)
[2020-12-07] MEDS: ASPIRIN 81 MG CHEWABLE TABLETS PO SCH (09:18)
[2020-12-07] MEDS: METOPROLOL TARTRATE 50 MG TABLET (FP) PO SCH (09:18)
[2020-12-07] MEDS: BACITRACIN 15 GM TUBE TOPICAL OINTMENT TP SCH (09:20)
[2020-12-07] MEDS ORDERED: LISINOPRIL 10 MG TABLET PO SCH (10:00)
[2020-12-07] MEDS ORDERED: APIXABAN 5 MG TABLET PO SCH (10:45)
[2020-12-07 17:34] VITALS: BP 139/94; PULSE 108; TEMP 98
== END 2020-12-07 18:51 | disposition home or self-care (01) | DRG 69 ==
LOC: JER 12:24 → JERBED 15:33 → J4S 23:32
PROVIDERS: ATTEND Nurse Practitioner Family
DX: G45.9 Transient cerebral ischemic attack, unspecified (principal); I50.33 Acute on chronic diastolic (congestive) heart failure; I69.351 Hemiplegia and hemiparesis following cerebral infarction affecting right dominant side; I31.3 Pericardial effusion (noninflammatory); I24.8 Other forms of acute ischemic heart disease; I48.92 Unspecified atrial flutter; R42 Dizziness and giddiness; I11.0 Hypertensive heart disease with heart failure; N40.0 Benign prostatic hyperplasia without lower urinary tract symptoms; E11.40 Type 2 diabetes mellitus with diabetic neuropathy, unspecified; G93.89 Other specified disorders of brain; F03.90 Unspecified dementia, unspecified severity, without behavioral disturbance, psychotic disturbance, mood disturbance, and anxiety; R55 Syncope and collapse
CPT/HCPCS: 36415; 70450-TC; 70551-TC; 71045-TC-FY; 72125-TC; 80053; 80061; 81003; 82550; 82962; 83036; 83721; 83735; 83880; 84100; 84484; 85025; 85610; 85730; 86850; 86900; 86901; 93005; 93010; 93306-TC; 93880-TC; 97116-GP; 97162-GP; 99285-25; C9803; J1644; U0003

== ENCOUNTER 2021-04-14 08:08 | Emergency (ER) | payer OTHER ==
[2021-04-14 09:04] VITALS: BP 162/92; PULSE 87; TEMP 97.8; BMI 28.8
[2021-04-14 09:21] LABS: BASO % 0.4 % (0-2.0); EOS % 2.8 % (0-4.5); HEMATOCRIT 36.3 % (35.4-49); HEMOGLOBIN 12.1 GM/dL (11.7-16.9); LYMPH % 21.4 % (8-40); MCH 30.4 pg (25.7-33.7); MCHC 33.4 g/dl (32.0-35.9); MEAN CELL VOLUME 91.1 fl (80-96); MEAN PLT VOLUME 9.3 fl (7.5-11.1); MONO % 8.1 % (3.8-10.2); NEUT % 67.3 % (42.8-82.8); PLATELET COUNT 148 K/MM3 (134-434); RBC 3.98 M/mm3 (4.00-5.60); RDW 14.6 % (11.9-15.9)
[2021-04-14 09:29] LABS: INR 1.45 (0.83-1.09); PROTHROMBIN TIME (PATIENT) 17.6 SEC (9.7-13.0)
[2021-04-14 09:31] LABS: ACTIVATED PTT 32.8 SECONDS (25.2-36.5)
[2021-04-14 09:46] LABS: ALBUMIN 3.5 g/dl (3.4-5.0); BLOOD UREA NITROGEN 16.6 mg/dL (7-18); CALCIUM 8.7 mg/dL (8.5-10.1)
[2021-04-14 09:50] LABS: CREATININE 0.8 mg/dL (0.55-1.3)
[2021-04-14 09:51] LABS: BILIRUBIN,TOTAL 1.1 mg/dL (0.2-1)
[2021-04-14] MEDS ORDERED: FUROSEMIDE 40 MG/4 ML INJECTABLE VIAL IVPUSH ONE (10:14)
== END 2021-04-14 14:54 | disposition home or self-care (01) ==
LOC: JER 08:08
DX: R04.0 Epistaxis (principal)
CPT/HCPCS: 36415; 71045-TC-FY; 80053; 83880; 84484; 85025; 85610; 85730; 93005; 93010; 99285-25; C9803; U0003; U0005

== ENCOUNTER 2021-07-15 13:36 | Inpatient (IN) | payer OTHER ==
[2021-07-15] MEDS ORDERED: VANCOMYCIN 1 GM in D5W (PRE-DOCKED) 1,000 MG/250 ML IVPB ONE (14:44)
[2021-07-15] MEDS ORDERED: PIPERACILLIN/TAZOB 4.5 GM 4.5 GM in DEXTROSE 5%-WATER 100 ML IVPB ONE (14:44)
[2021-07-15] MEDS ORDERED: PIPERACILLIN/TAZOB 4.5 GM 4.5 GM/100 ML BAG IVPB ONE (15:14)
[2021-07-15] MEDS ORDERED: VANCOMYCIN 1 GRAM (PRE-DOCKED) 1,000 MG/250 ML BAG IVPB ONE (15:15)
[2021-07-15 16:18] LABS: BASO % 0.2 % (0-2.0); EOS % 1.7 % (0-4.5); HEMOGLOBIN 12.3 GM/dL (11.7-16.9); LYMPH % 22.3 % (8-40); MCH 29.6 pg (25.7-33.7); MCHC 33.3 g/dl (32.0-35.9); MEAN CELL VOLUME 88.9 fl (80-96); MEAN PLT VOLUME 9.2 fl (7.5-11.1); MONO % 10.7 % (3.8-10.2); NEUT % 65.1 % (42.8-82.8); PLATELET COUNT 173 10^3/uL (134-434); RBC 4.16 M/mm3 (4.00-5.60); WHITE BLOOD COUNT 4.5 K/mm3 (4.0-10.0)
[2021-07-15 16:44] LABS: ALBUMIN 3.6 g/dl (3.4-5.0); CALCIUM 9.2 mg/dL (8.5-10.1)
[2021-07-15 16:45] LABS: BLOOD UREA NITROGEN 21.5 mg/dL (7-18)
[2021-07-15 16:48] LABS: CREATININE 1.1 mg/dL (0.55-1.3)
[2021-07-15 16:49] LABS: BILIRUBIN,TOTAL 0.9 mg/dL (0.2-1); TOT PROT 7.5 g/dl (6.4-8.2)
[2021-07-15 16:52] LABS: N-TERMINAL BNP 2143.1 pg/ml (5-450)
[2021-07-15] MEDS ORDERED: FUROSEMIDE 40 MG/4 ML INJECTABLE VIAL IVPUSH ONE ×2 (19:40→20:26)
[2021-07-15] MEDS ORDERED: ALBUTEROL SO4 2.5/IPRATROPIUM 0.5 INH SOL 3 ML VIAL.NEB. NEB PRN (19:40)
[2021-07-15] MEDS ORDERED: FUROSEMIDE 40 MG/4 ML INJECTABLE VIAL ONE (20:31)
[2021-07-15] MEDS ORDERED: CEFAZOLIN 1 GM/D5W 1 GM/50 ML BAG ONE (21:24)
[2021-07-15] MEDS: CEFAZOLIN 1 GM/D5W 1 GM/50 ML BAG IVPB SCH (21:25)
[2021-07-15] MEDS ORDERED: ATORVASTATIN CA 40 MG TABLET (FP) ONE (21:59)
[2021-07-15] MEDS ORDERED: METOPROLOL TARTRATE 50 MG TABLET (FP) ONE (21:59)
[2021-07-15] MEDS ORDERED: APIXABAN 5 MG TABLET ONE (21:59)
[2021-07-15] MEDS: APIXABAN 5 MG TABLET PO SCH (22:34)
[2021-07-15] MEDS: METOPROLOL TARTRATE 50 MG TABLET (FP) PO SCH (22:34)
[2021-07-15] MEDS: ATORVASTATIN CA 40 MG TABLET (FP) PO SCH (22:34)
[2021-07-15] MEDS: TERAZOSIN HCL 1 MG CAPSULE PO SCH (22:34)
[2021-07-15] MEDS: INSULIN SLIDING SCALE (NOVOLOG) 1 VIAL SQ SCH (22:34)
[2021-07-16 00:06] VITALS: BMI 29.3
[2021-07-16] MEDS: CEFAZOLIN 1 GM/D5W 1 GM/50 ML BAG IVPB SCH (02:00)
[2021-07-16] MEDS: INSULIN SLIDING SCALE (NOVOLOG) 1 VIAL SQ SCH ×4 (06:01→21:06)
[2021-07-16 08:37] LABS: HEMATOCRIT 37.2 % (35.4-49); HEMOGLOBIN 12.3 GM/dL (11.7-16.9); MCH 29.6 pg (25.7-33.7); MCHC 33.1 g/dl (32.0-35.9); MEAN CELL VOLUME 89.5 fl (80-96); MEAN PLT VOLUME 9.2 fl (7.5-11.1); PLATELET COUNT 188 10^3/uL (134-434); RBC 4.16 M/mm3 (4.00-5.60); RDW 14.8 % (11.9-15.9); WHITE BLOOD COUNT 4.3 K/mm3 (4.0-10.0)
[2021-07-16 09:09] LABS: CALCIUM 8.9 mg/dL (8.5-10.1)
[2021-07-16 09:10] LABS: ALBUMIN 3.5 g/dl (3.4-5.0); BLOOD UREA NITROGEN 27.2 mg/dL (7-18)
[2021-07-16 09:11] LABS: MAGNESIUM 1.9 mg/dL (1.8-2.4)
[2021-07-16 09:12] LABS: TOT PROT 7.3 g/dl (6.4-8.2)
[2021-07-16 09:13] LABS: CREATININE 1.5 mg/dL (0.55-1.3); PHOSPHOROUS 4.2 mg/dL (2.5-4.9)
[2021-07-16] MEDS ORDERED: PT OWN MED DRAWER 7, Y5N ONE (09:33)
[2021-07-16] MEDS ORDERED: CEFAZOLIN 1 GM in DEXTROSE 5%-WATER - 1 GM/50 ML IVPB IVPB SCH (09:37)
[2021-07-16] MEDS ORDERED: ceFAZolin SODIUM 1 GM VIAL ONE (09:40)
[2021-07-16] MEDS ORDERED: DEXTROSE 5%-WATER - 50 ML IVPB ONE ×3 (09:40→17:41)
[2021-07-16] MEDS ORDERED: ENOXAPARIN NA (PORCINE) 40 MG/0.4 ML DISP.SYRIN SQ SCH (10:00)
[2021-07-16] MEDS: APIXABAN 5 MG TABLET PO SCH ×2 (10:49→21:04)
[2021-07-16] MEDS: FUROSEMIDE 40 MG TABLET (FP) PO SCH (10:49)
[2021-07-16] MEDS: METOPROLOL TARTRATE 50 MG TABLET (FP) PO SCH ×2 (10:49→21:04)
[2021-07-16] MEDS: LISINOPRIL 10 MG TABLET PO SCH (10:50)
[2021-07-16] MEDS ORDERED: PIPERACILLIN/TAZOBACTAM 3.375 GM VIAL IVPB ONE ×2 (15:35→17:41)
[2021-07-16] MEDS: PIPERACILLIN/TAZOB 3.375 GM 3.375 GM in DEXTROSE 5%-WATER - 50 ML IVPB SCH ×2 (15:55→18:54)
[2021-07-16] MEDS: TERAZOSIN HCL 1 MG CAPSULE PO SCH (21:04)
[2021-07-16] MEDS: ATORVASTATIN CA 40 MG TABLET (FP) PO SCH (21:04)
[2021-07-17] MEDS ORDERED: PIPERACILLIN/TAZOBACTAM 3.375 GM VIAL IVPB ONE ×2 (01:03→10:43)
[2021-07-17] MEDS ORDERED: DEXTROSE 5%-WATER - 50 ML IVPB ONE ×2 (01:04→10:43)
[2021-07-17] MEDS: PIPERACILLIN/TAZOB 3.375 GM 3.375 GM in DEXTROSE 5%-WATER - 50 ML IVPB SCH ×2 (02:08→10:59)
[2021-07-17] MEDS: INSULIN SLIDING SCALE (NOVOLOG) 1 VIAL SQ SCH ×4 (06:14→21:40)
[2021-07-17 10:44] LABS: BASO % 0.5 % (0-2.0); EOS % 2.3 % (0-4.5); HEMATOCRIT 37.3 % (35.4-49); HEMOGLOBIN 12.4 GM/dL (11.7-16.9); LYMPH % 17.2 % (8-40); MCH 29.3 pg (25.7-33.7); MCHC 33.1 g/dl (32.0-35.9); MEAN CELL VOLUME 88.6 fl (80-96); MEAN PLT VOLUME 9.9 fl (7.5-11.1); MONO % 12.8 % (3.8-10.2); NEUT % 67.2 % (42.8-82.8); PLATELET COUNT 171 10^3/uL (134-434); RBC 4.21 M/mm3 (4.00-5.60); RDW 15.4 % (11.9-15.9); WHITE BLOOD COUNT 4.3 K/mm3 (4.0-10.0)
[2021-07-17] MEDS: METOPROLOL TARTRATE 50 MG TABLET (FP) PO SCH ×2 (10:59→21:30)
[2021-07-17] MEDS: FUROSEMIDE 40 MG TABLET (FP) PO SCH (10:59)
[2021-07-17] MEDS: LISINOPRIL 10 MG TABLET PO SCH (10:59)
[2021-07-17] MEDS: APIXABAN 5 MG TABLET PO SCH ×2 (10:59→21:28)
[2021-07-17 11:16] LABS: CALCIUM 8.8 mg/dL (8.5-10.1)
[2021-07-17 11:17] LABS: BLOOD UREA NITROGEN 32.4 mg/dL (7-18); MAGNESIUM 2.1 mg/dL (1.8-2.4)
[2021-07-17 11:20] LABS: CREATININE 1.4 mg/dL (0.55-1.3)
[2021-07-17 11:21] LABS: TOT PROT 7.2 g/dl (6.4-8.2)
[2021-07-17 11:23] LABS: ALBUMIN 3.4 g/dl (3.4-5.0)
[2021-07-17] MEDS ORDERED: POTASSIUM CHLORIDE TABS 20 MEQ TABLET.ER (FP) PO ONE (13:52)
[2021-07-17] MEDS ORDERED: SODIUM CHLORIDE 250 ML IV STA (17:30)
[2021-07-17] MEDS ORDERED: AMPICILLIN NA/SULBACTAM NA 3 GM VIAL ONE (17:37)
[2021-07-17] MEDS ORDERED: SODIUM CHLORIDE 100 ML IVPB ONE (17:38)
[2021-07-17] MEDS: AMPICILLIN NA/SULBACTAM NA 3 GM in SODIUM CHLORIDE 100 ML IVPB SCH (17:53)
[2021-07-17] MEDS: BACITRACIN 15 GM TUBE TOPICAL OINTMENT TP SCH (21:28)
[2021-07-17] MEDS: TERAZOSIN HCL 1 MG CAPSULE PO SCH (21:29)
[2021-07-17] MEDS: ATORVASTATIN CA 40 MG TABLET (FP) PO SCH (21:29)
[2021-07-18] MEDS ORDERED: AMPICILLIN NA/SULBACTAM NA 3 GM VIAL ONE ×3 (01:16→17:34)
[2021-07-18] MEDS ORDERED: SODIUM CHLORIDE 100 ML IVPB ONE ×3 (01:16→17:34)
[2021-07-18] MEDS: AMPICILLIN NA/SULBACTAM NA 3 GM in SODIUM CHLORIDE 100 ML IVPB SCH ×3 (01:58→17:55)
[2021-07-18] MEDS: INSULIN SLIDING SCALE (NOVOLOG) 1 VIAL SQ SCH ×5 (07:08→22:22)
[2021-07-18 09:12] LABS: BASO % 0.6 % (0-2.0); EOS % 2.8 % (0-4.5); HEMATOCRIT 36.7 % (35.4-49); HEMOGLOBIN 12.2 GM/dL (11.7-16.9); LYMPH % 22.7 % (8-40); MCH 29.8 pg (25.7-33.7); MCHC 33.2 g/dl (32.0-35.9); MEAN CELL VOLUME 89.6 fl (80-96); MEAN PLT VOLUME 9.7 fl (7.5-11.1); MONO % 10.6 % (3.8-10.2); NEUT % 63.3 % (42.8-82.8); PLATELET COUNT 176 10^3/uL (134-434); RBC 4.09 M/mm3 (4.00-5.60); WHITE BLOOD COUNT 3.8 K/mm3 (4.0-10.0)
[2021-07-18 09:35] LABS: CALCIUM 8.7 mg/dL (8.5-10.1)
[2021-07-18 09:37] LABS: BLOOD UREA NITROGEN 33.4 mg/dL (7-18)
[2021-07-18 09:38] LABS: CREATININE 1.2 mg/dL (0.55-1.3); MAGNESIUM 2.1 mg/dL (1.8-2.4)
[2021-07-18 09:40] LABS: BILIRUBIN,TOTAL 0.9 mg/dL (0.2-1); TOT PROT 6.7 g/dl (6.4-8.2)
[2021-07-18 09:52] LABS: ALBUMIN 3.2 g/dl (3.4-5.0)
[2021-07-18] MEDS: BACITRACIN 15 GM TUBE TOPICAL OINTMENT TP SCH ×2 (10:55→22:21)
[2021-07-18] MEDS: APIXABAN 5 MG TABLET PO SCH ×2 (10:56→22:21)
[2021-07-18] MEDS: FUROSEMIDE 40 MG TABLET (FP) PO SCH (12:01)
[2021-07-18] MEDS: LISINOPRIL 10 MG TABLET PO SCH (12:01)
[2021-07-18] MEDS: METOPROLOL TARTRATE 50 MG TABLET (FP) PO SCH ×2 (12:01→22:22)
[2021-07-18] MEDS ORDERED: FUROSEMIDE 20 MG TABLET (FP) PO ONE (13:00)
[2021-07-18] MEDS ORDERED: POTASSIUM CHLORIDE TABS 20 MEQ TABLET.ER (FP) PO ONE (20:45)
[2021-07-18] MEDS ORDERED: PT OWN MED DRAWER 7, Y5N ONE (21:04)
[2021-07-18] MEDS: TERAZOSIN HCL 1 MG CAPSULE PO SCH (22:21)
[2021-07-18] MEDS: ATORVASTATIN CA 40 MG TABLET (FP) PO SCH (22:22)
[2021-07-18] MEDS: INSULIN (LEVEMIR) 100 UNITS/ML UNITS SQ SCH (22:23)
[2021-07-19] MEDS ORDERED: SODIUM CHLORIDE 100 ML IVPB ONE ×3 (01:54→17:00)
[2021-07-19] MEDS ORDERED: AMPICILLIN NA/SULBACTAM NA 3 GM VIAL ONE ×3 (01:54→16:59)
[2021-07-19] MEDS: AMPICILLIN NA/SULBACTAM NA 3 GM in SODIUM CHLORIDE 100 ML IVPB SCH ×3 (02:02→17:41)
[2021-07-19] MEDS: INSULIN SLIDING SCALE (NOVOLOG) 1 VIAL SQ SCH ×4 (06:01→21:35)
[2021-07-19] MEDS: BACITRACIN 15 GM TUBE TOPICAL OINTMENT TP SCH ×2 (12:19→21:26)
[2021-07-19] MEDS: LISINOPRIL 10 MG TABLET PO SCH (12:19)
[2021-07-19] MEDS: METOPROLOL TARTRATE 50 MG TABLET (FP) PO SCH ×2 (12:19→21:37)
[2021-07-19] MEDS: APIXABAN 5 MG TABLET PO SCH ×2 (12:19→21:38)
[2021-07-19] MEDS: FUROSEMIDE 40 MG TABLET (FP) PO SCH (12:19)
[2021-07-19 13:11] LABS: BASO % 0.5 % (0-2.0); EOS % 3.3 % (0-4.5); HEMATOCRIT 36.5 % (35.4-49); HEMOGLOBIN 12.1 GM/dL (11.7-16.9); LYMPH % 28.2 % (8-40); MCH 29.4 pg (25.7-33.7); MCHC 33.1 g/dl (32.0-35.9); MEAN CELL VOLUME 88.8 fl (80-96); MEAN PLT VOLUME 8.8 fl (7.5-11.1); MONO % 13.4 % (3.8-10.2); NEUT % 54.6 % (42.8-82.8); PLATELET COUNT 152 10^3/uL (134-434); RBC 4.11 M/mm3 (4.00-5.60); RDW 14.9 % (11.9-15.9); WHITE BLOOD COUNT 4.1 K/mm3 (4.0-10.0)
[2021-07-19 13:38] LABS: ALBUMIN 3.2 g/dl (3.4-5.0); BLOOD UREA NITROGEN 27.2 mg/dL (7-18); MAGNESIUM 2.2 mg/dL (1.8-2.4)
[2021-07-19 13:42] LABS: CREATININE 0.9 mg/dL (0.55-1.3)
[2021-07-19 13:43] LABS: BILIRUBIN,TOTAL 0.8 mg/dL (0.2-1)
[2021-07-19] MEDS: INSULIN (LEVEMIR) 100 UNITS/ML UNITS SQ SCH (21:35)
[2021-07-19] MEDS: ATORVASTATIN CA 40 MG TABLET (FP) PO SCH (21:37)
[2021-07-19] MEDS: TERAZOSIN HCL 1 MG CAPSULE PO SCH (21:38)
[2021-07-20] MEDS: INSULIN SLIDING SCALE (NOVOLOG) 1 VIAL SQ SCH ×4 (06:04→21:16)
[2021-07-20 09:06] LABS: BASO % 0.5 % (0-2.0); HEMATOCRIT 36.2 % (35.4-49); HEMOGLOBIN 12.1 GM/dL (11.7-16.9); LYMPH % 30.8 % (8-40); MCH 29.9 pg (25.7-33.7); MCHC 33.5 g/dl (32.0-35.9); MEAN CELL VOLUME 89.2 fl (80-96); MEAN PLT VOLUME 9.3 fl (7.5-11.1); MONO % 11.5 % (3.8-10.2); NEUT % 53.2 % (42.8-82.8); PLATELET COUNT 170 10^3/uL (134-434); RBC 4.06 M/mm3 (4.00-5.60); RDW 14.8 % (11.9-15.9); WHITE BLOOD COUNT 3.6 K/mm3 (4.0-10.0)
[2021-07-20 09:26] LABS: BLOOD UREA NITROGEN 22.2 mg/dL (7-18)
[2021-07-20 09:29] LABS: ALBUMIN 3.2 g/dl (3.4-5.0); CALCIUM 8.8 mg/dL (8.5-10.1); MAGNESIUM 2.2 mg/dL (1.8-2.4)
[2021-07-20 09:34] LABS: BILIRUBIN,TOTAL 0.8 mg/dL (0.2-1); TOT PROT 7.1 g/dl (6.4-8.2)
[2021-07-20] MEDS: LISINOPRIL 10 MG TABLET PO SCH (10:26)
[2021-07-20] MEDS: APIXABAN 5 MG TABLET PO SCH ×2 (10:26→21:16)
[2021-07-20] MEDS: FUROSEMIDE 40 MG TABLET (FP) PO SCH (10:26)
[2021-07-20] MEDS: METOPROLOL TARTRATE 50 MG TABLET (FP) PO SCH ×2 (10:26→21:16)
[2021-07-20] MEDS: BACITRACIN 15 GM TUBE TOPICAL OINTMENT TP SCH ×2 (13:55→21:16)
[2021-07-20] MEDS: TERAZOSIN HCL 1 MG CAPSULE PO SCH (21:15)
[2021-07-20] MEDS: ATORVASTATIN CA 40 MG TABLET (FP) PO SCH (21:15)
[2021-07-20] MEDS: INSULIN (LEVEMIR) 100 UNITS/ML UNITS SQ SCH (21:16)
[2021-07-20] MEDS: AMOX TR/POT CLAV 875MG/125MG TABLETS (FP) PO SCH (22:17)
[2021-07-21] MEDS: INSULIN SLIDING SCALE (NOVOLOG) 1 VIAL SQ SCH ×4 (06:05→21:13)
[2021-07-21] MEDS: AMOX TR/POT CLAV 875MG/125MG TABLETS (FP) PO SCH ×2 (09:28→17:29)
[2021-07-21] MEDS: APIXABAN 5 MG TABLET PO SCH ×2 (09:28→21:11)
[2021-07-21] MEDS: LISINOPRIL 10 MG TABLET PO SCH (09:28)
[2021-07-21] MEDS: FUROSEMIDE 40 MG TABLET (FP) PO SCH (09:28)
[2021-07-21] MEDS: METOPROLOL TARTRATE 50 MG TABLET (FP) PO SCH ×2 (09:28→21:11)
[2021-07-21] MEDS: BACITRACIN 15 GM TUBE TOPICAL OINTMENT TP SCH ×2 (11:50→21:13)
[2021-07-21] MEDS: ATORVASTATIN CA 40 MG TABLET (FP) PO SCH (21:11)
[2021-07-21] MEDS: INSULIN (LEVEMIR) 100 UNITS/ML UNITS SQ SCH (21:12)
[2021-07-21] MEDS: TERAZOSIN HCL 1 MG CAPSULE PO SCH (21:12)
[2021-07-21 23:00] VITALS: BP 145/80; PULSE 80; TEMP 98.1
== END 2021-07-21 21:45 | disposition home or self-care (01) | DRG 603 ==
LOC: JER 13:36 → JERBED 19:13 → J5S 22:17
PROVIDERS: ADMIT Internal Medicine; ATTEND Nurse Practitioner Family
DX: L03.116 Cellulitis of left lower limb (principal); I69.351 Hemiplegia and hemiparesis following cerebral infarction affecting right dominant side; I50.32 Chronic diastolic (congestive) heart failure; I31.3 Pericardial effusion (noninflammatory); I48.92 Unspecified atrial flutter; N17.9 Acute kidney failure, unspecified; E11.40 Type 2 diabetes mellitus with diabetic neuropathy, unspecified; L03.115 Cellulitis of right lower limb; I48.0 Paroxysmal atrial fibrillation; Z79.01 Long term (current) use of anticoagulants; N40.0 Benign prostatic hyperplasia without lower urinary tract symptoms; I11.0 Hypertensive heart disease with heart failure; Z79.4 Long term (current) use of insulin; F32.9 Major depressive disorder, single episode, unspecified; D64.9 Anemia, unspecified; E11.51 Type 2 diabetes mellitus with diabetic peripheral angiopathy without gangrene; I44.0 Atrioventricular block, first degree
CPT/HCPCS: 36415; 71045-TC-FY; 80053; 82962; 83036; 83735; 83880; 84100; 84443; 85025; 85027; 86140; 87040; 87070; 87186; 87205; 93005; 93010; 93970-TC; 97116-GP; 97161-GP; 99285-25; C9803; U0003; U0005

== ENCOUNTER 2021-08-12 11:11 | Inpatient (IN) | payer OTHER ==
[2021-08-12] MEDS ORDERED: PIPERACILLIN/TAZOB 4.5 GM 4.5 GM in DEXTROSE 5%-WATER 100 ML IVPB ONE (11:44)
[2021-08-12] MEDS ORDERED: VANCOMYCIN 1 GM in D5W (PRE-DOCKED) 1,000 MG/250 ML IVPB ONE (11:44)
[2021-08-12] MEDS ORDERED: LACTATED RINGERS SOLUTION 1000 ML INFUS.BAG IV ONE ×2 (11:45→18:25)
[2021-08-12] MEDS ORDERED: ACETAMINOPHEN 1000 MG/100 ML VIAL (NON FORMULARY) IVPB ONE (11:45)
[2021-08-12 12:12] LABS: VENOUS BASE EXCESS -1.8 mmol/L (-2-2); VENOUS O2 SATURATION 40.2 % (70-80); VENOUS PCO2 38.3 mmHg (38-52); VENOUS PH 7.392 (7.310-7.410)
[2021-08-12] MEDS ORDERED: ACETAMINOPHEN INJECTION 100 ML IVPB ONE (12:15)
[2021-08-12] MEDS ORDERED: VANCOMYCIN 1 GRAM (PRE-DOCKED) 1,000 MG/250 ML BAG IVPB ONE (12:16)
[2021-08-12] MEDS ORDERED: PIPERACILLIN/TAZOB 4.5 GM 4.5 GM/100 ML BAG IVPB ONE ×2 (12:16→18:45)
[2021-08-12 12:20] LABS: BASO % 0.1 % (0-2.0); HEMOGLOBIN 12.6 GM/dL (11.7-16.9); LYMPH % 9.1 % (8-40); MCH 29.5 pg (25.7-33.7); MCHC 33.2 g/dl (32.0-35.9); MEAN CELL VOLUME 88.8 fl (80-96); MEAN PLT VOLUME 9.3 fl (7.5-11.1); MONO % 11.4 % (3.8-10.2); NEUT % 79.4 % (42.8-82.8); PLATELET COUNT 148 10^3/uL (134-434); RBC 4.28 M/mm3 (4.00-5.60); RDW 15.1 % (11.9-15.9); WHITE BLOOD COUNT 7.9 K/mm3 (4.0-10.0)
[2021-08-12 12:25] LABS: ACTIVATED PTT 30.5 SECONDS (25.2-36.5)
[2021-08-12 12:40] LABS: INR 2.4 (0.83-1.09); PROTHROMBIN TIME (PATIENT) 29.3 SEC (9.7-13.0)
[2021-08-12 12:48] LABS: CALCIUM 8.8 mg/dL (8.5-10.1)
[2021-08-12 12:49] LABS: ALBUMIN 3.4 g/dl (3.4-5.0); BLOOD UREA NITROGEN 17.1 mg/dL (7-18)
[2021-08-12 12:52] LABS: CREATININE 1.1 mg/dL (0.55-1.3)
[2021-08-12 12:53] LABS: BILIRUBIN,TOTAL 1.4 mg/dL (0.2-1); TOT PROT 7.8 g/dl (6.4-8.2)
[2021-08-12 13:08] LABS: LACTIC ACID 2.1 mmol/L (0.4-2.0)
[2021-08-12] MEDS: FUROSEMIDE 40 MG TABLET (FP) PO SCH (15:30)
[2021-08-12] MEDS ORDERED: FUROSEMIDE 40 MG TABLET (FP) ONE (15:32)
[2021-08-12 16:30] LABS: EPI CELLS 6 /uL (0-25.1); HYALINE CASTS 0 /uL (0-3.1); URINE APPEARANCE CLEAR; URINE BACTERIA 16 /uL (0-1359); URINE BILIRUBIN NEGATIVE (NEGATIVE); URINE COLOR YELLOW; URINE GLUCOSE (UA) NEGATIVE (NEGATIVE); URINE KETONE NEGATIVE (NEGATIVE); URINE LEUK ESTERASE NEGATIVE (NEGATIVE); URINE NITRITE NEGATIVE (NEGATIVE); URINE PROTEIN 2+ (NEGATIVE); URINE RBC 62 /uL (0-23.9); URINE WBC 6 /uL (0-25.8)
[2021-08-12 16:42] LABS: LACTIC ACID 3.1 mmol/L (0.4-2.0)
[2021-08-12] MEDS ORDERED: PIPERACILLIN/TAZOB 4.5 GM 4.5 GM in DEXTROSE 5%-WATER 100 ML IVPB SCH (18:00)
[2021-08-12] MEDS ORDERED: SODIUM CHLORIDE 1,000 ML IV SCH (18:30)
[2021-08-12] MEDS ORDERED: ASPIRIN 81 MG CHEWABLE TABLETS ONE (18:45)
[2021-08-12] MEDS: ASPIRIN 81 MG CHEWABLE TABLETS PO SCH (19:02)
[2021-08-12] MEDS: PIPERACILLIN/TAZOB 4.5 GM 4.5 GM in DEXTROSE 5%-WATER 100 ML IVPB SCH (19:09)
[2021-08-12] MEDS: INSULIN SLIDING SCALE (NOVOLOG) 1 VIAL SQ SCH (19:09)
[2021-08-12 20:09] LABS: MAGNESIUM 1.9 mg/dL (1.8-2.4)
[2021-08-12 20:13] LABS: PHOSPHOROUS 2.6 mg/dL (2.5-4.9)
[2021-08-12 20:17] LABS: N-TERMINAL BNP 9833.1 pg/ml (5-450)
[2021-08-12] MEDS ORDERED: ACETAMINOPHEN 325 MG TABLET (FP) PO ONE (21:19)
[2021-08-12] MEDS: BACITRACIN 15 GM TUBE TOPICAL OINTMENT TP SCH (22:27)
[2021-08-12] MEDS: APIXABAN 5 MG TABLET PO SCH (22:27)
[2021-08-12] MEDS: ATORVASTATIN CA 20 MG TABLET (FP) PO SCH (22:27)
[2021-08-12] MEDS: TERAZOSIN HCL 1 MG CAPSULE PO SCH (22:28)
[2021-08-12] MEDS: METOPROLOL TARTRATE 50 MG TABLET (FP) PO SCH (22:29)
[2021-08-13] MEDS ORDERED: DEXTROSE 5%-WATER 100 ML IVPB ONE ×2 (01:18→09:11)
[2021-08-13] MEDS ORDERED: PIPERACILLIN/TAZOBACTAM 4.5 GM VIAL IVPB ONE ×2 (01:18→09:11)
[2021-08-13] MEDS: PIPERACILLIN/TAZOB 4.5 GM 4.5 GM in DEXTROSE 5%-WATER 100 ML IVPB SCH ×2 (01:22→09:20)
[2021-08-13] MEDS: INSULIN (LEVEMIR) 100 UNITS/ML UNITS SQ SCH (06:07)
[2021-08-13] MEDS: INSULIN SLIDING SCALE (NOVOLOG) 1 VIAL SQ SCH ×3 (06:08→17:24)
[2021-08-13] MEDS ORDERED: PT OWN MED DRAWER 7, Y5N ONE (09:11)
[2021-08-13] MEDS: METOPROLOL TARTRATE 50 MG TABLET (FP) PO SCH ×2 (09:20→21:53)
[2021-08-13] MEDS: PANTOPRAZOLE 40 MG TABLET PO SCH (09:20)
[2021-08-13 09:21] LABS: BLOOD UREA NITROGEN 16.6 mg/dL (7-18)
[2021-08-13] MEDS: APIXABAN 5 MG TABLET PO SCH ×2 (09:21→21:53)
[2021-08-13] MEDS: ASPIRIN 81 MG CHEWABLE TABLETS PO SCH (09:21)
[2021-08-13] MEDS: BACITRACIN 15 GM TUBE TOPICAL OINTMENT TP SCH ×2 (09:21→21:54)
[2021-08-13 09:25] LABS: MAGNESIUM 1.8 mg/dL (1.8-2.4)
[2021-08-13] MEDS ORDERED: POTASSIUM CHLORIDE TABS 20 MEQ TABLET.ER (FP) PO ONE (10:15)
[2021-08-13] MEDS: ACETAMINOPHEN 325 MG TABLET (FP) PO PRN ×2 (10:41→23:28)
[2021-08-13] MEDS: METOLAZONE 2.5 MG TABLET (FP) PO SCH (10:41)
[2021-08-13] MEDS ORDERED: INSULIN (NOVOLOG) ASPART 100 UNITS/ML 10ML VIAL ONE (11:09)
[2021-08-13] MEDS: FUROSEMIDE 40 MG TABLET (FP) PO SCH (11:11)
[2021-08-13] MEDS ORDERED: BISACODYL 10 MG SUPP.RECT PR ONE (16:31)
[2021-08-13] MEDS ORDERED: DEXTROSE 5%-WATER - 50 ML IVPB ONE (17:22)
[2021-08-13] MEDS ORDERED: PIPERACILLIN/TAZOBACTAM 3.375 GM VIAL IVPB ONE (17:22)
[2021-08-13] MEDS: PIPERACILLIN/TAZOB 3.375 GM 3.375 GM in DEXTROSE 5%-WATER - 50 ML IVPB SCH (17:25)
[2021-08-13] MEDS: ATORVASTATIN CA 20 MG TABLET (FP) PO SCH (21:53)
[2021-08-13] MEDS: TERAZOSIN HCL 1 MG CAPSULE PO SCH (21:53)
[2021-08-13] MEDS: POTASSIUM CHLORIDE TABS 20 MEQ TABLET.ER (FP) PO SCH (21:53)
[2021-08-14] MEDS ORDERED: DEXTROSE 5%-WATER - 50 ML IVPB ONE ×3 (00:58→17:03)
[2021-08-14] MEDS ORDERED: PIPERACILLIN/TAZOBACTAM 3.375 GM VIAL IVPB ONE ×3 (00:58→17:03)
[2021-08-14] MEDS: PIPERACILLIN/TAZOB 3.375 GM 3.375 GM in DEXTROSE 5%-WATER - 50 ML IVPB SCH ×3 (01:22→17:25)
[2021-08-14] MEDS: ACETAMINOPHEN 325 MG TABLET (FP) PO PRN ×2 (05:48→17:37)
[2021-08-14] MEDS: INSULIN SLIDING SCALE (NOVOLOG) 1 VIAL SQ SCH ×3 (06:00→16:47)
[2021-08-14] MEDS: INSULIN (LEVEMIR) 100 UNITS/ML UNITS SQ SCH (06:01)
[2021-08-14 08:44] LABS: BASO % 0.2 % (0-2.0); HEMATOCRIT 35.9 % (35.4-49); LYMPH % 3.5 % (8-40); MCH 29.2 pg (25.7-33.7); MCHC 33.5 g/dl (32.0-35.9); MEAN CELL VOLUME 87.4 fl (80-96); MONO % 12.4 % (3.8-10.2); NEUT % 83.9 % (42.8-82.8); PLATELET COUNT 130 10^3/uL (134-434); RDW 15.6 % (11.9-15.9); WHITE BLOOD COUNT 8.5 K/mm3 (4.0-10.0)
[2021-08-14 09:09] LABS: CHLORIDE 94 mmol/L (98-107); SODIUM 134 mmol/L (136-145)
[2021-08-14 09:21] LABS: BLOOD UREA NITROGEN 18.3 mg/dL (7-18); CO2 32 mmol/L (21-32); GLUCOSE,RANDOM 187 mg/dL (74-106); MAGNESIUM 1.7 mg/dL (1.8-2.4)
[2021-08-14 09:22] LABS: SGPT/ALT 27 U/L (13-61)
[2021-08-14 09:24] LABS: CREATININE 1.2 mg/dL (0.55-1.3); SGOT/AST 31 U/L (15-37)
[2021-08-14 09:26] LABS: BILIRUBIN,TOTAL 1.3 mg/dL (0.2-1); TOT PROT 6.4 g/dl (6.4-8.2)
[2021-08-14 10:01] LABS: ALBUMIN 2.4 g/dl (3.4-5.0); ALK PHOS 86 U/L (45-117); ANION GAP 8 MMOL/L (8-16)
[2021-08-14] MEDS: ASPIRIN 81 MG CHEWABLE TABLETS PO SCH (10:11)
[2021-08-14] MEDS: APIXABAN 5 MG TABLET PO SCH ×2 (10:11→21:12)
[2021-08-14] MEDS: POTASSIUM CHLORIDE TABS 20 MEQ TABLET.ER (FP) PO SCH ×2 (10:11→21:12)
[2021-08-14] MEDS: PANTOPRAZOLE 40 MG TABLET PO SCH (10:11)
[2021-08-14] MEDS: METOPROLOL TARTRATE 50 MG TABLET (FP) PO SCH ×2 (10:11→21:12)
[2021-08-14] MEDS: METOLAZONE 2.5 MG TABLET (FP) PO SCH (10:12)
[2021-08-14] MEDS: FUROSEMIDE 40 MG TABLET (FP) PO SCH (10:12)
[2021-08-14] MEDS: BACITRACIN 15 GM TUBE TOPICAL OINTMENT TP SCH ×2 (11:28→21:11)
[2021-08-14] MEDS: KCL 10 MEQ IVPB 10 MEQ/100 ML INFUS.BAG IVPB SCH ×2 (12:12→13:21)
[2021-08-14] MEDS ORDERED: KCL 10 MEQ IVPB 10 MEQ/100 ML INFUS.BAG IVPB ONE (15:00)
[2021-08-14] MEDS: ATORVASTATIN CA 20 MG TABLET (FP) PO SCH (21:13)
[2021-08-14] MEDS: TERAZOSIN HCL 1 MG CAPSULE PO SCH (22:27)
[2021-08-15] MEDS ORDERED: PIPERACILLIN/TAZOBACTAM 3.375 GM VIAL IVPB ONE ×3 (01:11→17:16)
[2021-08-15] MEDS ORDERED: DEXTROSE 5%-WATER - 50 ML IVPB ONE ×3 (01:11→17:17)
[2021-08-15] MEDS: PIPERACILLIN/TAZOB 3.375 GM 3.375 GM in DEXTROSE 5%-WATER - 50 ML IVPB SCH ×3 (01:39→17:19)
[2021-08-15] MEDS: INSULIN SLIDING SCALE (NOVOLOG) 1 VIAL SQ SCH ×3 (06:16→17:10)
[2021-08-15] MEDS: INSULIN (LEVEMIR) 100 UNITS/ML UNITS SQ SCH (06:16)
[2021-08-15 07:57] LABS: BASO % 0.1 % (0-2.0); HEMATOCRIT 33.9 % (35.4-49); HEMOGLOBIN 11.3 GM/dL (11.7-16.9); LYMPH % 4.1 % (8-40); MCHC 33.3 g/dl (32.0-35.9); MONO % 8.3 % (3.8-10.2); NEUT % 87.5 % (42.8-82.8); PLATELET COUNT 137 10^3/uL (134-434); RDW 15.2 % (11.9-15.9); WHITE BLOOD COUNT 8.2 K/mm3 (4.0-10.0)
[2021-08-15 08:09] LABS: CHLORIDE 96 mmol/L (98-107); SODIUM 134 mmol/L (136-145)
[2021-08-15 08:33] LABS: CALCIUM 7.9 mg/dL (8.5-10.1)
[2021-08-15 08:34] LABS: ALBUMIN 2.2 g/dl (3.4-5.0); BLOOD UREA NITROGEN 22.5 mg/dL (7-18); CO2 31 mmol/L (21-32); GLUCOSE,RANDOM 228 mg/dL (74-106)
[2021-08-15 08:35] LABS: MAGNESIUM 1.8 mg/dL (1.8-2.4); SGPT/ALT 30 U/L (13-61)
[2021-08-15 08:36] LABS: CREATININE 1.2 mg/dL (0.55-1.3); SGOT/AST 37 U/L (15-37)
[2021-08-15 08:37] LABS: BILIRUBIN,TOTAL 1.1 mg/dL (0.2-1); TOT PROT 6.1 g/dl (6.4-8.2)
[2021-08-15 08:39] LABS: ALK PHOS 90 U/L (45-117)
[2021-08-15 08:43] LABS: ANION GAP 6 MMOL/L (8-16)
[2021-08-15] MEDS ORDERED: PT OWN MED DRAWER 7, Y5N ONE ×2 (09:18→21:42)
[2021-08-15] MEDS: ASPIRIN 81 MG CHEWABLE TABLETS PO SCH (09:22)
[2021-08-15] MEDS: PANTOPRAZOLE 40 MG TABLET PO SCH (09:22)
[2021-08-15] MEDS: METOPROLOL TARTRATE 50 MG TABLET (FP) PO SCH ×2 (09:22→22:01)
[2021-08-15] MEDS: METOLAZONE 2.5 MG TABLET (FP) PO SCH (09:22)
[2021-08-15] MEDS: APIXABAN 5 MG TABLET PO SCH ×2 (09:22→22:01)
[2021-08-15] MEDS: POTASSIUM CHLORIDE TABS 20 MEQ TABLET.ER (FP) PO SCH ×2 (09:22→22:01)
[2021-08-15] MEDS: KCL 10 MEQ IVPB 10 MEQ/100 ML INFUS.BAG IVPB SCH ×6 (10:19→18:38)
[2021-08-15] MEDS: BACITRACIN 15 GM TUBE TOPICAL OINTMENT TP SCH ×2 (10:20→22:12)
[2021-08-15] MEDS: FUROSEMIDE 40 MG TABLET (FP) PO SCH (10:21)
[2021-08-15] MEDS ORDERED: METOPROLOL TARTRATE 25 MG TABLET (FP) PO ONE (11:15)
[2021-08-15] MEDS ORDERED: METOPROLOL TARTRATE 5 MG/5 ML VIAL IVPUSH ONE (15:11)
[2021-08-15] MEDS: ACETAMINOPHEN 1000 MG/100 ML VIAL (NON FORMULARY) IVPB PRN ×2 (15:20→20:45)
[2021-08-15] MEDS: ATORVASTATIN CA 20 MG TABLET (FP) PO SCH (22:01)
[2021-08-15] MEDS: TERAZOSIN HCL 1 MG CAPSULE PO SCH (22:02)
[2021-08-16] MEDS ORDERED: DEXTROSE 5%-WATER - 50 ML IVPB ONE ×3 (02:13→17:36)
[2021-08-16] MEDS ORDERED: PIPERACILLIN/TAZOBACTAM 3.375 GM VIAL IVPB ONE ×3 (02:13→17:36)
[2021-08-16] MEDS: PIPERACILLIN/TAZOB 3.375 GM 3.375 GM in DEXTROSE 5%-WATER - 50 ML IVPB SCH ×3 (02:30→17:47)
[2021-08-16] MEDS ORDERED: INSULIN (NOVOLOG) ASPART 100 UNITS/ML 10ML VIAL ONE ×2 (06:28→07:27)
[2021-08-16] MEDS: INSULIN SLIDING SCALE (NOVOLOG) 1 VIAL SQ SCH ×3 (06:33→17:00)
[2021-08-16] MEDS: INSULIN (LEVEMIR) 100 UNITS/ML UNITS SQ SCH (06:36)
[2021-08-16] MEDS ORDERED: INSULIN (LEVEMIR) 100 UNITS/ML UNITS SQ ONE (07:26)
[2021-08-16 08:52] LABS: BASO % 0.1 % (0-2.0); HEMATOCRIT 37.9 % (35.4-49); HEMOGLOBIN 12.7 GM/dL (11.7-16.9); MCHC 33.4 g/dl (32.0-35.9); MEAN CELL VOLUME 86.9 fl (80-96); MONO % 9.3 % (3.8-10.2); NEUT % 85.6 % (42.8-82.8); PLATELET COUNT 180 10^3/uL (134-434); RBC 4.36 M/mm3 (4.00-5.60); RDW 15.5 % (11.9-15.9); WHITE BLOOD COUNT 8.5 K/mm3 (4.0-10.0)
[2021-08-16] MEDS ORDERED: PT OWN MED DRAWER 7, Y5N ONE ×3 (09:05→22:36)
[2021-08-16] MEDS: ASPIRIN 81 MG CHEWABLE TABLETS PO SCH (09:06)
[2021-08-16] MEDS: PANTOPRAZOLE 40 MG TABLET PO SCH (09:06)
[2021-08-16] MEDS: METOPROLOL TARTRATE 50 MG TABLET (FP) PO SCH ×2 (09:06→17:00)
[2021-08-16] MEDS: APIXABAN 5 MG TABLET PO SCH (09:06)
[2021-08-16] MEDS: FUROSEMIDE 40 MG TABLET (FP) PO SCH (09:06)
[2021-08-16] MEDS: POTASSIUM CHLORIDE TABS 20 MEQ TABLET.ER (FP) PO SCH (09:06)
[2021-08-16] MEDS: METOLAZONE 2.5 MG TABLET (FP) PO SCH (09:08)
[2021-08-16] MEDS: BACITRACIN 15 GM TUBE TOPICAL OINTMENT TP SCH (09:08)
[2021-08-16 09:41] LABS: ALBUMIN 2.2 g/dl (3.4-5.0); BLOOD UREA NITROGEN 27.9 mg/dL (7-18); CALCIUM 8.8 mg/dL (8.5-10.1); MAGNESIUM 2.1 mg/dL (1.8-2.4)
[2021-08-16 09:44] LABS: BILIRUBIN,TOTAL 1.2 mg/dL (0.2-1); CREATININE 1.3 mg/dL (0.55-1.3); TOT PROT 6.5 g/dl (6.4-8.2)
[2021-08-16] MEDS ORDERED: METOPROLOL TARTRATE 25 MG TABLET (FP) PO ONE (10:15)
[2021-08-16] MEDS: KCL 10 MEQ IVPB 10 MEQ/100 ML INFUS.BAG IVPB SCH ×3 (13:57→15:40)
[2021-08-17] MEDS: TERAZOSIN HCL 1 MG CAPSULE PO SCH ×2 (00:09→23:08)
[2021-08-17] MEDS: ATORVASTATIN CA 20 MG TABLET (FP) PO SCH ×2 (00:09→23:08)
[2021-08-17] MEDS: POTASSIUM CHLORIDE TABS 20 MEQ TABLET.ER (FP) PO SCH ×3 (00:10→23:07)
[2021-08-17] MEDS: METOPROLOL TARTRATE 50 MG TABLET (FP) PO SCH ×3 (00:10→23:06)
[2021-08-17] MEDS: APIXABAN 5 MG TABLET PO SCH ×3 (00:10→23:08)
[2021-08-17] MEDS: BACITRACIN 15 GM TUBE TOPICAL OINTMENT TP SCH ×3 (00:16→23:09)
[2021-08-17] MEDS ORDERED: DEXTROSE 5%-WATER - 50 ML IVPB ONE ×3 (02:47→16:55)
[2021-08-17] MEDS ORDERED: PIPERACILLIN/TAZOBACTAM 3.375 GM VIAL IVPB ONE ×3 (02:47→16:55)
[2021-08-17] MEDS: PIPERACILLIN/TAZOB 3.375 GM 3.375 GM in DEXTROSE 5%-WATER - 50 ML IVPB SCH ×3 (03:07→17:34)
[2021-08-17] MEDS: INSULIN SLIDING SCALE (NOVOLOG) 1 VIAL SQ SCH ×3 (06:01→17:33)
[2021-08-17] MEDS: INSULIN (LEVEMIR) 100 UNITS/ML UNITS SQ SCH (06:01)
[2021-08-17] MEDS ORDERED: PT OWN MED DRAWER 7, Y5N ONE ×3 (09:11→21:56)
[2021-08-17] MEDS: PANTOPRAZOLE 40 MG TABLET PO SCH (09:27)
[2021-08-17] MEDS: FUROSEMIDE 40 MG TABLET (FP) PO SCH (09:28)
[2021-08-17] MEDS: ASPIRIN 81 MG CHEWABLE TABLETS PO SCH (09:28)
[2021-08-17 09:29] LABS: BASO % 0.2 % (0-2.0); EOS % 0.1 % (0-4.5); HEMATOCRIT 36.7 % (35.4-49); HEMOGLOBIN 12.3 GM/dL (11.7-16.9); LYMPH % 7.4 % (8-40); MCH 29.5 pg (25.7-33.7); MCHC 33.5 g/dl (32.0-35.9); MEAN CELL VOLUME 88.2 fl (80-96); MEAN PLT VOLUME 9.4 fl (7.5-11.1); MONO % 15.8 % (3.8-10.2); NEUT % 76.5 % (42.8-82.8); PLATELET COUNT 196 10^3/uL (134-434); RBC 4.17 M/mm3 (4.00-5.60); RDW 15.5 % (11.9-15.9); WHITE BLOOD COUNT 6.7 K/mm3 (4.0-10.0)
[2021-08-17] MEDS: METOLAZONE 2.5 MG TABLET (FP) PO SCH (09:39)
[2021-08-17 09:55] LABS: CREATININE 1.3 mg/dL (0.55-1.3)
[2021-08-17 09:56] LABS: BLOOD UREA NITROGEN 31.8 mg/dL (7-18)
[2021-08-17 09:57] LABS: TOT PROT 6.2 g/dl (6.4-8.2)
[2021-08-17 09:59] LABS: CALCIUM 8.3 mg/dL (8.5-10.1)
[2021-08-17 10:00] LABS: MAGNESIUM 2.1 mg/dL (1.8-2.4)
[2021-08-17] MEDS: KCL 10 MEQ IVPB 10 MEQ/100 ML INFUS.BAG IVPB SCH ×2 (14:15→15:09)
[2021-08-18] MEDS ORDERED: PIPERACILLIN/TAZOBACTAM 3.375 GM VIAL IVPB ONE ×3 (03:11→16:18)
[2021-08-18] MEDS: PIPERACILLIN/TAZOB 3.375 GM 3.375 GM in DEXTROSE 5%-WATER - 50 ML IVPB SCH ×3 (03:13→17:17)
[2021-08-18] MEDS: INSULIN SLIDING SCALE (NOVOLOG) 1 VIAL SQ SCH ×3 (06:17→16:47)
[2021-08-18] MEDS: INSULIN (LEVEMIR) 100 UNITS/ML UNITS SQ SCH (06:17)
[2021-08-18] MEDS ORDERED: PT OWN MED DRAWER 7, Y5N ONE ×2 (08:10→22:32)
[2021-08-18] MEDS ORDERED: DEXTROSE 5%-WATER - 50 ML IVPB ONE ×2 (09:08→16:19)
[2021-08-18] MEDS: PANTOPRAZOLE 40 MG TABLET PO SCH (09:37)
[2021-08-18] MEDS: ASPIRIN 81 MG CHEWABLE TABLETS PO SCH (09:37)
[2021-08-18] MEDS: METOLAZONE 2.5 MG TABLET (FP) PO SCH (09:37)
[2021-08-18] MEDS: APIXABAN 5 MG TABLET PO SCH ×2 (09:37→23:05)
[2021-08-18] MEDS: POTASSIUM CHLORIDE TABS 20 MEQ TABLET.ER (FP) PO SCH ×2 (09:37→23:04)
[2021-08-18] MEDS: METOPROLOL TARTRATE 50 MG TABLET (FP) PO SCH ×2 (09:38→23:03)
[2021-08-18] MEDS: FUROSEMIDE 40 MG TABLET (FP) PO SCH (11:03)
[2021-08-18] MEDS: BACITRACIN 15 GM TUBE TOPICAL OINTMENT TP SCH ×2 (11:04→23:03)
[2021-08-18 11:28] LABS: BASO % 0.1 % (0-2.0); EOS % 0.1 % (0-4.5); HEMATOCRIT 35.7 % (35.4-49); HEMOGLOBIN 11.9 GM/dL (11.7-16.9); LYMPH % 5.8 % (8-40); MCH 28.9 pg (25.7-33.7); MCHC 33.3 g/dl (32.0-35.9); MEAN CELL VOLUME 86.9 fl (80-96); MEAN PLT VOLUME 9.1 fl (7.5-11.1); MONO % 14.2 % (3.8-10.2); NEUT % 79.8 % (42.8-82.8); PLATELET COUNT 264 10^3/uL (134-434); RBC 4.11 M/mm3 (4.00-5.60); RDW 15.4 % (11.9-15.9); WHITE BLOOD COUNT 7.3 K/mm3 (4.0-10.0)
[2021-08-18 11:46] LABS: ALBUMIN 1.9 g/dl (3.4-5.0); BLOOD UREA NITROGEN 56.1 mg/dL (7-18); CALCIUM 8.4 mg/dL (8.5-10.1); MAGNESIUM 2.5 mg/dL (1.8-2.4)
[2021-08-18 11:49] LABS: CREATININE 2.5 mg/dL (0.55-1.3)
[2021-08-18 11:51] LABS: BILIRUBIN,TOTAL 0.9 mg/dL (0.2-1); TOT PROT 6.2 g/dl (6.4-8.2)
[2021-08-18] MEDS: KCL 10 MEQ IVPB 10 MEQ/100 ML INFUS.BAG IVPB SCH ×3 (12:10→14:36)
[2021-08-18] MEDS ORDERED: SODIUM CHLORIDE 1,000 ML IV SCH (12:15)
[2021-08-18] MEDS: TERAZOSIN HCL 1 MG CAPSULE PO SCH (23:03)
[2021-08-18] MEDS: ATORVASTATIN CA 20 MG TABLET (FP) PO SCH (23:05)
[2021-08-19] MEDS ORDERED: DEXTROSE 5%-WATER - 50 ML IVPB ONE ×2 (02:03→10:31)
[2021-08-19] MEDS ORDERED: PIPERACILLIN/TAZOBACTAM 3.375 GM VIAL IVPB ONE ×2 (02:03→10:31)
[2021-08-19] MEDS: PIPERACILLIN/TAZOB 3.375 GM 3.375 GM in DEXTROSE 5%-WATER - 50 ML IVPB SCH ×2 (02:49→10:51)
[2021-08-19] MEDS: INSULIN SLIDING SCALE (NOVOLOG) 1 VIAL SQ SCH ×3 (06:32→17:42)
[2021-08-19] MEDS: INSULIN (LEVEMIR) 100 UNITS/ML UNITS SQ SCH (06:32)
[2021-08-19 07:58] LABS: BASO % 0.2 % (0-2.0); EOS % 0.6 % (0-4.5); HEMATOCRIT 34.9 % (35.4-49); HEMOGLOBIN 11.7 GM/dL (11.7-16.9); LYMPH % 6.4 % (8-40); MCH 29.2 pg (25.7-33.7); MCHC 33.6 g/dl (32.0-35.9); MEAN CELL VOLUME 86.9 fl (80-96); MEAN PLT VOLUME 8.8 fl (7.5-11.1); NEUT % 79.8 % (42.8-82.8); PLATELET COUNT 293 10^3/uL (134-434); RBC 4.02 M/mm3 (4.00-5.60); RDW 15.7 % (11.9-15.9); WHITE BLOOD COUNT 7.4 K/mm3 (4.0-10.0)
[2021-08-19 08:01] LABS: CALCIUM 8.4 mg/dL (8.5-10.1)
[2021-08-19 08:02] LABS: ALBUMIN 1.9 g/dl (3.4-5.0); MAGNESIUM 2.3 mg/dL (1.8-2.4)
[2021-08-19 08:05] LABS: CREATININE 3.3 mg/dL (0.55-1.3)
[2021-08-19 08:06] LABS: BILIRUBIN,TOTAL 0.9 mg/dL (0.2-1)
[2021-08-19 08:07] LABS: TOT PROT 6.2 g/dl (6.4-8.2)
[2021-08-19 08:14] VITALS: BMI 31.0
[2021-08-19] MEDS ORDERED: KCL 10 MEQ IVPB 10 MEQ/100 ML INFUS.BAG IVPB SCH (08:15)
[2021-08-19] MEDS: BACITRACIN 15 GM TUBE TOPICAL OINTMENT TP SCH ×2 (10:52→23:11)
[2021-08-19] MEDS: APIXABAN 5 MG TABLET PO SCH ×2 (10:52→23:14)
[2021-08-19] MEDS: POTASSIUM CHLORIDE TABS 20 MEQ TABLET.ER (FP) PO SCH ×2 (10:52→23:14)
[2021-08-19] MEDS: METOPROLOL TARTRATE 50 MG TABLET (FP) PO SCH ×2 (10:52→23:12)
[2021-08-19] MEDS: PANTOPRAZOLE 40 MG TABLET PO SCH (10:52)
[2021-08-19] MEDS: ASPIRIN 81 MG CHEWABLE TABLETS PO SCH (10:52)
[2021-08-19] MEDS ORDERED: POTASSIUM CHLORIDE TABS 20 MEQ TABLET.ER (FP) PO ONE (12:59)
[2021-08-19] MEDS: POLYETHYLENE GLYCOL (HEALTHYLAX) 3350 17 GM PACKET PO SCH ×2 (15:21→23:12)
[2021-08-19 19:44] LABS: URINE COLOR YELLOW
[2021-08-19 19:45] LABS: EPI CELLS 6 /uL (0-25.1); HYALINE CASTS 1 /uL (0-3.1); URINE APPEARANCE CLEAR; URINE BACTERIA 7 /uL (0-1359); URINE BILIRUBIN NEGATIVE (NEGATIVE); URINE GLUCOSE (UA) NEGATIVE (NEGATIVE); URINE KETONE NEGATIVE (NEGATIVE); URINE LEUK ESTERASE NEGATIVE (NEGATIVE); URINE NITRITE NEGATIVE (NEGATIVE); URINE PROTEIN 1+ (NEGATIVE); URINE RBC 25 /uL (0-23.9); URINE WBC 8 /uL (0-25.8)
[2021-08-19 19:52] LABS: YEAST MANY (NEGATIVE)
[2021-08-19] MEDS ORDERED: PT OWN MED DRAWER 7, Y5N ONE (22:19)
[2021-08-19] MEDS: TERAZOSIN HCL 1 MG CAPSULE PO SCH (23:12)
[2021-08-19] MEDS: ATORVASTATIN CA 20 MG TABLET (FP) PO SCH (23:13)
[2021-08-20] MEDS: POLYETHYLENE GLYCOL (HEALTHYLAX) 3350 17 GM PACKET PO SCH ×3 (07:03→22:25)
[2021-08-20] MEDS: INSULIN (LEVEMIR) 100 UNITS/ML UNITS SQ SCH (07:07)
[2021-08-20] MEDS: INSULIN SLIDING SCALE (NOVOLOG) 1 VIAL SQ SCH ×3 (07:08→16:59)
[2021-08-20 08:20] LABS: BASO % 0.1 % (0-2.0); EOS % 1.2 % (0-4.5); HEMATOCRIT 35.3 % (35.4-49); HEMOGLOBIN 11.8 GM/dL (11.7-16.9); LYMPH % 8.6 % (8-40); MCH 28.7 pg (25.7-33.7); MCHC 33.4 g/dl (32.0-35.9); MEAN PLT VOLUME 8.6 fl (7.5-11.1); MONO % 13.7 % (3.8-10.2); NEUT % 76.4 % (42.8-82.8); PLATELET COUNT 335 10^3/uL (134-434); RBC 4.11 M/mm3 (4.00-5.60); RDW 15.6 % (11.9-15.9); WHITE BLOOD COUNT 6.3 K/mm3 (4.0-10.0)
[2021-08-20 08:41] LABS: CALCIUM 8.3 mg/dL (8.5-10.1)
[2021-08-20 08:42] LABS: ALBUMIN 1.9 g/dl (3.4-5.0); MAGNESIUM 2.6 mg/dL (1.8-2.4)
[2021-08-20 08:45] LABS: CREATININE 3.7 mg/dL (0.55-1.3)
[2021-08-20 08:46] LABS: BILIRUBIN,TOTAL 0.9 mg/dL (0.2-1); TOT PROT 6.3 g/dl (6.4-8.2)
[2021-08-20 08:55] LABS: BLOOD UREA NITROGEN 75.5 mg/dL (7-18)
[2021-08-20] MEDS: METOPROLOL TARTRATE 50 MG TABLET (FP) PO SCH ×2 (10:27→22:09)
[2021-08-20] MEDS: POTASSIUM CHLORIDE TABS 20 MEQ TABLET.ER (FP) PO SCH ×2 (10:28→22:08)
[2021-08-20] MEDS: APIXABAN 5 MG TABLET PO SCH ×2 (10:28→22:08)
[2021-08-20] MEDS: PANTOPRAZOLE 40 MG TABLET PO SCH (10:29)
[2021-08-20] MEDS: BACITRACIN 15 GM TUBE TOPICAL OINTMENT TP SCH ×2 (10:29→22:12)
[2021-08-20] MEDS: ASPIRIN 81 MG CHEWABLE TABLETS PO SCH (10:29)
[2021-08-20] MEDS ORDERED: TAMSULOSIN HCL 0.4 MG CAP PO ONE (12:30)
[2021-08-20] MEDS ORDERED: PT OWN MED DRAWER 7, Y5N ONE (21:17)
[2021-08-20] MEDS: ATORVASTATIN CA 20 MG TABLET (FP) PO SCH (22:08)
[2021-08-20] MEDS: TERAZOSIN HCL 1 MG CAPSULE PO SCH (22:09)
[2021-08-21] MEDS: INSULIN SLIDING SCALE (NOVOLOG) 1 VIAL SQ SCH ×3 (06:59→17:43)
[2021-08-21] MEDS: POLYETHYLENE GLYCOL (HEALTHYLAX) 3350 17 GM PACKET PO SCH (07:00)
[2021-08-21] MEDS: INSULIN (LEVEMIR) 100 UNITS/ML UNITS SQ SCH (07:00)
[2021-08-21 07:52] LABS: ALBUMIN 1.9 g/dl (3.4-5.0); BLOOD UREA NITROGEN 76.5 mg/dL (7-18); CALCIUM 8.4 mg/dL (8.5-10.1); MAGNESIUM 2.6 mg/dL (1.8-2.4)
[2021-08-21] MEDS ORDERED: POTASSIUM CHLORIDE TABS 20 MEQ TABLET.ER (FP) PO ONE (07:54)
[2021-08-21 07:55] LABS: CREATININE 3.3 mg/dL (0.55-1.3)
[2021-08-21 07:57] LABS: BILIRUBIN,TOTAL 0.9 mg/dL (0.2-1); TOT PROT 6.4 g/dl (6.4-8.2)
[2021-08-21 08:04] LABS: BASO % 0.2 % (0-2.0); EOS % 1.1 % (0-4.5); HEMATOCRIT 35.3 % (35.4-49); HEMOGLOBIN 11.7 GM/dL (11.7-16.9); LYMPH % 10.4 % (8-40); MCH 28.8 pg (25.7-33.7); MCHC 33.1 g/dl (32.0-35.9); MEAN CELL VOLUME 87.1 fl (80-96); MEAN PLT VOLUME 8.7 fl (7.5-11.1); MONO % 11.8 % (3.8-10.2); NEUT % 76.5 % (42.8-82.8); PLATELET COUNT 412 10^3/uL (134-434); RBC 4.05 M/mm3 (4.00-5.60); RDW 15.6 % (11.9-15.9); WHITE BLOOD COUNT 6.5 K/mm3 (4.0-10.0)
[2021-08-21] MEDS ORDERED: TAMSULOSIN HCL 0.4 MG CAP PO SCH (08:30)
[2021-08-21] MEDS ORDERED: PT OWN MED DRAWER 7, Y5N ONE (08:49)
[2021-08-21] MEDS: ASPIRIN 81 MG CHEWABLE TABLETS PO SCH (09:00)
[2021-08-21] MEDS: POTASSIUM CHLORIDE TABS 20 MEQ TABLET.ER (FP) PO SCH ×2 (09:01→21:45)
[2021-08-21] MEDS: PANTOPRAZOLE 40 MG TABLET PO SCH (09:02)
[2021-08-21] MEDS: METOPROLOL TARTRATE 50 MG TABLET (FP) PO SCH ×2 (09:02→21:46)
[2021-08-21] MEDS: BACITRACIN 15 GM TUBE TOPICAL OINTMENT TP SCH ×2 (10:00→21:46)
[2021-08-21] MEDS: METOLAZONE 2.5 MG TABLET (FP) PO SCH (10:03)
[2021-08-21] MEDS ORDERED: POLYETHYLENE GLYCOL (HEALTHYLAX) 3350 17 GM PACKET PO SCH (10:26)
[2021-08-21] MEDS: APIXABAN 5 MG TABLET PO SCH (10:45)
[2021-08-21] MEDS: APIXABAN 2.5 MG TABLET PO SCH (21:45)
[2021-08-21] MEDS ORDERED: ATORVASTATIN CA 40 MG TABLET (FP) PO SCH (22:00)
[2021-08-21] MEDS ORDERED: TERAZOSIN HCL 1 MG CAPSULE PO SCH (22:00)
[2021-08-22] MEDS: INSULIN SLIDING SCALE (NOVOLOG) 1 VIAL SQ SCH ×2 (06:05→12:25)
[2021-08-22] MEDS ORDERED: INSULIN (LEVEMIR) 100 UNITS/ML UNITS SQ SCH (07:00)
[2021-08-22] MEDS ORDERED: TAMSULOSIN HCL 0.4 MG CAP PO SCH (08:30)
[2021-08-22 09:44] LABS: BASO % 0.2 % (0-2.0); EOS % 1.2 % (0-4.5); HEMATOCRIT 37.2 % (35.4-49); HEMOGLOBIN 12.1 GM/dL (11.7-16.9); LYMPH % 12.5 % (8-40); MCH 28.6 pg (25.7-33.7); MCHC 32.5 g/dl (32.0-35.9); MEAN CELL VOLUME 87.8 fl (80-96); MEAN PLT VOLUME 8.6 fl (7.5-11.1); MONO % 10.7 % (3.8-10.2); NEUT % 75.4 % (42.8-82.8); PLATELET COUNT 487 10^3/uL (134-434); RBC 4.23 M/mm3 (4.00-5.60); RDW 15.9 % (11.9-15.9)
[2021-08-22] MEDS ORDERED: ASPIRIN 81 MG CHEWABLE TABLETS PO SCH (10:00)
[2021-08-22] MEDS ORDERED: PANTOPRAZOLE 40 MG TABLET PO SCH (10:00)
[2021-08-22 10:19] LABS: CALCIUM 8.4 mg/dL (8.5-10.1)
[2021-08-22 10:20] LABS: ALBUMIN 2.1 g/dl (3.4-5.0); BLOOD UREA NITROGEN 64.3 mg/dL (7-18)
[2021-08-22 10:22] LABS: CREATININE 2.4 mg/dL (0.55-1.3)
[2021-08-22 10:23] LABS: BILIRUBIN,TOTAL 0.8 mg/dL (0.2-1); TOT PROT 6.8 g/dl (6.4-8.2)
[2021-08-22] MEDS: POTASSIUM CHLORIDE TABS 20 MEQ TABLET.ER (FP) PO SCH (10:53)
[2021-08-22] MEDS: METOPROLOL TARTRATE 50 MG TABLET (FP) PO SCH (10:54)
[2021-08-22] MEDS: APIXABAN 2.5 MG TABLET PO SCH (10:55)
[2021-08-22] MEDS: BACITRACIN 15 GM TUBE TOPICAL OINTMENT TP SCH (12:30)
[2021-08-22 15:04] VITALS: BP 105/59; PULSE 91; TEMP 98.4
[2021-08-25] MEDS ORDERED: POLYETHYLENE GLYCOL (HEALTHYLAX) 3350 17 GM PACKET PO SCH (10:00)
== END 2021-08-22 15:03 | DRG 872 ==
LOC: JER 11:11 → JERBED 14:11 → J6S 21:13 → J4W 08-15 13:11 → J5S 08-21 19:36
PROVIDERS: ADMIT Internal Medicine; ATTEND Nurse Practitioner Acute Care
DX: A41.9 Sepsis, unspecified organism (principal); I48.92 Unspecified atrial flutter; L97.909 Non-pressure chronic ulcer of unspecified part of unspecified lower leg with unspecified severity; I50.32 Chronic diastolic (congestive) heart failure; L03.116 Cellulitis of left lower limb; L03.115 Cellulitis of right lower limb; I31.3 Pericardial effusion (noninflammatory); I24.8 Other forms of acute ischemic heart disease; E87.2 Acidosis; K56.7 Ileus, unspecified; N17.9 Acute kidney failure, unspecified; I47.1 Supraventricular tachycardia; I69.351 Hemiplegia and hemiparesis following cerebral infarction affecting right dominant side; I11.0 Hypertensive heart disease with heart failure; I48.91 Unspecified atrial fibrillation; E66.01 Morbid (severe) obesity due to excess calories; G51.0 Bell's palsy; N40.0 Benign prostatic hyperplasia without lower urinary tract symptoms; E11.40 Type 2 diabetes mellitus with diabetic neuropathy, unspecified; R33.9 Retention of urine, unspecified; E87.6 Hypokalemia; K59.00 Constipation, unspecified; N40.1 Benign prostatic hyperplasia with lower urinary tract symptoms; Z68.31 Body mass index [BMI] 31.0-31.9, adult
CPT/HCPCS: 36415; 71045-TC-FY; 74019-TC-FY; 74177-TC; 76775-TC; 76856-TC; 80048; 80053; 81003; 82436; 82570; 82803; 82962; 83036; 83605; 83735; 83880; 84100; 84132; 84133; 84300; 84484; 85025; 85610; 85730; 86850; 86900; 86901; 87040; 87070; 87086; 87186; 87205; 87804; 93005; 93010; 93306-TC; 97116-GP; 97162-GP; 99291; C9803; J0131; Q9967; U0003; U0005

== ENCOUNTER 2021-09-08 10:30 | Inpatient (IN) | payer OTHER ==
[2021-09-08] MEDS ORDERED: DIPHTH,PERTUSS(ACELL),TET 0.5 ML DISP.SYRIN IM ONE ×2 (12:21→13:07)
[2021-09-08 13:37] LABS: BASO % 0.5 % (0-2.0); EOS % 0.8 % (0-4.5); HEMATOCRIT 35.2 % (35.4-49); HEMOGLOBIN 11.8 GM/dL (11.7-16.9); LYMPH % 15.5 % (8-40); MCHC 33.4 g/dl (32.0-35.9); MEAN CELL VOLUME 86.8 fl (80-96); MEAN PLT VOLUME 7.9 fl (7.5-11.1); MONO % 7.2 % (3.8-10.2); PLATELET COUNT 219 10^3/uL (134-434); RBC 4.05 M/mm3 (4.00-5.60); RDW 16.7 % (11.9-15.9); WHITE BLOOD COUNT 6.4 K/mm3 (4.0-10.0)
[2021-09-08 13:46] LABS: ALBUMIN 2.4 g/dl (3.4-5.0); CALCIUM 8.5 mg/dL (8.5-10.1)
[2021-09-08 13:48] LABS: INR 1.25 (0.83-1.09); PROTHROMBIN TIME (PATIENT) 14.7 SEC (9.7-13.0)
[2021-09-08 13:49] LABS: CREATININE 0.9 mg/dL (0.55-1.3)
[2021-09-08 13:50] LABS: ACTIVATED PTT 29.5 SECONDS (25.2-36.5)
[2021-09-08 13:51] LABS: BILIRUBIN,TOTAL 0.6 mg/dL (0.2-1); TOT PROT 7.2 g/dl (6.4-8.2)
[2021-09-08] MEDS ORDERED: ASPIRIN 81 MG CHEWABLE TABLETS PO ONE (15:42)
[2021-09-08] MEDS ORDERED: ASPIRIN 81 MG CHEWABLE TABLETS ONE (15:47)
[2021-09-08 16:25] LABS: EPI CELLS 1 /uL (0-25.1); HYALINE CASTS 0 /uL (0-3.1); PH,URINE 6.5 (5.0-8.0); URINE APPEARANCE CLOUDY; URINE BACTERIA 2517 /uL (0-1359); URINE BILIRUBIN NEGATIVE (NEGATIVE); URINE COLOR YELLOW; URINE GLUCOSE (UA) NEGATIVE (NEGATIVE); URINE KETONE NEGATIVE (NEGATIVE); URINE LEUK ESTERASE 2+ (NEGATIVE); URINE NITRITE NEGATIVE (NEGATIVE); URINE PROTEIN 1+ (NEGATIVE); URINE RBC 735 /uL (0-23.9); URINE WBC 1433 /uL (0-25.8)
[2021-09-08] MEDS ORDERED: CEFTRIAXONE 1 GM in DEXTROSE 5%-WATER - 100 ML IVPB ONE (16:42)
[2021-09-08] MEDS ORDERED: CEFTRIAXONE 1 GM/50 ML BAG ONE (18:30)
[2021-09-08] MEDS ORDERED: ATORVASTATIN CA 40 MG TABLET (FP) ONE ×2 (23:15→23:16)
[2021-09-08] MEDS ORDERED: METOPROLOL TARTRATE 50 MG TABLET (FP) ONE (23:15)
[2021-09-08] MEDS ORDERED: METOPROLOL TARTRATE 25 MG TABLET (FP) ONE (23:15)
[2021-09-08] MEDS: METOPROLOL TARTRATE 50 MG TABLET (FP) PO SCH (23:20)
[2021-09-08] MEDS: ATORVASTATIN CA 40 MG TABLET (FP) PO SCH (23:20)
[2021-09-09] MEDS: ACETAMINOPHEN 325 MG TABLET (FP) PO PRN ×2 (01:09→09:27)
[2021-09-09 04:42] VITALS: BMI 28.0
[2021-09-09] MEDS: INSULIN SLIDING SCALE (NOVOLOG) 1 VIAL SQ SCH ×3 (06:22→16:22)
[2021-09-09 08:11] LABS: BASO % 0.3 % (0-2.0); HEMATOCRIT 32.9 % (35.4-49); HEMOGLOBIN 10.9 GM/dL (11.7-16.9); LYMPH % 23.8 % (8-40); MCH 28.7 pg (25.7-33.7); MEAN CELL VOLUME 86.9 fl (80-96); MEAN PLT VOLUME 8.4 fl (7.5-11.1); MONO % 9.9 % (3.8-10.2); PLATELET COUNT 235 10^3/uL (134-434); RBC 3.79 M/mm3 (4.00-5.60); RDW 16.8 % (11.9-15.9); WHITE BLOOD COUNT 5.2 K/mm3 (4.0-10.0)
[2021-09-09 08:31] LABS: BLOOD UREA NITROGEN 15.9 mg/dL (7-18); CALCIUM 8.4 mg/dL (8.5-10.1)
[2021-09-09 08:35] LABS: CREATININE 0.8 mg/dL (0.55-1.3)
[2021-09-09 08:36] LABS: BILIRUBIN,TOTAL 0.7 mg/dL (0.2-1); TOT PROT 6.4 g/dl (6.4-8.2)
[2021-09-09] MEDS ORDERED: cefTRIAXone SODIUM 1 GM VIAL ONE (09:15)
[2021-09-09] MEDS ORDERED: DEXTROSE 5%-WATER - 50 ML IVPB ONE (09:15)
[2021-09-09] MEDS: TAMSULOSIN HCL 0.4 MG CAP PO SCH (09:23)
[2021-09-09] MEDS: METOPROLOL TARTRATE 50 MG TABLET (FP) PO SCH ×2 (09:23→22:01)
[2021-09-09] MEDS: CEFTRIAXONE 1 GM in DEXTROSE 5%-WATER - 50 ML IVPB SCH (09:24)
[2021-09-09] MEDS: ATORVASTATIN CA 40 MG TABLET (FP) PO SCH (22:01)
[2021-09-09] MEDS: APIXABAN 5 MG TABLET PO SCH (22:01)
[2021-09-10] MEDS: INSULIN SLIDING SCALE (NOVOLOG) 1 VIAL SQ SCH ×3 (06:38→17:23)
[2021-09-10] MEDS ORDERED: cefTRIAXone SODIUM 1 GM VIAL ONE (09:18)
[2021-09-10] MEDS ORDERED: DEXTROSE 5%-WATER - 50 ML IVPB ONE (09:18)
[2021-09-10] MEDS: CEFTRIAXONE 1 GM in DEXTROSE 5%-WATER - 50 ML IVPB SCH (09:22)
[2021-09-10] MEDS: TAMSULOSIN HCL 0.4 MG CAP PO SCH (09:22)
[2021-09-10] MEDS: APIXABAN 5 MG TABLET PO SCH ×2 (09:22→22:05)
[2021-09-10] MEDS: METOPROLOL TARTRATE 50 MG TABLET (FP) PO SCH ×2 (09:22→22:05)
[2021-09-10] MEDS: ATORVASTATIN CA 40 MG TABLET (FP) PO SCH (22:05)
[2021-09-11] MEDS: INSULIN SLIDING SCALE (NOVOLOG) 1 VIAL SQ SCH ×3 (06:40→17:17)
[2021-09-11 07:06] LABS: BASO % 0.6 % (0-2.0); EOS % 3.6 % (0-4.5); HEMATOCRIT 33.5 % (35.4-49); LYMPH % 32.6 % (8-40); MCH 28.8 pg (25.7-33.7); MCHC 32.7 g/dl (32.0-35.9); MEAN CELL VOLUME 87.8 fl (80-96); MEAN PLT VOLUME 7.6 fl (7.5-11.1); MONO % 8.4 % (3.8-10.2); NEUT % 54.8 % (42.8-82.8); PLATELET COUNT 263 10^3/uL (134-434); RBC 3.81 M/mm3 (4.00-5.60); RDW 16.9 % (11.9-15.9); WHITE BLOOD COUNT 5.2 K/mm3 (4.0-10.0)
[2021-09-11 07:17] LABS: BLOOD UREA NITROGEN 15.6 mg/dL (7-18); CALCIUM 8.7 mg/dL (8.5-10.1)
[2021-09-11 07:21] LABS: CREATININE 0.9 mg/dL (0.55-1.3)
[2021-09-11] MEDS: TAMSULOSIN HCL 0.4 MG CAP PO SCH (09:01)
[2021-09-11] MEDS ORDERED: cefTRIAXone SODIUM 1 GM VIAL ONE (09:03)
[2021-09-11] MEDS ORDERED: DEXTROSE 5%-WATER - 50 ML IVPB ONE (09:03)
[2021-09-11] MEDS: APIXABAN 5 MG TABLET PO SCH ×2 (10:01→21:36)
[2021-09-11] MEDS: METOPROLOL TARTRATE 50 MG TABLET (FP) PO SCH ×2 (10:02→21:36)
[2021-09-11] MEDS: CEFTRIAXONE 1 GM in DEXTROSE 5%-WATER - 50 ML IVPB SCH (10:02)
[2021-09-11] MEDS: ATORVASTATIN CA 40 MG TABLET (FP) PO SCH (21:36)
[2021-09-12] MEDS: INSULIN SLIDING SCALE (NOVOLOG) 1 VIAL SQ SCH ×3 (06:52→17:09)
[2021-09-12] MEDS: TAMSULOSIN HCL 0.4 MG CAP PO SCH (08:06)
[2021-09-12] MEDS ORDERED: cefTRIAXone SODIUM 1 GM VIAL ONE (08:49)
[2021-09-12] MEDS ORDERED: DEXTROSE 5%-WATER - 50 ML IVPB ONE (08:49)
[2021-09-12] MEDS: CEFTRIAXONE 1 GM in DEXTROSE 5%-WATER - 50 ML IVPB SCH (09:10)
[2021-09-12] MEDS: APIXABAN 5 MG TABLET PO SCH ×2 (09:11→22:02)
[2021-09-12] MEDS: METOPROLOL TARTRATE 50 MG TABLET (FP) PO SCH ×2 (09:11→22:02)
[2021-09-12] MEDS: ATORVASTATIN CA 40 MG TABLET (FP) PO SCH (22:02)
[2021-09-13] MEDS: INSULIN SLIDING SCALE (NOVOLOG) 1 VIAL SQ SCH ×3 (06:18→16:41)
[2021-09-13 07:44] LABS: BASO % 0.6 % (0-2.0); EOS % 2.9 % (0-4.5); HEMATOCRIT 32.6 % (35.4-49); HEMOGLOBIN 11.1 GM/dL (11.7-16.9); LYMPH % 25.8 % (8-40); MCH 29.7 pg (25.7-33.7); MCHC 34.1 g/dl (32.0-35.9); MEAN CELL VOLUME 87.1 fl (80-96); MONO % 6.4 % (3.8-10.2); NEUT % 64.3 % (42.8-82.8); PLATELET COUNT 323 10^3/uL (134-434); RBC 3.74 M/mm3 (4.00-5.60); RDW 16.8 % (11.9-15.9); WHITE BLOOD COUNT 6.2 K/mm3 (4.0-10.0)
[2021-09-13 07:57] LABS: BLOOD UREA NITROGEN 16.6 mg/dL (7-18); CALCIUM 8.5 mg/dL (8.5-10.1)
[2021-09-13 08:00] LABS: CREATININE 0.9 mg/dL (0.55-1.3)
[2021-09-13] MEDS ORDERED: DEXTROSE 5%-WATER - 50 ML IVPB ONE (08:35)
[2021-09-13] MEDS ORDERED: cefTRIAXone SODIUM 1 GM VIAL ONE (08:35)
[2021-09-13] MEDS: APIXABAN 5 MG TABLET PO SCH ×2 (09:21→22:24)
[2021-09-13] MEDS: METOPROLOL TARTRATE 50 MG TABLET (FP) PO SCH ×2 (09:21→22:24)
[2021-09-13] MEDS: TAMSULOSIN HCL 0.4 MG CAP PO SCH (09:21)
[2021-09-13] MEDS: CEFTRIAXONE 1 GM in DEXTROSE 5%-WATER - 50 ML IVPB SCH (09:21)
[2021-09-13] MEDS: ATORVASTATIN CA 40 MG TABLET (FP) PO SCH (22:24)
[2021-09-13 23:16] VITALS: BP 143/73; PULSE 80; TEMP 99.1
== END 2021-09-13 21:45 | disposition home or self-care (01) | DRG 698 ==
LOC: JER 10:30 → JERBED 15:41 → J4S 09-09 00:14
PROVIDERS: ADMIT Internal Medicine; ATTEND Family Medicine
DX: T83.511A Infection and inflammatory reaction due to indwelling urethral catheter, initial encounter (principal); G93.41 Metabolic encephalopathy; I50.32 Chronic diastolic (congestive) heart failure; N17.9 Acute kidney failure, unspecified; I48.92 Unspecified atrial flutter; N39.0 Urinary tract infection, site not specified; E11.9 Type 2 diabetes mellitus without complications; I11.0 Hypertensive heart disease with heart failure; I48.0 Paroxysmal atrial fibrillation; N40.0 Benign prostatic hyperplasia without lower urinary tract symptoms; B96.1 Klebsiella pneumoniae [K. pneumoniae] as the cause of diseases classified elsewhere; Y84.8 Other medical procedures as the cause of abnormal reaction of the patient, or of later complication, without mention of misadventure at the time of the procedure
CPT/HCPCS: 36415; 70450-TC; 71045-TC-FY; 72125-TC; 80048; 80053; 81003; 82550; 82962; 84484; 85025; 85610; 85730; 86850; 86900; 86901; 87040; 87086; 87186; 90715; 93005; 93010; 97116-GP; 97161-GP; 99285-25; C9803; U0003; U0005

== ENCOUNTER 2021-10-27 09:24 | Inpatient (IN) | payer OTHER ==
[2021-10-27 12:40] LABS: BASO % 0.1 % (0-2.0); HEMATOCRIT 31.5 % (35.4-49); HEMOGLOBIN 10.5 GM/dL (11.7-16.9); LYMPH % 6.1 % (8-40); MCH 30.1 pg (25.7-33.7); MCHC 33.3 g/dl (32.0-35.9); MEAN CELL VOLUME 90.4 fl (80-96); MEAN PLT VOLUME 8.2 fl (7.5-11.1); MONO % 6.6 % (3.8-10.2); NEUT % 87.2 % (42.8-82.8); PLATELET COUNT 247 10^3/uL (134-434); RBC 3.48 M/mm3 (4.00-5.60); RDW 18.5 % (11.9-15.9); WHITE BLOOD COUNT 9.6 K/mm3 (4.0-10.0)
[2021-10-27 12:48] LABS: INR 1.36 (0.83-1.09)
[2021-10-27 12:51] LABS: ACTIVATED PTT 23.3 SECONDS (25.2-36.5)
[2021-10-27 12:59] LABS: ALBUMIN 2.4 g/dl (3.4-5.0); BLOOD UREA NITROGEN 20.5 mg/dL (7-18); CALCIUM 8.6 mg/dL (8.5-10.1)
[2021-10-27 13:02] LABS: CREATININE 1.2 mg/dL (0.55-1.3)
[2021-10-27 13:03] LABS: EPI CELLS 1 /uL (0-25.1); HYALINE CASTS 0 /uL (0-3.1); PH,URINE 5.5 (5.0-8.0); TOT PROT 7.3 g/dl (6.4-8.2); URINE APPEARANCE TURBID; URINE BACTERIA >9,000 /uL (0-1359); URINE BILIRUBIN NEGATIVE (NEGATIVE); URINE COLOR ORANGE; URINE GLUCOSE (UA) 2+ (NEGATIVE); URINE KETONE TRACE (NEGATIVE); URINE LEUK ESTERASE 2+ (NEGATIVE); URINE NITRITE NEGATIVE (NEGATIVE); URINE PROTEIN 2+ (NEGATIVE); URINE WBC 4181 /uL (0-25.8)
[2021-10-27 13:29] LABS: URINE RBC 951 /uL (0-23.9); YEAST NO SEEN (NEGATIVE)
[2021-10-27] MEDS ORDERED: CEFTRIAXONE 1,000 MG in DEXTROSE 5%-WATER - 50 ML IVPB ONE (13:29)
[2021-10-27] MEDS ORDERED: CEFTRIAXONE 1 GM/50 ML BAG ONE (14:02)
[2021-10-27 14:33] LABS: ALBUMIN 2.7 g/dl (3.4-5.0); BLOOD UREA NITROGEN 19.8 mg/dL (7-18); CALCIUM 8.6 mg/dL (8.5-10.1)
[2021-10-27 14:37] LABS: CREATININE 1.1 mg/dL (0.55-1.3)
[2021-10-27 14:39] LABS: BILIRUBIN,TOTAL 0.8 mg/dL (0.2-1)
[2021-10-27] MEDS ORDERED: SODIUM CHLORIDE 0.9% 1000 ML INFUS.BAG IV ONE (14:52)
[2021-10-28 03:59] VITALS: BMI 26.4
[2021-10-28] MEDS: INSULIN SLIDING SCALE (NOVOLOG) 1 VIAL SQ SCH ×4 (06:17→21:18)
[2021-10-28] MEDS: INSULIN (LEVEMIR) 100 UNITS/ML UNITS SQ SCH (06:18)
[2021-10-28 09:38] LABS: BASO % 0.3 % (0-2.0); EOS % 0.4 % (0-4.5); HEMOGLOBIN 9.8 GM/dL (11.7-16.9); LYMPH % 17.4 % (8-40); MCH 30.5 pg (25.7-33.7); MCHC 33.7 g/dl (32.0-35.9); MEAN CELL VOLUME 90.6 fl (80-96); MEAN PLT VOLUME 8.4 fl (7.5-11.1); MONO % 10.6 % (3.8-10.2); NEUT % 71.3 % (42.8-82.8); PLATELET COUNT 242 10^3/uL (134-434); RDW 17.9 % (11.9-15.9); WHITE BLOOD COUNT 6.4 K/mm3 (4.0-10.0)
[2021-10-28] MEDS ORDERED: METOPROLOL TARTRATE 50 MG TABLET (FP) ONE ×2 (09:49→21:05)
[2021-10-28] MEDS ORDERED: METOPROLOL TARTRATE 25 MG TABLET (FP) ONE ×2 (09:49→21:05)
[2021-10-28] MEDS ORDERED: cefTRIAXone SODIUM 1 GM VIAL ONE (09:49)
[2021-10-28] MEDS ORDERED: DEXTROSE 5%-WATER - 50 ML IVPB ONE (09:50)
[2021-10-28] MEDS: METOPROLOL TARTRATE 50 MG, METOPROLOL TARTRATE 25 MG PO SCH ×2 (09:51→21:16)
[2021-10-28] MEDS: POTASSIUM CHLORIDE TABS 20 MEQ TABLET.ER (FP) PO SCH (09:51)
[2021-10-28] MEDS: ASPIRIN 81 MG CHEWABLE TABLETS PO SCH (09:51)
[2021-10-28] MEDS: POLYETHYLENE GLYCOL (HEALTHYLAX) 3350 17 GM PACKET PO SCH (09:51)
[2021-10-28] MEDS: APIXABAN 2.5 MG TABLET PO SCH ×2 (09:52→21:16)
[2021-10-28] MEDS: CEFTRIAXONE 1 GM in DEXTROSE 5%-WATER - 50 ML IVPB SCH (09:52)
[2021-10-28] MEDS: TAMSULOSIN HCL 0.4 MG CAP PO SCH (09:52)
[2021-10-28] MEDS ORDERED: METOPROLOL TARTRATE 50 MG TABLET (FP) PO SCH (10:00)
[2021-10-28 10:17] LABS: ALBUMIN 2.3 g/dl (3.4-5.0)
[2021-10-28 10:19] LABS: CREATININE 0.8 mg/dL (0.55-1.3)
[2021-10-28 10:20] LABS: TOT PROT 6.3 g/dl (6.4-8.2)
[2021-10-28 10:21] LABS: BILIRUBIN,TOTAL 0.8 mg/dL (0.2-1); BLOOD UREA NITROGEN 12.8 mg/dL (7-18); CALCIUM 8.6 mg/dL (8.5-10.1)
[2021-10-28] MEDS ORDERED: INSULIN (NOVOLOG) ASPART 100 UNITS/ML 10ML VIAL ONE (21:05)
[2021-10-28] MEDS: ATORVASTATIN CA 40 MG TABLET (FP) PO SCH (21:16)
[2021-10-29] MEDS: INSULIN SLIDING SCALE (NOVOLOG) 1 VIAL SQ SCH ×4 (06:54→22:25)
[2021-10-29] MEDS: INSULIN (LEVEMIR) 100 UNITS/ML UNITS SQ SCH (06:54)
[2021-10-29] MEDS: TAMSULOSIN HCL 0.4 MG CAP PO SCH (08:50)
[2021-10-29] MEDS ORDERED: DEXTROSE 5%-WATER - 50 ML IVPB ONE (09:27)
[2021-10-29] MEDS ORDERED: METOPROLOL TARTRATE 25 MG TABLET (FP) ONE ×2 (09:27→21:03)
[2021-10-29] MEDS ORDERED: METOPROLOL TARTRATE 50 MG TABLET (FP) ONE ×2 (09:27→21:03)
[2021-10-29] MEDS ORDERED: cefTRIAXone SODIUM 1 GM VIAL ONE (09:27)
[2021-10-29] MEDS: ASPIRIN 81 MG CHEWABLE TABLETS PO SCH (10:00)
[2021-10-29] MEDS: POTASSIUM CHLORIDE TABS 20 MEQ TABLET.ER (FP) PO SCH (10:00)
[2021-10-29] MEDS: POLYETHYLENE GLYCOL (HEALTHYLAX) 3350 17 GM PACKET PO SCH (10:01)
[2021-10-29] MEDS: METOPROLOL TARTRATE 50 MG, METOPROLOL TARTRATE 25 MG PO SCH ×2 (10:01→21:57)
[2021-10-29] MEDS: CEFTRIAXONE 1 GM in DEXTROSE 5%-WATER - 50 ML IVPB SCH (10:02)
[2021-10-29] MEDS: APIXABAN 5 MG TABLET PO SCH ×2 (10:04→22:25)
[2021-10-29] MEDS: ERTAPENEM SODIUM 1 GM in SODIUM CHLORIDE 50 ML IVPB SCH (18:40)
[2021-10-29] MEDS: ATORVASTATIN CA 40 MG TABLET (FP) PO SCH (22:38)
[2021-10-30] MEDS: INSULIN SLIDING SCALE (NOVOLOG) 1 VIAL SQ SCH ×4 (06:12→21:37)
[2021-10-30] MEDS: INSULIN (LEVEMIR) 100 UNITS/ML UNITS SQ SCH (06:33)
[2021-10-30] MEDS ORDERED: METOPROLOL TARTRATE 50 MG TABLET (FP) ONE ×2 (10:06→20:52)
[2021-10-30] MEDS ORDERED: METOPROLOL TARTRATE 25 MG TABLET (FP) ONE ×2 (10:06→20:51)
[2021-10-30] MEDS: TAMSULOSIN HCL 0.4 MG CAP PO SCH (10:14)
[2021-10-30] MEDS: ASPIRIN 81 MG CHEWABLE TABLETS PO SCH (10:14)
[2021-10-30] MEDS: METOPROLOL TARTRATE 50 MG, METOPROLOL TARTRATE 25 MG PO SCH ×2 (10:14→21:37)
[2021-10-30] MEDS: APIXABAN 5 MG TABLET PO SCH ×2 (10:14→21:37)
[2021-10-30] MEDS: POLYETHYLENE GLYCOL (HEALTHYLAX) 3350 17 GM PACKET PO SCH (10:15)
[2021-10-30] MEDS: POTASSIUM CHLORIDE TABS 20 MEQ TABLET.ER (FP) PO SCH (10:15)
[2021-10-30] MEDS: ERTAPENEM SODIUM 1 GM in SODIUM CHLORIDE 50 ML IVPB SCH (10:15)
[2021-10-30 14:01] LABS: CALCIUM 8.4 mg/dL (8.5-10.1)
[2021-10-30 14:02] LABS: BLOOD UREA NITROGEN 16.6 mg/dL (7-18)
[2021-10-30 14:05] LABS: CREATININE 0.9 mg/dL (0.55-1.3)
[2021-10-30 16:28] VITALS: PULSE 87
[2021-10-30] MEDS ORDERED: INSULIN (NOVOLOG) ASPART 100 UNITS/ML 10ML VIAL ONE (20:51)
[2021-10-30 21:34] VITALS: BP 140/85; TEMP 98.3
[2021-10-30] MEDS: ATORVASTATIN CA 40 MG TABLET (FP) PO SCH (21:37)
== END 2021-10-31 01:41 | DRG 690 ==
LOC: JER 09:24 → JERBED 16:35 → J8W 10-28 03:06
PROVIDERS: ADMIT Family Medicine; ATTEND Family Medicine
DX: N39.0 Urinary tract infection, site not specified (principal); I50.22 Chronic systolic (congestive) heart failure; I69.351 Hemiplegia and hemiparesis following cerebral infarction affecting right dominant side; N17.9 Acute kidney failure, unspecified; I48.0 Paroxysmal atrial fibrillation; N40.0 Benign prostatic hyperplasia without lower urinary tract symptoms; E11.40 Type 2 diabetes mellitus with diabetic neuropathy, unspecified; I11.0 Hypertensive heart disease with heart failure; D50.9 Iron deficiency anemia, unspecified; F32.9 Major depressive disorder, single episode, unspecified; B96.1 Klebsiella pneumoniae [K. pneumoniae] as the cause of diseases classified elsewhere; D64.9 Anemia, unspecified; R31.9 Hematuria, unspecified; Z86.718 Personal history of other venous thrombosis and embolism
CPT/HCPCS: 36415; 36569; 71045-TC-FY; 74177-TC; 77001-TC-FY; 80048; 80053; 81003; 82962; 83605; 83690; 85025; 85610; 85730; 86850; 86900; 86901; 87086; 87186; 93005; 93010; 99285-25; C1751; C9803; U0003; U0005

== ENCOUNTER 2022-03-05 19:50 | Emergency (ER) | payer OTHER ==
[2022-03-05] MEDS ORDERED: CALCIUM CHLORIDE 1 GM/10 ML *DISP.SYRIN ONE (20:02)
[2022-03-05 20:56] VITALS: BP 0/0; BMI 35.3
== END 2022-03-05 23:57 | disposition expired ==
LOC: JER 19:50
PROC: 5A02216 Assistance with Cardiac Output using Other Pump, Continuous (ICD-10-PCS; principal; 2022-03-05)
DX: I46.9 Cardiac arrest, cause unspecified (principal)
CPT/HCPCS: 93925-TC; 93970-TC; 99291; G0463-25